=== PATIENT | male | born 1940 | race Caucasian/White ===

== ENCOUNTER 2018-05-31 12:16 | Emergency (ER) | payer MEDICARE ==
[~2018-05-31] VITALS: Ht 177.8 cm; Wt 122.5 kg
[~2018-05-31 12:16] MED LIST: ASPIRIN EC81 MG PO; ATACAND32 MG PO; CLINDAMYCIN HC300 MG PO; FUROSEMIDE40 MG PO; GLIMEPIRIDE4 MG PO; IRON325 M1 PO; LANTUS100 UNITS/ SUB-Q; LEVOTHYROXINE100 MCG PO; LIPITOR40 MG PO; LOSARTAN POTAS100 MG PO; METFORMIN HCL500 MG PO; METOPROLOL SUC200 MG PO; METOPROLOL TART50 MG PO; OXYCODONE HCL10 MG PO; PERCOCET 10-321 EACH PO; PRILOSEC OTC20 MG PO; PRILOSEC20 MG PO; PROBENECID-COL1 EACH PO; SERTRALINE HCL50 MG PO; ULORIC80 MG PO; VENLAFAXINE H37.5 M1 PO; VITAMIN D5000 UNIT PO; WARFARIN SODIUM5 MG PO
[2018-05-31] MEDS ORDERED: PEPCID40 MG PO (12:39)
[2018-05-31] MEDS ORDERED: INDOMETHACIN25 MG PO (12:43)
[2018-05-31] MEDS ORDERED: HYDROXYZINE PAM50 MG PO (12:45)
[2018-05-31] MEDS ORDERED: IRON325 M1 PO (12:46)
[2018-05-31] MEDS ORDERED: AUGMENTIN 875-1 EACH PO (14:58)
== END 2018-05-31 15:12 | disposition home or self-care (01) ==
LOC: ED 12:16
DX: K57.32 Diverticulitis of large intestine without perforation or abscess without bleeding (principal); I48.91 Unspecified atrial fibrillation; I10 Essential (primary) hypertension; E11.9 Type 2 diabetes mellitus without complications; Z88.1 Allergy status to other antibiotic agents; Z88.8 Allergy status to other drugs, medicaments and biological substances; Z79.899 Other long term (current) drug therapy; Z79.01 Long term (current) use of anticoagulants; Z79.82 Long term (current) use of aspirin; Z79.4 Long term (current) use of insulin
CPT/HCPCS: 74177; 80053; 81001; 83690; 85025; 85610; 99284-25; Q9967

== ENCOUNTER 2018-09-15 07:50 | Day surgery (SDC) | payer MEDICARE, OTHER ==
[~2018-09-15] VITALS: Ht 177.8 cm; Wt 114.3 kg
[~2018-09-15 07:50] MED LIST changes: +ALLOPURINOL300 MG PO; +AUGMENTIN 875-1 EACH PO; +HYDROXYZINE PAM50 MG PO; +INDOMETHACIN25 MG PO; +METOPROLOL SUCC50 MG PO; +PEPCID40 MG PO; +RELION NOV100 UNIT/1 SUB-Q
--- NOTE | 2018-09-15 10:42 | NUR ---
09/15/18 1042 Ynes Frost 1033-PATIENT ARRIVED TO PACU ON 10L MASK NONAROUSABLE ORAL AIRWAY IN PLACE. RR EVEN. AFIB. IVF INFUSING. PATIENT LAYING LEFT LATERAL. LEFT LEG IS VERY LARGE AND SWOLLEN SAME PREOP. AFIB. 1041-PATIENT ON 6L OM COUGHING AND GAGGING ON ORAL AIRWAY ALONG WITH PASSING GAS. PATIENT SLIGHTLY OPENS EYES ORAL AIRWAY REMOVED. PATIENT DOZES BACK TO SLEEP. RR EVEN. 6L OM 100%
--- NOTE | 2018-09-16 06:44 | OR ---
[facility] [address] [place], [place] [address] Signed DATE OF OPERATION: 09/15/2018 SURGEON: Eliazar Goncalves MD PREOPERATIVE DIAGNOSES: 1. Recent 1st episode sigmoid diverticulitis. 2. Diarrhea following cholecystectomy. 3. Anorexia. 4. Weight loss. POSTOPERATIVE DIAGNOSES: 1. Polyps at 8, 55, 60, cecum x2, distal right colon x2, 45 cm and 25 cm (snare). 2. Moderate left and sigmoid diverticulosis. 3. Moderate internal and external hemorrhoids. 4. Erythema/narrowing at 22-24 cm. PROCEDURE PERFORMED: Colonoscopy with snare polypectomy, and hot biopsy. ESTIMATED BLOOD LOSS: None. INDICATIONS: Josy is a 78-year-old significantly debilitated gentleman who recently went to our emergency room with left lower quadrant abdominal pain. He had diverticulitis on the CT scan. He took 10 days of Augmentin. He was asked to see me for a followup colonoscopy. He said he has never had a colonoscopy ever in his life. He talked about having diarrhea since his gallbladder came out in September 2016. He said he still has a little bit of pain somewhere near the bladder area. Consequently, we sent an additional week of Augmentin into the pharmacy. In the office, I gave Kranthi and his a booklet on diverticulitis as well as colonoscopy. We did review the nature of the test along with the risks including, but not limited to gas, bloating, crampy abdominal pain, bleeding, perforation, requiring surgery, and missed diagnosis. We also discussed the need for IV conscious sedation. Given Josy's size and his significant medical issues, we asked the anesthesia provider help us with increased monitoring sedation with propofol. He had expressed understanding wished to proceed. DESCRIPTION OF PROCEDURE: Josy was taken into our endoscopy suite and placed in the left lateral decubitus position. He was maintained on IV sedation with propofol per our nurse dispatch lead. A Electronically Signed By: ELIAZAR GONCALVES MD 09/16/18 0644 PATIENT NAME: JOSY GOMEZ OPERATIVE REPORT DATE OF : 40 REPORT #: [id number] PHYSICIAN: ELIAZAR GONCALVES MD PCP: JORGE KAUR MD REPORT IS CONFIDENTIAL AND NOT TO BE RELEASED WITHOUT AUTHORIZATION [facility] [address] [place], [place] [address] Signed digital rectal exam was performed. He does have moderate circumferential external hemorrhoids. His prostate gland is moderately enlarged and indurated. I did not feel a specific nodule. The adult colonoscope was introduced and advanced all around into the cecum under direct visualization of camera without difficulty. His prep was good. The scope was slowly withdrawn. The above-mentioned polyps were easily removed with the help of hot biopsy forceps. We did use our snare at 25 cm. We collected that polyp on the end of the scope and passed it off the field for pathologic review. He also has left and sigmoid colon diverticulosis. They are moderate size moderate number and scattered about. There was an area red about 20-24 cm. There was still a little bit erythema and just a little bit narrow, but the scope did get through it. I suspect this might be the area that is causing him a little bit of symptoms. The scope was then retroflexed in the rectum and he does have xlvwvtr-sn-tqnumptm internal hemorrhoid columns as well. After this, the gas was suctioned out and colonoscope removed. Josy tolerated the procedure quite well. RECOMMENDATIONS: I will see Josy in my office in 7 to 14 days to review his results. He can resume his Coumadin and his aspirin in 1 week. His other medications he can resume today. Eliazar Goncalves MD [facility] /[id number] cc: HERO Cid MD Andrew L Bower, MD Copies: SHANKAR KATE MALCOLM MD Electronically Signed By: ELIAZAR GONCALVES MD 09/16/18 0644 PATIENT NAME: JOSY GOMEZ OPERATIVE REPORT DATE OF : 40 REPORT #: [id number] PHYSICIAN: ELIAZAR GONCALVES MD PCP: JORGE KAUR MD REPORT IS CONFIDENTIAL AND NOT TO BE RELEASED WITHOUT AUTHORIZATION [address] [address] Signed ELIAZAR GONCALVES MD ~ Electronically Signed By: ELIAZAR GONCALVES MD 09/16/18 0644 PATIENT NAME: JOSY GOMEZ DAPHNEY OPERATIVE REPORT DATE OF : 40 REPORT #: [id number] PHYSICIAN: ELIAZAR GONCALVES MD PCP: JORGE KAUR MD REPORT IS CONFIDENTIAL AND NOT TO BE RELEASED WITHOUT AUTHORIZATION
== END 2018-09-15 11:35 | disposition home or self-care (01) ==
LOC: DS 07:50 → OPS 07:50
PROVIDERS: Colon & Rectal Surgery
PROC: 0DBE8ZZ Excision of Large Intestine, Via Natural or Artificial Opening Endoscopic (ICD-10-PCS; 2018-09-15)
PROC: 0DBK8ZZ Excision of Ascending Colon, Via Natural or Artificial Opening Endoscopic (ICD-10-PCS; 2018-09-15)
PROC: 0DBH8ZZ Excision of Cecum, Via Natural or Artificial Opening Endoscopic (ICD-10-PCS; principal; 2018-09-15 09:00)
DX: D12.0 Benign neoplasm of cecum (principal); D12.6 Benign neoplasm of colon, unspecified; K63.5 Polyp of colon; K57.30 Diverticulosis of large intestine without perforation or abscess without bleeding; K64.8 Other hemorrhoids; K64.4 Residual hemorrhoidal skin tags; K21.9 Gastro-esophageal reflux disease without esophagitis; I10 Essential (primary) hypertension; E78.1 Pure hyperglyceridemia; E66.9 Obesity, unspecified; E55.9 Vitamin D deficiency, unspecified; E03.9 Hypothyroidism, unspecified; I25.10 Atherosclerotic heart disease of native coronary artery without angina pectoris; I42.9 Cardiomyopathy, unspecified; G89.29 Other chronic pain; E11.9 Type 2 diabetes mellitus without complications; Z90.49 Acquired absence of other specified parts of digestive tract; Z88.0 Allergy status to penicillin; Z95.1 Presence of aortocoronary bypass graft; Z88.8 Allergy status to other drugs, medicaments and biological substances; Z88.7 Allergy status to serum and vaccine; Z79.899 Other long term (current) drug therapy; Z79.4 Long term (current) use of insulin
CPT/HCPCS: J2704; J7120

== ENCOUNTER 2018-12-19 14:09 | Emergency (ER) | payer MEDICARE, OTHER ==
[~2018-12-19] VITALS: Ht 177.8 cm; Wt 114.3 kg
--- OUTSIDE RECORDS SUMMARY | 2018-12-19 14:12 | XMS ---
PreManage Notification: MELINA GOMEZ Security Locket Maker Events No recent Security Events currently on file CRITERIA MET - PDMP CARE PROVIDERS Doroteo Felder MD Primary Care Current PHONE: Unknown orcate Case or Disc Pad Grinding Machine Feeder Current PHONE: Unknown [facility] PHONE: Unknown Susu has no Care Guidelines for this patient. E.D. VISIT COUNT (12 MO.) 2 [facility] TOTAL 2 NOTE: Visits indicate total known visits. ED/UCC VISIT TRACKING (12 MO.) 12/19/2018 14:10 [facility] [place] TYPE: Emergency COMPLAINT: - AMB L SHOULDER NECK PN 05/31/2018 12:16 [facility] [place] TYPE: Emergency COMPLAINT: - ABD PAIN/DIARRHEA DIAGNOSES: - Allergy status to other antibiotic agents status - group home (current) use of insulin - Other patch sander (current) drug therapy - Left lower quadrant pain - Allergy status to other drugs, medicaments and biological substances status - group home (current) use of aspirin - Diverticulitis of large intestine without perforation or abscess without bleeding - Unspecified atrial fibrillation - Essential (primary) hypertension - 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
[2018-12-19] MEDS ORDERED: NORCO 5-325 TA1 EACH PO (18:24)
--- NOTE | 2018-12-19 20:43 | EKG ---
[facility] [address] [facility] [place] [address] Signed Atrial fibrillation with premature ventricular or aberrantly conducted complexes Nonspecific T wave abnormality Abnormal ECG When compared with ECG of 15-JUL-2018 13:22, Atrial fibrillation has replaced Junctional rhythm Vent. rate has increased BY [address] no longer depressed in Inferior leads T wave inversion now evident in Inferior leads Confirmed by ALLISON ASTORGA MD ([id number]) on 12/19/2018 8:42:54 PM Electronically Signed By: ALLSION ASTORGA MD 12/19/18 2043 PATIENT NAME: MELINA GOMEZ Electrocardiogram DATE OF : 40 PHYSICIAN: ALLISON ASTORGA MD REPORT #: [id number] REPORT IS CONFIDENTIAL AND NOT TO BE RELEASED WITHOUT AUTHORIZATION
== END 2018-12-19 18:36 | disposition home or self-care (01) ==
LOC: ED 14:09
DX: M25.512 Pain in left shoulder (principal); I10 Essential (primary) hypertension; E11.9 Type 2 diabetes mellitus without complications; I48.91 Unspecified atrial fibrillation; Z88.1 Allergy status to other antibiotic agents; Z88.8 Allergy status to other drugs, medicaments and biological substances; Z79.01 Long term (current) use of anticoagulants; Z79.82 Long term (current) use of aspirin; Z79.4 Long term (current) use of insulin; Z79.899 Other long term (current) drug therapy
CPT/HCPCS: 36415; 71045; 73030; 80053; 84484; 85025; 93005; 93010; 99284-25

== ENCOUNTER 2019-02-14 15:21 | Emergency (ER) | payer MEDICARE, OTHER ==
[~2019-02-14] VITALS: Ht 177.8 cm; Wt 114.3 kg
--- OUTSIDE RECORDS SUMMARY | ~2019-02-14 | XMS | Encounter Summary ---
Demographics + + + | Address | [address] | | | [place] [address] | + + + | Home Phone | | + + + | Preferred Language | Unknown | + + + | Marital Status | Single | + + + | Roman Catholic Affiliation | NON | + + + | Race | White | + + + | Ethnic Group | Not or | + + + Author + + + | Author | [facility] | + + + | Organization | [facility] | + + + | Address | Unknown | + + + | Phone | Unavailable | + + + Support + + + + + | Name | Relationship | Address | Phone | + + + + + | Chiara Cid | ECON | [address] | | | | | [place], | | | | | [place] [address] | | + + + + + Care Team Providers + +------+ + | Care Wood Stainer Name | Role | Phone | + +------+ + | Doroteo Felder MD | PCP | | + +------+ + Encounter Details +--------+ + + + + | Date | Type | Department | Care Team | Description | +--------+ + + + + | 03/12/ | Abstract | Trauma Emergency | [facility] [address] | | | 2009 | | General Surgery at | [facility] | | | | | [address] | [place], [place] | | | | | [address] | [address] | | | | | Mailcode: [id number] | | | | | | [facility] | | | | | | [address], [place] | | | | | | [address] | | | | | | [phone] | | | +--------+ + + + [...] + + documented as of this encounter Plan of Treatment Not on filedocumented as of this encounter Visit Diagnoses Not on filedocumented in this encounter"
--- OUTSIDE RECORDS SUMMARY | ~2019-02-14 | XMS | Clinical Summary ---
Demographics + + + | Address | [address] | | | [place] [address] | + + + | Home Phone | | + + + | Preferred Language | Unknown | + + + | Marital Status | | + + + | Tenriism Affiliation | Unknown | + + + | Race | Unknown | + + + | Ethnic Group | Unknown | + + + Author + + + | Author | [employer] (Historical as of | | | 11-27-18) | + + + | Organization | [facility] [facility] (Historical as of | | | 11-27-18) | + + + | Address | Unknown | + + + | Phone | Unavailable | + + + Support + + + + + | Name | Relationship | Address | Phone | + + + + + | Chiara Cid | ECON | [address] | | | | | [place] | | | | | [address] | | + + + + + | Josephine Meléndez | ECON | Unknown | | + + + + + Care Team Providers + +------+ + | Care Associate Field Service Engineer Name | Role | Phone | + +------+ + | Jalen Cortes MD | PP | | + +------+ + Allergies + + + + + + | Active Allergy | Reactions | Severity | Noted | Comments | | | | | Date | | + + + + + + | Duloxetine | Other (See Comments) | Medium | 12/04/19 | Prostate occlusion | | | | | 12 | | + + + + + + | Levofloxacin | Other (See Comments) | Medium | 01/06/20 | Achilles pain | | | | | 12 | | + + + + + + | Lisinopril | Cough | Low | 12/04/19 | | | | | | 12 | | + + + + + + Current Medications + + +--------+---------+------+------+-------+ | Prescription | Sig. | Disp. | Refills | Star | End | Statu | | | | | | t | Date | s | | | | | | Date | | | + + +--------+---------+------+------+-------+ | atorvastatin | Take 40 mg by mouth | | | | | Activ | | (LIPITOR) 40 MG | daily. | | | | | e | | tablet | | | | | | | + + +--------+---------+------+------+-------+ | aspirin 81 MG | Take 81 mg by mouth | | | | | Activ | | tablet | daily. | | | | | e | + + +--------+---------+------+------+-------+ | Cholecalciferol | Take 5,000 Units by | | | | | Activ | | (D3 SUPER STRENGTH | mouth daily. | | | | | e | | PO) | | | | | | | + + +--------+---------+------+------+-------+ | warfarin | Take 5 mg by mouth | | | | | Activ | | (COUMADIN) 5 MG | daily. 5 mg every | | | | | e | | tablet | day except 2.5mg on | | | | | | | | ./thursday, | | | | | | | | regulated by | | | | | | | | [facility] | | | | | | + + +--------+---------+------+------+-------+ | furosemide (LASIX) | Take 1 tablet by | | | 03/0 | | Activ | | 40 MG tablet | mouth 2 (two) times | | | 2/20 | | e | | | daily. | | | 16 | | | + + +--------+---------+------+------+-------+ | losartan (COZAAR) | Take 1 tablet by | 30 | 0 | 03/0 | 04/1 | Activ | | 100 MG tablet | mouth daily. | tablet | | 2/20 | 1/20 | e | | | | | | 16 | 20 | | + + +--------+---------+------+------+-------+ | indomethacin | Take 25 mg by mouth | | | | | Activ | | (INDOCIN) 25 MG | as needed. | | | | | e | | capsuleIndications: | | | | | | | | Acute Gouty | | | | | | | | Arthritis | | | | | | | + + +--------+---------+------+------+-------+ | ferrous sulfate, | Take 65 mg of iron | | | | | Activ | | 65 FE, 324 (65 Fe) | by mouth 3 (three) | | | | | e | | MG EC tablet | times a week. | | | | | | + + +--------+---------+------+------+-------+ | levothyroxine | Take 100 mcg by | | | | | Activ | | (SYNTHROID) 100 MCG | mouth every morning | | | | | e | | tablet | before breakfast. | | | | | | + + +--------+---------+------+------+-------+ | metFORMIN | Take 500 mg by mouth | | | | | Activ | | (GLUCOPHAGE) 500 MG | 2 (two) times daily | | | | | e | | tablet | with meals. | | | | | | + + +--------+---------+------+------+-------+ | famotidine | Take 40 mg by mouth | | | | | Activ | | (PEPCID) 40 MG | daily. | | | | | e | | tablet | | | | | | | + + +--------+---------+------+------+-------+ | venlafaxine | Take 37.5 mg by | | | | | Activ | | (EFFEXOR-XR) 37.5 MG | mouth daily with | | | | | e | | 24 hr capsule | breakfast. | | | | | | + + +--------+---------+------+------+-------+ | metoprolol | Take 1 tablet by | 30 | 11 | 04/ | 04/ | Activ | | (TOPROL-XL) 50 MG 24 | mouth daily. | tablet | | /20 | 0/20 | e | | hr | | | | 19 | 20 | | | tabletIndications: | | | | | | | | Chronic atrial | | | | | | | | fibrillation (HCC), | | | | | | | | Ischemic | | | | | | | | cardiomyopathy | | | | | | | + + +--------+---------+------+------+-------+ | allopurinol | Take 300 mg by mouth | | | | | Activ | | (ZYLOPRIM) 300 MG | daily. | | | | | e | | tablet | | | | | | | + + +--------+---------+------+------+-------+ | insulin - MIX | Inject 30 Units into | | | | | Activ | | insulin NPH-insulin | the skin 2 (two) | | | | | e | | regular 70/30 | times daily before | | | | | | | (HUMULIN, NOVOLIN | meals. Take 30 in am | | | | | | | 70/30) (70-30) 100 | and 35 unites in pm | | | | | | | UNIT/ML | | | | | | | | injectionIndications | | | | | | | | : Type 2 Diabetes | | | | | | | | Mellitus | | | | | | | + + +--------+---------+------+------+-------+ | nitroGLYCERIN | Place 1 tablet under | 25 | 3 | 05/1 | | Activ | | (NITROSTAT) 0.4 MG | the tongue every 5 | tablet | | 6/20 | | e | | SL tablet | (five) minutes as | | | 19 | | | | | needed. | | | | | | + + +--------+---------+------+------+-------+ Active Problems + + + | Problem | Noted Date | + + + | Encounter for pre-operative cardiovascular clearance | 07/22/2018 | + + + | Hypothyroidism | 07/22/2018 | + + + | Leukocytosis | 07/22/2018 | + + + | Cardiomyopathy (HCC) | 05/14/2015 | + + + + + | Last Assessment & Plan: Non-ischemic Cardiomyopathy, LVEDd | | 65mm, LVEF 40-45%. 75yo WM, with history of | | cardiomyopathy, CHF, admits a mild degree of exertional shortness | | of breath and fatigue, but there is no orthopnea or PND, no | | chest discomfort. He is aware of the irregular pulse, but | | unaware of any palpitations, no lightheadedness. Denies any new | | visual disturbances, dysarthria, dysphasia, lateralizing signs or | | symptoms. No significant bleeding or bruising. He does have | | chronic edema, especially the left leg. His cardiac condition is | | otherwise stable, the results of his recent stress test and | | echocardiogram are reviewed with him and his . Tolerating | | medications. No changes in therapy.Hx CABG: noHx PCI/stent: noHx | | ICD/Pacemaker: noLast Cath: naLast Echo, 05/16/2015 ([facility] 4-chamber enlargement, LVEDd 64mm, biplane LVEF 40%, | | severe LAE, moderate NEERAJ, moderate RVE with systolic function low | | NML, mild MR, mild TR, trace PI, est systolic PAP 27-32.Last | | Stress Test, 05/23/2015 ([facility]): Equivocal old infarction | | in these inferior wall apex, significantly low ejection fraction, | | hypokinesis, LVEF 18%.ECG, 11/12/2014 ([facility]): A fib, | | 80bpm, LAD, diffuse non-spec ST-T changes. | + + + + + | Atrial fibrillation (HCC) | 05/14/2015 | + + + + + | Last Assessment & Plan: Chronic atrial fibrillation, CHADS2 | | Score 3 (CHF, HTN, DM), heart rate controlled, anticoagulated | | with warfarin, managed by PCP. Denies any new visual | | disturbances, dysarthria, dysphasia, lateralizing signs or | | symptoms. No significant bleeding or bruising. | + + + + + | Hypertension | 05/14/2015 | + + + + + | Last Assessment & Plan: Hypertension, controlled, continue | | current meds at current dose (furosemide, metoprolol, losartan). | | . | + + + + + | Hyperlipidemia | 05/14/2015 | + + + + + | Last Assessment & Plan: Hyperlipidemia, continue current meds | | at current doses (atorvastatin). Labs reviewed with | | patient.Lab, 07/12/2015: T Chol: 199, LDL-Chol: na, HDL-Chol: 33, | | Tri AST/ALT/GGT: 28/24/50, K: | | 4.1, BUN/Cr: 28/1.3 (GFR 56), glu: 191 | | TSH: 2.02, HgbA1c: 7.4, WBC: 5.7, H/H: 12.3/39.4 (MCV 74), plt: | | 205, ESR: 12 | + + + + + | Type 2 diabetes mellitus with diabetic chronic kidney disease | 05/14/2015 | | (HCC) | | + + + + + | Last Assessment & Plan: DM2, managed by PCP. | + + + + + | Leiomyosarcoma of left lower extremity (HCC) | 05/14/2015 | + + + + + | Last Assessment & Plan: Hx Leiomyosarcoma, left leg, with | | surgical resection with lymph node dissection (40+ years ago), | | with chemo and Rads. Chronic lymphedema with cellulitis. | + + + + + | Palpitations | 02/23/2013 | + + + | Other chest pain | 02/23/2013 | + + + | Chronic combined systolic and diastolic congestive heart failure | 02/23/2013 | | (HCC) | | + + + | Cellulitis | 01/06/2012 | + + + | Lymphedema | 01/06/2012 | + + + Family History + + +------+ + | Medical History | Relation | Name | Comments | + + +------+ + | Heart disease | Brother | | | + + +------+ + | Stroke | Brother | | | + + +------+ + | Stroke | Father | | | + + +------+ + | Coronary art dis | Mother | | | + + +------+ + | Heart disease | Mother | | | + + +------+ + | High cholesterol | Mother | | | + + +------+ + | Hypertension | Mother | | | + + +------+ + + +------+ + + | Relation | Name | Status | Comments | + +------+ + + | Brother | | | | + +------+ + + | Father | | | CVA | | | | (Age | | | | | 49) | | + +------+ + + | Mother | | | heart disease | | | | (Age | | | | | 51) | | + +------+ + + Social History + +-------+ +--------+------+ [...] + +---------+ + | Alcohol Use | Drinks/We | oz/Week | Comments | | | ek | | | + + +---------+ + | Yes | 0 | 0.0 | rarely drinks beer | | | Standard | | | | | drinks or | | | | | | | | | | equivalen | | | | | t | | | + + +---------+ + + + + | Sex Assigned at | Date Recorded | | | | + + + | Not on file | | + + + Last Filed Vital Signs + + + + | Vital Sign | Reading | Time Taken | + + + + | Blood Pressure | 128/60 | 08/26/2018 2:06 PM PDT | + + + + | Pulse | 86 | 08/26/2018 2:06 PM PDT | + + + + | Temperature | 36.9 C (98.5 F) | 01/06/2012 2:16 PM PDT | + + + + | Respiratory Rate | 18 | 08/26/2018 2:06 PM PDT | + + + + | Oxygen Saturation | 95% | 08/26/2018 2:06 PM PDT | + + + + | Inhaled Oxygen | - | - | | Concentration | | | + + + + | Weight | 115.7 kg (255 lb) | 08/26/2018 2:06 PM PDT | + + + + | Height | 177.8 cm (5' 10") | 08/26/2018 2:06 PM PDT | + + + + | Body Mass Index | 36.59 | 08/26/2018 2:06 PM PDT | + + + + Plan of Treatment + + + + + | Health Maintenance | Due Date | Last Done | Comments | + + + + + | Diabetic Eye Exam | | | | | | 1 | | | + + + + + | Diabetic Foot Exam | | | | | | 1 | | | + + + + + | Vaccine: | | | | | Dtap/Tdap/Td (1 - | 0 | | | | Tdap) | | | | + + + + + | Vaccine: Zoster (1 | | | | | of 2) | 1 | | | + + + + + | Vaccine: | | | | | Pneumococcal 65+ | 6 | | | | High/Highest Risk (1 | | | | | of 2 - PCV13) | | | | + + + + + | Hemoglobin A1c | | 07/12/2015 | | | | 6 | | | + + + + + | Vaccine: Influenza | | | | | (#1) | 9 | | | + + + + + Results Not on filefrom Last 3 Months Insurance + +--------+ +------+-------+ + | Payer | Benefi | Subscriber | Type | Phone | Address | | | t Plan | ID | | | | | | / | | | | | | | Group | | | | | + +--------+ +------+-------+ + | COMMERCIAL OTHER | TRANSA | [id number] | | | | | | [employer] | | | | | | | LIFE | | | | | + +--------+ +------+-------+ + | MEDICARE | MEDICA | [id number] | | | [address] | | | RE | | | | [place] [id number] | | | IP-OP | | | | | + +--------+ +------+-------+ + + +--------+ +--------+ + + | Guarantor Name | Accoun | Relation to | Date | Phone | Billing Address | | | t Type | Patient | of | | | | | | | | | | + +--------+ +--------+ + + | KRANTHI CID | Person | Self [birth year] Home: | [address] | | | al/Fam | | [phone] | [phone] | [place] | | | sharla | | | [phone] | [phone] | + +--------+ +--------+ + +
--- OUTSIDE RECORDS SUMMARY | ~2019-02-14 | XMS | Clinical Summary ---
Demographics + + + | Address | [address] [place] [address] | | | [place] [address] | + + + | Home Phone | | + + + | Preferred Language | Unknown | + + + | Marital Status | Single | + + + | Mandaen Affiliation | NON | + + + [...] + | Chiara Cid | ECON | [address] | | | | | [place], | | | | | [place] [address] | | + + + + + Care Team Providers + +------+ + | Care Nurse Research Name | Role | Phone | + +------+ + | Doroteo Felder MD | PCP | | + +------+ + Source Comments BETH is fully live on both [facility] Ambulatory and [facility] InPatient.[facility] Allergies No Known Allergies Medications [...] | | | | | | | [address] | | + +--------+ +--------+ + +--------+ [...] | 1941 | [phone] | [place] [address] | | | sharla | | | [...]
--- OUTSIDE RECORDS SUMMARY | ~2019-02-14 | XMS | Encounter Summary ---
Demographics + + + | Address | [address] | | | [place] [address] | + + + | Home Phone | | + + + | Preferred Language | Unknown | + + + | Marital Status | | + + + | Scientology Affiliation | Unknown | + + + | Race | Unknown | + + + | Ethnic Group | Unknown | + + + Author + + + | Author | [facility] | | | and [place] | + + + | Organization | [facility] | | | and [place] | + + + | Address | Unknown | + + + | Phone | Unavailable | + + + Support + + + + + | Name | Relationship | Address | Phone | + + + + + | Barak Cid | ECON | [address] | | | | | [place], | | | | | [place] [address] | | + + + + + | Josephine Meléndez | ECON | [address] | | | | | [place] | | | | | [address] | | + + + + + | Chiara Cid | ECON | [address] | | | | | [place], [place] | | | | | [address] | | + + + + + | Josephine Meléndez | [place] | Unknown | | + + + + + Care Team Providers + +------+ + | Care Printing Gray Cloth Tender Name | Role | Phone | + +------+ + | Doroteo Felder MD | PCP | | + +------+ + Encounter Details +--------+ + + + + | Date | Type | Department | Care Team | Description | +--------+ + + + + | 12/19/ | [facility] | [facility] | Provider, | | | 2019 | Exam | MED CTR EXTERNAL | [address] | | | | | IMAGING | [address] | | | | | [phone] | [place] [address] | | +--------+ + + + + [...] +---------+ + | Yes | | | Alcoholic Drinks/day: rarely drinks beer | + + +---------+ + + + [...] as of this encounter Plan of Treatment +--------+---------+ + + + | Date | Type | Specialty | Care Team | Description | +--------+---------+ + + + | 02/15/ | Office | Orthopedic Surgery | David Sousa | | | 2019 | Visit | | [address] | | | | | | [address] | | | | | | [place] [address] | | | | | | [phone] | | | | | | | | +--------+---------+ + + + documented as of this encounter Procedures + +--------+ + + + | Procedure Name | Priori | Date/Time | Associated Diagnosis | Comments | | | ty | | | | + +--------+ + + + | XR SHOULDER LEFT 2 + | Routin | 12/19/2018 | | Results for this | | VW | e | 0:00 PDT | | procedure are in the | | | | | | results section. | + +--------+ + + + documented in this encounter Results XR Shoulder Left 2 + Vw (12/19/2018 0:00 PDT) + + | Specimen | + + | | + + + + + | Narrative | Performed At | + + + | External films for comparison only | [facility] | | | | | No results will be in the chart. | | + + + + +---------+ + + | Performing | Address | City/State/Zipcode | Phone Number | | Organization | | | | + +---------+ + + | [facility] | | | | + +---------+ + + documented in this encounter Visit Diagnoses Not on filedocumented in this encounter"
--- OUTSIDE RECORDS SUMMARY | ~2019-02-14 | XMS | Encounter Summary ---
Demographics + + + | Address | [address] | | | [place] [address] | + + + | Home Phone | | + + + | Preferred Language | Unknown | + + + | Marital Status | | + + + | Gnosticism Affiliation | Unknown | + + + | Race | Unknown | + + + | Ethnic Group | Unknown | + + + Author + + + | Author | [facility] | | | and [place] | + + + | Organization | [facility] | | | and [...] [place], | | | | | [place] [address] | | + + + + + | Josephine Meléndez | ECON | [address] | | | | | [place] | | | | | [address] | | + + + + + | Chiara Cid | ECON | [address] | | | | | [place], [place] | | | | | [address] | | + + + + + | Josephine Meléndez | [place] | Unknown | | + + + + + Care Team Providers + +------+ + | Care Finance Executive Name | Role | Phone | + +------+ + | Doroteo Felder MD | PCP | | + +------+ + Encounter Details +--------+ + + + + | Date | Type | Department | Care Team | Description | +--------+ + + + + | 12/19/ | Imaging | [facility] | Provider, | | | 2019 | Exam | MED CTR EXTERNAL | [address] | | | | | IMAGING | [address] | | | | | [phone] | [place] [address] | | +--------+ + + + + [...] | | | | | [place] [address] | | | | | | [phone] | | | | | | | [...]
--- OUTSIDE RECORDS SUMMARY | ~2019-02-14 | XMS | Encounter Summary ---
Demographics + + + | Address | [address] | | | [place] [address] | + + + | Home Phone | | + + + | Preferred Language | Unknown | + + + | Marital Status | Single | + + + | Sabianist Affiliation | NON | + + + | Race | White | + + + | Ethnic Group | Not or | + + + Author + + + | Author | [facility] | + + + | Organization | [facility] | + + + | Address | Unknown | + + + | Phone | Unavailable | + + + Support + + + + + | Name | Relationship | Address | Phone | + + + + + | Chiara Cid | ECON | [address] | | | | | [place], | | | | | [place] [address] | | + + + + + Care Team Providers + +------+ + | Care Sampling Theory Teacher Name | Role | Phone | + [...] | Radiology | Procedures | Vantighem, | Xxrad Vasc | | | | | VASC LAB | Scott Welsh MD | [address] | | | | | VENOUS | [address] | [address] | | | | | DUPLEX LOWER | [address] | [address] | | | | | EXTREMITY | [address] | Rd Mailcode: | | | | | BILAT COMP | [place], [place] | [address] | | | | | | [address] | Physician's | | | | | | | Pavilion | | | | | | | [place], [place] | | | | | | | [address] | | | | | | | Phone: | | | | | | | [phone] | | | | | | | Fax: | | | | | | | [phone] | +--------+--------+ + + + + Diagnostic Testing (Routine) +--------+--------+ + + + + | Status | Reason | Specialty | Diagnoses / | Referred By | Referred To | | | | | Procedures | Contact | Contact | +--------+--------+ + + + + | Closed | | Radiology | Procedures | Vantighem, | Xxrad Vasc | | | | | VASC LAB | Scott Welsh MD | [address] | | | | | VENOUS | [address] | [address] | | | | | DUPLEX UPPER | [address]tan | [address] | | | | | EXTREMITY | [address] | Matthew Mailcode: | | | | | BILAT COMP | [place], [place] | [address] | | | | | | [address] | Physician's | | | | | | | Pavilion | | | | | | | [place], [place] | | | | | | | [address] | | | | | | | Phone: | | | | | | | [phone] | | | | | | | Fax: | | | | | | | [phone] | +--------+--------+ + + + + Diagnostic Testing (Routine) +--------+--------+ + + + + | Status | Reason | Specialty | Diagnoses / | Referred By | Referred To | | | | | Procedures | Contact | Contact | +--------+--------+ + + + + | Closed | | Radiology | Procedures | Vantighem, | Xxrad Vasc | | | | | VASC LAB | Scott Welsh MD | [address] | | | | | ARTER DUPLEX | [address] | [address] | | | | | LOWER | [address] | [address] | | | | | EXTREMITY | [address] | Rd Mailcode: | | | | | BILATERAL | [place], [place] | [address] | | | | | COMPLETE | [address] | Physician's | | | | | | | Pavilion | | | | | | | [place], [place] | | | | | | | [address] | | | | | | | Phone: | | | | | | | [phone] | | | | | | | Fax: | | | | | | | [phone] | +--------+--------+ + + + + Reason [...] | | | | | | [address] | | | | | | | [address] | | | | | | | [id number]/[id number] | | | | | | | [facility] | | | | | | | [place], | | | | | | | [place] [address] | +--------+--------+ + + + + Encounter Details +--------+ + + + + | Date | Type | Department | Care Team | Description | +--------+ + + + + | 02/04/ | Hospital | [facility] [address] | Conrado Mckeon, | | | 2009 - | Encounter | [address] | | | | | | [id number]/UHS8T [facility] | | | | 02/06/ | | Hospital [place], | | | | 2009 | | [place] [address] | | | +--------+ + + + [...] back shortly. I agree with the plan. [id number] urt Ibrahim MD - 02/06/2010 6:00 PM [...] was transferred to the Trauma ICU from [facility] for management of right rib fractures and hemothorax due to a fall incurred on . 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 Please refer to Your Image [employer] for this information. Physical Exam Last Vitals:BP [...] some ti me. Tuan Piña PA-C Pager/ID: [phone] Trauma ICU Team Pager (24hrs/day): [phone] Conrado Page MD - 02/05/2010 5:17 AM [...] though he reports his ribs are painful. [id number] Scott Edward MD - 02/05/2010 5:17 AM PDT INTENSIVE CARE PROGRESS NOTE - TICU ICU day: 1 Author: Scott Cat MD Attending Physician: Dr. Mike MD 69 y.o. year old male transferred to the ICU from [facility] for right rib f ractures, R [...] SAMIAAM | [address] | [place], [place] | | | FABI VILLATOR[facility] OF CARE | [address] | [address] | | | TESTS | | | [...] K[facility]X | [address] | [place], [place] | | | [facility] OF [facility] | [facility] | [address] | | | TESTS | | | [...] | + + + + + | [facility] DEPARTMENT | [address] | [place] [address] | | | PATHOLOGY | [address] [...] (H) | 60 - 99 mg/dL | [facility] - | | | GLUCOSE, | | [...] [facility]X | [address] | [place], [place] | | | [place] [facility] CARE | [address] | [address] | | | TESTS | | | [...] LUCAS | | | | | | ROSETTAReviewer: SADA Martinez | | | | | | Osmar THOPMSON STATUS | | | | | | FINAL / Dr. SADA Martinez | | | | | | DONNASTATUS PENDING | | | | | | FINAL APPROVAL / DrLeonora | | | | | | ROX MARCHSTATUS | | | | | | PRELIMINARY [...] | | + +---------+ + + | [facility] DEPARTMENT OF | | | | | [...] + + | [facility] DEPARTMENT OF | [address] | [place] [address] | | | PATHOLOGY | [address] [...] OF | [address] | [place], [place] [address] | | | PATHOLOGY | [address] [...] | | | | Signed by: Arthur Navarrete, | | THERAPY | | | | RADIOLOGICAL EQUIPMENT SPECIALIST | | | | | | | [...] RESPIRATORY | [address] | [place], [place] | | | THERAPY | [address] | [address] | | + + + + + [...] [facility]X | [address] | [place], [place] | | | [facility] OF [place] | [facility] | [address] | | | TESTS | | | [...] + | [facility] | [address] | [place], [place] | | | [facility] | [facility] | [address] | | | TESTS | | | [...] | | | | | TIMUR GRUBER (158 on | | | | | | 02/06/2010 10:23:09 AM | | | | + + + + + + + + | Specimen | + + | | + + + + + | Narrative | Performed At | + + + | Please click | [facility] DEPT OF | | on view image for the detailed interpretation from [employer] results. | CARDIOLOGY | + + + + + + + + | Performing | Address | City/State/Zipcode | Phone Number | | Organization | | | | + + + + + | [facility] DEPT OF | [address] | [place], [place] | | | CARDIOLOGY | [address] | [address] | | + + + + + [...] | | | | | VENOUS | [id number] Name: | | | | | DUPLEX [...] # | | | | | | [id number] RESULT:LOWER | | | | | | [...] | | + +---------+ + + | [facility] DEPARTMENT OF | | | | | [...] | | | | | VENOUS | [id number] Name: | | | | | DUPLEX [...] # | | | | | | [id number] RESULT:UPPER | | | | | | [...] | | | | | ARTERY | [id number] Name: | | | | | DUPLEX [...] # | | | | | | [id number] RESULT:LOWER | | | | | | [...] | | | , STATUS FINAL / DrLeonora | | | | | | BRITTANY [...] [facility]X | [address] | [place], [place] | | | [place] [facility] CARE | [address] | [address] | | | TESTS | | | [...] | + + + + + | [facility] DEPARTMENT OF | [address] | [place] [address] | | | PATHOLOGY | [address] | | | + + + [...] | + + + + + | [facility] DEPARTMENT OF | [address] | [place] [address] | | | PATHOLOGY | [address] [...] + + | [facility] | [address] | [place], [place] | | | [facility] | [facility] | [address] | | | TESTS | | | [...] | + + + + + | [facility] DEPARTMENT | [address] | [place] [address] | | | PATHOLOGY | [address] | | | + + + + + X-RAY PORTABLE ELBOW 2 VIEWS RIGHT (02/05/2010 5:13 AM PDT) + + + + + + | Component | Value | Ref Range | Performed | Pathologist | | | | | At | Signature | + + + + + + | X-RAY | STUDY: ND ELBOW 2 VIEWS | | | | [...] OF | [address] | [place] [address] | | | PATHOLOGY | [address] [...] | + + + + + | [facility] DEPARTMENT OF | [address] | [place] [address] | | | PATHOLOGY | [address] | | | + + + + + INR (02/05/2010 5:09 AM PDT) + + + + + + | Component | Value | Ref Range | Performed | Pathologist | | | | | At | Signature | + + + + + + | INR | 2.24 (H)Comment: | 0.90 - 1.20 INR | [facility] | | | | INR Therapeutic ranges [...] | + + + + + | [facility] | [address] | [place] [address] | | | PATHOLOGY | [address] [...] OF | [address] | [place] [address] | | | PATHOLOGY | [address] [...] OF | [address] | [place] [address] | | | PATHOLOGY | [address] | | | + + + + + RESP CARE THERAPY (02/05/2010 4:24 AM PDT) + + + + + + | Component | Value | Ref Range | Performed | Pathologist | | | | | At | Signature | + + + + + + | RESPIRATORY | : History and Assessment | | [facility] | | | CARE | : TRAUMA [...] Kamara, | | | | | | RADIOLOGICAL EQUIPMENT SPECIALIST | | | | + + + + + + + + | Specimen | + + | | + + + + + + + | Performing | Address | City/State/Zipcode | Phone Number | | Organization | | | | + + + + + | [facility] RESPIRATORY | [address] | [place], [place] | | | THERAPY | [address] | [address] | | + + + + + [...] | + + + + + | [facility] | [address] | [place] [address] | | | PATHOLOGY | [address] [...] | | | | FINAL / Dr. MR | | | | | | BAL | | | | + + + + + + + + | Specimen | + + | | + + + +---------+ + + | Performing | Address | City/State/Zipcode | Phone Number | | Organization | | | | + +---------+ + + | [facility] DEPARTMENT OF | | | | | [...] | | + +---------+ + + | [facility] DEPARTMENT OF | | | | | RADIOLOGY | | | | + +---------+ + + X-RAY PORTABLE HUMERUS 2 VIEWS RIGHT (02/05/2010 2:06 AM PDT) + + + + + + | Component | Value | Ref Range | Performed | Pathologist | | | | | At | Signature | + + + + + + | X-RAY | STUDY: ND HUMERUS 2 | | | | | [...] | | + +---------+ + + | [facility] DEPARTMENT OF | | | | | [...] | + + + + + | [facility] | [address] | [place] [address] | | | PATHOLOGY | [address] [...] + + + + | [facility] DEPARTMENT | [address] | [place] [address] | | | PATHOLOGY | [address] [...] | + + + + + | [facility] | [address] | [place] [address] | | | PATHOLOGY | [address] [...] | + + + + + | [facility] | [address] | [place] [address] | | | PATHOLOGY | [address] | | | + + + [...] OF | [address] | [place] [address] | | | PATHOLOGY | [address] [...] OF | [address] | [place] [address] | | | PATHOLOGY | [address] [...] | | | | | | Until [facility] 02/07/10 at 0316, mild | | | [...] | | | intravenous, ONCE, 1 dose, Thu | | AM PDT | | [...] fentaNYL citrate (PF) (aka | Given | 10/27/20 | 50 mcg | | | | [...] PDT | | | | | Until Thu02/04/10 at 2305 | | | | | [...] | | | | | | | Tu02/05/10 at 0900, Until | | | | [...] +---+---+ + +-------+ +------+---+---+ | metoprolol (aka BHAVESH) | Given | 02/07/20 | 5 mg | | | | injection 2.5-5 mg 2.5-5 mg, | | 10 4:01 | | | | | intravenous, EVERY 6 HOURS, First | | AM PDT | | | | | dose on Tu02/05/10 at 0400, | | | | | [...] | | | | | NEEDED, Starting Thu02/04/10 at | | AM PDT | | | | | 2320, Until Thu02/06/10 at | | | | | [...] | | | | | NEEDED, Starting Tu02/05/10 at | | | | | | [...] | | | oral, ONCE, 1 dose, [facility] 02/05/10 | | PM PDT | | [...] | | | HOURS, First dose on 02/05/10 | | AM PDT | | | [...] | | 24 HOURS, First dose on Tue | | 10 9:46 | | | [...] +---+---+ + +-------+ + +---+---+ | senna-docusate (sergei Cai) | Given | 02/07/20 | 1 tablet [...] | | 84 doses, First dose on Tue | | AM PDT | | | | | 02/05/10 at 0000, Last dose on | | | | | | | 03/04/10 at 1600 | | | | | | + +-------+ +--------+---+---+ +---+---+ | | | +---+---+ documented in this encounter
--- OUTSIDE RECORDS SUMMARY | ~2019-02-14 | XMS | Encounter Summary ---
Demographics + + + | Address | [address] | | | [place] [address] | + + + | Home Phone | | + + + | Preferred Language | Unknown | + + + | Marital Status | | + + + | Jehovah'S Witness Affiliation | Unknown | + + + | Race | Unknown | + + + | Ethnic Group | Unknown | + + + Author + + + | Author | [facility] | | | and [place] | + + + | Organization | [facility] | | | [...] [place], | | | | | [place] [address] | | + + + + + | Josephine Meléndez | ECON | [address] | | | | | [place] | | | | | [address] | | + + + + + | Chiara Cid | ECON | [address] | | | | | [place], [place] | | | | | [address] | | + + + + + | Josephine Meléndez | MARIEL | Unknown | | + + + + + Care Team Providers + +------+ + | Care Store Standards Associate Name | Role | Phone | + +------+ + | Jalen Cortes MD | PCP | | + +------+ + Reason for Referral Evaluate & Treat (Routine) + + + [...] | | Silverio Lozoya MD | Sergo Mello MD | | | Required | | Post-traumat | [address] | [address] | | | | | ic | [address] [place] | [place], | | | | | osteoarthrit | [place], [place] | [place] [address] | | | | | is of left | [address] | Phone: | | | | | shoulder | Phone: | [phone] | | | | | | [phone] | Fax: | | | | | | Fax: | [phone] | | | | | | [phone] | | + + + + + + + Reason for Visit + + + | Reason | Comments | + + + | Shoulder Pain | RM 8- left shoulder pain ongoing, had steriod shot X 3 days ago, | | | not working anymore, tingling radiating down arm | + + + Encounter Details +--------+---------+ + + + | Date | Type | Department | Care Team | Description | +--------+---------+ + + + | 01/12/ | Office | [facility] | Silverio Loya, | Post-traumatic | | 2019 | Visit | CARE [address] | MD [address] | osteoarthritis of | | | | [place] | [place] | left shoulder | | | | [address] | [address] | (Primary Dx) | | | | [phone] | | | +--------+---------+ + + + [...] + | Blood Pressure | 165/79 | 01/12/20191632 PDT | + + + + | Pulse | 81 | 01/12/20191632 PDT | + + + + | Temperature | 36.6 C (97.9 F) | 01/12/20191632 PDT | + + + + | Respiratory Rate | 16 | 01/12/20191632 PDT | + + + + | Oxygen Saturation | 96% | 01/12/20191632 PDT | + + + + | Inhaled Oxygen | - | - | | Concentration | | | + + + + | Weight | 115.7 kg (255 lb) | 01/12/20191632 PDT | + + + + | Height | 177.8 cm (5' 10") | 01/12/2019 1633 PDT | + + + + | Body Mass Index | 36.59 | 01/12/2019 1633 PDT | + + + + documented in this encounter Patient Instructions Patient Instructions Silverio Loya MD - 01/12/2019 16:30 PDT Shoulder Pain with Uncertain Cause Shoulder pain can have many causes. Pain often comes from the structures that surround the shoulder joint. These are the joint capsule, ligaments, tendons, muscles, and bursa. Pain ca n also come from cartilage in the joint. Cartilage can become worn out or injured. It s im portant to know what s causing your pain so the healthcare provider can use the correct tr eatment. But sometimes it s difficult to find the exact cause of shoulder pain. You may ne ed to see a specialist (orthopedist). You may also need special tests such as a CT scan or M RI. The provider may need to use special tools to look inside the joint (arthroscopy). Shoulder pain can be treated with a sling or a device that keeps your shoulder from moving. You can take an anti-inflammatory medicine such as ibuprofen to ease pain. You may need to do special shoulder exercises. Follow up with a specialist if the pain is severe or doesn t go away after a few weeks. Home care Follow these tips when caring for yourself at home: If a sling was given to you, leave it in place for the time advised by your healthcare dmitry mccullough. If you aren t sure how long to wear it, ask for advice. If the sling becomes loos e, adjust it so that your forearm is level with the ground. Your shoulder should feel well s upported. Put an ice pack on the injured area for 20 minutes every 1 to 2 hours the first day. You can make your own ice pack by putting ice cubes in a plastic bag. Wrap the bag in a thin to wel. Continue with ice packs 3 to 4 times a day for the next 2 days. Then use the pack as ne eded to ease pain and swelling. You may use acetaminophen or ibuprofen to control pain, unless another pain medicine was prescribed.If you have chronic liver or kidney disease, talk with your healthcare provide r before using these medicines. Also talk with your provider if you ve ever had a stomach ulcer or GI bleeding. Shoulder pain may seem worse at night, when there is less to distract you from the pain. If you sleep on your side, try to keep weight off your painful shoulder. Propping pillows b ehind you may stop you from rolling over onto that shoulder during sleep. Shoulder and elbow joints can become stiff if left in a sling for too long. You should s tart range of motion exercises about 7 to 10 days after the injury. Talk with your provider to find out what type of exercises to do and how soon to start. You can take the sling off to shower or bathe. Follow-up care Follow up with your healthcare provider if you don t start to get better in the next 5 da ys. When to seek medical advice Call your healthcare provider right awayif any of these occur: Pain or swelling gets worseor continues for more than a few days Your hand or fingers become cold, blue, numb, or tingly Large amount of bruising on your shoulder or upper arm Difficulty moving your hand or fingers Weakness in your hand or fingers Your shoulder becomes stiff It feels like your shoulder is popping out You are less able to do your daily activities Date Last Reviewed: 01/12/201619994879-3754 [employer]. [address] [place] [address], [place] [address]. All righ ts reserved. This information is not intended as a substitute for professional medical care. Always follow your healthcare professional's instructions. Tramadol tablets Brand Name: Ultram What is this medicine? TRAMADOL (TRA ma dole) is a pain reliever. It is used to treat moderate to severe pain in a dults. How should I use this medicine? Take this medicine by mouth with a full glass of water. Follow the directions on the prescr iption label. You can take it with or without food. If it upsets your stomach, take it with food. Do not take your medicine more often than directed. A special MedGuide will be given to you by the pharmacist with each prescription and refill . Be sure to read this information carefully each time. Talk to your client services vice president regarding the use of this medicine in children. Special care may be needed. What side effects may I notice from receiving this medicine? Side effects that you should report to your doctor or health senior caregiver as soon as p ossible: allergic reactions like skin rash, itching or hives, swelling of the face, lips, or tong ue breathing problems confusion seizures signs and symptoms of low blood pressure like dizziness; feeling faint or lightheaded, f alls; unusually weak or tired trouble passing urine or change in the amount of urine Side effects that usually do not require medical attention (report to your doctor or health senior caregiver if they continue or are bothersome): constipation dry mouth nausea, vomiting tiredness What may interact with this medicine? Do not take this medication with any of the following medicines: MAOIs like Carbex, Eldepryl, Marplan, Nardil, and Parnate This medicine may also interact with the following medications: alcohol antihistamines for allergy, cough and cold certain medicines for anxiety or sleep certain medicines for depression like amitriptyline, fluoxetine, sertraline certain medicines for migraine headache like almotriptan, eletriptan, frovatriptan, michelle triptan, rizatriptan, sumatriptan, zolmitriptan certain medicines for seizures like carbamazepine, oxcarbazepine, phenobarbital, primido ne certain medicines that treat or prevent blood clots like warfarin digoxin furazolidone general anesthetics like halothane, isoflurane, methoxyflurane, propofol linezolid local anesthetics like lidocaine, pramoxine, tetracaine medicines that relax muscles for surgery other narcotic medicines for pain or cough phenothiazines like chlorpromazine, mesoridazine, prochlorperazine, thioridazine procarbazine What if I miss a dose? If you miss a dose, take it as soon as you can. If it is almost time for your next dose, ta ke only that dose. Do not take double or extra doses. Where should I keep my medicine? Keep out of the reach of children. This medicine may cause accidental overdose and if it taken by other adults, children , or pets. Mix any unused medicine with a substance like cat litter or coffee grounds. Then throw the medicine away in a sealed container like a sealed bag or a coffee can with a lid. Do not use the medicine after the expiration date. Store at room temperature between 15 and 30 degrees C (59 and 86 degrees F). What should I tell my health care provider before I take this medicine? They need to know if you have any of these conditions: brain tumor depression drug abuse or addiction head injury if you frequently drink alcohol containing drinks kidney disease or trouble passing urine liver disease lung disease, asthma, or breathing problems seizures or epilepsy suicidal thoughts, plans, or attempt; a previous suicide attempt by you or a family memb er an unusual or allergic reaction to tramadol, codeine, other medicines, foods, dyes, or p reservatives or trying to get breast-feeding What should I watch for while using this medicine? Tell your doctor or health senior caregiver if your pain does not go away, if it gets wors e, or if you have new or a different type of pain. You may develop tolerance to the medicine . Tolerance means that you will need a higher dose of the medicine for pain relief. Toleranc e is normal and is expected if you take this medicine for a long time. Do not suddenly stop taking your medicine because you may develop a severe reaction. Your b pako becomes used to the medicine. This does NOT mean you are addicted. Addiction is a behavi or related to getting and using a drug for a non-medical reason. If you have pain, you have a medical reason to take pain medicine. Your doctor will tell you how much medicine to take. If your doctor wants you to stop the medicine, the dose will be slowly lowered over time to avoid any side effects. There are different types of narcotic medicines (opiates). If you take more than one type a t the same time or if you are taking another medicine that also causes drowsiness, you may h ave more side effects. Give your health care provider a list of all medicines you use. Your doctor will tell you how much medicine to take. Do not take more medicine than directed. Eliceo l emergency for help if you have problems breathing or unusual sleepiness. You may get drowsy or dizzy. Do not drive, use machinery, or do anything that needs mental alertness until you know how this medicine affects you. Do not stand or sit up quickly, kaitlin cially if you are an older patient. This reduces the risk of dizzy or fainting spells. Alcoh ol can increase or decrease the effects of this medicine. Avoid alcoholic drinks. You may have constipation. Try to have a bowel movement at least every 2 to 3 days. If you do not have a bowel movement for 3 days, call your doctor or health senior caregiver. Your mouth may get dry. Chewing sugarless gum or sucking hard candy, and drinking plenty of water may help. Contact your doctor if the problem does not go away or is severe. NOTE:This sheet is a summary. It may not cover all possible information. If you have questi ons about this medicine, talk to your doctor, pharmacist, or health care provider. Copyright 2019 [employer] documented in this encounter Progress Notes Silverio Loya MD - 01/12/2019 1630 PDTFormatting of this note might be different from t he original. Subjective: Patient ID: Kranthi Cid is a 78 y.o. male.who presents today for Shoulder Pain (RM 8- left s houlder pain ongoing, had steriod shot X 3 days ago, not working anymore, tingling radiating down arm) . HPI The patient is being seen today for left shoulder pain. He had a previous injury where he fell from a ladder onto his shoulder. The pain is been progressively worsening over the pas t year and is worse with movement. He gets shooting pains that go down his arms and tinglin g into his forearms occasionally. There is been no weakness in the hand or arm however. He has been seen by his primary care provider in [place] as well as evaluated by orthopedic PA in [place]. He had a steroid injection in the left shoulder 2 weeks ago which helped f or about 3 days. Is also been on hydrocodone for the pain at times. He is on Coumadin for chronic atrial fibrillation and therefore is unable to take nonsteroidal anti-inflammatories . He has had x-ray of the shoulder which showed arthritis. He has not had an MRI as yet. The patient does have history of peripheral neuropathy due to diabetes. Patient Active Problem List Diagnosis LYMPHEDEMA ATHEROSCLEROSIS LUMMI ART EXTREMITIES UNSPEC DDD (degenerative disc disease), lumbar Facet arthropathy, lumbar Lumbar radicular syndrome Spinal stenosis in cervical region Neuropathy, diabetic Atrial fibrillation Cardiomyopathy Cellulitis Chronic combined systolic and diastolic congestive heart failure Encounter for pre-operative cardiovascular clearance Hyperlipidemia Hypertension Hypothyroidism Leiomyosarcoma of left lower extremity Leukocytosis Other chest pain Palpitations Type 2 diabetes mellitus with chronic kidney disease Past Surgical History: Procedure Laterality Date CHOLECYSTECTOMY 09/2016 Fatty Tumor Removal 2000 From Neck LASIK 2012 LEG SURGERY cancer-malignant Leg Vein Bypass 2002, 2003 OTHER SURGICAL HISTORY OTHER SURGICAL HISTORY 2000 and 2002 OTHER SURGICAL HISTORY CATARACT EXTRACTION TUMOR REMOVAL 1972 Left Leg VASECTOMY Current Outpatient Medications Medication Sig Dispense Refill allopurinol (ZYLOPRIM) 300 mg tablet Take 300 mg by mouth daily. aspirin 81 mg EC tablet Take 81 [...] TOUCH TEST STRIPS) strip Use as directed indomethacin (INDOCIN) 25 mg capsule Take 25 [...] daily. nitroglycerin (NITROSTAT) 0.[address] 1 tablet under the tongue every 5 (fiv e) minutes as needed. nitroglycerin (NITROSTAT) 0.4 mg SL tablet Dissolve 1 tablet under tongue every 5 minut es up to 3 tablets. Call 911/ER if no relief. ONE TOUCH LANCETS [facility] Use as directed traMADol (ULTRAM) 50 mg tablet Take 1 tablet by mouth every 8 hours as needed for up to 3 days. 12 tablet 0 venlafaxine (EFFEXOR XR) 37.5 mg 24 hr capsule Take 37.5 mg by mouth daily with breakfa st. warfarin (COUMADIN) 5 mg tablet 5 mg daily No current facility-administered medications for this visit. He reports that he has never smoked. He has never used smokeless tobacco. He reports that he drinks alcohol. He reports that he does not use drugs. Allergies Allergen Reactions Duloxetine Other (See Comments) Prostate Occlusion Prostate occlusion Levofloxacin Other (See Comments) Achilles pain Flu Virus Vaccine Not Noted Septic SX Lisinopril Cough cough Intolerance No active intolerances/contraindications ROS Objective: BP 165/79 | Pulse 81 | Temp 36.6 C (97.9 F) (Temporal) | Resp 16 | Ht 1.778 m (5' 1 0") | Wt 115.7 kg (255 lb) | SpO2 96% | BMI 36.59 kg/m Physical Exam Patient is alert and appropriate. He appears to be in moderate pain from the left shoulder with movement but at rest seems to be relatively comfortable. There is no deformity of the shoulder. Range of motion is with pain beyond 50% movement and abduction and internal rota tion and external rotation. He is able to touch the top of his head but his hand behind his back and reach the other shoulder although with discomfort. There is tenderness at the ant erior acromioclavicular notch area. Clavicle is nontender. Neck is with mild tenderness in the lateral musculature and he has mild restriction and rotation and tilting of the neck in both directions. Motor strength is equal and symmetrical in the upper extremities both wit h shoulder elevation abduction adduction lection extension of the shoulder and hand grasp as well as intrinsic muscles of the hand. Sensation is intact to sharp in the fingers of both hands but dull on the dorsum of the hands and the deltoid area of both shoulders. No results found for this or any previous visit (from the past 24 hour(s)). Assessment/Plan: Kranthi was seen today for shoulder pain. Diagnoses and all orders for this visit: Post-traumatic osteoarthritis of left shoulder - Amb ref Kenroy - david Other orders - traMADol (ULTRAM) 50 mg tablet; Take 1 tablet by mouth every 8 hours as needed for up to 3 days. The patient has osteoarthritis of the left shoulder. He is not a candidate for any further injections at this time. I do not see any definite evidence for cervical radiculopathy. Arnaud mello could potentially have a chronic rotator cuff syndrome or adhesive capsulitis. He needs t o follow-up with orthopedics to have the MRI ordered. The family would like to be seen by o [place]opedics [id number] rather than [place] so referral is ordered for Dr. Hernandez as r mile. He is given a prescription for tramadol 50 mg a day 1 at bedtime if the pain is k eeping him from sleeping but if he is going to need ongoing pain medication he is going to n eed to get that through his primary care physician or the orthopedics rather than the urgent care. Return if symptoms worsen or fail to improve.Electronically signed by MD toño Reyna 01/12/2019 17:24 PDTdocumented in this encounter Plan of Treatment +--------+---------+ + + + | Date | Type | Specialty | Care Team | Description | +--------+---------+ + + + | 02/15/ | Office | Orthopedic Surgery | David Sousa | | | 2018 | Visit | | MD [address] | | | | | | [address] | | | | | | [place] [address] | | | | | | [phone] | | | | | | | | +--------+---------+ + + + + +--------+ + + | Name | Priori | Associated Diagnoses | Order Schedule | | | ty | | | + +--------+ + + | Amb ref Kenroy hernandez | Routin | Post-traumatic | Ordered: 01/12/2019 | | | e | osteoarthritis of | | | | | left shoulder | | + +--------+ + + documented as of this encounter Visit Diagnoses + + | Diagnosis | + + | Post-traumatic osteoarthritis of left shoulder - Primary Secondary localized | | osteoarthrosis, shoulder region | + + documented in this encounter
--- OUTSIDE RECORDS SUMMARY | ~2019-02-14 | XMS | Clinical Summary ---
Demographics + + + | Address | [address] | | | [place] [address] | + + + | Home Phone | | + + + | Preferred Language | Unknown | + + + | Marital Status | | + + + | Advent Affiliation | Unknown | + + + | Race | Unknown | + + + | Ethnic Group | Unknown | + + + Author + + + | Author | [email or web address] (Historical as of | | | 11-27-18) | + + + | Organization | [email or web address] (Historical as of | | | 11-27-18) [...] [place] | | | | | [address] | | + + + + + | Josephine Meléndez | ECON | Unknown | | + + + + + Care Team Providers + +------+ + | Care Aircraft Fuselage Framer Name | Role | Phone | + [...] + | COMMERCIAL OTHER | TRANSA | [id number] | | | | | | MERICA | | | | | | | LIFE | | | | | + +--------+ +------+-------+ + | MEDICARE | MEDICA | [id number] | | | [address] | | | RE | | | | [place] [address] | | | IP-OP | | | [...] | sharla | | | [phone] | [address] | + +--------+ +--------+ + +
--- OUTSIDE RECORDS SUMMARY | ~2019-02-14 | XMS | Encounter Summary ---
Demographics + + + | Address | [address] | | | [place] [address] | + + + | Home Phone | | + + + | Preferred Language | Unknown | + + + | Marital Status | | + + + | Restorationism Affiliation | Unknown | + + + | Race | Unknown | + + + | Ethnic Group | Unknown | + + + Author + + + | Author | [facility] | | | and [place] | + + + | Organization | [facility] | | | [...] [place], | | | | | [place] [address] | | + + + + + | Josephine Meléndez | ECON | [address] | | | | | [place] | | | | | [address] | | + + + + + | Chiara Cid | ECON | [address] | | | | | [place], [place] | | | | | [address] | | + + + + + | Josephine Meléndez | MARIEL | Unknown | | + + + + + Care Team Providers + +------+ + | Care Guide Setter Name | Role | Phone | + [...] | osteoarthrit | [place], [place] | [place] [address] | | | | | is of left | [address] | Phone: | | | | | shoulder | Phone: | [phone] | | | | | | [phone] | Fax: | | | | | | Fax: | [phone] | | | | | | [phone] | | + + + + + [...] | left shoulder | | | | [address] | [address] | (Primary Dx) | | | | [phone] | | | +--------+---------+ + + + [...] do your daily activities Date Last Reviewed: 01/12/201619992482-0468 [employer]. [address] [place] [address], [place] [address]. All righ ts reserved. This information is [...] information carefully each time. Talk to your piecer up regarding the use of this medicine in children. Special care may be needed. What side effects may I notice from receiving this medicine? Side effects that you should report to your doctor or health reproductive healthcare assistant as soon as p ossible: allergic reactions [...] attention (report to your doctor or health reproductive healthcare assistant if they continue or are bothersome): constipation [...] this medicine? Tell your doctor or health reproductive healthcare assistant if your pain does not go away, [...] 3 days, call your doctor or health reproductive healthcare assistant. Your mouth may get dry. Chewing sugarless gum or sucking hard candy, and drinking plenty of water may help. Contact your doctor if the problem does not go away or is severe. NOTE:This sheet is a summary. It may not cover all possible information. If you have questi ons about this medicine, talk to your doctor, pharmacist, or health care provider. Copyright 2019 [employer] documented in this encounter Progress Notes Silverio [...] seen by his primary care provider in [place] as well as evaluated by orthopedic PA in [place]. He had a steroid injection in the [...] Patient Active Problem List Diagnosis LYMPHEDEMA ATHEROSCLEROSIS [place] ART EXTREMITIES UNSPEC DDD (degenerative disc disease), [...] 911/ER if no relief. ONE TOUCH LANCETS [facility] Use as directed traMADol (ULTRAM) 50 mg [...] to be seen by o [place]opedics in [id number] rather than [place] so referral is ordered for Dr. Hernandez [...] | | | | | [place] [address] | | | | | | [phone] | | | | | | | [...]
--- OUTSIDE RECORDS SUMMARY | ~2019-02-14 | XMS | Encounter Summary ---
Demographics + + + | Address | [address] | | | [place] [address] | + + + | Home Phone | | + + + | Preferred Language | Unknown | + + + | Marital Status | | + + + | Synagogue Affiliation | Unknown | + + + [...] [place], | | | | | [place] [address] | | + + + + + | Josephine Meléndez | ECON | [address] | | | | | [place] | | | | | [address] | | + + + + + | Chiara Cid | ECON | [address] | | | | | [place], [place] | | | | | [address] | | + + + + + | Josephine Meléndez | MARIEL | Unknown | | + + + + + Care Team Providers + +------+ + | Care Legal Operations Manager Name | Role | Phone | + +------+ + | Jalen Cortes MD | PCP | | + +------+ + Reason for Visit +---------+ + | Reason | Comments | +---------+ + | Glucose And Syrup Weigher | | +---------+ + Encounter Details +--------+ + + + + | Date | Type | Department | Care Team | Description | +--------+ + + + + | 01/13/ | Telephone | [facility] | Conrado Mckeon | Glucose And Syrup Weigher | | 2018 | | ORTHOPEDIC SURGERY | MD Maldonado [address] | | | | | [address] [facility] | [place] | | | | | [place] | [address] | | | | | [address] | | | | | | [phone] | | | +--------+ + + + [...] | | | | | | [address] | | | | | | [place] [address] | | | | | | [phone] | | | | | | | | +--------+---------+ + + + documented as of this encounter Visit Diagnoses Not on filedocumented in this encounter"
--- OUTSIDE RECORDS SUMMARY | ~2019-02-14 | XMS | Encounter Summary ---
Demographics + + + | Address | [address] | | | [place] [address] | + + + | Home Phone | | + + + | Preferred Language | Unknown | + + + | Marital Status | Single | + + + | Sikhism Affiliation | NON | + + + | Race | White | + + + | Ethnic Group | Not or | + + + Author + + + | Author | [facility] | + + + | Organization | [facility] | + + + | Address | Unknown | + + + | Phone | Unavailable | + + + Support + + + + + | Name | Relationship | Address | Phone | + + + + + | Chiara Cid | ECON | [address] | | | | | [place], | | | | | [place] [address] | | + + + + + Care Team Providers + +------+ + | Care Desktop Support Manager Name | Role | Phone | [...] | | | | BILAT COMP | [place], [place] | [address] | | | | | | [address] | Physician's | | | | | | | Pavilion | | | | | | | [place], [place] | | | | | | | [address] | | | | | | | Phone: | | | | | | | [phone] | | | | | | | Fax: | | | | | | | [phone] | +--------+--------+ + + + + Diagnostic [...] | | | | BILAT COMP | [place], [place] | [address] | | | | | | [address] | Physician's | | | | | | | Pavilion | | | | | | | [place], [place] | | | | | | | [address] | | | | | | | Phone: | | | | | | | [phone] | | | | | | | Fax: | | | | | | | [phone] | +--------+--------+ + + + + Diagnostic [...] | | | | | BILATERAL | [place], [place] | [address] | | | | | COMPLETE | [address] | Physician's | | | | | | | Pavilion | | | | | | | [place], [place] | | | | | | | [address] | | | | | | | Phone: | | | | | | | [phone] | | | | | | | Fax: | | | | | | | [phone] | +--------+--------+ + + + + Reason [...] | | | | | | | [facility] | | | | | | | [place], | | | | | | | [place] [address] | +--------+--------+ + + + + Encounter Details +--------+ + + + + | Date | Type | Department | Care Team | Description | +--------+ + + + + | 02/04/ | Hospital | [facility] [address] | Conrado Mckeon, | | | 2009 - | Encounter | [address] | | | | | | [id number] [facility] | | | | 02/06/ | | Hospital [place], | | | | 2009 | | [place] [address] | | | +--------+ + + + [...] back shortly. I agree with the plan. [id number] urt Ibrahim MD - 02/06/2010 6:00 PM [...] was transferred to the Trauma ICU from [facility] for management of right rib fractures and hemothorax due to a fall incurred on . 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 Please refer to [employer] for this information. Physical Exam Last Vitals:BP [...] some ti me. Tuan Piña PA-C Pager/ID: [phone] Trauma ICU Team Pager (24hrs/day): [phone] Conrado Page MD - 02/05/2010 5:17 AM [...] though he reports his ribs are painful. [id number] Scott Edward MD - 02/05/2010 5:17 AM PDT INTENSIVE CARE PROGRESS NOTE - TICU ICU day: 1 Author: Scott Cat MD Attending Physician: Dr. Mike MD 69 y.o. year old male transferred to the ICU from [facility] for right rib f ractures, R hemothorax, [...] SAMIAAM | [address] | [place], [place] | | | FABI VILLATORO OF CARE | [address] | [address] | | | TESTS | | | [...] KNOX | [address] | [place], [place] | | | FABI VILLATORO OF [facility] | [facility] | [address] | | | TESTS | | | [...] + + + + + | [facility] DEPARTMENT | [address] | [place] [address] | | | PATHOLOGY | [address] [...] | 60 - 99 mg/dL | [facility] - | | | GLUCOSE, | | [...] KNOX | [address] | [place], [place] | | | [place] POINT OF CARE | [address] | [address] | | | TESTS | | | [...] | + +---------+ + + | [facility] DEPARTMENT OF | | | | | [...] + + | [facility] DEPARTMENT OF | [address] | [place] [address] | | | PATHOLOGY | [address] [...] OF | [address] | [place], [place] [address] | | | PATHOLOGY | [address] [...] | | THERAPY | | | | FRETTED INSTRUMENTS INSPECTOR | | | | | | | [...] RESPIRATORY | [address] | [place], [place] | | | THERAPY | [address] | [address] | | + + + + + [...] KNOX | [address] | [place], [place] | | | FABI VILLATORO OF [place] | [facility] | [address] | | | TESTS | | | [...] ABILIO | [address] | [place], [place] | | | FABI VILLATORO OF [facility] | [facility] | [address] | | | TESTS | | | [...] + + | Please click | [facility] DEPT OF | | on view image for the detailed interpretation from [employer] results. | CARDIOLOGY | + + + + + + + + | Performing | Address | City/State/Zipcode | Phone Number | | Organization | | | | + + + + + | [facility] DEPT OF | [address] | [place], [place] | | | CARDIOLOGY | [address] | [address] | | + + + + + [...] | | | | | VENOUS | [id number] Name: | | | | | DUPLEX [...] # | | | | | | [id number] RESULT:LOWER | | | | | | [...] | + +---------+ + + | [facility] DEPARTMENT OF | | | | | [...] | | | | | VENOUS | [id number] Name: | | | | | DUPLEX [...] # | | | | | | [id number] RESULT:UPPER | | | | | | [...] | | | | | ARTERY | [id number] Name: | | | | | DUPLEX [...] # | | | | | | [id number] RESULT:LOWER | | | | | | [...] KNOX | [address] | [place], [place] | | | [place] POINT OF CARE | [address] | [address] | | | TESTS | | | [...] + + + + + | [facility] DEPARTMENT OF | [address] | [place] [address] | | | PATHOLOGY | [address] [...] + + + + + | [facility] DEPARTMENT OF | [address] | [place] [address] | | | PATHOLOGY | [address] [...] BETH [place]X | [address] | [place], [place] | | | FABI VILLATORO OF [facility] | [facility] | [address] | | | TESTS | | | [...] + + + + + | [facility] DEPARTMENT | [address] | [place] [address] | | | PATHOLOGY | [address] | | | + + + + + X-RAY PORTABLE ELBOW 2 VIEWS RIGHT (02/05/2010 5:13 AM PDT) + + + + + + | Component | Value | Ref Range | Performed | Pathologist | | | | | At | Signature | + + + + + + | X-RAY | STUDY: SC ELBOW 2 VIEWS | | | | [...] OF | [address] | [place] [address] | | | PATHOLOGY | [address] [...] + + + + + | [facility] DEPARTMENT OF | [address] | [place] [address] | | | PATHOLOGY | [address] [...] | 0.90 - 1.20 INR | [facility] | | | | INR Therapeutic ranges [...] | + + + + + | [facility] | [address] | [place] [address] | | | PATHOLOGY | [address] [...] OF | [address] | [place] [address] | | | PATHOLOGY | [address] [...] OF | [address] | [place] [address] | | | PATHOLOGY | [address] [...] Kamara, | | | | | | FRETTED INSTRUMENTS INSPECTOR | | | | + + + + + + + + | Specimen | + + | | + + + + + + + | Performing | Address | City/State/Zipcode | Phone Number | | Organization | | | | + + + + + | [facility] RESPIRATORY | [address] | [place], [place] | | | THERAPY | [address] | [address] | | + + + + + [...] | + + + + + | [facility] | [address] | [place] [address] | | | PATHOLOGY | [address] [...] | + +---------+ + + | [facility] DEPARTMENT OF | | | | | [...] | + +---------+ + + | [facility] DEPARTMENT OF | | | | | RADIOLOGY | | | | + +---------+ + + X-RAY PORTABLE HUMERUS 2 VIEWS RIGHT (02/05/2010 2:06 AM PDT) + + + + + + | Component | Value | Ref Range | Performed | Pathologist | | | | | At | Signature | + + + + + + | X-RAY | STUDY: SC HUMERUS 2 | | | | | [...] | + +---------+ + + | [facility] DEPARTMENT OF | | | | | [...] | + + + + + | [facility] | [address] | [place] [address] | | | PATHOLOGY | [address] [...] DEPARTMENT | [address] | [place] [address] | | | PATHOLOGY | [address] [...] | + + + + + | [facility] | [address] | [place] [address] | | | PATHOLOGY | [address] [...] | + + + + + | [facility] | [address] | [place] [address] | | | PATHOLOGY | [address] [...] OF | [address] | [place] [address] | | | PATHOLOGY | [address] [...] OF | [address] | [place] [address] | | | PATHOLOGY | [address] [...] | | | | | | Until [facility] 02/07/10 at 0316, mild | | [...] | | oral, ONCE, 1 dose, [facility] 02/05/10 | | PM PDT | | [...]
--- OUTSIDE RECORDS SUMMARY | ~2019-02-14 | XMS | Clinical Summary ---
Demographics + + + | Address | [address] [place] [address] | | | [place] [address] | + + + | Home Phone | | + + + | Preferred Language | Unknown | + + + | Marital Status | Single | + + + | Hinduism Affiliation | NON | + + + [...] + | Chiara Cid | ECON | [address] | | | | | [place], | | | | | [place] [address] | | + + + + + Care Team Providers + +------+ + | Care School Manager Name | Role | Phone | + +------+ + | Doroteo Felder MD | PCP | | + +------+ + Source Comments BETH is fully live on both [facility] and [facility] InPatient.[facility] Allergies No Known Allergies [...] | | | | | | | [address] | | + +--------+ +--------+ + +--------+ [...] | 1941 | [phone] | [place] [address] | | | [place] | | | [...]
--- OUTSIDE RECORDS SUMMARY | ~2019-02-14 | XMS | Clinical Summary ---
Demographics + + + | Address | [address] | | | [place] [address] | + + + | Home Phone | | + + + | Preferred Language | Unknown | + + + | Marital Status | | + + + | Gnosticism Affiliation | Unknown | + + + | Race | Unknown | + + + | Ethnic Group | Unknown | + + + Author + + + | Author | [facility] | | | and [place] | + + + | Organization | [facility] | | | [...] [place], | | | | | [place] [address] | | + + + + + | Josephine Meléndez | ECON | [address] | | | | | [place] | | | | | [address] | | + + + + + | Chiara Cid | ECON | [address] | | | | | [place], [place] | | | | | [address] | | + + + + + | Josephine Meléndez | MARIEL | Unknown | | + + + + + Care Team Providers + +------+ + | Care Salt Machine Operator Name | Role | Phone [...] | 12/12 | | Activ | | (LIPITOR) 40 [...] | | + + + +---------+------+------+-------+ | allopurinol | Take 300 mg by mouth | | 0 | | | Activ | | (ZYLOPRIM) 300 mg | daily. | | | | | [...] | | + + + +---------+------+------+-------+ | losartan (COZAAR) | Take 1 tablet by | | 0 | 03/0 | 04/1 | Activ | | 100 MG tablet | mouth daily. | | | 06/02 | 05/02 | e | | | | | | 16 | 20 | | + + + +---------+------+------+-------+ | [...] | | + + + +---------+------+------+-------+ | metoprolol | Take 1 tablet by | | 0 | 04/1 | 04/1 | Activ | | succinate | mouth daily. | | | 20 | 0/20 | e | | (TOPROL-XL) 50 mg 24 | | | | 19 | 20 | | | hr tablet | | | | | | | + + + +---------+------+------+-------+ | nitroglycerin | Place 1 tablet under | | 0 | 05/1 | | Activ | | (NITROSTAT) 0.4 mg | the tongue every 5 | | | 6/20 | | e [...] | | + + + +---------+------+------+-------+ | traMADol (ULTRAM) | Take 1 tablet by | 12 | 0 | 10/0 | 10/0 | Expir | | 50 mg tablet | mouth every 8 hours | tablet | | 2/20 | 5/20 | ed | | | as needed for up to | | | 19 | 19 | | | | 3 days. 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, | | significantly low ejection fraction, hypokinesis, LVEF 18%.ECG, | | 11/12/2014 ([facility]): A fib, 80bpm, LAD, diffuse non-spec ST-T [...] 09/17/2011 | + + + | ATHEROSCLEROSIS QAGAN TAYAGUNGIN ART EXTREMITIES UNSPEC | 09/17/2011 | + + + + + | Overview: ICD-10 Record update | + + Encounters +--------+ + + + + | Date | Type | Specialty | Care Team | Description | +--------+ + + + + | 01/13/ | Telephone | Orthopedic Surgery | Conrado Mckeon | Major Gifts Officer | | 2018 | | | MD Maldonado | | +--------+ + + + + | 01/12/ | Office | Immediate Care | Silverio Loya, | Post-traumatic | | 2019 | Visit | | | osteoarthritis of | | | | | | left shoulder | | | | | | (Primary Dx) | +--------+ + + + + | 12/19/ | Imaging | Radiology | Provider, | | | 2019 | Exam | | MD Carlos | | +--------+ + + + + from Last 3 Months Family History + + +------+ + | Medical History | Relation | Name | Comments | + + +------+ + | Heart defect | Brother | | | + + +------+ + | High blood pressure | Brother | | | + + +------+ + | Other (see comment) | Brother | | Back problems | + + +------+ + | Heart [...] + + | Father | | | | + +------+ + + | Mother | | | heart disease | | | | (Age | | | | | 51) | | + +------+ + + | Mother | | | | + +------+ + [...] Height | 177.8 cm (5' 10") | 01/12/20191632 PDT | + + + + | Body Mass Index | 36.59 | 01/12/20191632 PDT | + + + + Plan of Treatment +--------+---------+ + + + | Date | Type | Specialty | Care Team | Description | +--------+---------+ + + + | 02/15/ | Office | Orthopedic Surgery | David Sousa | | | 2019 | Visit | | MD [address] | | | | | | [address] | | | | | | [place] [address] | | | | | | [phone] | | | | | | | | +--------+---------+ + + + + + + + + | Health [...] + | Vaccine: Zoster (2 | | 10/19/2006 | | | of 3) | 7 | | | + + + + + | Hemoglobin A1c | | 07/12/2015 | | | Screening | 6 | | | + + + + + | Vaccine: | | 05/06/2016 | | | Pneumococcal 65+ | 8 | | | | High/Highest Risk (2 | | | | | of 2 - PCV13) | | | | + + + + + | Adult Annual | | | | | Wellness Visit | 9 | | | + + + + + Procedures + +--------+ + + + | [...] section. | + +--------+ + + + from Last 3 Months Results XR Shoulder Left 2 + Vw [...] | | | + +---------+ + + from Last 3 Months Insurance + +--------+ +--------+ +---------+--------+ | Payer | Benefi | Subscriber | Effect | Phone | Address | Type | | | t Plan | ID | clarence | | | | | | / | | Dates | | | | | | Group | | | | | | + +--------+ +--------+ +---------+--------+ | MEDICARE | MEDICA | [id number] | | [phone] | | Medica | | | RE | | 013-Pr | 5 | | re | | | PART A | | esent | | | | | | AND B | | | | | | + +--------+ +--------+ +---------+--------+ | [employer] | TRANSA | [id number] | | | | Indemn | | INSURANCE | MERICA | | 019-Pr | | | ity | | | LIFE | | esent | | | | | | [place] [...] | Self | [birth year] | [address] | | | geovani/Connor | | 1941 | [phone] | [place] | | | sharla | | | 5 (Home) | [address] | + +--------+ +--------+ + + Advance Directives Patient has advance care planning documents on file. For more information, please contact:[facility] [place] [address]
--- OUTSIDE RECORDS SUMMARY | ~2019-02-14 | XMS | Encounter Summary ---
Demographics + + + | Address | [address] | | | [place] [address] | + + + | Home Phone | | + + + | Preferred Language | Unknown | + + + | Marital Status | | + + + | Moravian Affiliation | Unknown | + + + | Race | Unknown | + + + | Ethnic Group | Unknown | + + + Author + + + | Author | [facility] | | | and [place] | + + + | Organization | [facility] | | | and [...] [place], | | | | | [place] [address] | | + + + + + | Josephine Meléndez | ECON | [address] | | | | | [place] | | | | | [address] | | + + + + + | Chiara Cid | ECON | [address] | | | | | [place], [place] | | | | | [address] | | + + + + + | Josephine Meléndez | [place] | Unknown | | + + + + + Care Team Providers + +------+ + | Care Crocodile Farmer Name | Role | Phone | + +------+ + | Jalen Cortes MD | PCP | | + +------+ + Reason for Visit +---------+ + | Reason | Comments | +---------+ + | Field Artillery Basic | | +---------+ + Encounter Details +--------+ + + + + | Date | Type | Department | Care Team | Description | +--------+ + + + + | 01/13/ | Telephone | [facility] | Conrado Mckeon | Field Artillery Basic | | 2018 | | ORTHOPEDIC SURGERY | MD Maldonado [address] | | | | | [address] [facility] | [place] | | | | | [place] | [address] | | | | | [address] | | | | | | [phone] | | | +--------+ + + + [...] | | | | | [place] [address] | | | | | | [phone] | | | | | | | | +--------+---------+ + + + documented as of this encounter Visit Diagnoses Not on filedocumented in this encounter"
--- OUTSIDE RECORDS SUMMARY | ~2019-02-14 | XMS | Clinical Summary ---
Demographics + + + | Address | [address] | | | [place] [address] | + + + | Home Phone | | + + + | Preferred Language | Unknown | + + + | Marital Status | | + + + | Episcopalian Affiliation | Unknown | + + + | Race | Unknown | + + + | Ethnic Group | Unknown | + + + Author + + + | Author | [facility] | | | and [place] | + + + | Organization | [facility] | | | [...] [place], | | | | | [place] [address] | | + + + + + | Josephine Meléndez | ECON | [address] | | | | | [place] | | | | | [address] | | + + + + + | Chiara Cid | ECON | [address] | | | | | [place], [place] | | | | | [address] | | + + + + + | Josephine Meléndez | [place]EL | Unknown | | + + + + + Care Team Providers + +------+ + | Care Central Office Frame Wirer Name | Role | Phone | + [...] 09/17/2011 | + + + | ATHEROSCLEROSIS ZUNI ART EXTREMITIES UNSPEC | 09/17/2011 | + + + + + | Overview: ICD-10 Record update | + + Encounters +--------+ + + + + | Date | Type | Specialty | Care Team | Description | +--------+ + + + + | 01/13/ | Telephone | Orthopedic Surgery | Conrado Mckeon | Tobacco Primer Machine Operator | | 2018 | | | MD [...] | | | | | | [place] [address] | | | | | | [phone] | | | | | | | [...] +--------+ +---------+--------+ | MEDICARE | MEDICA | [id number] | | [phone] | | Medica | | | RE | | 013-Pr | 5 | | re | | | PART A | | esent | | | | | | AND B | | | | | | + +--------+ +--------+ +---------+--------+ | [employer] | TRANSA | [id number] | | | | Indemn | | [...] | | geovani/Connor | | 1941 | [phone] | [place] | | | sharla | | | 5 (Home) | [address] | + +--------+ +--------+ + + Advance Directives Patient has advance care planning documents on file. For more information, please contact:[facility] [place] [address]
--- OUTSIDE RECORDS SUMMARY | ~2019-02-14 | XMS | Encounter Summary ---
Demographics + + + | Address | [address] | | | [place] [address] | + + + | Home Phone | | + + + | Preferred Language | Unknown | + + + | Marital Status | Single | + + + | Cheondoism Affiliation | NON | + + + | Race | White | + + + | Ethnic Group | Not or | + + + Author + + + | Author | [facility] | + + + | Organization | [facility] | + + + | Address | Unknown | + + + | Phone | Unavailable | + + + Support + + + + + | Name | Relationship | Address | Phone | + + + + + | Chiara Cid | ECON | [address] | | | | | [place], | | | | | [place] [address] | | + + + + + Care Team Providers + +------+ + | Care Chain Hooker Name | Role | Phone | + [...] 2009 | | General Surgery at | [facility] | | | | | [address]PV [address] | [place], [place] | | | | | [address] | [address] | | | | | Mailcode: L223A | | | | | | [facility] | | | | | | [address], [place] | | | | | | [address] | | | | | | [phone] | | | +--------+ + + + [...]
[~2019-02-14 15:21] MED LIST changes: +NORCO 5-325 TA1 EACH PO
--- OUTSIDE RECORDS SUMMARY | 2019-02-14 15:24 | XMS ---
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 Care History Medical/Surgical 12/20/2018 [facility] [place] - Patient is currently established with [facility]. If patient is seen in the ED during business hours. Please contact CHWs at [facility]. Care Recommendation: This patient has had 5 or more Emergency Department visits in the last 12 months.\T\nbsp; Patient requires education on the scope and purpose of the ED as an acute care provider not a Primary Care Provider and should not be utilized for chronic conditions.\T\nbsp; These are guidelines and the provider should exercise clinical judgment when providing care. E.D. VISIT COUNT (12 MO.) 3 [facility]. TOTAL 3 NOTE: Visits indicate total known visits. 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 [place] TYPE: Emergency COMPLAINT: - ABD PAIN/DIARRHEA DIAGNOSES: - Allergy status to other antibiotic agents status - prison (current) use of insulin - Other long term acute care registered nurse (current) drug therapy - Left lower quadrant pain - Allergy status to oth drug/meds/biol subst status - prison (current) use of aspirin - Dvtrcli of lg int w/o perforation or abscess w/o bleeding - Unspecified atrial fibrillation - Essential (primary) hypertension - termite treater (current) use of anticoagulants - 1 Type 2 diabetes mellitus without complications INPATIENT VISIT TRACKING (12 MO.) No inpatient visits to display in this time frame [id number]
--- NOTE | 2019-02-14 17:42 | EKG ---
[facility] [address] [facility] [place], [place] [address] Signed Atrial fibrillation with premature ventricular or aberrantly conducted complexes Anteroseptal infarct , age undetermined Abnormal ECG When compared with ECG of 19-DEC-2018 16:46, ST now depressed in Inferior leads Nonspecific T wave abnormality, improved in Lateral leads Confirmed by BRITTON LEMOS DO ([id number]) on 02/14/2019 5:42:37 PM Electronically Signed By: BRITTON LEMOS DO 02/14/19 1742 PATIENT NAME: MELINA GOMEZ DAPHNEY Electrocardiogram DATE OF : 40 PHYSICIAN: BRITTON LEMOS DO REPORT #: [id number] REPORT IS CONFIDENTIAL AND NOT TO BE RELEASED WITHOUT AUTHORIZATION
== END 2019-02-14 19:30 | disposition home or self-care (01) ==
LOC: ED 15:21
DX: I48.91 Unspecified atrial fibrillation (principal); I10 Essential (primary) hypertension; E11.9 Type 2 diabetes mellitus without complications; Z88.1 Allergy status to other antibiotic agents; Z88.8 Allergy status to other drugs, medicaments and biological substances; Z79.899 Other long term (current) drug therapy; Z79.01 Long term (current) use of anticoagulants; Z79.82 Long term (current) use of aspirin
CPT/HCPCS: 71045; 80053; 83735; 84484; 85025; 85379; 85610; 93005; 93010; 99285-25

== ENCOUNTER 2019-06-15 03:27 | Inpatient (IN) | payer MEDICARE, OTHER ==
[~2019-06-15] VITALS: Ht 177.8 cm; Wt 114.8 kg
[~2019-06-15 03:27] MED LIST changes: +CEFAZOLIN2 GM/100 M IV; +VITAMIN D35000 UNI2 PO; -VITAMIN D5000 UNIT PO
[2019-06-15] MEDS ORDERED: COUMADIN5 MG PO (04:09)
[2019-06-15] MEDS ORDERED: ATORVASTATIN CA40 MG PO (04:11)
[2019-06-15] MEDS ORDERED: NOVOLIN 70100 UNIT/1 SUB-Q (04:12)
[2019-06-15] MEDS ORDERED: LEVOTHYROXINE112 MCG PO (04:13)
[2019-06-15] MEDS ORDERED: VENLAFAXINE HCL75 M1 PO (07:46)
--- NOTE | 2019-06-15 13:54 | EKG ---
[facility] [address] [facility] [place] [address] Signed Undetermined rhythm Atrial fibrillation ST \T\ T wave abnormality, consider lateral ischemia Abnormal ECG When compared with ECG of 14-FEB-2019 15:26, Criteria for Anteroseptal infarct are no longer present ST now depressed in Anterior leads T wave inversion now evident in Lateral leads Confirmed by BRITTON LEMOS DO ([id number]) on 06/15/2019 1:54:37 PM Electronically Signed By: BRITTON LEMOS DO 06/15/19 1354 PATIENT NAME: MELINA GOMEZ DAPHNEY Electrocardiogram DATE OF : 40 PHYSICIAN: BRITTON LEMOS DO REPORT #: [id number] REPORT IS CONFIDENTIAL AND NOT TO BE RELEASED WITHOUT AUTHORIZATION
[2019-06-17] MEDS ORDERED: DOXYCYCLINE HY100 MG PO (09:36)
[2019-06-17] MEDS ORDERED: PREDNISONE20 MG PO (09:43)
== END 2019-06-17 11:15 | disposition home or self-care (01) | DRG 872 ==
LOC: ED 03:27 → CCU 05:14 → MS 16:05
PROVIDERS: ADMIT Student in an Organized Health Care Education/Training Program
DX: A41.9 Sepsis, unspecified organism (principal); L03.116 Cellulitis of left lower limb; N17.9 Acute kidney failure, unspecified; R65.20 Severe sepsis without septic shock; K21.9 Gastro-esophageal reflux disease without esophagitis; M10.9 Gout, unspecified; I10 Essential (primary) hypertension; E78.5 Hyperlipidemia, unspecified; I48.91 Unspecified atrial fibrillation; E66.01 Morbid (severe) obesity due to excess calories; F32.9 Major depressive disorder, single episode, unspecified; I89.0 Lymphedema, not elsewhere classified; E11.51 Type 2 diabetes mellitus with diabetic peripheral angiopathy without gangrene; Z88.8 Allergy status to other drugs, medicaments and biological substances; Z88.1 Allergy status to other antibiotic agents; Z79.01 Long term (current) use of anticoagulants; Z79.82 Long term (current) use of aspirin; Z79.4 Long term (current) use of insulin; Z79.899 Other long term (current) drug therapy; Z68.36 Body mass index [BMI] 36.0-36.9, adult; Z85.831 Personal history of malignant neoplasm of soft tissue
CPT/HCPCS: 36415; 71045; 80048; 80053; 80202; 81001; 83605; 83735; 83880; 85025; 85610; 85730; 87040; 87502; 93005; 93010; 93971; 96361; 97116; 97162; 99285-25; J0690; J0696; J1815; J3370; J3475; J7060; J7121; J7512

== ENCOUNTER 2019-07-29 14:21 | Emergency (ER) | payer MEDICARE, OTHER ==
[~2019-07-29] VITALS: Ht 177.8 cm; Wt 114.8 kg
[~2019-07-29 14:21] MED LIST changes: +ATORVASTATIN CA40 MG PO; +COUMADIN5 MG PO; +DOXYCYCLINE HY100 MG PO; +LEVOTHYROXINE112 MCG PO; +NOVOLIN 70100 UNIT/1 SUB-Q; +PREDNISONE20 MG PO; +VENLAFAXINE HCL75 M1 PO
--- OUTSIDE RECORDS SUMMARY | 2019-07-29 14:24 | XMS ---
PreManage Notification: MELINA GOMEZ Security Home Energy Auditor Events No recent Security Events currently on file CRITERIA MET - [facility] - Has Care Guidelines - History of Sepsis Dx - PDMP CARE PROVIDERS JORGE KAUR Internal Medicine 12/20/2018-Current PHONE: Unknown Susu has no Care Guidelines for this patient. Care History Medical/Surgical 12/20/2018 [facility] [place] - Patient is currently established with [facility]. If patient is seen in the ED during business hours. Please contact CHWs at [facility]. Care Recommendation: This patient has had 5 [...] providing care. E.D. VISIT COUNT (12 MO.) 4 [facility] TOTAL 4 NOTE: Visits indicate total known visits. ED/UCC VISIT TRACKING (12 MO.) 07/29/2019 14:22 [facility] [place] TYPE: Emergency COMPLAINT: - LEG PAIN/ SWELLING 06/15/2019 03:27 [facility] [place] TYPE: Emergency COMPLAINT: - FEVER AND WEAKNESS 02/14/2019 15:22 [facility] [place] TYPE: Emergency COMPLAINT: - CHEST PAIN DIAGNOSES: - Unspecified atrial fibrillation - Chest pain, unspecified - flavor extractor (current) use of anticoagulants - Other fci (current) drug therapy - Type 2 diabetes mellitus without complications - [facility] (current) use of aspirin - Essential (primary) hypertension - Allergy status to other drugs, medicaments and biological sub - Allergy status to other antibiotic agents status 01/12/2019 16:22 [facility] TYPE: Urgent Care DIAGNOSES: - Post-traumatic osteoarthritis, left shoulder - Shoulder Pain 12/19/2018 14:10 [facility] COMPLAINT: - AMB L SHOULDER NECK PN DIAGNOSES: - Pain in left shoulder - Allergy status to other antibiotic agents status - Other fci (current) drug therapy - Allergy status to other drugs, medicaments and biological sub - flavor extractor (current) use of aspirin - flavor extractor (current) use of insulin - Type 2 diabetes mellitus without complications - flavor extractor (current) use of anticoagulants - Essential (primary) hypertension - Unspecified atrial fibrillation INPATIENT VISIT TRACKING (12 MO.) 06/15/2019 05:[address] [facility] [place] TYPE: Medical Surgical COMPLAINT: - LEFT LEG CELLULITIS, SEPSIS DIAGNOSES: - Personal history of malignant neoplasm of soft tissue - Gastro-esophageal reflux disease without esophagitis - Morbid (severe) obesity due to excess calories - Type 2 diabetes mellitus with diabetic peripheral angiopathy - Hyperlipidemia, unspecified - [facility] (current) use of insulin - Allergy status to other drugs, medicaments and biological sub - Other longwall headgate operator (current) drug therapy - Essential (primary) hypertension - Cellulitis of left lower limb - Other fci (current) drug therapy - Body mass index (BMI) 36.0-36.9, adult - flavor extractor (current) use of insulin - Allergy status to other antibiotic agents status - Hyperlipidemia, unspecified - Lymphedema, not elsewhere classified - Morbid (severe) obesity due to excess calories - Unspecified atrial fibrillation - Body mass index (BMI) 36.0-36.9, adult - Gastro-esophageal reflux disease without esophagitis - Acute kidney failure, unspecified - Sepsis, unspecified organism - Allergy status to other antibiotic agents status - [facility] (current) use of aspirin - Severe sepsis without septic shock - Severe sepsis without septic shock - Personal history of malignant neoplasm of soft tissue - Major depressive disorder, single episode, unspecified - Essential (primary) hypertension - [facility] (current) use of aspirin - Gout, unspecified - Allergy status to other drugs, medicaments and biological sub - Type 2 diabetes mellitus with diabetic peripheral angiopathy - Lymphedema, not elsewhere classified - Cellulitis of left lower limb - Acute kidney failure, unspecified - Major depressive disorder, single episode, unspecified - flavor extractor (current) use of anticoagulants - Gout, unspecified - flavor extractor (current) use of anticoagulants - Unspecified atrial fibrillation [email or web address]
[2019-07-29] MEDS ORDERED: SULFAMETHOXAZO1 EAC1 (15:02)
== END 2019-07-29 16:25 | disposition home or self-care (01) ==
LOC: ED 14:21
DX: L03.116 Cellulitis of left lower limb (principal); I89.0 Lymphedema, not elsewhere classified; I10 Essential (primary) hypertension; E11.9 Type 2 diabetes mellitus without complications; I48.91 Unspecified atrial fibrillation; Z88.1 Allergy status to other antibiotic agents; Z79.899 Other long term (current) drug therapy; Z79.4 Long term (current) use of insulin
CPT/HCPCS: 80053; 83605; 85025; 85610; 96374; 99283-25; J0878

== ENCOUNTER 2019-11-10 12:31 | Inpatient (IN) | payer MEDICARE, OTHER ==
[~2019-11-10] VITALS: Ht 177.8 cm; Wt 108.0 kg
--- OUTSIDE RECORDS SUMMARY | ~2019-11-10 | XMS | Encounter Summary ---
Demographics + + + | Address | [address] | | | [place] [address] | + + + | Home Phone | | + + + | Preferred Language | Unknown | + + + | Marital Status | Single | + + + | Baptism Affiliation | NON | + + + | Race | White | + + + | Ethnic Group | Not or | + + + Author + + + | Author | [facility] | + + + | Organization | [facility] | + + + | Address | Unknown | + + + | Phone | Unavailable | + + + Support + + + + + | Name | Relationship | Address | Phone | + + + + + | Chiara Cid | ECON | [address] | | | | | [place], | | | | | [place] [address] | | + + + + + Care Team Providers + +------+ + | Care Chemical Milling Processor Name | Role | Phone | + +------+ + | Doroteo Felder MD | PCP | | + +------+ + Reason for Referral Diagnostic Testing (Routine) +--------+--------+ + + + + | Status | Reason | Specialty | Diagnoses / | Referred By | Referred To | | | | | Procedures | Contact | Contact | +--------+--------+ + + + + | Closed | | Radiology | Procedures | [facility], | [facility] | | | | | VASC LAB | Scott Welsh MD | [address] | | | | | VENOUS | [address] | [address] | | | | | DUPLEX LOWER | [address] | [address] | | | | | EXTREMITY | [address] | Mailcode: | | | | | BIL[address] | [place], [place] | [address] | | | | | | [address] | Physician's | | | | | | | Pavilion | | | | | | | [place], [place] | | | | | | | [address] | | | | | | | Phone: | | | | | | | [phone] | | | | | | | Fax: | | | | | | | [phone] | +--------+--------+ + + + + Diagnostic Testing (Routine) +--------+--------+ + + + + | Status | Reason | Specialty | Diagnoses / | Referred By | Referred To | | | | | Procedures | Contact | Contact | +--------+--------+ + + + + | Closed | | Radiology | Procedures | [facility] | [facility] | | | | | VASC LAB | Scott Welsh MD | [address] [address] | | | | | VENOUS | [address] | [address] | | | | | DUPLEX UPPER | [address] | [address] | | | | | EXTREMITY | [address] | Mailcode: | | | | | BILAT [address] | [place], [place] | [address] | | | | | | [address] | Physician[facility] | | | | | | | Pavilion | | | | | | | [place], [place] | | | | | | | [address] | | | | | | | Phone: | | | | | | | [phone] | | | | | | | Fax: | | | | | | | [phone] | +--------+--------+ + + + + Diagnostic Testing (Routine) +--------+--------+ + + + + | Status | Reason | Specialty | Diagnoses / | Referred By | Referred To | | | | | Procedures | Contact | Contact | +--------+--------+ + + + + | Closed | | Radiology | Procedures | [facility], | [facility] | | | | | VASC LAB | Scott Welsh MD | [address] | | | | | ARTER DUPLEX | [address] | [address] | | | | | LOWER | [address] | [address] | | | | | EXTREMITY | [address] | Mailcode: | | | | | BILATERAL | [place], [place] | [address] | | | | | COMPLETE | [address] | Physician[facility] | | | | | | | Pavilion | | | | | | | [place], [place] | | | | | | | [address] | | | | | | | Phone: | | | | | | | [phone] | | | | | | | Fax: | | | | | | | [phone] | +--------+--------+ + + + + Reason for Visit +--------+ + | Reason | Comments | +--------+ + | Fall | | +--------+ + AUTH/CERT +--------+--------+ + + + + | Status | Reason | Specialty | Diagnoses / | Referred By | Referred To | | | | | Procedures | Contact | Contact | +--------+--------+ + + + + | Closed | | Adult | | | [facility] | | | | Critical Care | | | 7ctrauma/Surg | | | | | | | icu [address] | | | | | | | [address] | | | | | | | [address] | | | | | | | [id number] | | | | | | | [facility] | | | | | | | [place], | | | | | | | [place] [address] | +--------+--------+ + + + + Encounter Details +--------+ + + + + | Date | Type | Department | Care Team | Description | +--------+ + + + + | 02/04/ | Hospital | [facility] [address] | Conrado Mckeon, | | | 2009 - | Encounter | [address] | | | | | | [address]C04/UHS8T [facility] | | | | 02/06/ | | Hospital [place], | | | | 2009 | | [place] [address] | | | +--------+ + + + + Social History + +-------+ +--------+------+ | Tobacco Use | Types | Packs/Day | Years | Date | | | | | Used | | + +-------+ +--------+------+ | Never Smoker | | | | | + +-------+ +--------+------+ + + +---------+ + | Alcohol Use | Drinks/Week | oz/Week | Comments | + + +---------+ + | No | | | | + + +---------+ + + + + | Sex Assigned at | Date Recorded | | | | + + + | Not on file | | + + + + + + + | Job Start Date | Occupation | Industry | + + + + | Not on file | Not on file | Not on file | + + + + + + + + | Travel History | Travel Start | Travel End | + + + + + + | No recent travel history available. | + + documented as of this encounter Last Filed Vital Signs + + + + + | Vital Sign | Reading | Time Taken | Comments | + + + + + | Blood Pressure | 141/81 | 02/06/2010 7:00 PM | | | | | PDT | | + + + + + | Pulse | 108 | 02/06/2010 7:00 PM | | | | | PDT | | + + + + + | Temperature | 37 C (98.6 F) | 02/06/2010 8:00 AM | | | | | PDT | | + + + + + | Respiratory Rate | 12 | 02/06/2010 7:00 PM | | | | | PDT | | + + + + + | Oxygen Saturation | 94% | 02/06/2010 7:00 PM | | | | | PDT | | + + + + + | Inhaled Oxygen | - | - | | | Concentration | | | | + + + + + | Weight | 140.7 kg (310 lb 3 | 02/04/2010 10:30 PM | | | | oz) | PDT | | + + + + + | Height | 182.9 cm (6') | 02/04/2010 10:30 PM | | | | | PDT | | + + + + + | Body Mass Index | 42.07 | 02/04/2010 10:30 PM | | | | | PDT | | + + + + + documented in this encounter Discharge Summaries Conrado Mckeon MD - 02/06/2010 6:00 PM PDTI saw and examined Mr Cid with Dr Gaby bello the trauma chief resident on Feb 06. I agree with the assesment and plan as outlined in th is note and participated in the planning of his care. He is anxious to return home. His hemo thorax has not changed. He has excellent physician care at home. He will be discharged on lo venox, and then start his coumadin back shortly. I agree with the plan. 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 Imaging performed at [facility] revealed right sided rib fractures #3-8 a nd gross hematuria. Subsequent imaging performed later on demonstrated a right sided hemoth orax. Of note, he was still being anticoagulated for his atrial fibrillation & lower left e xtremity bypass. A chest tube was not placed upon admission due to the supratherapeutic INR and the risks of the procedure versus the perceived benefits. Arterial duplex was performed on the LLE maryam t which was found to be patent. Orthopedics was consulted regarding his LLE edema and some other bony injuries, none of which required intervention or follow up. Recommendations were to follow up with his original surgeon for his LLE sarcoma or to follow up with the [facility] rcoma program as he still had persistent edema. Vascular surgery was consulted regarding hi s anticoagulation and his graft, with final recommendations to continue his anticoagulation as long as it was deemed safe from his pulmonary standpoint. On 02/06/10, the patient expressed a strong desire to leave AMA, mainly due to agitation wh ile hospitalized. He was encouraged to remain an inpatient for observation as the plan was to hold coumadin for several days while taking prophylactic lovenox and then to transition b ack to oral coumadin. The risks of sustaining a significant hemothorax were explained. Mr. Cid elected to leave AMA. Therefore, he was discharged with pain medications (oral and lidocaine patches), 3 days of prophylactic lovenox, a wheel chair for mobility, and instructions to follow up with his ant icoagulation clinic & PCP the following morning for INR checks and instructions regarding lo venox administration. The plan was to restart coumadin in 3 days. At discharge he was main taining oxygen saturation >92% while on room air and had non-labored respirations. Discharge issues and plan: 1. Right-sided rib fractures and hemothorax. No intervention at this time, will continue o bservation for worsening hemothorax or respiratory effort. 2. Chronic right lateral epicondyle ossification. Consulted orthopedic surgery, recommenda tions were no intervention required. 3. Left thigh mass & resultant edema. Noted to have severe lower extremity edema in his lo wer extremity, and has a history of a left thigh mass treated with surgery and radiation. R ecommendations are to follow up with his original surgeon or with the [facility] sarcoma program f or follow up of his leg edema. 4. 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 Evaluated by ar terial duplex, with demonstrated patency. He takes coumadin for this graft. Due to his need for anticoagulation for his atrial fibrillation & bypass graft, but the victorino silvana of therapeutic anticoagulation in the presence of multiple rib fractures and established hemothorax, the plan was to hold his coumadin, continue prophylactic lovenox (30mg bid) for 3 days, and then resume his coumadin on that third day as usual. Medications: Current Discharge Medication List START taking these medications enoxaparin 30 mg/0.3 mL Subcutaneous Syringe Inject 0.3 mL under the skin (SUBC) every twelve hours. Qty: 6 Syringe Refills: 0 lidocaine 5 %(700 mg/patch) Topical Adhesive Patch, Medicated Apply 1 Patch to skin every twenty-four hours. Apply patch to most painful area; Patch may remain in place for up to 12 hours in any 24-hour period. Qty: 30 Patch Refills: 2 !! oxyCODONE, immediate release, 5 mg Oral Tablet Take 1-2 Tabs by mouth every four hours as needed for moderate pain and severe pain. Qty: 40 Tab Refills: 0 !! oxyCODONE, immediate release, 5 mg Oral Tablet Take 1-2 Tabs by mouth every four hours as needed. Qty: 10 Tab Refills: 0 Wheel Chair Device Qty: 1 Each Refills: 0 !! - Potential duplicate medications found. Please discuss with provider. CONTINUE these medications which have NOT CHANGED atenolol 100 mg Oral Tablet Take 100 mg by mouth once daily. candesartan (ATACAND) 32 mg Oral Tablet Take 32 mg by mouth once daily. fluoxetine 40 mg Oral Capsule Take 40 mg by mouth once daily. gemfibrozil 600 mg Oral Tablet Take 600 mg by mouth once daily. hydrochlorothiazide 25 mg Oral Tablet Take 25 mg by mouth once daily. insulin glargine (LANTUS) 100 unit/mL Subcutaneous Solution Inject under the skin (SUBC) once daily at bedtime. omeprazole 20 mg Oral Capsule, Delayed Release(E.C.) Take 20 mg by mouth once daily. PROBENECID ORAL Take by mouth. warfarin 2.5 mg Oral Tablet Take 2.5 mg by mouth once daily. 2.5 mg M-F, 5 mg Sat-Sun Diet Regular Activity Advance activity as tolerated. Activity level at discharge Ambulate in [place] Destination: Destination: Home Condition on Discharge Fair Discharge Follow Up Provider and Clinic: Anticoagulation clinic. Appointment: Please call clinic to make appointment for 02/07/10. Discharge Follow Up with PCP With: Primary Care Provider: Ralph Felder MD Appointment: Please call clinic to make appointment for 02/07/10. Vitals on discharge: Ht 182.9 cm (6')( < 3 %ile), Wt 140.7 kg (310 lbs 3.0 oz)( < 3 %ile), BP 141/89, Pulse 109, Temperature 37 C (98.6 F), RR 15, SpO2 93%, BMI 42.07 kg/(m^2). Outstanding labs/studies: None Discharging Physician: CURT IBRAHIM MD Attending Physician: Conrado Mckeon MDElectronically signed by Conrado Mckeon MD at 6:58 PM PDTdocumented in this encounter Discharge Instructions Instructions Nancy Jaquez - 02/06/2010INPATIENT NURSE ORDER FOR DISCHARGE AND INTERDISCIPLINARY INSTRUCTIONS DISCHARGE DATE: 02/06/2010 PATIENT EDUCATION: Pt given scripts by and asked to follow up with coag clinic on 02/07 in AM at 0800 Review with patient/family: Understanding of disease/injury/surgical repair Yes Signs/symptoms that they should report Yes Understanding of medications and side effects Yes Activity and diet instructions Yes Follow-up appointments Yes Any concerns/fears N/A Smoking Cessation Counseling/Information was given on admission. Additional Instructions: Continue to check blood sugars at meal timesa and at bedtime. If I ncreaesed difficulty beathing or pain occurs alert , call local fire dept or ems Personal Effects/Medications: Admit belongings list verified Discharged Via: Wheelchair Mode of Transportation: Car Accompanied by: Family/Responsible [employer] Name: (when applicable) Phone #: Discharge Nurse: Nancy Jaquez Date: 02/06/2010 Discharge Time: 6:46 PM documented in this encounter Medications at Time of Discharge + + + +---------+ + + | Medication | Sig | Dispensed | Refills | Start | End Date | | | | | | Date | | + + + +---------+ + + | atenolol 100 mg | Take 100 mg by mouth | | 0 | | | | Oral Tablet | once daily. | | | | | + + + +---------+ + + | candesartan | Take 32 mg by mouth | | 0 | | | | (ATACAND) 32 mg Oral | once daily. | | | | | | Tablet | | | | | | + + + +---------+ + + | enoxaparin 30 | Inject 0.3 mL under | 6 | 0 | 02/07/20 | | | mg/0.3 mL | the skin (SUBC) | Syringe | | 10 | | | Subcutaneous Syringe | every twelve hours. | | | | | + + + +---------+ + + | fluoxetine 40 mg | Take 40 mg by mouth | | 0 | | | | Oral Capsule | once daily. | | | | | + + + +---------+ + + | gemfibrozil 600 mg | Take 600 mg by mouth | | 0 | 02/06/20 | | | Oral Tablet | once daily. | | | 10 | | + + + +---------+ + + | | Take 25 mg by mouth | | 0 | | | | hydrochlorothiazide | once daily. | | | | | | 25 mg Oral Tablet | | | | | | + + + +---------+ + + | insulin glargine | Inject under the | | 0 | | | | (LANTUS) 100 unit/mL | skin (SUBC) once | | | | | | Subcutaneous | daily at bedtime. | | | | | | Solution | | | | | | + + + +---------+ + + | lidocaine 5 %(700 | Apply 1 Patch to | 30 | 2 | 10/27/20 | | | mg/patch) Topical | skin every | Patch | | 10 | | | Adhesive Patch, | twenty-four hours. | | | | | | Medicated | Apply patch to most | | | | | | | painful area; Patch | | | | | | | may remain in place | | | | | | | for up to 12 hours | | | | | | | in any 24-hour | | | | | | | period. | | | | | + + + +---------+ + + | omeprazole 20 mg | Take 20 mg by mouth | | 0 | | | | Oral Capsule, | once daily. | | | | | | Delayed | | | | | | | Release(E.C.) | | | | | | + + + +---------+ + + | oxyCODONE, | Take 1-2 Tabs by | 40 Tab | 0 | 02/07/20 | | | immediate release, 5 | mouth every four | | | 10 | | | mg Oral Tablet | hours as needed for | | | | | | | moderate pain and | | | | | | | severe pain. | | | | | + + + +---------+ + + | oxyCODONE, | Take 1-2 Tabs by | 10 Tab | 0 | 02/07/20 | | | immediate release, 5 | mouth every four | | | 10 | | | mg Oral Tablet | hours as needed. | | | | | + + + +---------+ + + | PROBENECID ORAL | Take by mouth. | | 0 | | | + + + +---------+ + + | warfarin 2.5 mg | Take 2.5 mg by mouth | | 0 | | | | Oral Tablet | once daily. 2.5 mg | | | | | | | M-F, 5 mg Sat-Sun | | | | | + + + +---------+ + + | Wheel Chair Device | | 1 Each | 0 | 02/07/20 | | | | | | | 10 | | + + + +---------+ + + documented as of this encounter Progress Notes Conrado Mckeon MD - 02/06/2010 4:33 PM PDTDx. Rib fractures Mr Cid has remained stable in terms of his rib fractures. His hemothorax has not increase d. I have decided to avoid a chest tube because the volume of blood in his chest is not larg e enough to cause significant pulmonary compression. He has adequate pain control with po meds Vascular duplex confirm that he has patent vessels in his swollen left leg. Mr Cid has patent blood vessels in his swollen left leg. I agree with at least three days of lovenox (low dose to reduce risk of bleeding in his chest) and then restart his coumadin , and when his INR is back to therapeutic level Mr Cid tells the trauma team this afternoon he want to leave. I think that would increase his risk of bleeding in his chest. If he insists upon leaving I will not prevent him. I chapa ve discussed this with Dr Nancy Griffin, and she has reviewed in detail the options with the family and the patient. CONRADO MCKEON MD Tuan Chin PA - 02/06/2010 11:36 AM PDT Trauma / Surgical Critical Care Service - Progress Note Name: RICH CID Date: 02/06/2010 Time: 11:36 AM Author: OLEG BAIRES Admitted: 02/04/2010 10:33 PM Hospital Day: 2 HPI: 69 y.o. y/o male with below current issues. Patient Active Problem List Diagnoses Code Ribs, multiple fractures 807.09F Hemothorax on right 511.89BG Laceration of right hand 882.0AC Lower extremity venous stasis 459.81S Sarcoma LLE 171.9BJ 24 hr Events: No significant overnight events. Patient had afib yesterday. C/C: Pain on R side. Some shortness of breath. No CP. No abdominal pain. I have reviewed the interval history and events. I have reviewed the patients medications, labs, vitals, and other applicable data points. Please refer to ustyme for this information. Physical Exam Last Vitals:BP 111/69 | Pulse 102 | Temp 37 C (98.6 F) | RR 11 | Ht 1.829 m (6') | Wt 1 40.7 kg (310 lb 3 oz) | SpO2 98% | BMI 42.07 kg/(m^2) Temp Av.9 C (98.4 F) Min: 36.5 C (97.7 F) Max: 37.2 C (99 F) Pulse Avg : 100.4 Min: 84 Max: 118 Systolic (24hrs), Min:96 mmHg, Max:164 mmHg Diastolic (24hrs), Min:49 mmHg, Max:97 mmHg Resp Av.2 Min: 9 Max: 29 SpO2 Av % Min: 95 % Max : 99 % General: Patient appears calm, comfortable and in no apparent distress. Neuro: Alert and oriented x 3. Appropriate, following commands and interactive. HEENT: Atraumatic, normocephalic, PERRLA 3mm, EOMI, CN 2-12 grossly intact, OP moist, neck supple CV: Irregularly irregular, +2 pulses in all extremities. EKG: AGIB Pulm: Generally diminished. L > R. Abd / GI: Obese. Round. Soft. Non-tender. Non-distended. / Renal: No su in place. M/S Moves all extremities x 4. Circulatory, motor and sensory are grossly intact. Skin: Dry, warm, well perfused. Edema, + 4 LLE. Imaging CXR: Effusion, on LEFT side. Assessment, Medical Decision Making and Plan 1. Acute blood loss anemia - follow. No indications for transfusion. 2. Acute traumatic pain - po and IV pain meds as needed. Added lido patch to R chest. Tylen ol. 3. Hyperglycemia - on lantus at home 80 at night. Will start NPH and increase to get contro l. Is on SSI. 4. Hypertension - changes form atenolol to metop. Will increase to keep HR low and BP < 160 . 5. Atrial fibrilation - will keep K > 4. Mg > 2. Follow. Metop IV and PO for HR > 100. Requires continued ICU care / support. Will start some proph lovenox at this time and follow. Transition to therapeutic at some ti me. Tuan Piña PA-C Pager/ID: [phone] Trauma ICU Team Pager (24hrs/day): [phone] Conrado Page MD - 02/05/2010 5:17 AM PDTI saw and examined Mr Cid with Dr Cat on Feb 05, and I agr ee with the assesment and plan as outlined in this note. I participated in the planning of h is care. He has patent vessels in his swollen left leg, and I think we need to maintain his anticoagulation status. I do not see evidence his hemothorax is increasing, and I have concl uded the risks of inserting a chest tube in this anticoagulated man outweight the benefits o f draining a small volume of bloody fluid in right chest. He has no respiratory distress, al though he reports his ribs are painful. [id number] Scott Edward MD - 02/05/2010 5:17 AM PDT INTENSIVE CARE PROGRESS NOTE - TICU ICU day: 1 Author: Scott Cat MD Attending Physician: Dr. Mike MD 69 y.o. year old male transferred to the ICU from [facility] for right rib f ractures, R hemothorax, hematuria and anemia while on coumadin following a fall incurred on 02/02. His OSH course complicated by DEANA/Contrast nephropathy, HCT drop 39-30, and contin ued anticoagulation. Pt is poor/variable historian. Past Medical History Diagnosis Date Obesity HTN DM (diabetes mellitus) HLD (hyperlipidemia) Atrial fibrillation Sarcoma Lower extremity venous stasis 24 hr Update: 1. On arrival repeat labs and Cxr along with plain films RUE done as pt was tender to R elb ow. Note stable Hct, Cxr w mult r rib fx's, R effusion and ? pulm edema, and a likely fract ured lateral humeral epicondyle. Given analgesia, bumex, and discussed fx's w orthopedics w ho will eval today. Awaiting fax from OSH regarding pt's prior LLE vascular surgeries. Vitals: Last Vitals: BP 142/67 | Pulse 120 | Temp 37.7 C (99.9 F) | RR 14 | Ht 1.829 m (6') | W t 140.7 kg (310 lb 3 oz) | SpO2 95% | BMI 42.07 kg/(m^2) 24 Hour Vital Min/Max: Systolic (24hrs), Min:126 mmHg, Max:161 mmHg Diastolic (24hrs), Min:57 mmHg, Max:85 mmHg Pulse Min: 110 Max: 120 Temp Min: 36.7 C (98.1 F) Max: 38 C (100.4 F) Resp Min: 9 Max: 19 SpO2 Min: 94 % Max: 98 % Intake/Output Summary (Last 24 hours) at 02/05/10 0517 Last data filed at 02/05/10 0500 Gross per 24 hour Intake 695 ml Output 1335 ml Net -640 ml CBGs: ~190 Lines: PIV's x2 Physical Exam: Gen: Awake, alert Non-toxic Skin: Intact, dry, pink, warm w/o rash HEENT: Normocephalic/atraumatic, Conj clear/pink PERRLA EOMI Sclera non-icteric, Nares patent mucosa pink, PO cavity moist, pink Neck: No addenopathy Chest: Symmetric with good rise/fall, tender to r chest wall, CTA anterior and diminished p osterior bilat ? More RLL, mild expiratory wheeze Cardiac: S1S2 IRIRR No MMRG. No JVD/Hepatojugular reflex appreciated. Central pulses 2+ Abd: Round, sl distended but normoactive, soft. NT No massess/organomegaly. No hernias. -RR G Rectal: External w/o lesion/mass. Vault free of stool, no mass, prostate central non-tender , symmetric, not enlarged. Guiac - : circ male glans/meatus w/o abnormality folwey in place secure, shaft intact, grossly edematous scrotum x2 testicles MSK: Asymetric, LLE grossly edematous 3-4+ non-pitting weeping proximal leg. +doppler pulse s weak. RLE palp pedals, CMS intact. RUE edematous and tender no cord or evidence of tra devyn Neuro: Oriented x2-3 Speech is fluent/intelligible. No focal deficits Pt endorses mild "m juan carlos" difficulties Labs: Recent Labs Basename 02/05/10 1012 02/05/10 0508 02/04/10 2326 NA -- 133* 130* K -- 4.0 4.5 CL -- 97 96* BICARB -- 30 29 BUN -- 23* 25* CR -- 1.25 1.42* GLU 228* 176* 190* CA -- 8.3* 8.3* AST -- -- -- ALT -- -- -- AP -- -- -- TBILI -- -- -- TP -- -- -- ALB -- 2.6* 2.6* CBC with diff last 72 hours (or 3 results) Recent Labs Basename 02/04/10 2326 WBC 7.2 HB 9.7* HCT 29.6* PLT 185 NEUTROPERC -- BANDPCT -- LYMPHPERC -- MONOPERC -- BASOPERC -- EOSPERC -- Lab Results Component Value Date ALB 2.6* 02/04/2010 Imaging: Cxr 02/05 pending ASSESSMENT and PLAN: 69 y.o. man with the following active problems: Patient Active Problem List Diagnoses Code Ribs, multiple fractures 807.09F Hemothorax on right 511.89BG Laceration of right hand 882.0AC Lower extremity venous stasis 459.81S *R humerus fx Neuro: Acute traumatic pain: for pain control; Morphine/Oxycodone Resp: Multiple rib fractures: tender to R chest wall, eupneic respiration pain w deep inspi ration,maintaining good sats on 3lpm >95% -Analgesia -Consider operative fixation consult -wean o2 sats >92% Hemothorax: stable VS, stable exam, awaiting pt medical records to better define vascular s urgical needs for coumadin, hold on reversal at this time, hold on chest tube at this time Wheeze/crackles: Improved, CXR cw hypervolemia, cont albuterol, consider additional diures is CV: Tachycardia: BP stable no evidence acute hemmorhage, hct stable, ecg from OSH demonstr ates afib but clearly in record has had sinus as well likely paroxysmal. Continue atenolol, HCTZ and prn metoprolol. Nothing to suggest acs/pe. Hold ARB for now. Will contact pt's PCP to better define his medical problems. Follow. GI: NPO save medications pending ortho eval and or procedures today : Likely acute on chronic renal failure exacerbated by recent IV contrast exposure: adeq uate UOP, stable Cr trending down from 2.1 at OSH to 1.42 here, hematuria resolved here foll ow renal functions and UO. FEN: replace lytes PRN; mIVF; NPO save medications for now Endo: ISS, no issues MSK: RUE edema/warmth no errythema, tender likely 2/2 fracture/trauma however will duplex ?DVT. LLE edema chronic venous stasis cont compressive stocking and will try to obtain merari rds regarding pt vascular/surgical history. Pt remains variable historian. Also, will consu lt orthopedics for management. ID: no indication for Abx, no e/o infx. Heme: Hct stable without s/sx bleeding, Pt has been maintained on his coumadin for his L si ded venous stasis/vein graft and ? Paroxysmal Atrial fibrilation. Hold coumadin at this ti me will not reverse as is currently stable but would consider vit K /FFP if necessary. Prophylaxis: SCDs, ranitidine Pt therapeutic on coumadin Dispo: continues to require ICU care though subject to change if pt remains stable. F: Clear/meds A: Oxycodone/Morphine S: None T: SCD's H: >30 U: Ranitidine G: ISS/CBG's MD Scott Aguilar MD Emergency Medicine, PGY-2 documented in this e ncounter Plan of Treatment Not on filedocumented as of this encounter Procedures + +--------+ + + + | Procedure Name | Priori | Date/Time | Associated Diagnosis | Comments | | | ty | | | | + +--------+ + + + | CAPILLARY BLOOD | Routin | 02/06/2010 | | Results for this | | GLUCOSE (NO CHG), | e | 2:14 PM | | procedure are in the | | POC | | PDT | | results section. | + +--------+ + + + | CAPILLARY BLOOD | Routin | 02/06/2010 | | Results for this | | GLUCOSE (NO CHG), | e | 11:16 AM | | procedure are in the | | POC | | PDT | | results section. | + +--------+ + + + | INR | Urgent | 02/06/2010 | | Results for this | | | | 6:53 AM | | procedure are in the | | | | PDT | | results section. | + +--------+ + + + | CAPILLARY BLOOD | Routin | 02/06/2010 | | Results for this | | GLUCOSE (NO CHG), | e | 6:32 AM | | procedure are in the | | POC | | PDT | | results section. | + +--------+ + + + | X-RAY PORTABLE CHEST | Routin | 02/06/2010 | | Results for this | | 1 VIEW | e | 5:05 AM | | procedure are in the | | | | PDT | | results section. | + +--------+ + + + | RENAL FUNCTION SET | Urgent | 02/06/2010 | | Results for this | | (NA,K,CL,CO2,BUN,CRE | | 1:07 AM | | procedure are in the | | AT,GLUC,CA,PHOS,ALB | | PDT | | results section. | | ) | | | | | + +--------+ + + + | MAGNESIUM, PLASMA | Urgent | 02/06/2010 | | Results for this | | | | 1:07 AM | | procedure are in the | | | | PDT | | results section. | + +--------+ + + + | RESP CARE THERAPY | Routin | 02/06/2010 | | Results for this | | | e | 12:08 AM | | procedure are in the | | | | PDT | | results section. | + +--------+ + + + | CAPILLARY BLOOD | Routin | 02/05/2010 | | Results for this | | GLUCOSE (NO CHG), | e | 9:16 PM | | procedure are in the | | POC | | PDT | | results section. | + +--------+ + + + | CAPILLARY BLOOD | Routin | 02/05/2010 | | Results for this | | GLUCOSE (NO CHG), | e | 6:26 PM | | procedure are in the | | POC | | PDT | | results section. | + +--------+ + + + | 12 LEAD ECG | Routin | 02/05/2010 | | Results for this | | | e | 1:32 PM | | procedure are in the | | | | PDT | | results section. | + +--------+ + + + | VASC LAB VENOUS | Routin | 02/05/2010 | | Results for this | | DUPLEX LOWER | e | 1:24 PM | | procedure are in the | | EXTREMITY BILAT COMP | | PDT | | results section. | + +--------+ + + + | VASC LAB ARTER | Routin | 02/05/2010 | | Results for this | | DUPLEX LOWER | e | 1:24 PM | | procedure are in the | | EXTREMITY BILATERAL | | PDT | | results section. | | COMPLETE | | | | | + +--------+ + + + | VASC LAB VENOUS | Routin | 02/05/2010 | | Results for this | | DUPLEX UPPER | e | 1:24 PM | | procedure are in the | | EXTREMITY BILAT COMP | | PDT | | results section. | + +--------+ + + + | CAPILLARY BLOOD | Routin | 02/05/2010 | | Results for this | | GLUCOSE (NO CHG), | e | 1:23 PM | | procedure are in the | | POC | | PDT | | results section. | + +--------+ + + + | RENAL FUNCTION SET | Urgent | 02/05/2010 | | Results for this | | (NA,K,CL,CO2,BUN,CRE | | 1:10 PM | | procedure are in the | | AT,GLUC,CA,PHOS,ALB | | PDT | | results section. | | ) | | | | | + +--------+ + + + | MAGNESIUM, PLASMA | Urgent | 02/05/2010 | | Results for this | | | | 1:10 PM | | procedure are in the | | | | PDT | | results section. | + +--------+ + + + | CAPILLARY BLOOD | Routin | 02/05/2010 | | Results for this | | GLUCOSE (NO CHG), | e | 10:12 AM | | procedure are in the | | POC | | PDT | | results section. | + +--------+ + + + | HEMATOCRIT | Urgent | 02/05/2010 | | Results for this | | | | 9:10 AM | | procedure are in the | | | | PDT | | results section. | + +--------+ + + + | X-RAY PORTABLE ELBOW | Routin | 02/05/2010 | | Results for this | | 2 VIEWS RIGHT | e | 5:13 AM | | procedure are in the | | | | PDT | | results section. | + +--------+ + + + | INR | Urgent | 02/05/2010 | | Results for this | | | | 5:09 AM | | procedure are in the | | | | PDT | | results section. | + +--------+ + + + | CBC ONLY | Urgent | 02/05/2010 | | Results for this | | | | 5:09 AM | | procedure are in the | | | | PDT | | results section. | + +--------+ + + + | MAGNESIUM, PLASMA | Urgent | 02/05/2010 | | Results for this | | | | 5:09 AM | | procedure are in the | | | | PDT | | results section. | + +--------+ + + + | RENAL FUNCTION SET | Urgent | 02/05/2010 | | Results for this | | (NA,K,CL,CO2,BUN,CRE | | 5:08 AM | | procedure are in the | | AT,GLUC,CA,PHOS,ALB | | PDT | | results section. | | ) | | | | | + +--------+ + + + | MAGNESIUM, PLASMA | Urgent | 02/05/2010 | | Results for this | | | | 5:08 AM | | procedure are in the | | | | PDT | | results section. | + +--------+ + + + | RESP CARE THERAPY | Routin | 02/05/2010 | | Results for this | | | e | 4:24 AM | | procedure are in the | | | | PDT | | results section. | + +--------+ + + + | CONFIRMATORY ABO/RH | Routin | 02/05/2010 | | Results for this | | | e | 4:08 AM | | procedure are in the | | | | PDT | | results section. | + +--------+ + + + | X-RAY PORTABLE | Routin | 02/05/2010 | | Results for this | | HUMERUS 2 VIEWS | e | 2:06 AM | | procedure are in the | | RIGHT | | PDT | | results section. | + +--------+ + + + | X-RAY PORTABLE CHEST | Urgent | 02/05/2010 | | Results for this | | 1 VIEW | | 2:06 AM | | procedure are in the | | | | PDT | | results section. | + +--------+ + + + | X-RAY HAND 3 VIEWS | Routin | 02/05/2010 | | Results for this | | RIGHT | e | 2:06 AM | | procedure are in the | | | | PDT | | results section. | + +--------+ + + + | X-RAY FOREARM 2 | Routin | 02/05/2010 | | Results for this | | VIEWS RIGHT | e | 2:06 AM | | procedure are in the | | | | PDT | | results section. | + +--------+ + + + | INR | Urgent | 02/04/2010 | | Results for this | | | | 11:26 PM | | procedure are in the | | | | PDT | | results section. | + +--------+ + + + | RENAL FUNCTION SET | Urgent | 02/04/2010 | | Results for this | | (NA,K,CL,CO2,BUN,CRE | | 11:26 PM | | procedure are in the | | AT,GLUC,CA,PHOS,ALB | | PDT | | results section. | | ) | | | | | + +--------+ + + + | CBC ONLY | Urgent | 02/04/2010 | | Results for this | | | | 11:26 PM | | procedure are in the | | | | PDT | | results section. | + +--------+ + + + | COAGULOPATHY PANEL | Urgent | 02/04/2010 | | Results for this | | (INR,APTT,FIBRINOGEN | | 11:26 PM | | procedure are in the | | ) | | PDT | | results section. | + +--------+ + + + | TYPE AND SCREEN | Urgent | 02/04/2010 | | Results for this | | | | 11:26 PM | | procedure are in the | | | | PDT | | results section. | + +--------+ + + + | MAGNESIUM, PLASMA | Urgent | 02/04/2010 | | Results for this | | | | 11:26 PM | | procedure are in the | | | | PDT | | results section. | + +--------+ + + + documented in this encounter Results CAPILLARY BLOOD GLUCOSE, POC (02/06/2010 2:14 PM PDT) + +---------+ + + + | Component | Value | Ref Range | Performed | Pathologist | | | | | At | Signature | + +---------+ + + + | BLOOD | 257 (H) | 60 - 99 mg/dL | [facility] | | | GLUCOSE, | | | [facility] | | | POC | | | [facility] | | | | | | OF CARE | | | | | | TESTS | | + +---------+ + + + + + | Specimen | + + | | + + + + + + + | Performing | Address | City/State/Zipcode | Phone Number | | Organization | | | | + + + + + | [facility] | [address] | [place], [place] | | | [facility] | [address] | [address] | | | TESTS | | | | + + + + + CAPILLARY BLOOD GLUCOSE, POC (02/06/2010 11:16 AM PDT) + +---------+ + + + | Component | Value | Ref Range | Performed | Pathologist | | | | | At | Signature | + +---------+ + + + | BLOOD | 256 (H) | 60 - 99 mg/dL | [facility] | | | GLUCOSE, | | | [facility] | | | POC | | | [facility] | | | | | | OF CARE | | | | | | TESTS | | + +---------+ + + + + + | Specimen | + + | | + + + + + + + | Performing | Address | City/State/Zipcode | Phone Number | | Organization | | | | + + + + + | [facility] | [address] | [place], [place] | | | [facility] [place] | [facility] | [address] | | | TESTS | | | | + + + + + INR (02/06/2010 6:53 AM PDT) + + + + + + | Component | Value | Ref Range | Performed | Pathologist | | | | | At | Signature | + + + + + + | INR | 1.55 (H)Comment: | 0.90 - 1.20 INR | [facility] | | | | INR Therapeutic ranges | | DEPARTMENT | | | | for full | | OF | | | | anticoagulation: | | PATHOLOGY | | | | INR for Venous | | | | | | Thromboembolism | | | | | | (2.0-3.0) | | | | | | INR INR for most | | | | | | patients with mech. | | | | | | valves (2.5-3.5) | | | | | | INR | | | | + + + + + + + + | Specimen | + + | Blood - Blood | + + + + + + + | Performing | Address | City/State/Zipcode | Phone Number | | Organization | | | | + + + + + | [facility] | [address] | [place] [address] | | | PATHOLOGY | [address] | | | + + + + + CAPILLARY BLOOD GLUCOSE, POC (02/06/2010 6:32 AM PDT) + +---------+ + + + | Component | Value | Ref Range | Performed | Pathologist | | | | | At | Signature | + +---------+ + + + | BLOOD | 212 (H) | 60 - 99 mg/dL | [facility] - | | | GLUCOSE, | | | [facility] | | | POC | | | [facility] | | | | | | OF CARE | | | | | | TESTS | | + +---------+ + + + + + | Specimen | + + | | + + + + + + + | Performing | Address | City/State/Zipcode | Phone Number | | Organization | | | | + + + + + | [facility] | [address] | [place], [place] | | | [facility] | [address] | [address] | | | TESTS | | | | + + + + + X-RAY PORTABLE CHEST 1 VIEW (02/06/2010 5:05 AM PDT) + + + + + + | Component | Value | Ref Range | Performed | Pathologist | | | | | At | Signature | + + + + + + | X-RAY | EXAM: AP chest, | | | | | PORTABLE | 02/06/2010. HISTORY: | | | | | CHEST 1 | 69-year-old male status | | | | | VIEW | post fall with | | | | | | subsequent fracturesand | | | | | | small right pleural | | | | | | hematoma. COMPARISON: | | | | | | Yesterday. FINDINGS: The | | | | | | cardiac and mediastinal | | | | | | contours are stable. | | | | | | Slightly decreasedleft | | | | | | greater than right | | | | | | bibasilar atelectasis, | | | | | | with minimallyincreased | | | | | | atelectasis in the right | | | | | | superior hemithorax. | | | | | | The rightextrapleural | | | | | | hematoma and probable | | | | | | bilateral small pleural | | | | | | effusionsare unchanged. | | | | | | No new focal | | | | | | consolidation, edema, or | | | | | | pneumothoraxseen. | | | | | | Multiple right-sided | | | | | | rib fractures involving | | | | | | the lateralaspect of | | | | | | ribs 4 through 7, as | | | | | | well as the posterior | | | | | | aspect of rib 6,are | | | | | | again noted. IMPRESSION: | | | | | | Stable right | | | | | | extrapleural hematoma | | | | | | and probable bilateral | | | | | | smallpleural effusions. | | | | | | Decreased left greater | | | | | | than right | | | | | | bibasilaratelectasis. I | | | | | | have personally viewed | | | | | | this procedure/exam and | | | | | | reviewed this report. | | | | | | Author: ROX LUCAS | | | | | | ROSETTA,Reviewer: SADA Martinez | | | | | | Osamr THOMPSON STATUS | | | | | | FINAL / Dr. SADA Martinez | | | | | | DONNASTATUS PENDING | | | | | | FINAL APPROVAL / DrLeonora | | | | | | ROX WERNERUS | | | | | | PRELIMINARY - UNSIGNED / | | | | | | Dr. ROX MARCH | | | | + + + + + + + + | Specimen | + + | | + + + +---------+ + + | Performing | Address | City/State/Zipcode | Phone Number | | Organization | | | | + +---------+ + + | [facility] | | | | | RADIOLOGY | | | | + +---------+ + + MAGNESIUM, PLASMA (02/06/2010 1:07 AM PDT) + +-------+ + + + | Component | Value | Ref Range | Performed | Pathologist | | | | | At | Signature | + +-------+ + + + | MAGNESIUM,P | 2.0 | 1.8 - 2.5 mg/dL | [facility] | | | LASMA | | | DEPARTMENT | | | | | | OF | | | | | | PATHOLOGY | | + +-------+ + + + + + | Specimen | + + | | + + + + + + + | Performing | Address | City/State/Zipcode | Phone Number | | Organization | | | | + + + + + | [facility] | [address] | [place] [address] | | | PATHOLOGY | [address] | | | + + + + + RENAL FUNCTION SET (NA,K,CL,CO2,BUN,CREAT,GLUC,CA,PHOS,ALB ) (02/06/2010 1:07 AM PDT) + +---------+ + + + | Component | Value | Ref Range | Performed | Pathologist | | | | | At | Signature | + +---------+ + + + | GLUCOSE, | 187 (H) | 60 - 99 mg/dL | [facility] | | | PLASMA | | | DEPARTMENT | | | (LAB) | | | OF | | | | | | PATHOLOGY | | + +---------+ + + + | BUN, PLASMA | 19 | 6 - 20 mg/dL | [facility] | | | (LAB) | | | DEPARTMENT | | | | | | OF | | | | | | PATHOLOGY | | + +---------+ + + + | CREATININE | 1.16 | 0.70 - 1.30 | [facility] | | | PLASMA | | mg/dL | DEPARTMENT | | | (LAB) | | | OF | | | | | | PATHOLOGY | | + +---------+ + + + | ALBUMIN, | 2.7 (L) | 3.5 - 4.7 g/dL | [facility] | | | PLASMA | | | DEPARTMENT | | | (LAB) | | | OF | | | | | | PATHOLOGY | | + +---------+ + + + | CALCIUM, | 8.9 | 8.6 - 10.2 | [facility] | | | PLASMA | | mg/dL | DEPARTMENT | | | (LAB) | | | OF | | | | | | PATHOLOGY | | + +---------+ + + + | PHOSPHORUS, | 2.0 (L) | 2.4 - 4.7 mg/dL | [facility] | | | PLASMA | | | DEPARTMENT | | | (LAB) | | | OF | | | | | | PATHOLOGY | | + +---------+ + + + | SODIUM, | 135 | 134 - 143 | [facility] | | | PLASMA | | mmol/L | DEPARTMENT | | | (LAB) | | | OF | | | | | | PATHOLOGY | | + +---------+ + + + | POTASSIUM, | 4.1 | 3.4 - 5.0 | [facility] | | | PLASMA | | mmol/L | DEPARTMENT | | | (LAB) | | | OF | | | | | | PATHOLOGY | | + +---------+ + + + | CHLORIDE, | 95 (L) | 97 - 108 mmol/L | [facility] | | | PLASMA | | | DEPARTMENT | | | (LAB) | | | OF | | | | | | PATHOLOGY | | + +---------+ + + + | TOTAL CO2, | 32 (H) | 23 - 31 mmol/L | [facility] | | | PLASMA | | | DEPARTMENT | | | (LAB) | | | OF | | | | | | PATHOLOGY | | + +---------+ + + + | ANION GAP | 8 | 4 - 11 mmol/L | [facility] | | | | | | DEPARTMENT | | | | | | OF | | | | | | PATHOLOGY | | + +---------+ + + + | ANION | 11 | 4 - 11 mmol/L | [facility] | | | GAP(ALB | | | DEPARTMENT | | | CORRECTED) | | | OF | | | | | | PATHOLOGY | | + +---------+ + + + + + | Specimen | + + | Blood - Blood | + + + + + + + | Performing | Address | City/State/Zipcode | Phone Number | | Organization | | | | + + + + + | [facility] | [address] | [place] [address] | | | PATHOLOGY | [address] | | | + + + + + RESP CARE THERAPY (02/06/2010 12:08 AM PDT) + + + + +------- -------+ | Component | Value | Ref Range | Performed | Pathol ogist | | | | | At | Signat ure | + + + + +------- -------+ | RESPIRATORY | Nasal cannula at 2 LPM. | | [facility] | | | CARE | Electronically | | RESPIRATORY | | | | Signed by: Arthur Nvaarrete, | | THERAPY | | | | HEEL BLACKER | | | | | | | | | | | | | | | | | | | | | | | | | | | | | | | | | | | |Electronically Signed by: Arthur Navarrete RCP | | | | + + + + +------- -------+ + + | Specimen | + + | | + + + + + + + | Performing | Address | City/State/Zipcode | Phone Number | | Organization | | | | + + + + + | [facility] | [address] | [place], [place] | | | THERAPY | [address] | [address] | | + + + + + CAPILLARY BLOOD GLUCOSE, POC (02/05/2010 9:16 PM PDT) + +---------+ + + + | Component | Value | Ref Range | Performed | Pathologist | | | | | At | Signature | + +---------+ + + + | BLOOD | 228 (H) | 60 - 99 mg/dL | [facility] - | | | GLUCOSE, | | | [facility] | | | POC | | | [facility] | | | | | | OF CARE | | | | | | TESTS | | + +---------+ + + + + + | Specimen | + + | | + + + + + + + | Performing | Address | City/State/[facility] | Phone Number | | Organization | | | | + + + + + | [facility] | [address] | [place], [place] | | | [facility] | [facility] | [address] | | | TESTS | | | | + + + + + CAPILLARY BLOOD GLUCOSE, POC (02/05/2010 6:26 PM PDT) + +---------+ + + + | Component | Value | Ref Range | Performed | Pathologist | | | | | At | Signature | + +---------+ + + + | BLOOD | 206 (H) | 60 - 99 mg/dL | [facility] - | | | GLUCOSE, | | | [facility] | | | POC | | | [place] | | | | | | OF CARE | | | | | | TESTS | | + +---------+ + + + + + | Specimen | + + | | + + + + + + + | Performing | Address | City/State/Zipcode | Phone Number | | Organization | | | | + + + + + | [facility] | [address] | [place], [place] | | | [facility] | [address] | [address] | | | TESTS | | | | + + + + + 12 LEAD ECG (02/05/2010 1:32 PM PDT) + + + + + + | Component | Value | Ref Range | Performed | Pathologist | | | | | At | Signature | + + + + + + | VENTRICULAR | 96 | BPM | [facility] | | | RATE | | | OF | | | | | | CARDIOLOGY | | + + + + + + | ATRIAL RATE | 119 | BPM | [facility] | | | | | | OF | | | | | | CARDIOLOGY | | + + + + + + | QRS | 90 | ms | [facility] | | | DURATION | | | OF | | | | | | CARDIOLOGY | | + + + + + + | QT | 326 | ms | [facility] | | | | | | OF | | | | | | CARDIOLOGY | | + + + + + + | QTC | 411 | ms | [facility] | | | | | | OF | | | | | | CARDIOLOGY | | + + + + + + | R AXIS | 14 | degrees | [facility] | | | | | | OF | | | | | | CARDIOLOGY | | + + + + + + | T AXIS | 183 | degrees | [facility] | | | | | | OF | | | | | | CARDIOLOGY | | + + + + + + | EKG | Atrial fibrillation with | | [facility] | | | DIAGNOSIS | premature ventricular | | OF | | | | or aberrantly conducted | | CARDIOLOGY | | | | complexesNonspecific ST | | | | | | and T wave abnormality , | | | | | | probably digitalis | | | | | | effectAbnormal | | | | | | ECGConfirmed by | | | | | | TIMUR GRUBER ([id number]) on | | | | | | 02/06/2010 10:23:09 AM | | | | + + + + + + + + | Specimen | + + | | + + + + + | Narrative | Performed At | + + + | Please click | [facility] | | on view image for the detailed interpretation from [employer] results. | CARDIOLOGY | + + + + + + + + | Performing | Address | City/State/Zipcode | Phone Number | | Organization | | | | + + + + + | [facility] | [address] | [place], [place] | | | CARDIOLOGY | [address] | [address] | | + + + + + VASC LAB VENOUS DUPLEX LOWER EXTREMITY BILAT COMP (02/05/2010 1:24 PM PDT) + + + + + + | Component | Value | Ref Range | Performed | Pathologist | | | | | At | Signature | + + + + + + | VASC LAB | Med Rec No: | | | | | VENOUS | [id number] Name: | | | | | DUPLEX | RICH CID | | | | | LOWER | Birthday: 1940 | | | | | EXTREMITY | Sex: M Alias: | | | | | BILATERAL | Patient Location: | | | | | COMPLETE | 7AStatus: Inpatient | | | | | | Active Ordering | | | | | | Physician: MIKE, | | | | | | MD ASHA CASTILLOB VL | | | | | | VENOUS DUP BILAT CMP LE | | | | | | completed on 02/05/2010 | | | | | | 1:24 PMAccession # | | | | | | [id number] RESULT:LOWER | | | | | | EXTREMITY VENOUS DUPLEX | | | | | | STUDY: 02/05/2010 | | | | | | Dictated 02/05/2010 | | | | | | FINDINGS: Duplex | | | | | | evaluation of the deep | | | | | | and superficial veins of | | | | | | thelower extremities | | | | | | reveals no evidence of | | | | | | thrombus in the right | | | | | | legwith normal | | | | | | phasicity, augmentation, | | | | | | and compressibility in | | | | | | all veinstested. In | | | | | | the left leg, there is | | | | | | decreased | | | | | | compressibility withwall | | | | | | thickening in the | | | | | | common femoral vein. | | | | | | The left calf | | | | | | wasdifficult to | | | | | | visualize due to the | | | | | | presence of leg edema. | | | | | | There wereotherwise no | | | | | | abnormalities noted in | | | | | | the left leg. | | | | | | IMPRESSION: The right | | | | | | leg examination is | | | | | | normal with no evidence | | | | | | of deep orsuperficial | | | | | | venous thrombosis. In | | | | | | the left leg, there was | | | | | | also noevidence of deep | | | | | | or superficial venous | | | | | | thrombosis. 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 END | | | | | | IMPRESSION: I have | | | | | | personally viewed this | | | | | | procedure/exam and | | | | | | reviewed this report. | | | | | | Author: BRITTANY NORIEGA | | | | | | Osmar MULLERReviewer: | | | | | | , STATUS FINAL / Dr. | | | | | | BRITTANY MULLER | | | | + + + + + + + + | Specimen | + + | | + + + +---------+ + + | Performing | Address | City/State/Zipcode | Phone Number | | Organization | | | | + +---------+ + + | [facility] | | | | | RADIOLOGY | | | | + +---------+ + + VASC LAB VENOUS DUPLEX UPPER EXTREMITY BILAT COMP (02/05/2010 1:24 PM PDT) + + + + + --+ | Component | Value | Ref Range | Performed | Pathologist | | | | | At | Signature | + + + + + --+ | VASC LAB | Med Rec No: | | | | | VENOUS | [id number] Name: | | | | | DUPLEX | RICH CID | | | | | UPPER | Birthday: 1940 | | | | | EXTREMITY | Sex: M Alias: | | | | | BILATERAL | Patient Location: | | | | | COMPLETE | 7AStatus: Inpatient | | | | | | Active Ordering | | | | | | Physician: MIKE, | | | | | | CONRADO Lozoya MD VDUEB VL | | | | | | VENOUS DUP BILAT CMP UE | | | | | | completed on 02/05/2010 | | | | | | 1:24 PMAccession # | | | | | | [id number] RESULT:UPPER | | | | | | EXTREMITY VENOUS DUPLEX | | | | | | STUDY: 02/05/2010 | | | | | | Dictated 02/05/2010 | | | | | | FINDINGS: Duplex | | | | | | evaluation of the deep | | | | | | and superficial veins of | | | | | | theupper extremities | | | | | | reveals no evidence of | | | | | | thrombus. IMPRESSION: | | | | | | Normal upper extremity | | | | | | venous duplex exam. | | | | | | END IMPRESSION: I have | | | | | | personally viewed this | | | | | | procedure/exam and | | | | | | reviewed this report. | | | | | | Author: BRITTANY NORIEGA | | | | | | Osmar MULLERReviewer: | | | | | | , STATUS FINAL / | | | | | | BRITTANY MULLER | | | | | |Author: BRITTANY MULLER M.D. | | | | | |Reviewer: , | | | | | | | | | | | |STATUS FINAL / Dr. BRITTANY MULLER | | | | | | | | | | | | | | | | | | | | | | | | | | | | + + + + + --+ + + | Specimen | + + | | + + + +---------+ + + | Performing | Address | City/State/Zipcode | Phone Number | | Organization | | | | + +---------+ + + | [place] [facility] | | | | + +---------+ + + [facility] DUPLEX LOWER EXTREMITY BILATERAL COMPLETE (02/05/2010 1:24 PM PDT) + + + + + + | Component | Value | Ref Range | Performed | Pathologist | | | | | At | Signature | + + + + + + | [facility] | Med Rec No: | | | | | ARTERY | [id number] Name: | | | | | DUPLEX | RICH CID | | | | | LOWER | Birthday: 1940 | | | | | EXTREMITY | Sex: M Alias: | | | | | BILATERAL | Patient Location: | | | | | COMPLETE | 7AStatus: Inpatient | | | | | | Active Ordering | | | | | | Physician: MIKE, | | | | | | CONRADO Lozoya MD VDLEAB VL | | | | | | ARTER DUPLEX ESTELA LE CMP | | | | | | completed on 02/05/2010 | | | | | | 1:24 PMAccession # | | | | | | [id number] RESULT:LOWER | | | | | | EXTREMITY ARTERIAL | | | | | | DUPLEX STUDY: | | | | | | 02/05/2010 Dictated | | | | | | 02/05/2010 FINDINGS: | | | | | | The ankle/brachial | | | | | | indices are 1.41 on the | | | | | | right and 1.14on the | | | | | | left. In the right | | | | | | leg, the patient is | | | | | | noted to have | | | | | | patentcommon, | | | | | | superficial, and | | | | | | profunda femoral, | | | | | | popliteal, | | | | | | posteriortibial, | | | | | | anterior tibial, and | | | | | | peroneal arteries with | | | | | | normal peaksystolic | | | | | | velocities noted in all | | | | | | of these vessels. In | | | | | | the left leg,the common | | | | | | and profunda femoral | | | | | | arteries are patent. | | | | | | There is apatent left | | | | | | common femoral to | | | | | | popliteal artery bypass | | | | | | graft withnormal peak | | | | | | systolic velocities. | | | | | | The popliteal artery | | | | | | distal to thegraft as | | | | | | well as the posterior | | | | | | tibial and anterior | | | | | | tibial arteriesappear | | | | | | patent. The peroneal | | | | | | artery in the left leg | | | | | | was difficult | | | | | | tovisualize due to leg | | | | | | edema. IMPRESSION: The | | | | | | right leg arterial | | | | | | duplex study is normal | | | | | | with no evidence | | | | | | ofarterial occlusive | | | | | | disease. In the left | | | | | | leg, there is a | | | | | | patentcommon femoral to | | | | | | popliteal artery bypass | | | | | | graft with normal | | | | | | arterialflow noted in | | | | | | the graft as well as | | | | | | proximal and distal to | | | | | | the graft.In summary, | | | | | | there was no significant | | | | | | arterial occlusive | | | | | | disease notedin either | | | | | | extremity. END | | | | | | IMPRESSION: I have | | | | | | personally viewed this | | | | | | procedure/exam and | | | | | | reviewed this report. | | | | | | Author: BRITTANY NORIEGA | | | | | | Osmar MULLERReviewer: | | | | | | , STATUS FINAL / | | | | | | BRITTANY MULLER | | | | + + + + + + + + | Specimen | + + | | + + + +---------+ + + | Performing | Address | City/State/Zipcode | Phone Number | | Organization | | | | + +---------+ + + | [facility] DE[facility]MENT [facility] | | | | | RADIOLOGY | | | | + +---------+ + + CAPILLARY BLOOD GLUCOSE, POC (02/05/2010 1:23 PM PDT) + +---------+ + + + | Component | Value | Ref Range | Performed | Pathologist | | | | | At | Signature | + +---------+ + + + | BLOOD | 220 (H) | 60 - 99 mg/dL | [facility] - | | | GLUCOSE, | | | [facility] | | | POC | | | [facility] | | | | | | OF CARE | | | | | | TESTS | | + +---------+ + + + + + | Specimen | + + | | + + + + + + + | Performing | Address | City/State/Zipcode | Phone Number | | Organization | | | | + + + + + | [facility] | [address] | [place], [place] | | | [facility] | [address] | [address] | | | TESTS | | | | + + + + + MAGNESIUM, PLASMA (02/05/2010 1:10 PM PDT) + +-------+ + + + | Component | Value | Ref Range | Performed | Pathologist | | | | | At | Signature | + +-------+ + + + | MAGNESIUM,P | 1.8 | 1.8 - 2.5 mg/dL | [facility] | | | LASMA | | | DEPARTMENT | | | | | | OF | | | | | | PATHOLOGY | | + +-------+ + + + + + | Specimen | + + | Blood - Blood | + + + + + + + | Performing | Address | City/State/Zipcode | Phone Number | | Organization | | | | + + + + + | [facility] DEPARTMENT OF | [address] | [place] [address] | | | PATHOLOGY | [address] | | | + + + + + RENAL FUNCTION SET (NA,K,CL,CO2,BUN,CREAT,GLUC,CA,PHOS,ALB ) (02/05/2010 1:10 PM PDT) + +---------+ + + + | Component | Value | Ref Range | Performed | Pathologist | | | | | At | Signature | + +---------+ + + + | GLUCOSE, | 194 (H) | 60 - 99 mg/dL | [facility] | | | PLASMA | | | DEPARTMENT | | | (LAB) | | | OF | | | | | | PATHOLOGY | | + +---------+ + + + | BUN, PLASMA | 22 (H) | 6 - 20 mg/dL | [facility] | | | (LAB) | | | DEPARTMENT | | | | | | OF | | | | | | PATHOLOGY | | + +---------+ + + + | CREATININE | 1.27 | 0.70 - 1.30 | [facility] | | | PLASMA | | mg/dL | DEPARTMENT | | | (LAB) | | | OF | | | | | | PATHOLOGY | | + +---------+ + + + | ALBUMIN, | 2.6 (L) | 3.5 - 4.7 g/dL | [facility] | | | PLASMA | | | DEPARTMENT | | | (LAB) | | | OF | | | | | | PATHOLOGY | | + +---------+ + + + | CALCIUM, | 8.4 (L) | 8.6 - 10.2 | [facility] | | | PLASMA | | mg/dL | DEPARTMENT | | | (LAB) | | | OF | | | | | | PATHOLOGY | | + +---------+ + + + | PHOSPHORUS, | 2.5 | 2.4 - 4.7 mg/dL | [facility] | | | PLASMA | | | DEPARTMENT | | | (LAB) | | | OF | | | | | | PATHOLOGY | | + +---------+ + + + | SODIUM, | 134 | 134 - 143 | [facility] | | | PLASMA | | mmol/L | DEPARTMENT | | | (LAB) | | | OF | | | | | | PATHOLOGY | | + +---------+ + + + | POTASSIUM, | 4.2 | 3.4 - 5.0 | [facility] | | | PLASMA | | mmol/L | DEPARTMENT | | | (LAB) | | | OF | | | | | | PATHOLOGY | | + +---------+ + + + | CHLORIDE, | 98 | 97 - 108 mmol/L | [facility] | | | PLASMA | | | DEPARTMENT | | | (LAB) | | | OF | | | | | | PATHOLOGY | | + +---------+ + + + | TOTAL CO2, | 31 | 23 - 31 mmol/L | [facility] | | | PLASMA | | | DEPARTMENT | | | (LAB) | | | OF | | | | | | PATHOLOGY | | + +---------+ + + + | ANION GAP | 5 | 4 - 11 mmol/L | [facility] | | | | | | DEPARTMENT | | | | | | OF | | | | | | PATHOLOGY | | + +---------+ + + + | ANION | 8 | 4 - 11 mmol/L | [facility] | | | GAP(ALB | | | DEPARTMENT | | | CORRECTED) | | | OF | | | | | | PATHOLOGY | | + +---------+ + + + + + | Specimen | + + | Blood - Blood | + + + + + + + | Performing | Address | City/State/Zipcode | Phone Number | | Organization | | | | + + + + + | [facility] DEPARTMENT OF | [address] | [place] [address] | | | PATHOLOGY | [address] | | | + + + + + CAPILLARY BLOOD GLUCOSE, POC (02/05/2010 10:12 AM PDT) + +---------+ + + + | Component | Value | Ref Range | Performed | Pathologist | | | | | At | Signature | + +---------+ + + + | BLOOD | 228 (H) | 60 - 99 mg/dL | [facility] - | | | GLUCOSE, | | | [facility] | | | POC | | | [facility] | | | | | | OF CARE | | | | | | TESTS | | + +---------+ + + + + + | Specimen | + + | | + + + + + + + | Performing | Address | City/State/Zipcode | Phone Number | | Organization | | | | + + + + + | [facility] | [address] | [place], [place] | | | [facility] | [address] | [address] | | | TESTS | | | | + + + + + HEMATOCRIT (02/05/2010 9:10 AM PDT) + + + + + + | Component | Value | Ref Range | Performed | Pathologist | | | | | At | Signature | + + + + + + | HEMATOCRIT | 29.5 (L) | 41.0 - 53.0 % | [facility] | | | | | | DEPARTMENT | | | | | | OF | | | | | | PATHOLOGY | | + + + + + + + + | Specimen | + + | Blood - Blood | + + + + + + + | Performing | Address | City/State/Zipcode | Phone Number | | Organization | | | | + + + + + | [facility] | [address] | [place] [address] | | | PATHOLOGY | [address] | | | + + + + + X-RAY PORTABLE ELBOW 2 VIEWS RIGHT (02/05/2010 5:13 AM PDT) + + + + + + | Component | Value | Ref Range | Performed | Pathologist | | | | | At | Signature | + + + + + + | X-RAY | STUDY: NC ELBOW 2 VIEWS | | | | | PORTABLE | RIGHT 02/05/10 05:13:00 | | | | | ELBOW 2 | COMPARISON: None. | | | | | VIEWS RIGHT | FINDINGS: The bones of | | | | | | the elbow are intact | | | | | | without acute fracture | | | | | | or focaldestructive | | | | | | process. There is | | | | | | slight loss of the | | | | | | articular surfaceof the | | | | | | capitellum along its | | | | | | radial margin which | | | | | | appears chronic. | | | | | | Thejoint spaces of the | | | | | | elbow are preserved. | | | | | | Mild heterotopic bone | | | | | | isfused to the lateral | | | | | | epicondyle which also | | | | | | appears chronic. There | | | | | | isslight spurring at | | | | | | the tip of the olecranon | | | | | | process at the | | | | | | insertionof the triceps | | | | | | tendon. No fat-pad | | | | | | displacement is | | | | | | outlined. Softtissue | | | | | | swelling is present | | | | | | along the dorsal elbow, | | | | | | the distal arm | | | | | | andproximal forearm. | | | | | | IMPRESSION: No acute | | | | | | fracture or dislocation | | | | | | is seen in the right | | | | | | elbow. Slight apparent | | | | | | irregularity and loss of | | | | | | bone along the | | | | | | lateralmargin of the | | | | | | capitellum which appears | | | | | | chronic. Irregularity | | | | | | and heterotopic bone | | | | | | adjacent to the lateral | | | | | | epicondyleprobably | | | | | | related to old trauma. | | | | | | Soft tissue swelling on | | | | | | the dorsal aspect of the | | | | | | elbow and | | | | | | proximalforearm. I have | | | | | | personally viewed this | | | | | | procedure/exam and | | | | | | reviewed this report. | | | | | | Author: SUJEY SELBY, | | | | | | OsmarReviewer: SUJEY | | | | | | Osmar SELBY STATUS | | | | | | FINAL / Dr. RM | | | | | | BAL | | | | + + + + + + + + | Specimen | + + | | + + + +---------+ + + | Performing | Address | City/State/Zipcode | Phone Number | | Organization | | | | + +---------+ + + | [facility] DEPARTMENT OF | | | | | RADIOLOGY | | | | + +---------+ + + MAGNESIUM, PLASMA (02/05/2010 5:09 AM PDT) + + + + + + | Component | Value | Ref Range | Performed | Pathologist | | | | | At | Signature | + + + + + + | MAGNESIUM,P | Combined. | 1.8 - 2.5 mg/dL | [facility] | | | LASMA | | | DEPARTMENT | | | | | | OF | | | | | | PATHOLOGY | | + + + + + + + + | Specimen | + + | Blood - Blood | + + + + + + + | Performing | Address | City/State/Zipcode | Phone Number | | Organization | | | | + + + + + | [facility] DE[facility]MENT [facility] | [address] | [place] [address] | | | PATHOLOGY | [address] | | | + + + + + CBC ONLY (02/05/2010 5:09 AM PDT) + + + + + + | Component | Value | Ref Range | Performed | Pathologist | | | | | At | Signature | + + + + + + | WHITE CELL | 6.1 | 4.4 - 11.0 K/cu | [facility] | | | COUNT | | mm | DEPARTMENT | | | | | | OF | | | | | | PATHOLOGY | | + + + + + + | RED CELL | 3.60 (L) | 4.50 - 5.90 | [facility] | | | COUNT | | M/cu mm | DEPARTMENT | | | | | | OF | | | | | | PATHOLOGY | | + + + + + + | HEMOGLOBIN | 9.7 (L) | 13.5 - 17.5 | [facility] | | | | | g/dL | DEPARTMENT | | | | | | OF | | | | | | PATHOLOGY | | + + + + + + | HEMATOCRIT | 29.1 (L) | 41.0 - 53.0 % | [facility] | | | | | | DEPARTMENT | | | | | | OF | | | | | | PATHOLOGY | | + + + + + + | MCV | 80.7 | 80.0 - 96.0 fL | [facility] | | | | | | DEPARTMENT | | | | | | OF | | | | | | PATHOLOGY | | + + + + + + | MCHC | 33.2 (L) | 33.4 - 35.5 | [facility] | | | | | g/dL | DEPARTMENT | | | | | | OF | | | | | | PATHOLOGY | | + + + + + + | RDW | 16.6 (H) | 11.5 - 15.0 % | [facility] | | | | | | DEPARTMENT | | | | | | OF | | | | | | PATHOLOGY | | + + + + + + | PLATELET | 166 | 150 - 400 K/cu | [facility] | | | COUNT | | mm | DEPARTMENT | | | | | | OF | | | | | | PATHOLOGY | | + + + + + + + + | Specimen | + + | Blood - Blood | + + + + + + + | Performing | Address | City/State/Zipcode | Phone Number | | Organization | | | | + + + + + | [facility] DEPARTMENT | [address] | [place] [address] | | | PATHOLOGY | [address] | | | + + + + + INR (02/05/2010 5:09 AM PDT) + + + + + + | Component | Value | Ref Range | Performed | Pathologist | | | | | At | Signature | + + + + + + | INR | 2.24 (H)Comment: | 0.90 - 1.20 INR | [facility] | | | | INR Therapeutic ranges | | DEPARTMENT | | | | for full | | OF | | | | anticoagulation: | | PATHOLOGY | | | | INR for Venous | | | | | | Thromboembolism | | | | | | (2.0-3.0) | | | | | | INR INR for most | | | | | | patients with mech. | | | | | | valves (2.5-3.5) | | | | | | INR | | | | + + + + + + + + | Specimen | + + | Blood - Blood | + + + + + + + | Performing | Address | City/State/Zipcode | Phone Number | | Organization | | | | + + + + + | [facility] | [address] | [place] [address] | | | PATHOLOGY | [address] | | | + + + + + MAGNESIUM, PLASMA (02/05/2010 5:08 AM PDT) + +---------+ + + + | Component | Value | Ref Range | Performed | Pathologist | | | | | At | Signature | + +---------+ + + + | MAGNESIUM,P | 1.4 (L) | 1.8 - 2.5 mg/dL | [facility] | | | LASMA | | | DEPARTMENT | | | | | | OF | | | | | | PATHOLOGY | | + +---------+ + + + + + | Specimen | + + | | + + + + + + + | Performing | Address | City/State/Zipcode | Phone Number | | Organization | | | | + + + + + | [facility] | [address] | [place] [address] | | | PATHOLOGY | [address] | | | + + + + + RENAL FUNCTION SET (NA,K,CL,CO2,BUN,CREAT,GLUC,CA,PHOS,ALB ) (02/05/2010 5:08 AM PDT) + +---------+ + + + | Component | Value | Ref Range | Performed | Pathologist | | | | | At | Signature | + +---------+ + + + | GLUCOSE, | 176 (H) | 60 - 99 mg/dL | [facility] | | | PLASMA | | | DEPARTMENT | | | (LAB) | | | OF | | | | | | PATHOLOGY | | + +---------+ + + + | BUN, PLASMA | 23 (H) | 6 - 20 mg/dL | [facility] | | | (LAB) | | | DEPARTMENT | | | | | | OF | | | | | | PATHOLOGY | | + +---------+ + + + | CREATININE | 1.25 | 0.70 - 1.30 | [facility] | | | PLASMA | | mg/dL | DEPARTMENT | | | (LAB) | | | OF | | | | | | PATHOLOGY | | + +---------+ + + + | ALBUMIN, | 2.6 (L) | 3.5 - 4.7 g/dL | [facility] | | | PLASMA | | | DEPARTMENT | | | (LAB) | | | OF | | | | | | PATHOLOGY | | + +---------+ + + + | CALCIUM, | 8.3 (L) | 8.6 - 10.2 | [facility] | | | PLASMA | | mg/dL | DEPARTMENT | | | (LAB) | | | OF | | | | | | PATHOLOGY | | + +---------+ + + + | PHOSPHORUS, | 2.5 | 2.4 - 4.7 mg/dL | [facility] | | | PLASMA | | | DEPARTMENT | | | (LAB) | | | OF | | | | | | PATHOLOGY | | + +---------+ + + + | SODIUM, | 133 (L) | 134 - 143 | [facility] | | | PLASMA | | mmol/L | DEPARTMENT | | | (LAB) | | | OF | | | | | | PATHOLOGY | | + +---------+ + + + | POTASSIUM, | 4.0 | 3.4 - 5.0 | [facility] | | | PLASMA | | mmol/L | DEPARTMENT | | | (LAB) | | | OF | | | | | | PATHOLOGY | | + +---------+ + + + | CHLORIDE, | 97 | 97 - 108 mmol/L | [facility] | | | PLASMA | | | DEPARTMENT | | | (LAB) | | | OF | | | | | | PATHOLOGY | | + +---------+ + + + | TOTAL CO2, | 30 | 23 - 31 mmol/L | [facility] | | | PLASMA | | | DEPARTMENT | | | (LAB) | | | OF | | | | | | PATHOLOGY | | + +---------+ + + + | ANION GAP | 6 | 4 - 11 mmol/L | [facility] | | | | | | DEPARTMENT | | | | | | OF | | | | | | PATHOLOGY | | + +---------+ + + + | ANION | 9 | 4 - 11 mmol/L | [facility] | | | GAP(ALB | | | DEPARTMENT | | | CORRECTED) | | | OF | | | | | | PATHOLOGY | | + +---------+ + + + + + | Specimen | + + | Blood - Blood | + + + + + + + | Performing | Address | City/State/Zipcode | Phone Number | | Organization | | | | + + + + + | [facility] DEPARTMENT | [address] | [place] [address] | | | PATHOLOGY | [address] | | | + + + + + RESP CARE THERAPY (02/05/2010 4:24 AM PDT) + + + + + + | Component | Value | Ref Range | Performed | Pathologist | | | | | At | Signature | + + + + + + | RESPIRATORY | : History and Assessment | | [facility] | | | CARE | : TRAUMA Pulmonary | | RESPIRATORY | | | | problems: Current | | THERAPY | | | | problems include, | | | | | | pneumothorax .Smoking | | | | | | history: The patient is | | | | | | a non-smoker.Results of | | | | | | recent Chest X-ray: was | | | | | | not available at the | | | | | | time of evaluation. | | | | | | Pain: Patients pain | | | | | | assessed and was a 0 on | | | | | | a scale of 0-10.Oxygen | | | | | | requirement: 4 LPM with | | | | | | an oxygen saturation of | | | | | | 97 %.Heart rate: 120 | | | | | | beats per | | | | | | minuteRespiratory rate: | | | | | | 12 breaths per | | | | | | minuteTemperature: 37.6 | | | | | | ? C.Breathsounds:right | | | | | | upper airway scattered | | | | | | rhonchi stridor .Cough | | | | | | and sputum | | | | | | production:Patient had a | | | | | | non-productive cough. | | | | | | Treatments GivenNo | | | | | | therapy indicated at | | | | | | this time. Respiratory | | | | | | Acuity and Protocol | | | | | | PlanA respiratory | | | | | | evaluation has been | | | | | | completed. Based on this | | | | | | assesment Notherapy is | | | | | | indicated the protocol | | | | | | is discontinued. | | | | | | Electronically Signed | | | | | | by: George Kamara, | | | | | | HEEL BLACKER | | | | + + + + + + + + | Specimen | + + | | + + + + + + + | Performing | Address | City/State/Zipcode | Phone Number | | Organization | | | | + + + + + | [facility] | [address] | [place], [place] | | | THERAPY | [address] | [address] | | + + + + + CONFIRMATORY ABO/RH (02/05/2010 4:08 AM PDT) + + + + + + | Component | Value | Ref Range | Performed | Pathologist | | | | | At | Signature | + + + + + + | ABO GROUP | A | | [facility] | | | | | | DEPARTMENT | | | | | | OF | | | | | | PATHOLOGY | | + + + + + + | RH TYPE | Positive | | [facility] | | | | | | DEPARTMENT | | | | | | OF | | | | | | PATHOLOGY | | + + + + + + + + | Specimen | + + | | + + + + + + + | Performing | Address | City/State/Zipcode | Phone Number | | Organization | | | | + + + + + | [facility] | [address] | [place] [address] | | | PATHOLOGY | [address] | | | + + + + + X-RAY HAND 3 VIEWS RIGHT (02/05/2010 2:06 AM PDT) + + + + + + | Component | Value | Ref Range | Performed | Pathologist | | | | | At | Signature | + + + + + + | HAND 3 | STUDY: HAND 3 VIEWS | | | | | VIEWS RIGHT | RIGHT 02/05/10 02:06:00 | | | | | | COMPARISON: None. | | | | | | FINDINGS: The bones | | | | | | along the right wrist | | | | | | and hand are intact | | | | | | without fractureor | | | | | | dislocation. Mild | | | | | | narrowing and spurring | | | | | | are present at the | | | | | | firstcarpometacarpal | | | | | | joint. Prominent | | | | | | narrowing and spurring | | | | | | are presentat the | | | | | | metacarpophalangeal | | | | | | joint of the middle | | | | | | finger. Mildnarrowing | | | | | | and spurring are present | | | | | | at the | | | | | | metacarpophalangeal | | | | | | jointof the index | | | | | | finger. Narrowing and | | | | | | spurring are present at | | | | | | all theinterphalangeal | | | | | | joints of the fingers. | | | | | | Soft tissue swelling | | | | | | ispresent in the distal | | | | | | forearm, about the wrist | | | | | | and continuing overthe | | | | | | dorsal hand. No | | | | | | foreign body is seen | | | | | | within the soft tissues | | | | | | ofthe wrist or hand. | | | | | | IMPRESSION: Soft tissue | | | | | | swelling in the distal | | | | | | forearm, about the wrist | | | | | | andcontinuing over the | | | | | | dorsal hand. No acute | | | | | | fracture or dislocation | | | | | | is seen in the rest of | | | | | | the hand. Mild | | | | | | degenerative change in | | | | | | the wrist. More | | | | | | prominent | | | | | | degenerativechanges are | | | | | | present at the index and | | | | | | little | | | | | | fingermetacarpophalangea | | | | | | l joints and at all of | | | | | | the interphalangeal | | | | | | joints. I have | | | | | | personally viewed this | | | | | | procedure/exam and | | | | | | reviewed this report. | | | | | | Author: SUJEY SELBY | | | | | | OsmarReviewer: SUJEY | | | | | | Osmar SELBY STATUS | | | | | | FINAL / Dr. RM | | | | | | BAL | | | | + + + + + + + + | Specimen | + + | | + + + +---------+ + + | Performing | Address | City/State/Zipcode | Phone Number | | Organization | | | | + +---------+ + + | [facility] DEPARTMENT OF | | | | | RADIOLOGY | | | | + +---------+ + + X-RAY FOREARM 2 VIEWS RIGHT (02/05/2010 2:06 AM PDT) + + + + + + | Component | Value | Ref Range | Performed | Pathologist | | | | | At | Signature | + + + + + + | FOREARM 2 | STUDY: FOREARM 2 VIEWS | | | | | VIEWS RIGHT | RIGHT 02/05/10 02:06:00 | | | | | | COMPARISON: None. | | | | | | FINDINGS: The radius and | | | | | | ulna are intact without | | | | | | fracture or focal | | | | | | destructiveprocess. | | | | | | The joint spaces of | | | | | | the wrist and the elbow | | | | | | are preserved.Two | | | | | | angular radiopaque | | | | | | foreign bodies are | | | | | | present in the soft | | | | | | tissuesalong the palmar | | | | | | aspect of the distal | | | | | | forearm. The more | | | | | | distalforeign body | | | | | | measures 4 x 5 mm in | | | | | | diameter. The more | | | | | | proximalforeign body | | | | | | measures 5 x 8 mm. | | | | | | Swelling is present in | | | | | | thesubcutaneous tissues | | | | | | throughout the forearm | | | | | | and continuing | | | | | | proximallyinto the | | | | | | distal arm. IMPRESSION: | | | | | | No fracture or | | | | | | dislocation is seen in | | | | | | the right forearm. Soft | | | | | | tissue swelling | | | | | | throughout the forearm. | | | | | | Radiopaque foreign | | | | | | bodies in the soft | | | | | | tissues along the palmar | | | | | | aspectof the distal | | | | | | forearm. I have | | | | | | personally viewed this | | | | | | procedure/exam and | | | | | | reviewed this report. | | | | | | Author: SUJEY SELBY | | | | | | OsmarReviewer: SUJEY | | | | | | Osmar SELBY STATUS | | | | | | FINAL / Dr. RM | | | | | | BAL | | | | + + + + + + + + | Specimen | + + | | + + + +---------+ + + | Performing | Address | City/State/Zipcode | Phone Number | | Organization | | | | + +---------+ + + | [facility] DEPARTMENT OF | | | | | RADIOLOGY | | | | + +---------+ + + X-RAY PORTABLE HUMERUS 2 VIEWS RIGHT (02/05/2010 2:06 AM PDT) + + + + + + | Component | Value | Ref Range | Performed | Pathologist | | | | | At | Signature | + + + + + + | X-RAY | STUDY: NC HUMERUS 2 | | | | | PORTABLE | VIEWS RIGHT 02/05/10 | | | | | HUMERUS 2 | 02:06:00 COMPARISON: | | | | | VIEWS RIGHT | None. FINDINGS: No | | | | | | fracture or focal | | | | | | destructive process is | | | | | | seen in the | | | | | | humerus.Moderate | | | | | | narrowing and spurring | | | | | | are present at the | | | | | | clavicular joint.The | | | | | | glenohumeral joint space | | | | | | is preserved. The | | | | | | joint spaces of theelbow | | | | | | are maintained. | | | | | | Heterotopic bone is | | | | | | present adjacent to | | | | | | thelateral epicondyle | | | | | | probably related to old | | | | | | trauma. Swelling | | | | | | ispresent in the | | | | | | subcutaneous tissues of | | | | | | the distal arm and about | | | | | | theelbow. IMPRESSION: | | | | | | No fracture or | | | | | | dislocation is seen in | | | | | | the right humerus. | | | | | | Degenerative change at | | | | | | the common clavicular | | | | | | joint. Heterotopic bone | | | | | | adjacent to the lateral | | | | | | epicondyle compatible | | | | | | withold trauma. Swelling | | | | | | in the subcutaneous | | | | | | tissues of the distal | | | | | | arm and about theelbow. | | | | | | I have personally viewed | | | | | | this procedure/exam and | | | | | | reviewed this report. | | | | | | Author: SUJEY SELBY | | | | | | OsmarReviewer: SUJEY | | | | | | Osmar SELBY STATUS | | | | | | FINAL / Dr. RM | | | | | | BAL | | | | + + + + + + + + | Specimen | + + | | + + + +---------+ + + | Performing | Address | City/State/Zipcode | Phone Number | | Organization | | | | + +---------+ + + | [facility] DEPARTMENT OF | | | | | RADIOLOGY | | | | + +---------+ + + X-RAY PORTABLE CHEST 1 VIEW (02/05/2010 2:06 AM PDT) + + + + + + | Component | Value | Ref Range | Performed | Pathologist | | | | | At | Signature | + + + + + + | X-RAY | EXAM: AP chest, | | | | | PORTABLE | semi-upright, | | | | | CHEST 1 | 02/05/2010. HISTORY: | | | | | VIEW | 69-year-old male status | | | | | | post fall with | | | | | | subsequent ribfractures | | | | | | and small hemothorax. | | | | | | COMPARISON: None. | | | | | | FINDINGS: The cardiac | | | | | | and mediastinal contours | | | | | | are normal for the | | | | | | patient'eliana. | | | | | | Perihilar nodular | | | | | | opacification is seen | | | | | | bilaterally along | | | | | | withlinear areas of | | | | | | atelectasis. Concurrent | | | | | | right extrapleural | | | | | | hematomaalong the rib | | | | | | fractures is noted. | | | | | | Trace left effusion | | | | | | may bepresent. | | | | | | Multiple right-sided | | | | | | rib fractures are noted | | | | | | involving thelateral | | | | | | aspect of ribs 4 to 6 | | | | | | and possibly a posterior | | | | | | fracture ofrib 5. No | | | | | | pneumothorax is seen. | | | | | | IMPRESSION: Multiple | | | | | | right sided rib | | | | | | fractures, Bilateral | | | | | | linear areas of | | | | | | atelectasis and | | | | | | potentially, | | | | | | mildconcurrent | | | | | | aspiration I have | | | | | | personally viewed this | | | | | | procedure/exam and | | | | | | reviewed this report. | | | | | | Author: ROX LUCAS | | | | | | ROSETTA,Reviewer: SADA Martinez | | | | | | Osmar THOMPSON STATUS | | | | | | FINAL / Dr. SADA Martinez | | | | | | DONNA | | | | + + + + + + + + | Specimen | + + | | + + + +---------+ + + | Performing | Address | City/State/Zipcode | Phone Number | | Organization | | | | + +---------+ + + | [facility] | | | | | RADIOLOGY | | | | + +---------+ + + MAGNESIUM, PLASMA (02/04/2010 11:26 PM PDT) + +---------+ + + + | Component | Value | Ref Range | Performed | Pathologist | | | | | At | Signature | + +---------+ + + + | MAGNESIUM,P | 1.7 (L) | 1.8 - 2.5 mg/dL | [facility] | | | LASMA | | | DEPARTMENT | | | | | | OF | | | | | | PATHOLOGY | | + +---------+ + + + + + | Specimen | + + | Blood - Blood | + + + + + + + | Performing | Address | City/State/Zipcode | Phone Number | | Organization | | | | + + + + + | [facility] | [address] | [place] [address] | | | PATHOLOGY | [address] | | | + + + + + INR (02/04/2010 11:26 PM PDT) + + + + + + | Component | Value | Ref Range | Performed | Pathologist | | | | | At | Signature | + + + + + + | INR | 2.26 (H)Comment: | 0.90 - 1.20 INR | [facility] | | | | INR Therapeutic ranges | | DEPARTMENT | | | | for full | | OF | | | | anticoagulation: | | PATHOLOGY | | | | INR for Venous | | | | | | Thromboembolism | | | | | | (2.0-3.0) | | | | | | INR INR for most | | | | | | patients with mech. | | | | | | valves (2.5-3.5) | | | | | | INR | | | | + + + + + + + + | Specimen | + + | Blood - Blood | + + + + + + + | Performing | Address | City/State/Zipcode | Phone Number | | Organization | | | | + + + + + | [facility] | [address] | [place] [address] | | | PATHOLOGY | [address] | | | + + + + + TYPE AND SCREEN (02/04/2010 11:26 PM PDT) + + + + + + | Component | Value | Ref Range | Performed | Pathologist | | | | | At | Signature | + + + + + + | ABO GROUP | A | | [facility] | | | | | | DEPARTMENT | | | | | | OF | | | | | | PATHOLOGY | | + + + + + + | RH TYPE | Positive | | [facility] | | | | | | DEPARTMENT | | | | | | OF | | | | | | PATHOLOGY | | + + + + + + | Antibody | Negative | | [facility] | | | Screen | | | DEPARTMENT | | | | | | OF | | | | | | PATHOLOGY | | + + + + + + + + | Specimen | + + | Blood - Blood | + + + + + + + | Performing | Address | City/State/Zipcode | Phone Number | | Organization | | | | + + + + + | [facility] | [address] | [place] [address] | | | PATHOLOGY | [address] | | | + + + + + CBC ONLY (02/04/2010 11:26 PM PDT) + + + + + + | Component | Value | Ref Range | Performed | Pathologist | | | | | At | Signature | + + + + + + | WHITE CELL | 7.2 | 4.4 - 11.0 K/cu | [facility] | | | COUNT | | mm | DEPARTMENT | | | | | | OF | | | | | | PATHOLOGY | | + + + + + + | RED CELL | 3.67 (L) | 4.50 - 5.90 | [facility] | | | COUNT | | M/cu mm | DEPARTMENT | | | | | | OF | | | | | | PATHOLOGY | | + + + + + + | HEMOGLOBIN | 9.7 (L) | 13.5 - 17.5 | [facility] | | | | | g/dL | DEPARTMENT | | | | | | OF | | | | | | PATHOLOGY | | + + + + + + | HEMATOCRIT | 29.6 (L) | 41.0 - 53.0 % | [facility] | | | | | | DEPARTMENT | | | | | | OF | | | | | | PATHOLOGY | | + + + + + + | MCV | 80.7 | 80.0 - 96.0 fL | [facility] | | | | | | DEPARTMENT | | | | | | OF | | | | | | PATHOLOGY | | + + + + + + | MCHC | 32.7 (L) | 33.4 - 35.5 | [facility] | | | | | g/dL | DEPARTMENT | | | | | | OF | | | | | | PATHOLOGY | | + + + + + + | RDW | 16.4 (H) | 11.5 - 15.0 % | [facility] | | | | | | DEPARTMENT | | | | | | OF | | | | | | PATHOLOGY | | + + + + + + | PLATELET | 185 | 150 - 400 K/cu | [facility] | | | COUNT | | mm | DEPARTMENT | | | | | | OF | | | | | | PATHOLOGY | | + + + + + + + + | Specimen | + + | Blood - Blood | + + + + + + + | Performing | Address | City/State/Zipcode | Phone Number | | Organization | | | | + + + + + | [facility] | [address] | [place] [address] | | | PATHOLOGY | [address] | | | + + + + + COAGULOPATHY PANEL (INR,APTT,FIBRINOGEN) (02/04/2010 11:26 PM PDT) + + + + + + | Component | Value | Ref Range | Performed | Pathologist | | | | | At | Signature | + + + + + + | INR | 2.26 (H)Comment: | 0.90 - 1.20 INR | [facility] | | | | INR Therapeutic ranges | | DEPARTMENT | | | | for full | | OF | | | | anticoagulation: | | PATHOLOGY | | | | INR for Venous | | | | | | Thromboembolism | | | | | | (2.0-3.0) | | | | | | INR INR for most | | | | | | patients with mech. | | | | | | valves (2.5-3.5) | | | | | | INR | | | | + + + + + + | APTT | 62.6 (H)Comment: | 26.0 - 36.0 | [facility] | | | | APTT Therapeutic | seconds | DEPARTMENT | | | | Range | | OF | | | | | | PATHOLOGY | | | | (75-120) sec | | | | | | Heparin | | | | | | levels of 0.35-0.7 U/mL | | | | + + + + + + | FIBRINOGEN | 619 (H) | 200 - 450 mg/dL | [facility] | | | LEVEL | | | DEPARTMENT | | | | | | OF | | | | | | PATHOLOGY | | + + + + + + + + | Specimen | + + | Blood - Blood | + + + + + + + | Performing | Address | City/State/Zipcode | Phone Number | | Organization | | | | + + + + + | [facility] DEPARTMENT OF | [address] | [place] [address] | | | PATHOLOGY | [address] | | | + + + + + RENAL FUNCTION SET (NA,K,CL,CO2,BUN,CREAT,GLUC,CA,PHOS,ALB ) (02/04/2010 11:26 PM PDT) + + + + + + | Component | Value | Ref Range | Performed | Pathologist | | | | | At | Signature | + + + + + + | GLUCOSE, | 190 (H) | 60 - 99 mg/dL | [facility] | | | PLASMA | | | DEPARTMENT | | | (LAB) | | | OF | | | | | | PATHOLOGY | | + + + + + + | BUN, PLASMA | 25 (H) | 6 - 20 mg/dL | [facility] | | | (LAB) | | | DEPARTMENT | | | | | | OF | | | | | | PATHOLOGY | | + + + + + + | CREATININE | 1.42 (H) | 0.70 - 1.30 | [facility] | | | PLASMA | | mg/dL | DEPARTMENT | | | (LAB) | | | OF | | | | | | PATHOLOGY | | + + + + + + | ALBUMIN, | 2.6 (L) | 3.5 - 4.7 g/dL | [facility] | | | PLASMA | | | DEPARTMENT | | | (LAB) | | | OF | | | | | | PATHOLOGY | | + + + + + + | CALCIUM, | 8.3 (L) | 8.6 - 10.2 | [facility] | | | PLASMA | | mg/dL | DEPARTMENT | | | (LAB) | | | OF | | | | | | PATHOLOGY | | + + + + + + | PHOSPHORUS, | 2.9 | 2.4 - 4.7 mg/dL | [facility] | | | PLASMA | | | DEPARTMENT | | | (LAB) | | | OF | | | | | | PATHOLOGY | | + + + + + + | SODIUM, | 130 (L) | 134 - 143 | [facility] | | | PLASMA | | mmol/L | DEPARTMENT | | | (LAB) | | | OF | | | | | | PATHOLOGY | | + + + + + + | POTASSIUM, | 4.5 | 3.4 - 5.0 | [facility] | | | PLASMA | | mmol/L | DEPARTMENT | | | (LAB) | | | OF | | | | | | PATHOLOGY | | + + + + + + | CHLORIDE, | 96 (L) | 97 - 108 mmol/L | [facility] | | | PLASMA | | | DEPARTMENT | | | (LAB) | | | OF | | | | | | PATHOLOGY | | + + + + + + | TOTAL CO2, | 29 | 23 - 31 mmol/L | [facility] | | | PLASMA | | | DEPARTMENT | | | (LAB) | | | OF | | | | | | PATHOLOGY | | + + + + + + | ANION GAP | 5 | 4 - 11 mmol/L | [facility] | | | | | | DEPARTMENT | | | | | | OF | | | | | | PATHOLOGY | | + + + + + + | ANION | 8 | 4 - 11 mmol/L | [facility] | | | GAP(ALB | | | DEPARTMENT | | | CORRECTED) | | | OF | | | | | | PATHOLOGY | | + + + + + + + + | Specimen | + + | Blood - Blood | + + + + + + + | Performing | Address | City/State/Zipcode | Phone Number | | Organization | | | | + + + + + | 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, site unspecified | + + | Ribs, multiple fractures Closed fracture of multiple ribs, unspecified | + + | Hemothorax on right Other specified forms of effusion, except tuberculous | + + | Lower extremity venous stasis Unspecified venous (peripheral) insufficiency | + + | Injury, other and unspecified, unspecified site | + + documented in this encounter Administered Medications + +--------+ +--------+------+------+ | Medication Order | MAR | Action | Dose | Rate | Site | | | Action | Date | | | | + +--------+ +--------+------+------+ | acetaminophen (aka TYLENOL) | Given | 02/07/20 | 650 mg | | | | tablet 325-650 mg 325-650 mg, | | 10 9:45 | | | | | oral, EVERY 4 HOURS NEEDED, | | AM PDT | | | | | Starting 02/06/10 at 0554, | | | | | | | Until [facility] 02/07/10 at 0316, mild | | | | | | | pain, headache, fever | | | | | | + +--------+ +--------+------+------+ +---+---+ | | | +---+---+ + +-------+ + +---+---+ | ascorbic acid (vit C) 1,000 mg | Given | 02/07/20 | 1,000 mg | | | | in NaCl 0.9 % IV 1,000 mg, | | 10 12:20 | | | | | intravenous, EVERY 8 HOURS, 84 | | AM PDT | | | | | doses, First dose on Thu02/05/10 | | | | | | | at 0000, Last dose on Thu | | | | | | | 03/04/10 at 1600 | | | | | | + +-------+ + +---+---+ +-------+ + +---+---+ | Given | 02/06/20 | 1,000 mg | | | | | 10 3:38 | | | | | | PM PDT | | | | +-------+ + +---+---+ | Given | 02/06/20 | 1,000 mg | | | | | 10 8:00 | | | | | | AM PDT | | | | +-------+ + +---+---+ +---+---+ | | | +---+---+ + +-------+ +--------+---+---+ | atenolol (aka TENORMIN) tablet | Given | 02/06/20 | 100 mg | | | | 100 mg 100 mg, oral, DAILY, | | 10 9:00 | | | | | First dose on Thu02/05/10 at | | AM PDT | | | | | 0900, Until Discontinued | | | | | | + +-------+ +--------+---+---+ +---+---+ | | | +---+---+ + +-------+ +--------+---+---+ | bumetanide (aka BUMEX) | Given | 02/06/20 | 0.5 mg | | | | injection 0.5 mg 0.5 mg, | | 10 2:59 | | | | | intravenous, ONCE, 1 dose, Tue | | AM PDT | | | | | 02/05/10 at 0245 | | | | | | + +-------+ +--------+---+---+ +---+---+ | | | +---+---+ + +-------+ +-------+---+---+ | enoxaparin (aka LOVENOX) | Given | 02/07/20 | 30 mg | | | | injection 30 mg 30 mg, | | 10 7:59 | | | | | subcutaneous, EVERY 12 HOURS, | | PM PDT | | | | | First dose on Thu02/06/10 at | | | | | | | 0900, Until Discontinued | | | | | | + +-------+ +-------+---+---+ +-------+ +-------+---+---+ | Given | 02/07/20 | 30 mg | | | | | 10 9:46 | | | | | | AM PDT | | | | +-------+ +-------+---+---+ +---+---+ | | | +---+---+ + +-------+ +--------+---+---+ | fentaNYL citrate (PF) (aka | Given | 02/07/20 | 50 mcg | | | | SUBLIMAZE) injection 25-100 mcg | | 10 5:36 | | | | | 25-100 mcg, intravenous, EVERY 1 | | PM PDT | | | | | HOUR NEEDED, Starting Wed | | | | | | | 02/06/10 at 0554, Until Tea | | | | | | | 02/07/10 at 0316, moderate pain | | | | | | + +-------+ +--------+---+---+ +-------+ +--------+---+---+ | Given | 02/07/20 | 50 mcg | | | | | 10 9:45 | | | | | | AM PDT | | | | +-------+ +--------+---+---+ +---+---+ | | | +---+---+ + +-------+ +---------+---+---+ | fentaNYL citrate (PF) (aka | Given | 02/05/20 | 100 mcg | | | | SUBLIMAZE) injection 1 dose, | | 10 11:05 | | | | | Starting 02/04/10 at 2311, | | PM PDT | | | | | Until 02/04/10 at 2305 | | | | | | + +-------+ +---------+---+---+ +---+---+ | | | +---+---+ + +-------+ +-------+---+---+ | hydrochlorothiazide (aka | Given | 02/07/20 | 25 mg | | | | HYDRODIURIL) capsule 25 mg 25 | | 10 9:46 | | | | | mg, oral, DAILY, First dose on | | AM PDT | | | | | 02/05/10 at 0900, Until | | | | | | | Discontinued | | | | | | + +-------+ +-------+---+---+ +-------+ +-------+---+---+ | Given | 02/06/20 | 25 mg | | | | | 10 9:00 | | | | | | AM PDT | | | | +-------+ +-------+---+---+ +---+---+ | | | +---+---+ + +-------+ + +---+---+ | insulin NPH (aka HUMULIN | Given | 02/07/20 | 10 Units | | | | N,NOVOLIN N) injection 10 Units | | 10 2:19 | | | | | 10 Units, subcutaneous, EVERY 8 | | PM PDT | | | | | HOURS, First dose on Thu02/06/10 | | | | | | | at 0600, Until Discontinued | | | | | | + +-------+ + +---+---+ +-------+ + +---+---+ | Given | 02/07/20 | 10 Units | | | | | 10 6:54 | | | | | | AM PDT | | | | +-------+ + +---+---+ +---+---+ | | | +---+---+ + +-------+ +---------+---+---+ | insulin regular (aka HUMULIN | Given | 02/07/20 | 6 Units | | | | R,NOVOLIN R) injection 1-16 Units | | 10 2:15 | | | | | 1-16 Units, subcutaneous, AFTER | | PM PDT | | | | | MEALS AND BEDTIME, First dose on | | | | | | | 02/05/10 at 0900, Until | | | | | | | Discontinued | | | | | | + +-------+ +---------+---+---+ +-------+ +---------+---+---+ | Given | 02/07/20 | 6 Units | | | | | 10 11:17 | | | | | | AM PDT | | | | +-------+ +---------+---+---+ | Given | 02/06/20 | 4 Units | | | | | 10 6:34 | | | | | | PM PDT | | | | +-------+ +---------+---+---+ +---+---+ | | | +---+---+ + +---------+ + + +---+ | lactated ringers IV 75 mL/hr, | New Bag | 02/06/20 | 75 mL/hr | 75 mL/hr | | | intravenous, CONTINUOUS, Starting | | 10 12:06 | | | | | 02/04/10 at 2330, Until Tue | | AM PDT | | | | | 02/05/10 at 1044 | | | | | | + +---------+ + + +---+ +---+---+ | | | +---+---+ + +-------+ +---------+---+---+ | lidocaine (aka LIDODERM) 5 | Given | 02/07/20 | 1 patch | | | | %(700 mg/patch) 1 Patch 1 patch, | | 10 9:46 | | | | | transdermal, EVERY 24 HOURS, | | AM PDT | | | | | First dose on Thu02/05/10 at | | | | | | | 1000, Until Discontinued | | | | | | + +-------+ +---------+---+---+ +-------+ +---------+---+---+ | Given | 02/06/20 | 1 patch | | | | | 10 12:00 | | | | | | PM PDT | | | | +-------+ +---------+---+---+ +---+---+ | | | +---+---+ + +-------+ +-----+---+---+ | magnesium sulfate IV (premade) | Given | 02/06/20 | 2 g | | | | 2 g 2 g, intravenous, ONCE, 1 | | 10 1:00 | | | | | dose, Thu02/05/10 at 1315 | | PM PDT | | | | + +-------+ +-----+---+---+ +---+---+ | | | +---+---+ + +-------+ +------+---+---+ | metoprolol (aka LOPRESSOR) | Given | 02/07/20 | 5 mg | | | | injection 2.5-5 mg 2.5-5 mg, | | 10 4:01 | | | | | intravenous, EVERY 6 HOURS, First | | AM PDT | | | | | dose on Thu02/05/10 at 0400, | | | | | | | Until Discontinued | | | | | | + +-------+ +------+---+---+ +-------+ +--------+---+---+ | Given | 02/06/20 | 2.5 mg | | | | | 10 9:52 | | | | | | PM PDT | | | | +-------+ +--------+---+---+ | Given | 02/06/20 | 2.5 mg | | | | | 10 11:00 | | | | | | AM PDT | | | | +-------+ +--------+---+---+ +---+---+ | | | +---+---+ + +-------+ +-------+---+---+ | metoprolol tartrate (aka | Given | 02/07/20 | 50 mg | | | | LOPRESSOR) tablet 50 mg 50 mg, | | 10 5:36 | | | | | oral, EVERY 6 HOURS, First dose | | PM PDT | | | | | on Thu02/06/10 at 0600, Until | | | | | | | Discontinued | | | | | | + +-------+ +-------+---+---+ +-------+ +-------+---+---+ | Given | 02/07/20 | 50 mg | | | | | 10 9:46 | | | | | | AM PDT | | | | +-------+ +-------+---+---+ | Given | 02/07/20 | 50 mg | | | | | 10 6:00 | | | | | | AM PDT | | | | +-------+ +-------+---+---+ +---+---+ | | | +---+---+ + +-------+ +------+---+---+ | morphine injection 2-4 mg 2-4 | Given | 02/06/20 | 2 mg | | | | mg, intravenous, EVERY 2 HOURS | | 10 3:13 | | | | | NEEDED, Starting 02/04/10 at | | AM PDT | | | | | 2320, Until 02/06/10 at | | | | | | | 0554, moderate pain, severe pain | | | | | | + +-------+ +------+---+---+ +-------+ +------+---+---+ | Given | 02/06/20 | 2 mg | | | | | 10 2:07 | | | | | | AM PDT | | | | +-------+ +------+---+---+ +---+---+ | | | +---+---+ + +-------+ +-------+---+---+ | omeprazole (aka PRILOSEC) | Given | 02/07/20 | 20 mg | | | | capsule 20 mg 20 mg, oral, | | 10 9:46 | | | | | DAILY, First dose on Thu02/06/10 | | AM PDT | | | | | at 0900, Until Discontinued | | | | | | + +-------+ +-------+---+---+ +---+---+ | | | +---+---+ + +-------+ +-------+---+---+ | oxyCODONE immediate release | Given | 02/07/20 | 10 mg | | | | (aka ROXICODONE) tablet 10 mg 10 | | 10 1:00 | | | | | mg, oral, EVERY 4 HOURS | | AM PDT | | | | | NEEDED, Starting Thu02/05/10 at | | | | | | | 0106, Until Thu02/06/10 at 0554, | | | | | | | moderate pain, severe pain | | | | | | + +-------+ +-------+---+---+ +-------+ +------+---+---+ | Given | 02/06/20 | 5 mg | | | | | 10 6:00 | | | | | | PM PDT | | | | +-------+ +------+---+---+ +---+---+ | | | +---+---+ + +-------+ +-------+---+---+ | oxyCODONE immediate release | Given | 02/07/20 | 15 mg | | | | (aka ROXICODONE) tablet 5-15 mg | | 10 5:36 | | | | | 5-15 mg, oral, EVERY 4 HOURS | | PM PDT | | | | | NEEDED, Starting 02/06/10 at | | | | | | | 0550, Until Tea 02/07/10 at 0316, | | | | | | | moderate pain, severe pain | | | | | | + +-------+ +-------+---+---+ +-------+ +-------+---+---+ | Given | 02/07/20 | 15 mg | | | | | 10 9:45 | | | | | | AM PDT | | | | +-------+ +-------+---+---+ | Given | 02/07/20 | 15 mg | | | | | 10 6:00 | | | | | | AM PDT | | | | +-------+ +-------+---+---+ +---+---+ | | | +---+---+ + +-------+ +--------+---+---+ | potassium chloride SR (aka | Given | 02/06/20 | 20 mEq | | | | K-DUR) tablet 20 mEq 20 mEq, | | 10 2:13 | | | | | oral, ONCE, 1 dose, 02/05/10 | | PM PDT | | | | | at 1315 | | | | | | + +-------+ +--------+---+---+ +---+---+ | | | +---+---+ + +-------+ +--------+---+---+ | potassium chloride SR (aka | Given | 02/07/20 | 40 mEq | | | | K-DUR) tablet 40 mEq 40 mEq, | | 10 6:22 | | | | | oral, ONCE, 1 dose, 02/06/10 | | AM PDT | | | | | at 0600 | | | | | | + +-------+ +--------+---+---+ +---+---+ | | | +---+---+ + +-------+ +-------+---+---+ | ranitidine (aka ZANTAC) IV 50 | Given | 02/07/20 | 50 mg | | | | mg 50 mg, intravenous, EVERY 8 | | 10 12:20 | | | | | HOURS, First dose on Thu02/05/10 | | AM PDT | | | | | at 0000, Until Discontinued | | | | | | + +-------+ +-------+---+---+ +-------+ +-------+---+---+ | Given | 02/06/20 | 50 mg | | | | | 10 4:07 | | | | | | PM PDT | | | | +-------+ +-------+---+---+ | Given | 02/06/20 | 50 mg | | | | | 10 9:00 | | | | | | AM PDT | | | | +-------+ +-------+---+---+ +---+---+ | | | +---+---+ + +-------+ +------+---+---+ | REMOVE lidocaine patch EVERY | Given | 02/07/20 | each | | | | 24 HOURS, First dose on Thu | | 10 9:46 | | | | | 02/05/10 at 1000, Until | | AM PDT | | | | | Discontinued | | | | | | + +-------+ +------+---+---+ +---+---+ | | | +---+---+ + +-------+ +---------+---+---+ | selenium 300 mcg in NaCl 0.9 % | Given | 02/06/20 | 300 mcg | | | | IV 300 mcg, intravenous, DAILY, | | 10 9:00 | | | | | 28 doses, First dose on Thu | | AM PDT | | | | | 02/05/10 at 0900, Last dose on | | | | | | | 03/04/10 at 0900 | | | | | | + +-------+ +---------+---+---+ +---+---+ | | | +---+---+ + +-------+ + +---+---+ | senna-docusate (aka SENOKOT S) | Given | 02/07/20 | 1 tablet | | | | 8.6-50 mg 1 Tab 1 tablet, oral, | | 10 9:46 | | | | | TWICE DAILY, First dose on Thu | | AM PDT | | | | | 02/06/10 at 0900, Until | | | | | | | Discontinued | | | | | | + +-------+ + +---+---+ +---+---+ | | | +---+---+ + +-------+ +--------+---+---+ | vitamin E capsule 1,000 Units | Given | 02/07/20 | 1,000 | | | | 1,000 Units, oral, EVERY 8 HOURS, | | 10 9:46 | Units | | | | 84 doses, First dose on Thu | | AM PDT | | | | | 02/05/10 at 0000, Last dose on | | | | | | | 03/04/10 at 1600 | | | | | | + +-------+ +--------+---+---+ +---+---+ | | | +---+---+ documented in this encounter
--- OUTSIDE RECORDS SUMMARY | ~2019-11-10 | XMS | Clinical Summary ---
Demographics + + + | Address | [address] | | | [place] [address] | + + + | Home Phone | | + + + | Preferred Language | Unknown | + + + | Marital Status | Single | + + + | Christian Affiliation | NON | + + + | Race | White | + + + | Ethnic Group | Not or | + + + Author + + + | Author | [facility] | + + + | Organization | [facility] | + + + | Address | Unknown | + + + | Phone | Unavailable | + + + Support + + + + + | Name | Relationship | Address | Phone | + + + + + | Chiara Cid | ECON | [address] | | | | | [place], | | | | | [place] [address] | | + + + + + Care Team Providers + +------+ + | Care Data Center Architect Name | Role | Phone | + +------+ + | Doroteo Felder MD | PCP | | + +------+ + Source Comments B[facility] is fully live on both [facility] and [facility] Allergies No Known Allergies Medications + + + +---------+------+------+-------+ | Medication | Sig | Dispensed | Refills | Star | End | Statu | | | | | | t | Date | s | | | | | | Date | | | + + + +---------+------+------+-------+ | | Take 25 mg by mouth | | 0 | | | Activ | | hydrochlorothiazide | once daily. | | | | | e | | 25 mg Oral Tablet | | | | | | | + + + +---------+------+------+-------+ | atenolol 100 mg | Take 100 mg by mouth | | 0 | | | Activ | | Oral Tablet | once daily. | | | | | e | + + + +---------+------+------+-------+ | omeprazole 20 mg | Take 20 mg by mouth | | 0 | | | Activ | | Oral Capsule, | once daily. | | | | | e | | Delayed | | | | | | | | Release(E.C.) | | | | | | | + + + +---------+------+------+-------+ | insulin glargine | Inject under the | | 0 | | | Activ | | (LANTUS) 100 unit/mL | skin (SUBC) once | | | | | e | | Subcutaneous | daily at bedtime. | | | | | | | Solution | | | | | | | + + + +---------+------+------+-------+ | candesartan | Take 32 mg by mouth | | 0 | | | Activ | | (ATACAND) 32 mg Oral | once daily. | | | | | e | | Tablet | | | | | | | + + + +---------+------+------+-------+ | PROBENECID ORAL | Take by mouth. | | 0 | | | Activ | | | | | | | | e | + + + +---------+------+------+-------+ | gemfibrozil 600 mg | Take 600 mg by mouth | | 0 | 10/2 | | Activ | | Oral Tablet | once daily. | | | 6/20 | | e | | | | | | 10 | | | + + + +---------+------+------+-------+ | fluoxetine 40 mg | Take 40 mg by mouth | | 0 | | | Activ | | Oral Capsule | once daily. | | | | | e | + + + +---------+------+------+-------+ | warfarin 2.5 mg | Take 2.5 mg by mouth | | 0 | | | Activ | | Oral Tablet | once daily. 2.5 mg | | | | | e | | | M-F, 5 mg Sat-Sun | | | | | | + + + +---------+------+------+-------+ | lidocaine 5 %(700 | Apply 1 Patch to | 30 | 2 | 10/2 | | Activ | | mg/patch) Topical | skin every | Patch | | 7/20 | | e | | Adhesive Patch, | twenty-four hours. | | | 10 | | | | Medicated | Apply [...] | period. | | | | | | + + + +---------+------+------+-------+ | enoxaparin 30 | Inject 0.3 mL under | 6 | 0 | 10/2 | | Activ | | mg/0.3 mL | the skin (SUBC) | Syringe | | 7/20 | | e | | Subcutaneous Syringe | every twelve hours. | | | 10 | | | + + + +---------+------+------+-------+ | oxyCODONE, | Take 1-2 Tabs by | 40 Tab | 0 | 10/2 | | Activ | | immediate release, 5 | mouth every four | | | 7/20 | | e | | mg Oral Tablet | hours as needed for | | | 10 | | | | | moderate pain and | | | | | | | | severe pain. | | | | | | + + + +---------+------+------+-------+ | oxyCODONE, | Take 1-2 Tabs by | 10 Tab | 0 | 10/2 | | Activ | | immediate release, 5 | mouth every four | | | 7/20 | | e | | mg Oral Tablet | hours as needed. 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 Needs follow up with prev surgeon or with | | [facility] sarcoma program. | + + + + + | Ribs, multiple fractures | 02/05/2010 | + + + | Hemothorax on right | 02/05/2010 | + + + | Laceration of right hand | 02/05/2010 | + + + | Lower extremity venous stasis | 02/05/2010 | + + + Social History + +-------+ [...] recent travel history available. | + + Last Filed Vital Signs + + + [...] | | + + + + + Plan of Treatment + + + + + | Health Maintenance | Due Date | Last Done | Comments | + + + + + | Pneumococcal | | | | | vaccination (1 of 2 | 6 | | | | - PCV13) | | | | + + + + + | Influenza (Flu) | | | | | vaccination (#1) | 9 | | | + + + + + Results Not on filefrom Last 3 Months Insurance + +--------+ +--------+ + +--------+ | Payer | Benefi | Subscriber | Effect | Phone | Address | Type | | | t Plan | ID | clarence | | | | | | / | | Dates | | | | | | Group | | | | | | + +--------+ +--------+ + +--------+ | [facility] PREF | PROVID | xxxxxxxxx | 08/12/19 | | | PPO | | | ENCE | | 07-Pre | | | | | | PREF | | sent | | | | + +--------+ +--------+ + +--------+ | MEDICARE | MEDICA | xxxxxxxxxx | 02/04/ | [phone] | [address] | Medica | | | RE A & | | 2009-P | [address] | | | [address] | | resent | | [place] | | | | | | | | [address] | | + +--------+ +--------+ + +--------+ + +--------+ +--------+ + + | Guarantor Name | Accoun | Relation to | Date | Phone | Billing Address | | | t Type | Patient | of | | | | | | | | | | + +--------+ +--------+ + + | CidKranthi | Person | Self | [birth year] | [address] | | | al/Fam | | 1941 | [phone] | [place] [address] | | | sharla | | | 5 (Home) | | + +--------+ +--------+ + + Advance Directives + + + + + | Code Status | Date | Date | Comments | | | Activated | Inactivated | | + + + + + | Full Code | 02/04/2010 | 02/07/2010 | | | | 11:20 PM | 3:46 AM | | + + + + +"
--- OUTSIDE RECORDS SUMMARY | ~2019-11-10 | XMS | Encounter Summary ---
Demographics + + + | Address | [address] | | | [place] [address] | + + + | Home Phone | | + + + | Preferred Language | Unknown | + + + | Marital Status | | + + + | Restorationism Affiliation | Unknown | + + + | Race | Unknown | + + + | Ethnic Group | Unknown | + + + Author + + + | Author | [facility] | | | and [place] | + + + | Organization | [facility] | | | and [place] | + + + | Address | Unknown | + + + | Phone | Unavailable | + + + Support + + + + + | Name | Relationship | Address | Phone | + + + + + | Barak Cdi | ECON | [address] | | | | | [place], | | | | | [place] [address] | | + + + + + | Josephine Meléndez | ECON | [address] | | | | | [place] | | | | | [address] | | + + + + + | Chiara Cid | ECON | [address] | | | | | [place], [place] | | | | | [address] | | + + + + + | Josephine Meléndez | ECON | Unknown | | + + + + + Care Team Providers + +------+ + | Care Peanut Cleaner Name | Role | Phone | + +------+ + | Doroteo Felder MD | PCP | | + +------+ + Reason for Visit Service/Procedure (Routine) +--------+--------+ + + + + | Status | Reason | Specialty | Diagnoses / | Referred By | Referred To | | | | | Procedures | Contact | Contact | +--------+--------+ + + + + | Closed | | Radiology | Diagnoses | | [facility] | | | | | Thoracic or | [place], | [address] | | | | | lumbosacral | Mahesh Henderson MD | [place], | | | | | neuritis or | [address] | [place] | | | | | | [place] | [address] | | | | | radiculitis, | [place] | Phone: | | | | | unspecified | [address] | [phone] | | | | | Procedures | Phone: | Fax: | | | | | [place] INJECT | [phone] | [phone] | | | | | ANES/STEROID | Fax: | | | | | | FORAMEN | [phone] | | | | | | LUMBAR/SACRA | | | | | | | L W IMG | | | | | | | GUIDE ,1 | | | | | | | LEVEL [place] | | | | | | | TRIAMCINOLON | | | | | | | E ACET INJ | | | | | | | NOS, 10 MG | | | | | | | [place] INJECT | | | | | | | ANES/STEROID | | | | | | | FORAMEN | | | | | | | LUMBAR/SACRA | | | | | | | L W IMG | | | | | | | GUIDE ,EA | | | | | | | ADD LEVEL | | | | | | | Right | | | | | | | L4-L5,L5-S1 | | | | | | | TFESI | | | | | | | Referral | | | | | | | from Dr Gomez | | | +--------+--------+ + + + + Encounter Details +--------+ + + + + | Date | Type | Department | Care Team | Description | +--------+ + + + + | 10/06/ | Hospital | [facility] | Mahesh Oscar | Thoracic or | | 2014 | Encounter | MED CTR XRAY [address] | [address] | lumbosacral neuritis | | | | [address] [place] | [address] [place], [place] | or radiculitis, | | | | [place] [address] | [address] | unspecified | | | | [phone] | | | | | | | Computer Hardware Engineer, [place] | | | | | | [place] | | +--------+ + + + + Social History + +-------+ +--------+------+ | Tobacco Use | Types | Packs/Day | Years | Date | | | | | Used | | + +-------+ +--------+------+ | Never Smoker | | | | | + +-------+ +--------+------+ + +---+---+---+ | Smokeless Tobacco: | | | | | Never Used | | | | + +---+---+---+ + + +---------+ + | Alcohol Use | Drinks/Week | oz/Week | Comments | + + +---------+ + | Yes | | | Rarely | + + +---------+ + + + + | Sex Assigned at | Date Recorded | | | | + + + | Not on file | | + + + documented as of this encounter Last Filed Vital Signs + +---------+ + + | Vital Sign | Reading | Time Taken | Comments | + +---------+ + + | Blood Pressure | 150/86 | 10/06/2013 3:45 PM | | | | | PDT | | + +---------+ + + | Pulse | 72 | 10/06/2013 3:45 PM | | | | | PDT | | + +---------+ + + | Temperature | - | - | | + +---------+ + + | Respiratory Rate | - | - | | + +---------+ + + | Oxygen Saturation | - | - | | + +---------+ + + | Inhaled Oxygen | - | - | | | Concentration | | | | + +---------+ + + | Weight | - | - | | + +---------+ + + | Height | - | - | | + +---------+ + + | Body Mass Index | - | - | | + +---------+ + + documented in this encounter Medications at Time of Discharge + + + +---------+ + + | Medication | Sig | Dispensed | Refills | Start | End Date | | | | | | Date | | + + + +---------+ + + | aspirin 81 mg EC | Take 81 mg by mouth | | 0 | 12/25/19 | | | tablet | Daily. | | | 12 | | + + + +---------+ + + | atorvaSTATin | Take 40 mg by mouth | | 0 | 12/25/19 | | | (LIPITOR) 40 mg | Daily. | | | 12 | | | tablet | | | | | | + + + +---------+ + + | furosemide (LASIX) | Take 40 mg by mouth | | 0 | 12/25/19 | | | 40 mg tablet | Daily. | | | 12 | | + + + +---------+ + + | glucose blood | Use as directed | | 0 | 12/25/19 | | | test strips (ONE | | | | 12 | | | TOUCH TEST STRIPS) | | | | | | | strip | | | | | | + + + +---------+ + + | nitroglycerin | Dissolve 1 tablet | | 0 | 12/25/19 | | | (NITROSTAT) 0.4 mg | under tongue every 5 | | | 12 | | | SL tablet | minutes up to 3 | | | | | | | tablets. Call 911/ER | | | | | | | if no relief. | | | | | + + + +---------+ + + | ONE TOUCH LANCETS | Use as directed | | 0 | 12/25/19 | | | MISC | | | | 12 | | + + + +---------+ + + | candesartan | Take 32 mg by mouth | | 0 | 12/25/19 | | | (ATACAND) 32 MG | Daily. | | | 12 | 9 | | tablet | | | | | | + + + +---------+ + + | Cholecalciferol | Take 2,000 Units by | | 0 | 12/25/19 | | | (VITAMIN D3) 2000 | mouth Daily. | | | 12 | 9 | | UNITS CAPS | | | | | | + + + +---------+ + + | | Take 0.5-500 mg by | | 0 | 12/25/19 | | | colchicine-probeneci | mouth Daily. | | | 12 | 9 | | d 0.5-500 MG per | | | | | | | tablet | | | | | | + + + +---------+ + + | erythromycin | Take 333 mg by mouth | | 0 | 12/25/19 | | | (LOU-TAB) 333 MG EC | Daily. | | | 12 | 9 | | tablet | | | | | | + + + +---------+ + + | glimepiride | Take 4 mg by mouth | | 0 | 12/25/19 | | | (AMARYL) 4 mg tablet | Daily. | | | 12 | 9 | + + + +---------+ + + | | Take 5-500 mg by | | 0 | 12/25/19 | | | HYDROcodone-acetamin | mouth 4 times daily | | | 12 | 9 | | ophen (VICODIN) | as needed. | | | | | | 5-500 mg per tablet | | | | | | + + + +---------+ + + | indomethacin | Take 50 mg by mouth | | 0 | | | | (INDOCIN) 50 MG | as needed. | | | | 9 | | capsule | | | | | | + + + +---------+ + + | insulin glargine | Inject 50 units | | 0 | 12/25/19 | | | (LANTUS) 100 | subcutaneoulsy two | | | 12 | 9 | | units/mL injection | times daily | | | | | + + + +---------+ + + | Insulin Pen Needle | Use as directed | | 0 | 12/25/19 | | | (B-D ULTRAFINE III | | | | 12 | 9 | | SHORT PEN) 31G X 8 | | | | | | | MM MISC | | | | | | + + + +---------+ + + | metoprolol | Take 200 mg by mouth | | 0 | 09/17/19 | | | (TOPROL-XL) 200 MG | every morning. | | | 12 | 9 | | 24 hr tablet | | | | | | + + + +---------+ + + | omeprazole | Take 20 mg by mouth | | 0 | 12/25/19 | | | (PRILOSEC) 20 mg | Daily. | | | 12 | 9 | | capsule | | | | | | + + + +---------+ + + | probenecid 500 mg | Take 500 mg by mouth | | 0 | 12/25/19 | | | tablet | Daily. | | | 12 | 9 | + + + +---------+ + + | sertraline | Take 50 mg by mouth | | 0 | | | | (ZOLOFT) 50 mg | Daily. | | | | 9 | | tablet | | | | | | + + + +---------+ + + | Warfarin Sodium | TABS, 2.5 mg Mon and | | 0 | 09/17/19 | | | (COUMADIN PO) | Tues 5 mg all other | | | 12 | 9 | | | days | | | | | + + + +---------+ + + documented as of this encounter Miscellaneous Notes Miscellaneous - ONH[facility]meister Leuch[facility] ALLI FERMIN - 10/19/2013 12:00 AM PDT documented in this encounter Plan of Treatment +--------+---------+ + + + | Date | Type | Specialty | Care Team | Description | +--------+---------+ + + + | 11/09/ | Office | Wound Care | Armando Lopez V, | | | 2019 | Visit | | [address] | | | | | | [place] | | | | | | [address] | | | | | | | | | | | | Isabella Tang MD | | | | | | [address] | | | | | | [address] | | | | | | [place] [address] | | | | | | [phone] | | | | | | | | +--------+---------+ + + + documented as of this encounter Procedures + +--------+ + + + | Procedure Name | Priori | Date/Time | Associated Diagnosis | Comments | | | ty | | | | + +--------+ + + + | FL EPIDURAL STEROID | Routin | 10/06/2013 | Thoracic or | Results for this | | INJECTION LUMBAR | e | 3:36 PM | lumbosacral neuritis | procedure are in the | | TRANSFORAMINAL | | PDT | or radiculitis, | results section. | | | | | unspecified | | + +--------+ + + + documented in this encounter Results FL MANOJ Lumbar Transforaminal (10/06/2013 3:36 PM PDT) + + | Specimen | + + | | + + + + + | Narrative | Performed At | + + + | 10/06/2013 Transforaminal Epidural Steroid Injections Diagnosis: | [facility] | | Lumbar radiculopathy ICD-9 Code 724.4 Josy Cid presents | [facility] | | to the fluoroscopy suite for fluoroscopically-guided right L4-L5 [facility] | | and L5-S1 transforaminal epidural steroid injections as part of | - IMAGING | | conservative management for chronic pain with lumbar radiculopathy | | | and degenerative disk disease. After informed consent was obtained, | | | the patient lay in the prone position on the fluoroscopy table. The | | | areas were identified under fluoroscopic guidance. The areas were | | | prepped and draped in sterile fashion. A 25-gauge, 1.5-inch needle | | | was inserted into each region and approximately 3 mL of buffered 1% | | | lidocaine was infused. Then, a 22-gauge spinal needle was inserted | | | into the posterior superior transforaminal space at each level and | | | advanced into the epidural space under fluoroscopic guidance. | | | Confirmation into the epidural space was obtained with infusion of | | | approximately 1 mL of Omnipaque contrast which showed epidural flow | | | as well as nerve sheath flow. Then, a combination of 2 mL of 1% | | | lidocaine and 2 mL of 6 mg/mL Celestone was infused, divided between | | | the two sites. The patient tolerated the procedure well without | | | complications. Pre- and post-procedure blood pressures were stable. | | | The patient was given verbal as well as written follow-up | | | instructions. Prior to the start of the procedure, the following | | | were performed and/or verified, including correct patient identity, | | | correct site/side marked and visible, agreement on the procedure to | | | be done, correct patient positioning and an accurate procedure | | | consent form. Any safety precautions based on clinical history | | | and/or medication use have been addressed. I personally performed | | | the procedure above. Estimated blood loss: Minimal Complications: | | | None Findings: As expected Anesthesia: Local 1% Lidocaine | | + + + + + | Procedure Note | + + | Mahesh Oscar MD - 10/21/2013 4:40 PM PDT 10/06/2013Transforaminal Epidural | | Steroid InjectionsDiagnosis: Lumbar radiculopathyICD-9 Code 724.4Josy Cid presents | | to the fluoroscopy suite for fluoroscopically-guided right L4-L5 and L5-S1 | | transforaminal epidural steroid injections as part of conservative management for | | chronic pain with lumbar radiculopathy and degenerative disk disease. After informed | | consent was obtained, the patient lay in the prone position on the fluoroscopy table. | | The areas were identified under fluoroscopic guidance. The areas were prepped and draped | | in sterile fashion. A 25-gauge, 1.5-inch needle was inserted into each region and | | approximately 3 mL of buffered 1% lidocaine was infused. Then, a 22-gauge spinal needle | | was inserted into the posterior superior transforaminal space at each level and advanced | | into the epidural space under fluoroscopic guidance. Confirmation into the epidural | | space was obtained with infusion of approximately 1 mL of Omnipaque contrast which | | showed epidural flow as well as nerve sheath flow. Then, a combination of 2 mL of 1% | | lidocaine and 2 mL of 6 mg/mL Celestone was infused, divided between the two sites. The | | patient tolerated the procedure well without complications. Pre- and post-procedure | | blood pressures were stable. The patient was given verbal as well as written follow-up | | instructions. Prior to the start of the procedure, the following were performed and/or | | verified, including correct patient identity, correct site/side marked and visible, | | agreement on the procedure to be done, correct patient positioning and an accurate | | procedure consent form. Any safety precautions based on clinical history and/or | | medication use have been addressed. I personally performed the procedure above.Estimated | | blood loss: MinimalComplications: NoneFindings: As expectedAnesthesia: Local 1% | | Lidocaine | + + + + + + + | Performing | Address | City/State/Zipcode | Phone Number | | Organization | | | | + + + + + | [facility] | [address] | [place] | [phone] | | [facility] | | [address] | | | - IMAGING | | | | + + + + + documented in this encounter Visit Diagnoses + + | Diagnosis | + + | Thoracic or lumbosacral neuritis or radiculitis, unspecified | + + documented in this encounter Administered Medications + +--------+ +-------+------+ + | Medication Order | MAR | Action | Dose | Rate | Site | | | Action | Date | | | | + +--------+ +-------+------+ + | betamethasone (CELESTONE | Given | 10/07/19 | 12 mg | | Other | | SOLUSPAN) injection 12 mg 12 mg, | | 14 4:00 | | | (Comment | | Intramuscular, EVERY 24 HOURS | | PM PDT | | | ) | | INTERVAL, First dose on Tea | | | | | | | 10/06/13 at 1600, For 2 doses, | | | | | | | Shake well. Not for IV use., | | | | | | + +--------+ +-------+------+ + +---+---+ | | | +---+---+ + +-------+ +-------+---+---+ | iohexol (OMNIPAQUE 300) 300 | Given | 10/07/19 | 4 mLs | | | | mg/mL injection 4 mL 4 mL, | | 14 4:00 | | | | | INTRATHECAL, ONCE, Tea 10/06/13 at | | PM PDT | | | | | 1600, For 1 dose | | | | | | + +-------+ +-------+---+---+ +---+---+ | | | +---+---+ + +-------+ +-------+---+ + | lidocaine 1% injection 5 mL 5 | Given | 10/07/19 | 5 mLs | | Other | | mL, Intradermal, ONCE, Tea | | 14 4:00 | | | (Comment | | 10/06/13 at 1600, For 1 dose | | PM PDT | | | ) | + +-------+ +-------+---+ + +---+---+ | | | +---+---+ + +-------+ +-------+---+---+ | sodium bicarbonate (NEUT) 4% | Given | 10/07/19 | 2 mLs | | | | injection 2 mL 2 mL, Topical, | | 14 4:00 | | | | | ONCE, Tea 10/06/13 at 1600, For 1 | | PM PDT | | | | | dose | | | | | | + +-------+ +-------+---+---+ +---+---+ | | | +---+---+ documented in this encounter"
--- OUTSIDE RECORDS SUMMARY | ~2019-11-10 | XMS | Encounter Summary ---
Demographics + + + | Address | [address] | | | [place] [address] | + + + | Home Phone | | + + + | Preferred Language | Unknown | + + + | Marital Status | Single | + + + | Tenriism Affiliation | NON | + + + | Race | White | + + + | Ethnic Group | Not or | + + + Author + + + | Author | [facility] | + + + | Organization | [facility] | + + + | Address | Unknown | + + + | Phone | Unavailable | + + + Support + + + + + | Name | Relationship | Address | Phone | + + + + + | Chiara Cid | ECON | [address] | | | | | [place], | | | | | [place] [address] | | + + + + + Care Team Providers + +------+ + | Care Senior Java Programmer Analyst Name | Role | Phone | + [...] 2009 | | General Surgery at | [facility] | | | | | [facility] [address] [place], [place] | | | | | [address] | [address] | | | | | Physicians [place], | | | | | | [address] Floor | | | | | | [place], [place] | | | | | | [address] | | | | | | [phone] | | | +--------+ + + + [...]
--- OUTSIDE RECORDS SUMMARY | ~2019-11-10 | XMS | Encounter Summary ---
Demographics + + + | Address | [address] | | | [place] [address] | + + + | Home Phone | | + + + | Preferred Language | Unknown | + + + | Marital Status | | + + + | Samaritan Affiliation | Unknown | + + + | Race | Unknown | + + + | Ethnic Group | Unknown | + + + Author + + + | Author | [facility] | | | and [place] | + + + | Organization | [facility] | | [...] [place], | | | | | [place] [address] | | + + + + + | Josephine Meléndez | ECON | [address] | | | | | [place] | | | | | [address] | | + + + + + | Chiara Cid | ECON | [address] | | | | | [place], [place] | | | | | [address] | | + + + + + | Josephine Meléndez | ECON | Unknown | | + + + + + Care Team Providers + +------+ + | Care Elevator Installer Apprentice Name | Role | Phone | + +------+ + | Doroteo Felder MD | PCP | | + +------+ + Encounter Details +--------+ + + + + | Date | Type | Department | Care Team | Description | +--------+ + + + + | 04/14/ | Hospital | [facility] | Mahesh Oscar | | | 2013 | Encounter | MED CTR XRAY [address] | [address] | | | | | [place] | [facility] [place] | | | | | [place] [address] | [address] | | | | | [phone] | | | +--------+ + + + [...] + + documented as of this encounter Medications at Time of Discharge [...] +--------+ + + + | FL EPIDURAL OR | Routin | 04/19/2013 | | Results for this | | SUBARACHNOID | e | 7:30 AM | | procedure are in the | | INJECTION CERVICAL | | PST | | results section. | | OR THORACIC | | | | | + +--------+ + + + documented in this encounter Results FL Injection Epidural Cervical Thoracic (04/19/2013 7:30 AM PST) + + | Specimen | + + | | + + + + + | Narrative | Performed At | + + + | [facility] | [place] | | Department [address] [place] [address] | [facility] | | [ rep ct [address]] [ rep ct [facility] | | [facility]] Signed | - IMAGING | | | | | Patient Name: JOSY CID Physician: | | | HUBERT : 1940 Age: 73 Sex: M Unit #: [id number] | | | Exam Date: 04/14/13 Location: [facility] | | | Report #: [id number] Page: | | | %(RAD)RES..mtdd.print.filter("pg") of %(RAD) | | | RES..mtdd.print.filter("tpg") | | | | | | Accession Number: [id number] | | | CERVICAL INTERLAMINAR EPIDURAL STEROID INJECTION CLINICAL | | | HISTORY: ICD-9 CODE IS 723.4 CERVICAL RADICULOPATHY. MrLeonora | | | Josy Cid presents to the fluoroscopy suite for a fluoroscopically | | | guided C7-T1 interlaminar epidural steroid injection as part of | | | conservative management for chronic pain with cervical radiculopathy | | | and degenerative disc disease. After informed consent was obtained, | | | the patient laid in the prone position on the fluoroscopy table. | | | The area was identified under fluoroscopic guidance. The area was | | | prepped and draped in the usual sterile fashion. A 25-gauge 1.5-inch | | | needle was inserted into this region and approximately 3 mL of | | | buffered 1% lidocaine was infused and a 22-gauge epidural needle was | | | inserted down to the lamina of T1. The needle was then slightly | | | retracted, then re- advanced superiorly until it was overlying the | | | C7-T1 interspace. The fluoroscope was then switched to a | | | contralateral oblique view. A loss of resistance syringe was | | | attached and the needle was slowly advanced into the epidural space | | | of the C7-T1 level. Confirmation into the epidural space was | | | obtained with loss of resistance as well as infusion of approximately | | | 1 mL of Isovue contrast which showed epidural flow. Then, a | | | combination of 2.5 mL of normal saline and 1.5 mL of 6 mg/mL of | | | Celestone was infused. The patient tolerated the procedure well | | | without complications. Pre- and post- procedure blood pressure was | | | stable. The patient was given verbal as well as written followup | | | instructions. Prior to the start of the procedure, the | | | following were performed and were verified including correct patient | | | identity, correct site/side marked and visible, agreement of | | | procedure to be done, correct patient positioning, and an accurate | | | procedure consent form. Any safety precautions based on clinical | | | history and/or medications have been addressed. I | | | personally performed the procedure. Dictated Date/Time: | | | 04/19/2013 07:30 Transcribed Date/Time: 04/19/2013 08:06 | | | Neuro Ophthalmologist: <<Signature on File>> | | | Mahesh | | | Santiago Oscar MD04/28/13 1804 <Electronically signed by Mahesh Henderson | Amberly Oscar MD> Mahesh Oscar MD 04/19/13 0730 | | | Neuro Ophthalmologist: iTwixie Pyeesjxbvvpxs26/07/14 0806 | | | | | + + + + + + + + | Performing | Address | City/State/Zipcode | Phone Number | | Organization | | | | + + + + + | [facility] | [address] | [place] | [phone] | | [facility] | | [address] | | | - IMAGING | | | | + + + + + documented in this encounter Visit Diagnoses Not on filedocumented in this encounter
--- OUTSIDE RECORDS SUMMARY | ~2019-11-10 | XMS | Encounter Summary ---
Demographics + + + | Address | [address] | | | [place] [address] | + + + | Home Phone | | + + + | Preferred Language | Unknown | + + + | Marital Status | | + + + | Taoist Affiliation | Unknown | + + + [...] [place], | | | | | [place] [address] | | + + + + + | Josephine Meléndez | ECON | [address] | | | | | [place] | | | | | [address] | | + + + + + | Chiara Cid | ECON | [address] | | | | | [place], [place] | | | | | [address] | | + + + + + | Josephine Meléndez | ECON | Unknown | | + + + + + Care Team Providers + +------+ + | Care Ceramic Tile Installation Helper Name | Role | Phone | + +------+ + | Doroteo Felder MD | PCP | | + +------+ + Reason for Referral Evaluate & Treat (Routine) +--------+ + + + + + | Status | Reason | Specialty | Diagnoses / | Referred By | Referred To | | | | | Procedures | Contact | Contact | +--------+ + + + + + | Closed | Specialty | Physical | Diagnoses | Quentin Gomez | [address] | | | Services | Therapy | DDD | MD [address] | [facility] | | | Required | | (degenerativ | [address] | HOSPITAL | | | | | e disc | [place], | [address] | | | | | disease), | [place] [address] | AVE | | | | | lumbar | Phone: | [place] | | | | | Facet | [phone] | [address] | | | | | arthropathy, | Fax: | Phone: | | | | | lumbar | [phone] | [phone] | | | | | Lumbar | | Fax: | | | | | radicular | | [phone] | | | | | syndrome | | | | | | | Spinal | | | | | | | stenosis in | | | | | | | cervical | | | | | | | region | | | | | | | Neuropathy, | | | | | | | diabetic | | | | | | | (HCC) | | | +--------+ + + + + + + + | Scheduling Instructions | + + | [facility] | + + Diagnostic/Screening (Routine) +--------+--------+ + + + + | Status | Reason | Specialty | Diagnoses / | Referred By | Referred To | | | | | Procedures | Contact | Contact | +--------+--------+ + + + + | Closed | | | Diagnoses | Quentin Gomez | [address] | | | | | DDD | MD [address] | [facility] | | | | | (degenerativ | [address] | HOSPITAL | | | | | e disc | [place], | [address] | | | | | disease), | [place] [address] | AVE | | | | | lumbar | Phone: | [place], [place] | | | | | Facet | [phone] | [address] | | | | | arthropathy, | Fax: | Phone: | | | | | lumbar | [phone] | [phone] | | | | | Lumbar | | Fax: | | | | | radicular | | [phone] | | | | | syndrome | | | | | | | Spinal | | | | | | | stenosis in | | | | | | | cervical | | | | | | | region | | | | | | | Neuropathy, | | | | | | | diabetic | | | | | | | (HCC) | | | | | | | Procedures | | | | | | | MRI Cervical | | | | | | | Spine wo | | | | | | | Contrast | | | +--------+--------+ + + + + Reason for Visit + + + | Reason | Comments | + + + | New Patient | Back Pain | + + + Evaluate & Treat (Routine) +--------+--------+ + + + + | Status | Reason | Specialty | Diagnoses / | Referred By | Referred To | | | | | Procedures | Contact | Contact | +--------+--------+ + + + + | Closed | | Neurosurgery | Diagnoses | [place], | Quentin Gomez | | | | | Back pain | Doroteo Quijano MD [address] | | | | | Procedures | MD Kendall [address] | | | | | [place] OFFICE | [address] | [place] | | | | | CONSULTATION | Billy | [address] | | | | | NEW/ESTAB | [address] | Phone: | | | | | PATIENT [address] | [place], | [phone] | | | | | MIN | [place] | Fax: | | | | | | [address] | [phone] | | | | | | Phone: | | | | | | | [phone] | | | | | | | Fax: | | | | | | | [phone] | | +--------+--------+ + + + + Encounter Details +--------+---------+ + + + | Date | Type | Department | Care Team | Description | +--------+---------+ + + + | 02/15/ | Office | [facility] | Quentin Gomez MD | DDD (degenerative | | 2012 | Visit | NEUROSURGERY [address] | [address] | disc disease), | | | | [address] | [place] [address] | lumbar (Primary Dx); | | | | [place], [place] | [phone] | Facet arthropathy, | | | | [address] | | lumbar; Lumbar | | | | [phone] | | radicular syndrome; | | | | | | Spinal stenosis in | | | | | | cervical region; | | | | | | Neuropathy, diabetic | | | | | | ([facility]) | +--------+---------+ + + + Social History + +-------+ [...] + + + | Blood Pressure | 124/78 | 02/15/2013 10:44 AM | | | | | PST | | + + + + + | Pulse | 110 | 02/15/2013 10:44 AM | | | | | PST | | + + + + + | Temperature | - | - | | + + + + + | Respiratory Rate | 18 | 02/15/2013 10:44 AM | | | | | PST | | + + + + + | Oxygen Saturation | - | - | | + + + + + | Inhaled Oxygen | - | - | | | Concentration | | | | + + + + + | Weight | 135.6 kg (299 lb) | 02/15/2013 10:44 AM | | | | | PST | | + + + + + | Height | 182.9 cm (6') | 02/15/2013 10:44 AM | | | | | PST | | + + + + + | Body Mass Index | 40.55 | 02/15/2013 10:44 AM | | | | | PST | | + + + + + documented in this encounter Progress Notes Quentin Gomez MD - 02/15/2013 10:47 AM PSTFormatting of this note might be different from t bryant guzman. Quentin Gomez M.D., Berny Mohamud, [place] [address] [facility], [address] [place] [address] FAX: NEUROSURGERY HISTORY AND PHYSICAL EXAMINATION CHIEF COMPLAINT: Chief Complaint Patient presents with New Patient Back Pain HISTORY OF PRESENT ILLNESS: The patient is a 72 y.o. male with the complaint of low back p ain. Patient does have problems with his low back for 10-15 years. Unfortunately over the last 2 years he has had increasing problems with low back pain. The patient states his back pain is worsened with standing for greater than 5 minutes it is across his low back and adela l radiate into his right leg. It extends from his low back into his hip and lateral portion of the right leg. The patient has tingling and paresthesias in bilateral feet which she at [facility] as being secondary to his diabetic neuropathy. This is been long-standing. He mendoza s note that he has a hard time walking. Walking will make his back pain worse but unfortuna tely he is left leg is just is limiting to him at this time. 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 The patient wa s recently in the hospital with cellulitis of his leg. The patient has not participated recently and conservative therapy of his lower back. The patient does have some balance issues which have been long-standing. He does notice some ti ngling in his hands bilaterally but no radicular pain in his upper extremities. He has not noted any weakness of his upper extremities PAST MEDICAL HISTORY: Past Medical History Diagnosis Date High blood pressure High cholesterol Arrhythmia Diabetes mellitus Diverticulosis Arthritis Cancer Liposarcoma Left Thigh Injury 2010 Fell off roof, broke 5 ribs and hurt left shoulder PAST SURGICAL HISTORY: Past Surgical History Procedure Date Tumor removal 1973 Left Leg Fatty tumor removal 2001 From Neck Leg vein bypass 2002, 2003 Lasik 2013 CURRENT MEDICATIONS: Current Outpatient Prescriptions Medication Status Sig Dispense Refill aspirin 81 mg EC tablet Active Take 81 mg by mouth Daily. atorvaSTATin (LIPITOR) 40 mg tablet Active Take 40 mg by mouth Daily. candesartan (ATACAND) 32 MG tablet Active Take 32 mg by mouth Daily. Cholecalciferol (VITAMIN D3) 2000 UNITS CAPS Active Take 2,000 Units by mouth Daily. colchicine-probenecid 0.5-500 MG per tablet Active Take 0.5-500 mg by mouth Daily. erythromycin (LOU-TAB) 333 MG EC tablet Active Take 333 mg by mouth Daily. furosemide (LASIX) 40 mg tablet Active Take 40 mg by mouth Daily. glimepiride (AMARYL) 4 mg tablet Active Take 4 mg by mouth Daily. glucose blood test strips (ONE TOUCH TEST STRIPS) strip Active Use as directed HYDROcodone-acetaminophen (VICODIN) 5-500 mg per tablet Active Take 5-500 mg by mouth 4 times daily as needed. indomethacin (INDOCIN) 50 MG capsule Active Take 50 mg by mouth as needed. insulin glargine (LANTUS) 100 units/mL injection Active Inject 50 units subcutaneoulsy two times daily Insulin Pen Needle (B-D ULTRAFINE III SHORT PEN) 31G X 8 MM MISC Active Use as directed metoprolol (TOPROL-XL) 200 MG 24 hr tablet Active Take 200 mg by mouth every morning. nitroglycerin (NITROSTAT) 0.4 mg SL tablet Active Dissolve 1 tablet under tongue every 5 minutes up to 3 tablets. Call 911/ER if no relief. omeprazole (PRILOSEC) 20 mg capsule Active Take 20 mg by mouth Daily. ONE TOUCH LANCETS MISC Active Use as directed probenecid 500 mg tablet Active Take 500 mg by mouth Daily. sertraline (ZOLOFT) 50 mg tablet Active Take 50 mg by mouth Daily. Warfarin Sodium (COUMADIN PO) Active TABS, 2.5 mg Mon and Tues 5 mg all other days ALLERGIES: Allergies Allergen Reactions Duloxetine Prostate Occlusion Flu Virus Vaccine Septic SX Lisinopril cough SOCIAL HISTORY: The patient reports that he has never smoked. He has never used smokeless tobacco. He repo rts that he drinks alcohol. He reports that he does not use illicit drugs. FAMILY HISTORY: Family History Problem Relation Age of Onset Stroke Father Heart defect Brother Heart defect Mother Diabetes Son High blood pressure Son High blood pressure Brother High blood pressure Sister Other (See Comment) Brother Back problems REVIEW OF SYSTEMS GENERALLY: No fever, positive for night sweats, no anemia, positive for fatigue, no recen t profound weight changes. EYES: No eye problems, no use of corrective lenses, no eye injury, no double vision, no bl indness. EARS, NOSE, AND THROAT: No changes in taste or smell, positive for hearing difficulty, pos itive for ringing in the ears, no ear drainage, positive for dizziness, no voice changes, no difficulty swallowing, positive for significant snoring, no sleep apnea, no sinus problems, no major dental work. NEUROLOGICALLY: Please see the review of systems discussed above in the history of present illness. In addition, the patient has numbness/pain of legs, awake with numbness/pain, wea kness, coordination difficulty, change in walk, pain in neck and back, headaches. PSYCHIATRIC: No depression, no sleep disorders, no anxiety, no bipolar disorder, no psycho tic episodes. CARDIOVASCULAR: No heart attacks, no heart murmur, positive for heart fluttering, no chest pain, positive for ankle swelling. History of atrial fibrillation, positive for history of peripheral artery disease LUNG DISEASE: No shortness of breath, positive for cough, no tuberculosis, no bloody cough , no asthma, no emphysema/COPD. GASTROINTESTINAL: No bowel disease, no nausea or vomiting, positive for rectal bleeding/he morrhoids, no constipation, no stool incontinence, no liver disease, no gallbladder disease, no abdominal pain, no ulcers. KIDNEY DISEASE: No urinary frequency, no painful or difficult urination, no incontinence. ENDOCRINE: Positive for diabetes, no thyroid disease, no osteopenia or osteoporosis, no br east drainage. SKIN: No breast lumps, no skin changes, no rashes, no itches. HEMATOLOGIC/LYMPHATIC: No enlarged lymph nodes, no easy or unusual bleeding, positive for personal history of cancer. RHEUMATOLOGIC: Positive for joint pain/arthritis, no rheumatoid arthritis. PHYSICAL EXAMINATION: Blood pressure 124/78, pulse 110, resp. rate 18, height 1.829 m (6'), weight 135.626 kg (29 9 lb). Body mass index is 40.55 kg/(m^2). GENERAL: JOSY CID is in no acute distress with unlabored respirations. The patient d oes appear uncomfortable throughout the exam today. HEENT: HEAD/FACE: EYES: EARS: NASOPHARNYX: OROPHARNYX: Normocephalic and atraumatic. There are no areas of recent trauma. Normal sclerae without icterus. No drainage or tenderness. Clear without drainage. Clear without erythema. NECK (ANTERIOR): Supple and without palpable masses. CHEST: Clear to ausculation without crackles or wheeze. HEART: Regular rate and rhythm without murmurs. ABDOMEN: Soft, non-tender, non-distended, and without palpable masses. The patient is obe se. SPINE: There is no tenderness in the midline of the cervical or thoracic spine. There is n o major palpable deformity of the spine. The lumbar spine shows there is no tenderness in the midline of the lumbar levels. To pal pation, there is no signficant bilaterally myofascial tenderness. EXTREMITIES: No cyanosis, clubbing, or edema. Distal pulses are palpable. NEUROLOGICAL EXAM: MENTAL STATUS: The patient is awake, alert, and oriented. He follows simple and complex commands. He speech is fluent, his comprehends speech well, and his repeats well. He has no apparent deficits with short or fpc memory. CRANIAL NERVES: Fundoscopic Exam: The optic disc is sharp. Normal vascular pattern is visualized II: Acuity is intact. [place] are full to confrontation. III, IV, : The pupils are reactive. Extraocular movements are intact. No ptosis is note d. V: Facial sensation is intact and symmetric. VII: Facial movements are symmetric. VIII: Hearing is intact bilaterally. IX, X: The uvula and palate move appropriately. XI: Shrug is equal bilaterally. XII: Tongue protrusion is midline. MOTOR EXAM: (5 IS NORMAL) * Indicates pain limited MUSCLE/ MOVEMENT: RIGHT LEFT Deltoids 5 5 Biceps 5 5 Triceps 5 5 Wrist Flexion 5 5 Wrist Extension 5 5 Median Intrinsics 5 5 Ulnar Intrinsics 5 5 Mcat Instructor Strength 5 5 Hip Flexion 5 5 Hip Extension 5 5 Knee Flexion 5 5 Knee Extension 5 5 Dorsiflexion 5 5 Extensor Hallicus Longus 5 5 Plantarflexion 5 5 SENSORY EXAM: Sensory exam shows no diminished sensation to light touch or pain throughout the upper and lower extremities. REFLEXES: (2 OR 2+ IS NORMAL) REFLEX: RIGHT LEFT BICEPS ABSENT ABSENT BRACHIORADIALIS 1 1 TRICEPS ABSENT ABSENT PATELLAR ABSENT ABSENT Achilles 1 ABSENT CLEVELAND'S ABSENT ABSENT PLANTAR ABSENT ABSENT GAIT: Gait is steady. RADIOGRAPHIC REVIEW: The patient's imaging was reviewed in detail with the patient today during the visit. The images show multiple levels of spondylosis and degenerative disc changes in the lumbar regio n. His worst findings are at L3-4 and L4-5 where the foramina and subarticular regions are stenotic. ASSESSMENT: NEUROSURGICAL DIAGNOSES: Encounter Diagnoses Name Primary? DDD (degenerative disc disease), lumbar Yes Facet arthropathy, lumbar Lumbar radicular syndrome Spinal stenosis in cervical region Neuropathy, diabetic GENERAL DIAGNOSES: Past Medical History Diagnosis Date High blood pressure High cholesterol Arrhythmia Diabetes mellitus Diverticulosis Arthritis Cancer Liposarcoma Left Thigh Injury 2010 Fell off roof, broke 5 ribs and hurt left shoulder PLAN: It was a pleasure meeting and evaluating this patient today, and I greatly appreciate the jaison lee. The patient has lumbar and cervical spondylosis. He is not a great surgical sergei date and not highly interested in surgery. I recommended before considering surgery that he exhaust his conservative options. He favored this plan as well. We will start with physic al therapy. I recommended a follow-up cervical MRI for his cervical disease and I would contact him abo ut that. He may also benefit from an evaluation for injections. I will defer this decision until af ter his cervical MRI is complete. Berny Mohamud and I spent 1 hour in visit with JOSYSYLVESTER CID today with the majority of time s pent counselling the patient on his diagnosis, options for his care, and coordinating his ca re. ELECTRONICALLY SIGNED BY: Berny Mohamud PA-C, and Quentin Gomez M.D. 02/15/2013 11:42 documented in this encou nter Miscellaneous Notes Miscellaneous - ONBASE SCAN [facility] - 02/15/2013 12:00 AM PST iscellaneous - ONBASE SCAN [facility] - 02/15/2013 12:00 AM PSTEle ctronically signed by P[place]o Villa at 02/18/2013 9:11 AM PSTdocumented in this encounter Plan of Treatment +--------+---------+ + + + | Date | Type | Specialty | Care Team | Description | +--------+---------+ + + + | 11/09/ | Office | Wound Care | Armando Lopez V, | | | 2019 | Visit | | [address] | | | | | | [place], [place] | | | | | | [address] | | | | | | | | | | | | Isabella Tang MD | | | | | | [address] | | | | | | [address] | | | | | | [place] [address] | | | | | | [phone] | | | | | | | | +--------+---------+ + + + + +---------+--------+ + + | Name | Type | Priori | Associated Diagnoses | Order Schedule | | | | ty | | | + +---------+--------+ + + | MRI Cervical Spine | Imaging | Routin | DDD (degenerative | Expected: | | wo Contrast | | e | disc disease), | 02/15/2013, Expires: | | | | | lumbar Facet | 02/15/2014 | | | | | arthropathy, lumbar | | | | | | Lumbar radicular | | | | | | syndrome Spinal | | | | | | stenosis in cervical | | | | | | region Neuropathy, | | | | | | diabetic ([facility]) | | + +---------+--------+ + + + + +--------+ + + | Name | Type | Priori | Associated Diagnoses | Order Schedule | | | | ty | | | + + +--------+ + + | Ambulatory referral | Outpatient | Routin | DDD (degenerative | 1 Occurrences | | to Physical Therapy | Referral | e | disc disease), | starting 02/15/2013 | | | | | lumbar Facet | until 02/15/2014 | | | | | arthropathy, lumbar | | | | | | Lumbar radicular | | | | | | syndrome Spinal | | | | | | stenosis in cervical | | | | | | region Neuropathy, | | | | | | diabetic ([facility]) | | + + +--------+ + + documented as of this encounter Visit Diagnoses + + | Diagnosis | + + | DDD (degenerative disc disease), lumbar - Primary Degeneration of lumbar or | | lumbosacral intervertebral disc | + + | Facet arthropathy, lumbar Lumbosacral spondylosis without myelopathy | + + | Lumbar radicular syndrome Thoracic or lumbosacral neuritis or radiculitis, | | unspecified | + + | Spinal stenosis in cervical region | + + | Neuropathy, diabetic (HCC) Type II or unspecified type diabetes mellitus with | | neurological manifestations, not stated as uncontrolled | + + documented in this encounter"
--- OUTSIDE RECORDS SUMMARY | ~2019-11-10 | XMS | Encounter Summary ---
Demographics + + + | Address | [address] | | | [place] [address] | + + + | Home Phone | | + + + | Preferred Language | Unknown | + + + | Marital Status | | + + + | Roman Catholic Affiliation | Unknown | + + + | Race | Unknown | + + + | Ethnic Group | Unknown | + + + Author + + + | Author | [facility] | | | and [place] | + + + | Organization | [facility] | | [...] [place], | | | | | [place] [address] | | + + + + + | Josephine Meléndez | ECON | [address] | | | | | [place] | | | | | [address] | | + + + + + | Chiara Cid | ECON | [address] | | | | | [place], [place] | | | | | [address] | | + + + + + | Josephine Meléndez | ECON | Unknown | | + + + + + Care Team Providers + +------+ + | Care Underwater Hunter Trapper Name | Role | Phone | + +------+ + | Jalen Cortes MD | PCP | | + +------+ + Reason for Visit + + + | Reason | Comments | + + + | New Patient | | + + + | Shoulder Pain | Left | + + + Evaluate & Treat (Routine) + + + + + + + | Status | Reason | Specialty | Diagnoses / | Referred By | Referred To | | | | | Procedures | Contact | Contact | + + + + + + + | Authorized | Specialty | Orthopedic | Diagnoses | Vincenzo, | David, | | | Services | Surgery | | Silverio Lozoya MD | Sergo Hollis MD | | | Required | | Post-traumat | [address] | [address] | | | | | ic | [address] [place] | [place], | | | | | osteoarthrit | [place], [place] | [place] [address] | | | | | is of left | [id number] | Phone: | | | | | shoulder | Phone: | [phone] | | | | | | [phone] | Fax: | | | | | | Fax: | [phone] | | | | | | [phone] | | + + + + + + + Encounter Details +--------+---------+ + + + | Date | Type | Department | Care Team | Description | +--------+---------+ + + + | 02/15/ | Office | [facility] [place] | David Sousa | Left arm weakness | | 2019 | Visit | ORTHOPEDIC SURGERY | [address] | (Primary Dx); | | | | [address] [place] | [address] [place] | Nontraumatic pain of | | | | [place], [place] | [place] [address] | left shoulder | | | | [address] | [phone] | | | | | [phone] | | | +--------+---------+ + + + Social History [...] Comments | + + +---------+ + | Not Currently | | | Alcoholic | | | | | Drinks/day: rarely | | | | | drinks beer | + + +---------+ + [...] + + + | Blood Pressure | - | - | | + + + + + | Pulse | - | - | | + + + + + | Temperature | - | - | | + + + + + | Respiratory Rate | - | - | | + + + + + | Oxygen Saturation | - | - | | + + + + + | Inhaled Oxygen | - | - | | | Concentration | | | | + + + + + | Weight | 115.7 kg (255 lb 1.2 | 02/15/2019 9:56 AM | | | | oz) | PST | | + + + + + | Height | 177.8 cm (5' 10") | 02/15/2019 9:56 AM | | | | | PST | | + + + + + | Body Mass Index | 36.6 | 02/15/2019 9:56 AM | | | | | PST | | + + + + + documented in this encounter Patient Instructions Patient Instructions David Sousa MD - 02/15/2019 10:00 AM PSTFormatting of t his note might be different from the original. Understanding the Pain Response Your pain is important. It can slow healing and keep you from being active. You may have ac [place] or chronic pain. Both types of pain respond to treatment. Work with your healthcare prof [facility]. Together you can find relief. Types of pain Acute pain is caused by a health problem or injury. The pain usually goes away when its cau se is treated. You may have pain: From an illness or injury that needs emergency care After an operation, such as heart surgery During and after the of your baby Chronic pain lasts 3 to 6months or more. It can be caused by a health problem or injury, like arthritis or a shoulder strain. Chronic pain can also exist without a clear cause. Your perception of pain Pain is a complex phenomenon that involves many of the chemicals found naturally in the spi nal cord and brain. All pain signals travel to the brain. The brain sends back signals to pr otect the body. The brain also makesits own painkillers (endorphins). These can help reduc e the pain. 1. Pain starts in 1 or more parts of the body. In some cases, the site of the pain is far f rom its source. 2. Pain signals move through nerves and up the spinal cord. 3. The brain reads the signals as pain. Natural painkillers are released. 4. The feeling of pain can bereduced in this way. Date Last Reviewed: 08/11/201619992836-4977 [employer]. [address] [place] [address], [place] [address]. All righ ts reserved. This information is not intended as a substitute for professional medical care. Always follow your healthcare professional's instructions. documented in this encounter Progress Notes David Sousa MD - 02/15/2019 10:00 AM PSTFormatting of this note might be dif ferent from the original. [facility] HISTORY AND PHYSICAL EXAMINATION Pt. Name/Age/: Josy Cid 78 y.o. 1940 Primary Care Physician: Jalen Cortes Chief Complaint/Reason for Visit: New Patient and Shoulder Pain (Left) History of Present Illness: The patient is a pleasant 78 y.o. male who presents with left shoulder weakness and pain. This is been bothering him for the past few months. He thinks it started about 2 months ago . He does relate that he injured his shoulder 8 years ago when he fell off of the roof. He fell and broke 5 ribs. He had some shoulder pain at the time but that largely resolved. F or the past few months, his pain is been made worse by any kind of motion. CBD Gummies and THC creams have been helping with his pain. He did try to do some physical therapy but it d id not help. He felt like it made it worse. He had a steroid injection which did not help initially but thinks is probably helping now. He is also tried anti-inflammatories and heat . His pain is a 0 out of 10 at baseline and a 10 out of 10 at its worst but he does feel li ke his pain is getting better. He is able to do his normal daily activities.. Past Medical History: Past Medical History: Diagnosis Date Arrhythmia Arthritis Arthritis Atrial fibrillation (HCC) Cancer (HCC) Liposarcoma Left Thigh Cardiomyopathy (HCC) Diabetes mellitus (HCC) Diabetes mellitus type II Diverticulosis High blood pressure High cholesterol History of cancer Hyperlipidemia Hypertension Injury 2010 Fell off roof, broke 5 ribs and hurt left shoulder Lymphedema Obesity Osteoarthritis Peripheral angiopathy (HCC) Renal insufficiency Renal stone Sludge in gallbladder Vitamin D deficiency Past Surgical History: Procedure Laterality Date CHOLECYSTECTOMY 09/2016 Fatty Tumor Removal 2000 From Neck LASIK 2012 LEG SURGERY cancer-malignant Leg Vein Bypass 2002, 2003 OTHER SURGICAL HISTORY OTHER SURGICAL HISTORY 2000 and 2002 OTHER SURGICAL HISTORY CATARACT EXTRACTION TUMOR REMOVAL 1973 Left Leg VASECTOMY Allergies: Allergies Allergen Reactions Duloxetine Other (See Comments) Prostate Occlusion Prostate occlusion Levofloxacin Other (See Comments) Achilles pain Flu Virus Vaccine Septic SX Lisinopril Cough cough Current Medications: Current Outpatient Medications Medication Sig Dispense Refill aspirin 81 mg EC tablet Take 81 mg by mouth Daily. atorvaSTATin (LIPITOR) 40 mg tablet Take 40 mg by mouth Daily. Cholecalciferol (D3 SUPER STRENGTH PO) Take 5,000 Units by mouth daily. famotidine (PEPCID) 40 MG tablet Take 40 mg by mouth daily. ferrous sulfate 324 (65 Fe) MG EC tablet Take 65 mg of iron by mouth 3 (three) times a week. furosemide (LASIX) 40 mg tablet Take 40 mg by mouth Daily. glucose blood test strips (ONE TOUCH TEST STRIPS) strip Use as directed hydrOXYzine (VISTARIL) 50 MG capsule Take 50 mg by mouth as needed for Itching (PRN for Insomnia). indomethacin (INDOCIN) 25 mg capsule Take 25 mg by mouth as needed. insulin - MIX insulin NPH-insulin regular 70/30 (HUMULIN, NOVOLIN 70/30) 100 units/mL P EN Inject 30 Units into the skin 2 (two) times daily before meals. Take 30 in am and 35 unit es in pm levothyroxine (SYNTHROID) 100 mcg tablet 112 mcg losartan (COZAAR) 100 MG tablet Take 1 tablet by mouth daily. metFORMIN (GLUCOPHAGE) 500 mg tablet Take 500 mg by mouth 2 (two) times daily with meal s. metoprolol succinate (TOPROL-XL) 50 mg 24 hr tablet Take 1 tablet by mouth daily. nitroglycerin (NITROSTAT) 0.4 mg SL tablet Dissolve 1 tablet under tongue every 5 minut es up to 3 tablets. Call 911/ER if no relief. ONE TOUCH LANCETS MISC Use as directed venlafaxine (EFFEXOR XR) 37.5 mg 24 hr capsule Take 37.5 mg by mouth daily with breakfa st. warfarin (COUMADIN) 5 mg tablet 5 mg daily No current facility-administered medications for this visit. Family History: Family History Problem Relation Age of Onset Stroke Father Heart defect Brother Heart defect Mother Coronary artery disease Mother Heart disease Mother High cholesterol Mother Hypertension Mother Diabetes Son High blood pressure Son High blood pressure Brother High blood pressure Sister Other (see comment) Brother Back problems Stroke Brother Heart disease Brother Social History: Social History Socioeconomic History Marital status: Spouse name: Not on file Number of children: Not on file Years of education: Not on file Highest education level: Not on file Social Needs Financial resource strain: Not on file Food insecurity - worry: Not on file Food insecurity - inability: Not on file Transportation needs - medical: Not on file Transportation needs - non-medical: Not on file Occupational History Not on file Tobacco Use Smoking status: Never Smoker Smokeless tobacco: Never Used Substance and Sexual Activity Alcohol use: Not Currently Comment: Alcoholic Drinks/day: rarely drinks beer Drug use: No Comment: CBC Sexual activity: Not on file Other Topics Concern Not on file Social History Narrative Not on file Review of Systems All of these are negative unless otherwise marked Eyes: [] Double vision [x] Glasses/contacts [] Failing vision Respiratory: [] Asthma/Wheezing [] Pneumonia [x] Night sweats [] Shortness of breath [] Chronic cough [] Coughing up blood [] Exposure to tuberculosis Cardiovascular: [] Heart Problems [x] Hypertension [] Heart murmur [x] Palpitations [] Rheumatic fever [] Phlebitis [] Chest pain [] Ankle swelling [] Leg cramps [] Racin g heart [] Skipping beats [] Blood clots Urinary Tract: [] Painful urination [x] Kidney Stones [] Any urine leakage [] Weak urine stream [] Night urination [] Urine infections [] Bedwetting [] Blood in urine Ear/Nose/Throat: [] Frequent Colds [] Sinus Disease [] Nose obstruction [] Sneezing Spells [] Change in taste [] Artificial teeth [] Ears ringing [] Ear pain [] Hearing loss [x] Teeth problems [] Hoarseness [] Neck swelling [] Sore throat [] Congestion [] Nosebleeds [] Nasal allergies Gastrointestinal: [] Abdominal pain [] Heartburn [] Blood from rectum [] Colitis [] Gallbladder problems [] Troubl e swallowing [] Bloated stomach [] Change in stools [] Vomiting blood [] Nausea [] Hemorrhoids [] Jaundice [ ] Hepatitis [x] Diarrhea [] Constipation [] Diverticulitis Musculoskeletal: [] Physical handicaps [x] Back or shoulder pain []Rheumatoid disease [] Osteoarthritis [] Joint pain [] Joint swelling [x]Gout [] Leg cramps at night Skin: [] Skin rashes [] Itching/Burning [x] Skin bruises easi ly [] Artificial tanning [] Skin cancer [] Hair loss [] Changes in moles Psychiatric: [] Depression [] Suicidal thoughts [] Sleep pattern changes [] Appetite changes [] Recent counseling [] Nervousness/anxiety [] Physical violence [] Marital problems Neurological: [x] Headaches [] Seizures [] Stroke/TIA [] Faintness [] Tremors [] Numbness [] Dizziness [] Changes in handwriting [] Memory loss [] Shooting pains Endocrine: [] Thyroid [] Diabetes Systemic: [x]Weight loss/gain (over 10 lbs) []Fever/chills []Fatigue [] Sleeping Difficulties [] Speech change [] Voice change Admission Weight: Weight: 115.7 kg (255 lb 1.2 oz) BMI: Body mass index is 36.6 kg/m . Physical Examination: Ht 1.778 m (5' 10") | Wt 115.7 kg (255 lb 1.2 oz) | BMI 36.60 kg/m General: Alert, oriented, no acute distress HEENT: Normocephalic, atraumatic Cardiovascular: Regular rate and rhythm Respiratory: Breathing normally at a regular rate Ortho Exam Left upper extremity: Radial pulse 2+. Sensation intact to light touch in the first dorsal webspace, and the pads of the small and index fingers. Able to flex and extend the thumb at the interphalangeal elenita int, make an "ok" sign, adduct and abduct the fingers, and oppose the thumb to the small fin silvana. Right Left Forward Flexion 160 110 Abduction 160 90 External Rotation 30 30 Internal rotation T8 L1 Tender to Palpation: absent External Rotation Strength 3/5 Internal Rotation Strength 5/5 Hawkin's Positive Neer's Positive Adan's Positive Diagnostic Studies: Imaging Previous left shoulder films demonstrate some AC joint arthrosis. The humeral head is redu reese on the glenoid. There is no significant glenohumeral osteoarthrosis. There are no sign s of prior fractures or dislocations. Labs- Lab Results Component Value Date NA 138 07/12/2015 K 4.1 07/12/2015 CL 101 07/12/2015 CO2 29 07/12/2015 ANIONGAP 12.1 07/12/2015 GLU 101 11/10/2011 BUN 28 (A) 07/12/2015 CREA 1.22 11/10/2011 CALCIUM 9.0 07/12/2015 ALBUMIN 3.6 07/12/2015 BILITOT 0.4 07/12/2015 TOTALPROTEIN 7.0 11/05/2011 AST 28 07/12/2015 ALT 24 07/12/2015 ALKPHOS 75 11/05/2011 WBC 5.7 07/12/2015 HGB 12.3 (A) 07/12/2015 HCT 28.9 (L) 11/10/2011 MCV 73.9 (A) 07/12/2015 LABPLAT 205 07/12/2015 PLT 202 11/10/2011 ESR 34 (H) 11/06/2011 CRP 4.8 07/12/2015 INR 3.0 07/12/2015 Assessment and Plan: 1. Left arm weakness 2. Nontraumatic pain of left shoulder The patient is a pleasant 78 y.o. male who presents with likely chronic left rotator cuff t ear with pain. Treatment options were discussed with the patient including non-operative sujatha atment modalities. Considering the nature of the patient's condition, decision was made to p maeve with having the patient work with therapy. We did send a fax to the [facility] in [place] . I think it is very reasonable to try therapy. We will plan on seeing him back in 2 month s. If his injection wears off, I agree with him getting another injection and pills in 3 mo nths after the first 1 or I am happy to do it here if preferred. He is not very interested in surgery. For this reason, I did not pursue an MRI. I suspect that it would show a large rotator cuff tear that may or may not be reparable. Follow-up: Return in about 2 months (around 04/17/2019). with no x-ray Portions of this report were transcribed using voice recognition software. Every effort wa s made to ensure accuracy; however, inadvertent computerized social work nurse errors may be pre sent. I appreciate the opportunity to help with the management of this patient. David Sousa MD documented in this encounter Plan of Treatment +--------+---------+ + + + | Date | Type | Specialty | Care Team | Description | +--------+---------+ + + + | 11/09/ | Office | Wound Care | Armando Lopez V, | | 2019 | Visit | | [address] | | | | | | [place] | | | | | | [id number] | | | | | | | | | | | | Isabella Tang MD | | | | | | [address] | | | | | | [facility] [address] | | | | | | [place] [address] | | | | | | [phone] | | | | | | | | +--------+---------+ + + + documented as of this encounter Visit Diagnoses + + | Diagnosis | + + | Left arm weakness - Primary Other musculoskeletal symptoms referable to limbs | + + | Nontraumatic pain of left shoulder | + + documented in this encounter
--- OUTSIDE RECORDS SUMMARY | ~2019-11-10 | XMS | Encounter Summary ---
Demographics + + + | Address | [address] | | | [place] [address] | + + + | Home Phone | | + + + | Preferred Language | Unknown | + + + | Marital Status | | + + + | Jainism Affiliation | Unknown | + + + | Race | Unknown | + + + | Ethnic Group | Unknown | + + + Author + + + | Author | [facility] | | | and [place] | + + + | Organization | [facility] | | | [...] [place], | | | | | [place] [address] | | + + + + + | Josephine Meléndez | ECON | [address] | | | | | [place] | | | | | [address] | | + + + + + | Chiara Cid | ECON | [address] | | | | | [place], [place] | | | | | [address] | | + + + + + | Josephine Meléndez | ECON | Unknown | | + + + + + Care Team Providers + +------+ + | Care Bung Remover Name | Role | Phone | + +------+ + | Doroteo Felder MD | PCP | | + +------+ + Reason for Visit + + + | Reason | Comments | + + + | Follow-up | Inj F/U | + + + Encounter Details +--------+---------+ + + + | Date | Type | Department | Care Team | Description | +--------+---------+ + + + | 09/14/ | Office | [facility] [place] | Quentin Gomez MD | Lumbar radicular | | 2013 | Visit | NEUROSURGERY [address] | syndrome (Primary | | | | [address] | [place] [address] | Dx); DDD | | | | [place], [place] | [phone] | (degenerative disc | | | | [address] | | disease), lumbar; | | | | [phone] | | Spinal stenosis in | | | | | | cervical region | +--------+---------+ + + + Social History [...] + + + | Blood Pressure | 140/69 | 09/14/2013 12:59 PM | | | | | PDT | | + + + + + | Pulse | 63 | 09/14/2013 12:59 PM | | | | | PDT | | + + + + + | Temperature | - | - | | + + + + + | Respiratory Rate | 18 | 09/14/2013 12:59 PM | | | | | PDT | | + + + + + | Oxygen Saturation | - | - | | + + + + + | Inhaled Oxygen | - | - | | | Concentration | | | | + + + + + | Weight | 136.1 kg (300 lb) | 09/14/2013 12:59 PM | | | | | PDT | | + + + + + | Height | 182.9 cm (6') | 09/14/2013 12:59 PM | | | | | PDT | | + + + + + | Body Mass Index | 40.69 | 09/14/2013 12:59 PM | | | | | PDT | | + + + + + documented in this encounter Progress Notes Quentin Gomez MD - 09/14/2013 1:49 PM PDTFormatting of this note might be different from t he original. Quentin Gomez M.D. [address] [place] [address], [address] [place], [place] [address] FAX: NEUROSURGERY FOLLOW-UP CHIEF COMPLAINT: Chief Complaint Patient presents with Follow-up Inj F/U HISTORY OF PRESENT ILLNESS: The patient is a 73 y.o. male with the complaint of low back p ain and neck pain. I saw him and arranged a neck injection. This has helped his neck. He continues to have low back pain and also right buttock, hip and lateral leg pain. He has chapa d no changes in his strength. He does not report any other neurologic changes. He is inter ested in try to manage his leg pain. PAST MEDICAL HISTORY: Past Medical History Diagnosis Date High blood pressure High cholesterol Arrhythmia Diabetes mellitus (HCC) Diverticulosis Arthritis Cancer (HCC) Liposarcoma Left Thigh Injury 2010 Fell off roof, broke 5 ribs and hurt left shoulder PAST SURGICAL HISTORY: Past Surgical History Procedure Date Tumor removal 1973 Left Leg Fatty tumor removal 2000 From Neck Leg vein bypass 2002, 2003 Lasik 2012 CURRENT MEDICATIONS: Current Outpatient Prescriptions Medication Sig Dispense Refill aspirin 81 mg EC tablet Take 81 mg by mouth Daily. atorvaSTATin (LIPITOR) 40 mg tablet Take 40 mg by mouth Daily. candesartan (ATACAND) 32 MG tablet Take 32 mg by mouth Daily. Cholecalciferol (VITAMIN D3) 2000 UNITS CAPS Take 2,000 Units by mouth Daily. colchicine-probenecid 0.5-500 MG per tablet Take 0.5-500 mg by mouth Daily. erythromycin (LOU-TAB) 333 MG EC tablet Take 333 mg by mouth Daily. furosemide (LASIX) 40 mg tablet Take 40 mg by mouth Daily. glimepiride (AMARYL) 4 mg tablet Take 4 mg by mouth Daily. glucose blood test strips (ONE TOUCH TEST STRIPS) strip Use as directed HYDROcodone-acetaminophen (VICODIN) 5-500 mg per tablet Take 5-500 mg by mouth 4 times daily as needed. indomethacin (INDOCIN) 50 MG capsule Take 50 mg by mouth as needed. insulin glargine (LANTUS) 100 units/mL injection Inject 50 units subcutaneoulsy two niesha es daily Insulin Pen Needle (B-D ULTRAFINE III SHORT PEN) 31G X 8 MM MISC Use as directed metoprolol (TOPROL-XL) 200 MG 24 hr tablet Take 200 mg by mouth every morning. nitroglycerin (NITROSTAT) 0.4 mg SL tablet Dissolve 1 tablet under tongue every 5 minut es up to 3 tablets. Call 911/ER if no relief. omeprazole (PRILOSEC) 20 mg capsule Take 20 mg by mouth Daily. ONE TOUCH LANCETS MISC Use as directed probenecid 500 mg tablet Take 500 mg by mouth Daily. sertraline (ZOLOFT) 50 mg tablet Take 50 mg by mouth Daily. Warfarin Sodium (COUMADIN PO) TABS, 2.5 mg Mon and Tues 5 [...] no rheumatoid arthritis. PHYSICAL EXAMINATION: Blood pressure 140/69, pulse 63, resp. rate 18, height 1.829 m (6'), weight 136.079 kg (300 lb). Body mass index is 40.68 kg/(m^2). GENERAL: JOSY CID is in no acute distress with unlabored respirations. The patient d oes appear uncomfortable throughout the exam today. HEENT: HEAD/FACE: EYES: EARS: NASOPHARNYX: OROPHARNYX: Normocephalic and atraumatic. There are no areas of recent trauma. Normal sclerae without icterus. CHEST: Clear to ausculation without crackles or wheeze. HEART: Regular rate and rhythm without murmurs. ABDOMEN: Non-distended. The patient is obese. SPINE: There is no tenderness in the midline of the cervical or thoracic spine. There is n o major palpable deformity of the spine. The lumbar spine shows there is no tenderness in the midline of the lumbar levels. To pal pation, there is no signficant bilaterally myofascial tenderness. EXTREMITIES: Left leg edema. NEUROLOGICAL EXAM: MENTAL STATUS: The patient is awake, alert, and oriented. He follows simple and complex commands. He speech is fluent, his comprehends speech well, and his repeats well. He has no apparent deficits with short or correction memory. MOTOR EXAM: (5 IS NORMAL) * Indicates pain limited MUSCLE/ MOVEMENT: RIGHT LEFT Deltoids 5 5 Biceps 5 5 Triceps 5 5 Wrist Flexion 5 5 Wrist Extension 5 5 Median Intrinsics 5 5 Ulnar Intrinsics 5 5 Ornamenter Strength 5 5 Hip Flexion 5 5 [...] ABSENT C[place]'S ABSENT ABSENT PLANTAR ABSENT ABSENT RADIOGRAPHIC REVIEW: The patient's imaging was reviewed in detail with the patient today during the visit. The images show multiple levels of spondylosis and degenerative disc changes in the lumbar regio n. His worst findings are at L3-4 and L4-5 where the foramina and subarticular regions are stenotic. ASSESSMENT: NEUROSURGICAL DIAGNOSES: Encounter Diagnoses Name Primary? Lumbar radicular syndrome Yes DDD (degenerative disc disease), lumbar Spinal stenosis in cervical region GENERAL DIAGNOSES: Past Medical History Diagnosis Date High blood pressure High cholesterol Arrhythmia Diabetes mellitus (HCC) Diverticulosis Arthritis Cancer (HCC) Liposarcoma Left Thigh Injury 2010 Fell off roof, broke 5 ribs and hurt left shoulder PLAN: It was a pleasure seeting and evaluating this patient today. He has cervical and lumbar di sease but his neck is doing much better after the injection. I recommended we try lumbar in jections and recommended right injections at L5 and L4. He agreed with this plan. He is still very adverse to having surgery. I would not recomme nd it unless he worsened significantly. He can return on an as needed basis. ELECTRONICALLY SIGNED BY: Quentin Gomez M.D. 09/14/2013 13:54 documented in this encou nter Miscellaneous Notes Miscellaneous - [facility] - 09/14/2013 12:00 AM PDT documented in this encounter Plan of Treatment Not on filedocumented as of this encounter Visit Diagnoses + + | Diagnosis | + + | Lumbar radicular syndrome - Primary Thoracic or lumbosacral neuritis or radiculitis, | | unspecified | + + | DDD (degenerative disc disease), lumbar Degeneration of lumbar or lumbosacral | | intervertebral disc | + + | Spinal stenosis in cervical region | + + documented in this encounter"
--- OUTSIDE RECORDS SUMMARY | ~2019-11-10 | XMS | Encounter Summary ---
Demographics + + + | Address | [address] | | | [place] [address] | + + + | Home Phone | | + + + | Preferred Language | Unknown | + + + | Marital Status | | + + + | Faith Affiliation | Unknown | + + + | Race | Unknown | + + + | Ethnic Group | Unknown | + + + Author + + + | Author | [facility] | | | and [place] | + + + | Organization | [facility] | | | and [...] [place], | | | | | [place] [address] | | + + + + + | Josephine Meléndez | ECON | [address] | | | | | [place] | | | | | [address] | | + + + + + | Chiara Cid | ECON | [address] | | | | | [place], [place] | | | | | [address] | | + + + + + | Josephine Meléndez | ECON | Unknown | | + + + + + Care Team Providers + +------+ + | Care Home Health Assistant Name | Role | Phone | + +------+ + | Doroteo Felder MD | PCP | | + +------+ + Encounter Details +--------+ + + + + | Date | Type | Department | Care Team | Description | +--------+ + + + + | 08/11/ | Orders Only | [facility] | Kristen Berry | | | 2019 | | [address] | | | | | [address] | [address] | | | | | [place], [place] | [place] [address] | | | | | [address] | [phone] | | | | | [phone] | | | +--------+ + + + [...] | + +--------+ + + + | ECHO INTERPRETATION | Routin | 08/11/2018 | | Results for this | | OF OUTSIDE FILMS | e | 10:48 AM | | procedure are in the | | | | PDT | | results section. | + +--------+ + + + documented in this encounter Results ECHO Interpretation of Outside Films (08/11/2018 10:48 AM PDT) + + | Specimen | + + | | + + + + + | Impressions | Performed At | + + + | 1. This was a technically difficult study with suboptimal views. 2. | | | Overall left ventricular systolic function is mild-moderately | | | impaired with, an EF between 40 - 45 %. 3. There is mild concentric | | | left ventricular hypertrophy. 4. There is moderate global hypokinesis | | | of LV contractility. 5. The right ventricle is normal in size and | | | function. 6. The right ventricular systolic pressure (pulmonary | | | artery systolic pressure), as measured by Doppler, is 33.14mmHg. | | + + + + + + | Narrative | Performed At | + + + | Patient Name: Kranthi Cid Date of : 1940 | | | Performing Physician: Dary Go MD | | | | | | INDICATIONS A-fib, pre-op colonostomy, Hx of | | | cardiomyopathy CONCLUSIONS 1. This was a technically | | | difficult study with suboptimal views. 2. Overall left ventricular | | | systolic function is mild-moderately impaired with, an EF between 40 - | | | 45 %. 3. There is mild concentric left ventricular hypertrophy. 4. | | | There is moderate global hypokinesis of LV contractility. 5. The | | | right ventricle is normal in size and function. 6. The right | | | ventricular systolic pressure (pulmonary artery systolic pressure), as | | | measured by Doppler, is 33.14mmHg. FINDINGS -------- ECG | | | rhythm: Atrial fibrillation. Study: A 2-dimensional transthoracic | | | echocardiogram with m-mode, spectral and color flow Doppler was | | | perfomed. Study: This was a technically difficult study with | | | suboptimal views. Left Ventricle: Overall left ventricular systolic | | | function is mild-moderately impaired with, an EF between 40 - 45 %. | | | Left Ventricle: The left ventricle cavity size is normal. Left | | | Ventricle: There is mild concentric left ventricular hypertrophy. | | | Left Ventricle: There is moderate global hypokinesis of LV | | | contractility. Left Ventricle: . Right Ventricle: The right | | | ventricle is normal in size and function. Left Atrium: The left | | | atrium is markedly enlarged by volume. Right Atrium: The right atrium | | | is mildly enlarged. Aortic Valve: Aortic valve is mildly thickened. | | | Aortic Valve: The aortic valve appears to be trileaflet. Aortic | | | Valve: There is no evidence of aortic regurgitation. Aortic Valve: | | | There is no evidence of aortic stenosis. Mitral Valve: There is trace | | | mitral regurgitation. Mitral Valve: Mild mitral annular | | | calcification present. Tricuspid Valve: The tricuspid valve appears | | | structurally normal. Tricuspid Valve: Trace tricuspid regurgitation | | | present. Tricuspid Valve: The right ventricular systolic pressure | | | (pulmonary artery systolic pressure), as measured by Doppler, is | | | 33.14mmHg. Tricuspid Valve: There is no evidence of pulmonary | | | hypertension. Pulmonic Valve: Trace pulmonic regurgitation. | | | Pericardium: There is no pericardial effusion. IVC/Hepatic Veins: The | | | IVC is normal size (1.5-2.5cm) and collapses about 50% with sniff, | | | consistent with central venous pressures of 10mmHg. Aorta: The aortic | | | root, ascending aorta and aortic arch are normal. Mass: No mass | | | visualized Thrombus: No clot visualized Thrombus: No vegetation | | | visualized. Septum: No ASD observed. Septum: No VSD observed. | | | MEASUREMENTS Ao asc: 3.24 cm Ao Diam: 3.09 cm | | | Ao sinus: 3.[address] junct: 3.21 cm IVC: 2.01 cm | | | EDV(Teich): 98.94 ml IVSd: 1.27 cm LVIDd: 4.63 cm LVPWd: | | | 1.23 cm LVOT Diam: 2.34 cm %FS: 16.18 % EF(Teich): | | | 34.08 % ESV(Teich): 65.21 ml LVIDs: 3.88 cm SV(Teich): | | | 33.72 ml RV Major: 7.93 cm RV Minor: 3.62 cm RV Minor: | | | 3.27 cm LVEF MOD A2C: 42.77 % SV MOD A2C: 54.74 ml LVEF MOD | | | A4C: 42.81 % SV MOD A4C: 57.57 ml EF Biplane: 43.49 % | | | LVEDV MOD BP: 134.99 ml LVESV MOD BP: 76.28 ml LVEDV MOD A2C: | | | 127.96 ml LVLd A2C: 8.62 cm LVEDV MOD A4C: 134.47 ml LVLd | | | A4C: 8.50 cm LVESV MOD A2C: 73.22 ml LVLs A2C: 7.80 cm | | | LVESV MOD A4C: 76.90 ml LVLs A4C: 8.03 cm LAESV(A-L): | | | 120.12 ml LAESV Index (A-L): 51.33 ml/m2 LAAs A2C: 28.17 cm2 | | | LAESV A-L A2C: 102.90 ml LAESV MOD A2C: 98.22 ml LALs A2C: | | | 6.54 cm LAAs A4C: 32.88 cm2 LAESV A-L A4C: 132.59 ml LAESV | | | MOD A4C: 125.91 ml LALs A4C: 6.92 cm RAAs: 18.45 cm2 RAESV | | | A-L: 54.57 ml RAESV MOD: 54.13 ml RALs: 5.44 cm AV | | | Env.Ti: 251.54 ms AV maxP.60 mmHg AV meanP.01 mmHg | | | AV Vmax: 0.94 m/s AV Vmean: 0.67 m/s AV VTI: 16.92 cm DWAYNE | | | Vmax: 3.02 cm2 DWAYNE (VTI): 3.12 cm2 AVAI Vmax: 0.00 cm2/m2 | | | AVAI (VTI): 0.00 cm2/m2 LVOT Env.Ti: 260.02 ms LVOT maxPG: | | | 1.78 mmHg LVOT meanP.99 mmHg LVSI Dopp: 22.61 ml/m2 LVSV | | | Dopp: 52.92 ml LVOT Vmax: 0.66 m/s LVOT Vmean: 0.47 m/s | | | LVOT VTI: 12.30 cm MV maxP.87 mmHg MV meanP.78 mmHg | | | MV Vmax: 0.98 m/s MV Vmean: 0.37 m/s MV VTI: 15.94 cm | | | MVA (VTI): 3.31 cm2 RAP: 10 mmHg RV S': 0.10 m/s RVSP: | | | 33.13 mmHg TR maxP.13 mmHg TR Vmax: 2.40 m/s | | | Cancellation Clerk: Authenticated by: Dary Go MD Report Date/Time: | | | -- [id number] | | + + + + + | Procedure Note | + + | Kai Ordonez Conversion - 12/02/2018 1:12 PM PDT Patient Name: Terence Cid of | | : 1940 Performing Physician: Dary Go | | INDICATIONS A | | -fib, pre-op colonostomy, Hx of cardiomyopathy CONCLUSIONS 1. This was a | | technically difficult study with suboptimal views.2. Overall left ventricular systolic | | function is mild-moderately impaired with, an EF between 40 - 45 %.3. There is mild | | concentric left ventricular hypertrophy.4. There is moderate global hypokinesis of LV | | contractility.5. The right ventricle is normal in size and function.6. The right | | ventricular systolic pressure (pulmonary artery systolic pressure), as measured by | | Doppler, is 33.14mmHg. FINDINGS--------ECG rhythm: Atrial fibrillation.Study: A | | 2-dimensional transthoracic echocardiogram with m-mode, spectral and color flow Doppler | | was perfomed.Study: This was a technically difficult study with suboptimal views.Left | | Ventricle: Overall left ventricular systolic function is mild-moderately impaired with, | | an EF between 40 - 45 %.Left Ventricle: The left ventricle cavity size is normal.Left | | Ventricle: There is mild concentric left ventricular hypertrophy.Left Ventricle: There | | is moderate global hypokinesis of LV contractility.Left Ventricle: .Right Ventricle: The | | right ventricle is normal in size and function.Left Atrium: The left atrium is markedly | | enlarged by volume.Right Atrium: The right atrium is mildly enlarged.Aortic Valve: | | Aortic valve is mildly thickened.Aortic Valve: The aortic valve appears to be | | trileaflet.Aortic Valve: There is no evidence of aortic regurgitation.Aortic Valve: | | There is no evidence of aortic stenosis.Mitral Valve: There is trace mitral | | regurgitation.Mitral Valve: Mild mitral annular calcification present.Tricuspid Valve: | | The tricuspid valve appears structurally normal.Tricuspid Valve: Trace tricuspid | | regurgitation present.Tricuspid Valve: The right ventricular systolic pressure | | (pulmonary artery systolic pressure), as measured by Doppler, is 33.14mmHg.Tricuspid | | Valve: There is no evidence of pulmonary hypertension.Pulmonic Valve: Trace pulmonic | | regurgitation.Pericardium: There is no pericardial effusion.IVC/Hepatic Veins: The IVC | | is normal size (1.5-2.5cm) and collapses about 50% with sniff, consistent with central | | venous pressures of 10mmHg.Aorta: The aortic root, ascending aorta and aortic arch are | | normal.Mass: No mass visualizedThrombus: No clot visualizedThrombus: No vegetation | | visualized.Septum: No ASD observed.Septum: No VSD observed. MEASUREMENTS Ao | | asc: 3.24 cmAo Diam: 3.09 cmAo sinus: 3.[address] junct: 3.21 cmIVC: 2.01 | | cmEDV(Teich): 98.94 mlIVSd: 1.27 cmLVIDd: 4.63 cmLVPWd: 1.23 cmLVOT Diam: 2.34 | | cm%FS: 16.18 %EF(Teich): 34.08 %ESV(Teich): 65.21 mlLVIDs: 3.88 cmSV(Teich): | | 33.72 mlRV Major: 7.93 cmRV Minor: 3.62 cmRV Minor: 3.27 cmLVEF MOD A2C: 42.77 | | %SV MOD A2C: 54.74 mlLVEF MOD A4C: 42.81 %SV MOD A4C: 57.57 mlEF Biplane: 43.49 | | %LVEDV MOD BP: 134.99 mlLVESV MOD BP: 76.28 mlLVEDV MOD A2C: 127.96 mlLVLd A2C: | | 8.62 cmLVEDV MOD A4C: 134.47 mlLVLd A4C: 8.50 cmLVESV MOD A2C: 73.22 mlLVLs A2C: | | 7.80 cmLVESV MOD A4C: 76.90 mlLVLs A4C: 8.03 cmLAESV(A-L): 120.12 mlLAESV Index | | (A-L): 51.33 ml/m2LAAs A2C: 28.17 ns6DTEST A-L A2C: 102.90 mlLAESV MOD A2C: | | 98.22 mlLALs A2C: 6.54 cmLAAs A4C: 32.88 po1CYDXG A-L A4C: 132.59 mlLAESV MOD A4C: | | 125.91 mlLALs A4C: 6.92 cmRAAs: 18.45 [id number] A-L: 54.57 mlRAESV MOD: 54.13 | | mlRALs: 5.44 cmAV Env.Ti: 251.54 msAV maxP.60 mmHgAV meanP.01 mmHgAV | | Vmax: 0.94 m/Negar Vmean: 0.67 m/Negar VTI: 16.92 cmAVA Vmax: 3.02 cm2AVA (VTI): | | 3.12 [id number] Vmax: 0.00 cm2/m2AVAI (VTI): 0.00 cm2/m2LVOT Env.Ti: 260.02 msLVOT | | maxP.78 mmHgLVOT meanP.99 mmHgLVSI Dopp: 22.61 ml/m2LVSV Dopp: 52.92 | | mlLVOT Vmax: 0.66 m/sLVOT Vmean: 0.47 m/sLVOT VTI: 12.30 cmMV maxP.87 mmHgMV | | meanP.78 mmHgMV Vmax: 0.98 m/sMV Vmean: 0.37 m/sMV VTI: 15.94 cmMVA (VTI): | | 3.31 cm2RAP: 10 mmHgRV S': 0.10 m/sRVSP: 33.13 mmHgTR maxP.13 mmHgTR | | Vmax: 2.40 m/s Cancellation Clerk:Authenticated by: Dary Go [facility] Date/Time: -- | | [id number]:46 IMPRESSION: 1. This was a technically difficult study with | | suboptimal views.2. Overall left ventricular systolic function is mild-moderately | | impaired with, an EF between 40 - 45 %.3. There is mild concentric left ventricular | | hypertrophy.4. There is moderate global hypokinesis of LV contractility.5. The right | | ventricle is normal in size and function.6. The right ventricular systolic pressure | | (pulmonary artery systolic pressure), as measured by Doppler, is 33.14mmHg. | |Ao asc: 3.24 cm | |Ao Diam: 3.09 cm | |Ao sinus: 3.71 cm | |Ao st junct: 3.21 cm | |IVC: 2.01 cm | |EDV(Teich): 98.94 ml | |IVSd: 1.27 cm | |LVIDd: 4.63 cm | |LVPWd: 1.23 cm | |LVOT Diam: 2.34 cm | |%FS: 16.18 % | |EF(Teich): 34.08 % | |ESV(Teich): 65.21 ml | |LVIDs: 3.88 cm | |SV(Teich): 33.72 ml | |RV Major: 7.93 cm | |RV Minor: 3.62 cm | |RV Minor: 3.27 cm | |LVEF MOD A2C: 42.77 % | |SV MOD A2C: 54.74 ml | |LVEF MOD A4C: 42.81 % | |SV MOD A4C: 57.57 ml | |EF Biplane: 43.49 % | |LVEDV MOD BP: 134.99 ml | |LVESV MOD BP: 76.28 ml | |LVEDV MOD A2C: 127.96 ml | |LVLd A2C: 8.62 cm | |LVEDV MOD A4C: 134.47 ml | |LVLd A4C: 8.50 cm | |LVESV MOD A2C: 73.22 ml | |LVLs A2C: 7.80 cm | |LVESV MOD A4C: 76.90 ml | |LVLs A4C: 8.03 cm | |LAESV(A-L): 120.12 ml | |LAESV Index (A-L): 51.33 ml/m2 | |LAAs A2C: 28.17 cm2 | |LAESV A-L A2C: 102.90 ml | |LAESV MOD A2C: 98.22 ml | |LALs A2C: 6.54 cm | |LAAs A4C: 32.88 cm2 | |LAESV A-L A4C: 132.59 ml | |LAESV MOD A4C: 125.91 ml | |LALs A4C: 6.92 cm | |RAAs: 18.45 cm2 | |RAESV A-L: 54.57 ml | |RAESV MOD: 54.13 ml | |RALs: 5.44 cm | |AV Env.Ti: 251.54 ms | |AV maxP.60 mmHg | |AV meanP.01 mmHg | |AV Vmax: 0.94 m/s | |AV Vmean: 0.67 m/s | |AV VTI: 16.92 cm | |DWAYNE Vmax: 3.02 cm2 | |DWAYNE (VTI): 3.12 cm2 | |AVAI Vmax: 0.00 cm2/m2 | |AVAI (VTI): 0.00 cm2/m2 | |LVOT Env.Ti: 260.02 ms | |LVOT maxP.78 mmHg | |LVOT meanP.99 mmHg | |LVSI Dopp: 22.61 ml/m2 | |LVSV Dopp: 52.92 ml | |LVOT Vmax: 0.66 m/s | |LVOT Vmean: 0.47 m/s | |LVOT VTI: 12.30 cm | |MV maxP.87 mmHg | |MV meanP.78 mmHg | |MV Vmax: 0.98 m/s | |MV Vmean: 0.37 m/s | |MV VTI: 15.94 cm | |MVA (VTI): 3.31 cm2 | |RAP: 10 mmHg | |RV S': 0.10 m/s | |RVSP: 33.13 mmHg | |TR maxP.13 mmHg | |TR Vmax: 2.40 m/s | | | |Cancellation Clerk: | |Authenticated by: Dary Go MD | |Report Date/Time: [id number]:20:46 | | | |IMPRESSION: | |1. This was a technically difficult study with suboptimal views. | |2. Overall left ventricular systolic function is mild-moderately impaired with, an EF betwe en 40 - 45 %. | |3. There is mild concentric left ventricular hypertrophy. | |4. There is moderate global hypokinesis of LV contractility. | |5. The right ventricle is normal in size and function. | |6. The right ventricular systolic pressure (pulmonary artery systolic pressure), as measure d by Doppler, is 33.14mmHg. | + + documented in this encounter Visit Diagnoses Not on filedocumented in this encounter"
--- OUTSIDE RECORDS SUMMARY | ~2019-11-10 | XMS | Encounter Summary ---
Demographics + + + | Address | [address] | | | [place] [address] | + + + | Home Phone | | + + + | Preferred Language | Unknown | + + + | Marital Status | | + + + | Mormonism Affiliation | Unknown | + + + | Race | Unknown | + + + | Ethnic Group | Unknown | + + + Author + + + | Author | [facility] | | | and [place] | + + + | Organization | [facility] | | | and [...] [place], | | | | | [place] [address] | | + + + + + | Josephine Meléndez | ECON | [address] | | | | | [place] | | | | | [address] | | + + + + + | Chiara Cid | ECON | [address] | | | | | [place], [place] | | | | | [address] | | + + + + + | Josephine Meléndez | ECON | Unknown | | + + + + + Care Team Providers + +------+ + | Care Dredge Pipe Installer Name | Role | Phone | + +------+ + | Jalen Cortes MD | PCP | | + +------+ + Reason for Visit +---------+--------+ + | Reason | Onset | Comments | | | Date | | +---------+--------+ + | Facing Baster | 01/13/ | | | | 2019 | | +---------+--------+ + Encounter Details +--------+ + + + + | Date | Type | Department | Care Team | Description | +--------+ + + + + | 01/13/ | Telephone | [facility] | Conrado Mckeon | Facing Baster | | 2018 | | ORTHOPEDIC SURGERY | MD Maldonado [address] | | | | | [address] | [place] | | | | | [place] | [address] | | | | | [address] | | | | | | [phone] | | | +--------+ + + + [...] + | Yes | | | Alcoholic | | | | | Drinks/day: rarely | | | | | drinks beer | + + +---------+ + + + + | Sex Assigned at | Date Recorded | | | | + + + | Not on file | | + + + documented as of this encounter Miscellaneous Notes Telephone Encounter - Zeynep Caraballo - 01/17/2019 10:56 AM PDTPATIENT SCHEDULED 02/01/19E lectronically signed by Zeynep Caraballo at 01/17/2019 10:57 AM PDTTelephone Encounter - Eda Ward Academic Records Specialist - 01/17/2019 9:30 AM PDTSee below elephone Encounter - David Sousa MD - 01/14/2019 2:58 PM PDTI'm happy to see him. He can come in when we have ti me. elephone Encounter - Briana Quinn - 01/14/2019 10:[address] Sousa to review.Electro nically signed by Briana Quinn at 01/14/2019 10:36 AM PDTTelephone Encounter - Anthony, S matthew, Academic Records Specialist - 01/14/2019 9:[address] Mckeon says that [facility]. Electronically signed by Eda Anthony Academic Records Specialist at 2018 9:00 AM PDTTelephone Encounter - Eda Anthony Academic Records Specialist - 01/14/2019 8:20 A M PDTOK to see Dr. Sousa or would you like to see patient? 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 WOULD LIKE TO SEE DR. SOUSA FOR SHOULDER PLEASE CALL AND ADVISE [phone] CATHY CHAVARRIA documented in this encou nter Plan of Treatment +--------+---------+ + + + | Date | Type | Specialty | Care Team | Description | +--------+---------+ + + + | 11/09/ | Office | Wound Care | Armando Lopez V, | | | 2019 | Visit | | [address] | | | | | | [place] | | | | | | [address] | | | | | | | | | | | | Isabella Tang MD | | | | | | [address] | | | | | | [facility] [address] | | | | | | [place] [address] | | | | | | [phone] | | | | | | | | +--------+---------+ + + + documented as of this encounter Visit Diagnoses Not on filedocumented in this encounter"
--- OUTSIDE RECORDS SUMMARY | ~2019-11-10 | XMS | Encounter Summary ---
Demographics + + + | Address | [address] | | | [place] [address] | + + + | Home Phone | | + + + | Preferred Language | Unknown | + + + | Marital Status | Single | + + + | Religion Affiliation | NON | + + + | Race | White | + + + | Ethnic Group | Not or | + + + Author + + + | Author | [facility] | + + + | Organization | [facility] | + + + | Address | Unknown | + + + | Phone | Unavailable | + + + Support + + + + + | Name | Relationship | Address | Phone | + + + + + | Chiara Cid | ECON | [address] | | | | | [place], | | | | | [place] [address] | | + + + + + Care Team Providers + +------+ + | Care Animal Nutrition Teacher Name | Role | Phone | [...] | | General Surgery at | [facility] | | | | | [facility] [address] [place], [place] | | | | | [address] | [address] | | | | | Physicians [place], | | | | | | [address]nd Floor | | | | | | [place], [place] | | | | | | [address] | | | | | | [phone] | | | +--------+ + + + [...]
--- OUTSIDE RECORDS SUMMARY | ~2019-11-10 | XMS | Encounter Summary ---
Demographics + + + | Address | [address] | | | [place] [address] | + + + | Home Phone | | + + + | Preferred Language | Unknown | + + + | Marital Status | | + + + | Temple Affiliation | Unknown | + + + | Race | Unknown | + + + | Ethnic Group | Unknown | + + + Author + + + | Author | [facility] | | | and [place] | + + + | Organization | [facility] | | [...] [place], | | | | | [place] [address] | | + + + + + | Josephine Meléndez | ECON | [address] | | | | | [place] | | | | | [address] | | + + + + + | Chiara Cid | ECON | [address] | | | | | [place], [place] | | | | | [address] | | + + + + + | Josephine Meléndez | ECON | Unknown | | + + + + + Care Team Providers + +------+ + | Care Parent Aide Name | Role | Phone | + +------+ + | Doroteo Felder MD | PCP | | + +------+ + Reason for Visit + +--------+ + | Reason | Onset | Comments | | | Date | | + +--------+ + | MRI Recommendation | 03/08/ | Requested cervical spine MRI | | | 2012 | | + +--------+ + Encounter Details +--------+ + + + + | Date | Type | Department | Care Team | Description | +--------+ + + + + | 03/08/ | Telephone | [facility] | Quentin Gomez MD | MRI Recommendation | | 2012 | | NEUROSURGERY [address] | [address] | (Requested cervical | | | | [address] | [place] [address] | spine MRI) | | | | [place] | [phone] | | | | | [address] | | | | | | [phone] | | | +--------+ + + + [...] this encounter Miscellaneous Notes Telephone Encounter - Ana Rosa Silva - 03/08/2013 11:32 AM PSTCervical spine MRI disc r equested from [facility]. Their system is currently down and they are unable to send imaging to [facility]site at this time. They will fax a report. MRI done 02/24/13. ANA ROSA SILVA documented in this enc ounter Plan of Treatment Not on filedocumented as of this encounter Visit Diagnoses Not on filedocumented in this encounter"
--- OUTSIDE RECORDS SUMMARY | ~2019-11-10 | XMS | Encounter Summary ---
Demographics + + + | Address | [address] | | | [place] [address] | + + + | Home Phone | | + + + | Preferred Language | Unknown | + + + | Marital Status | | + + + | Jainism Affiliation | Unknown | + + + | Race | Unknown | + + + | Ethnic Group | Unknown | + + + Author + + + | Author | [facility] | | | and [place] | + + + | Organization | [facility] | | | [...] [place], | | | | | [place] [address] | | + + + + + | Josephine Meléndez | ECON | [address] | | | | | [place] | | | | | [address] | | + + + + + | Chiara Cid | ECON | [address] | | | | | [place], [place] | | | | | [address] | | + + + + + | Josephine Meléndez | ECON | Unknown | | + + + + + Care Team Providers + +------+ + | Care Coat Hanger Shaper Machine Operator Name | Role | Phone | + +------+ + | Doroteo Felder MD | PCP | | + +------+ + Encounter Details +--------+ + + + + | Date | Type | Department | Care Team | Description | +--------+ + + + + | 09/20/ | Orders Only | [facility] [place] | Mahesh Oscar | Thoracic or | | 2013 | | PHYSIATRY [address] | MD [place] [address] | lumbosacral neuritis | | | | [address] | [address] [place] | or radiculitis, | | | | [place] | [address] | unspecified (Primary | | | | [address] | | Dx) | | | | [phone] | | | +--------+ + + + [...] Not on filedocumented as of this encounter Results FL MANOJ Lumbar Transforaminal (10/06/2013 3:36 PM PDT) + + | Specimen | + + | | + + + + + | Narrative | Performed At | + + + | 10/06/2013 Transforaminal Epidural Steroid Injections Diagnosis: | [facility] | | Lumbar radiculopathy ICD-9 Code 724.4 Josy Maldonado Cid presents | [facility] | | to the fluoroscopy suite for fluoroscopically-guided right L4-L5 [facility] | | and L5-S1 transforaminal epidural [...] | + + + + + | [facility] | [address] | [place], [place] | [phone] | | [facility] | | [address] | | | - IMAGING | | | | + + + + + documented in this encounter Visit Diagnoses + + | Diagnosis | + + | Thoracic or lumbosacral neuritis or radiculitis, unspecified - Primary | + + documented in this encounter"
--- OUTSIDE RECORDS SUMMARY | ~2019-11-10 | XMS | Encounter Summary ---
Demographics + + + | Address | [address] | | | [place] [address] | + + + | Home Phone | | + + + | Preferred Language | Unknown | + + + | Marital Status | | + + + | Judaism Affiliation | Unknown | + + + | Race | Unknown | + + + | Ethnic Group | Unknown | + + + Author + + + | Author | [facility] | | | and [place] | + + + | Organization | [facility] | | | [...] [place], | | | | | [place] [address] | | + + + + + | Josephine Meléndez | ECON | [address] | | | | | [place] | | | | | [address] | | + + + + + | Chiara Cid | ECON | [address] | | | | | [place], [place] | | | | | [address] | | + + + + + | Josephine Meléndez | ECON | Unknown | | + + + + + Care Team Providers + +------+ + | Care Civil Draftsman Name | Role | Phone | + +------+ + | Doroteo Felder MD | PCP | | + +------+ + Encounter Details +--------+ + + + + | Date | Type | Department | Care Team | Description | +--------+ + + + + | 07/11/ | Orders Only | [facility] | Conversion | | | 2015 | | [facility] [place] | Transaction, | | | | | [address] | Provider Unknown | | | | | [place], [place] | [phone] | | | | | [address] | | | | | | [phone] | | | +--------+ + + + [...] | + +--------+ + + + | PROTIME INR | Routin | 07/12/2015 | | Results for this | | | e | 11:10 AM | | procedure are in the | | | | PDT | | results section. | + +--------+ + + + documented in this encounter Results Protime INR (07/12/2015 11:10 AM PDT) + +-------+ + + + | Component | Value | Ref Range | Performed | Pathologist | | | | | At | Signature | + +-------+ + + + | Prothrombin | 31.3 | seconds | EXTERNAL | | | Time | | | LAB | | + +-------+ + + + | INR | 3.0 | | EXTERNAL | | | | | | LAB | | + +-------+ + + + + + | Specimen | + + | Blood specimen | | (specimen) | + + + +---------+ + + | Performing | Address | City/State/Zipcode | Phone Number | | Organization | | | | + +---------+ + + | EXTERNAL LAB | | | | + +---------+ + + documented in this encounter Visit Diagnoses Not on filedocumented in this encounter"
--- OUTSIDE RECORDS SUMMARY | ~2019-11-10 | XMS | Encounter Summary ---
Demographics + + + | Address | [address] | | | [place] [address] | + + + | Home Phone | | + + + | Preferred Language | Unknown | + + + | Marital Status | | + + + | Jain Affiliation | Unknown | + + + | Race | Unknown | + + + | Ethnic Group | Unknown | + + + Author + + + | Author | [facility] | | | and [place] | + + + | Organization | [facility] | | | [...] [place], | | | | | [place] [address] | | + + + + + | Josephine Meléndez | ECON | [address] | | | | | [place] | | | | | [address] | | + + + + + | Chiaar Cid | ECON | [address] | | | | | [place], [place] | | | | | [address] | | + + + + + | Josephine Meléndez | ECON | Unknown | | + + + + + Care Team Providers + +------+ + | Care Derivatives Trader Name | Role | Phone | + +------+ + | Doroteo Felder MD | PCP | | + +------+ + Encounter Details +--------+ + + + + | Date | Type | Department | Care Team | Description | +--------+ + + + + | 11/02/ | Orders Only | [facility] | Provider, | | | 2018 | | [facility] GENER[facility] | [address] | | | | | [address] | [address] | | | | | [address] [place], [place] | [place] [address] | | | | | [address] | | | | | | [phone] | | | +--------+ + + + [...] [address] | | | | | | [address] [place] | | | | | | [address] | | | | | | | | | | | | Isabella Tang MD | | | | | | [address] | | | | | | [facility] | | | | | | [place] [address] | | | | | | [phone] | | | | | | | | +--------+---------+ + + + documented as of this encounter Visit Diagnoses Not on filedocumented in this encounter"
--- OUTSIDE RECORDS SUMMARY | ~2019-11-10 | XMS | Encounter Summary ---
Demographics + + + | Address | [address] | | | [place] [address] | + + + | Home Phone | | + + + | Preferred Language | Unknown | + + + | Marital Status | | + + + | Buddhist Affiliation | Unknown | + + + | Race | Unknown | + + + | Ethnic Group | Unknown | + + + Author + + + | Author | [facility] | | | and [place] | + + + | Organization | [facility] | [...] [place], | | | | | [place] [address] | | + + + + + | Josephine Meléndez | ECON | [address] | | | | | [place] | | | | | [address] | | + + + + + | Chiara Cid | ECON | [address] | | | | | [place], [place] | | | | | [address] | | + + + + + | Josephine Meléndez | ECON | Unknown | | + + + + + Care Team Providers + +------+ + | Care Bench Examiner Name | Role | Phone | + +------+ + | Doroteo Felder MD | PCP | | + +------+ + Reason for Visit + +--------+ + | Reason | Onset | Comments | | | Date | | + +--------+ + | Appointment | 06/22/ | | | | 2013 | | + +--------+ + Encounter Details +--------+ + + + + | Date | Type | Department | Care Team | Description | +--------+ + + + + | 06/22/ | Telephone | [facility] | Quentin Gomez MD | Appointment | | 2013 | | NEUROSURGERY [address] | [address] | | | | | [address] | [place] [address] | | | | | [place] | [phone] | | | | | [address] | | | | | | [phone] | | | +--------+ + + + [...] this encounter Miscellaneous Notes Telephone Encounter - Emerita Silva - 06/22/2013 4:15 PM PDT2nd message left for Kranthi ie. Request callback. elephone Encounter - Katheryn Ng - 06/22/2013 3:38 PM PDTPatients called back , please advise elephone E ncounter - Emerita Silva - 06/22/2013 1:31 PM PDTPain improvement form from Dr. Pham negron reviewed by Dr. Gomez. He is recommending a follow-up appointment to discuss surgery if Josy is agreeable. Left a message to schedule. Request callback. documented in this encounter Plan of Treatment +--------+---------+ + + + | Date | Type | Specialty | Care Team | Description | +--------+---------+ + + + | 11/09/ | Office | Wound Care | Armando Lopez V, | | | 2019 | Visit | | [address] | | | | | | [place] | | | | | | [address] | | | | | | | | | | | | Isabella Tang MD | | | | | | [address] | | | | | | [facility] [address] | | | | | | [place] [address] | | | | | | [phone] | | | | | | | | +--------+---------+ + + + documented as of this encounter Visit Diagnoses Not on filedocumented in this encounter"
--- OUTSIDE RECORDS SUMMARY | ~2019-11-10 | XMS | Encounter Summary ---
Demographics + + + | Address | [address] | | | [place] [address] | + + + | Home Phone | | + + + | Preferred Language | Unknown | + + + | Marital Status | | + + + | Hoahaoism Affiliation | Unknown | + + + | Race | Unknown | + + + | Ethnic Group | Unknown | + + + Author + + + | Author | [facility] | | | and [place] | + + + | Organization | [facility] | | | and [place] | + + + | Address | Unknown | + + + | Phone | Unavailable | + + + Support + + + + + | Name | Relationship | Address | Phone | + + + + + | Barak Cid | ECON | [address] | | | | | [place], | | | | | [place] [address] | | + + + + + | Josephine Meléndez | ECON | [address] | | | | | [place] | | | | | [address] | | + + + + + | Chiara Cid | ECON | [address] | | | | | [place], [place] | | | | | [address] | | + + + + + | Josephine Meléndez | ECON | Unknown | | + + + + + Care Team Providers + +------+ + | Care Cabinetmaker Supervisor Name | Role | Phone | + +------+ + | Doroteo Felder MD | PCP | | + +------+ + Encounter Details +--------+ + + + + | Date | Type | Department | Care Team | Description | +--------+ + + + + | 02/09/ | Abstract | [facility] | Quentin Gomez MD | | | 2012 | | NEUROSURGERY [address] | [address] | | | | | [address] | [place] [address] | | | | | [place] | [phone] | | | | | [address] | | | | | | [phone] | | | +--------+ + + + [...]
--- OUTSIDE RECORDS SUMMARY | ~2019-11-10 | XMS | Encounter Summary ---
Demographics + + + | Address | [address] | | | [place] [address] | + + + | Home Phone | | + + + | Preferred Language | Unknown | + + + | Marital Status | | + + + | Taoism Affiliation | Unknown | + + + | Race | Unknown | + + + | Ethnic Group | Unknown | + + + Author + + + | Author | [facility] | | | and [place] | + + + | Organization | [facility] | | | [...] [place], | | | | | [place] [address] | | + + + + + | Josephine Meléndez | ECON | [address] | | | | | [place] | | | | | [address] | | + + + + + | Chiara Cid | ECON | [address] | | | | | [place], [place] | | | | | [address] | | + + + + + | Josephine Meléndez | ECON | Unknown | | + + + + + Care Team Providers + +------+ + | Care Ethanol Operator Name | Role | Phone | + +------+ + PCP | Unavailable | + +------+ + Encounter Details +--------+ + + + + | Date | Type | Department | Care Team | Description | +--------+ + + + + | 09/22/ | Hospital | [facility] | Brayan Hollingsworth | | | 2011 | Encounter | MED CTR XRAY [address] | MD Kimberly, FACS [address] | | | | | Jamilah Mcphersona | [facility] | | | | | [place] [address] | [place] [address] | | | | | [phone] | [phone] | | | | | | | | +--------+ + + + + Social History + +-------+ +--------+------+ | Tobacco Use | Types | Packs/Day | Years | Date | | | | | Used | | + +-------+ +--------+------+ | Never Assessed | | | | | + +-------+ +--------+------+ + + + | Sex Assigned at [...] | Armando Lopez V, | | | 2020 | Visit | | [address] | | | | | | [place] | | | | | | [address] | | | | | | | | | | | | Isabella Tang MD | | | | | | [address] | | | | | | [facility] [address] | | | | | | [place] [address] | | | | | | [phone] | | | | | | | | +--------+---------+ + + + documented as of this encounter Procedures + +--------+ + + + | Procedure Name | Priori | Date/Time | Associated Diagnosis | Comments | | | ty | | | | + +--------+ + + + | BASIC METABOLIC | Routin | 09/23/2011 | | Results for this | | PANEL | e | 11:54 AM | | procedure are in the | | | | PDT | | results section. | + +--------+ + + + | CT ANGIOGRAM ABDOMEN | | 09/23/2011 | | Results for this | | AORTA BILAT FEMORAL | | 9:28 AM | | procedure are in the | | RUNOFF W CONTRAST | | PDT | | results section. | + +--------+ + + + documented in this encounter Results Basic Metabolic Panel (09/23/2011 11:54 AM PDT) + + + + + + | Component | Value | Ref Range | Performed | Pathologist | | | | | At | Signature | + + + + + + | Glucose | 196 (H) | 70 - 109 mg/dL | [facility] | | | | | | [facility] | | | | | | [facility] | | | | | | [facility] - | | | | | | LABORATORY | | + + + + + + | Calcium | 9.2 | 8.3 - 10.5 | [facility] | | | | | mg/dL | [facility] | | | | | | [facility] | | | | | | C[facility] - | | | | | | LABORATORY | | + + + + + + | BUN | 21 (H) | 7 - 18 mg/dL | [facility] | | | | | | [facility] | | | | | | [facility] | | | | | | [facility] - | | | | | | LABORATORY | | + + + + + + | Creatinine | 1.21 | 0.60 - 1.30 | [facility] | | | | | mg/dL | [facility] | | | | | | [facility] | | | | | | C[facility] - | | | | | | LABORATORY | | + + + + + + | Estimated | 59Comment: For | >60 mL/min/A | [facility] | | | GFR | -Americans, | | [facility] | | | | please multiply the | | MEDICAL | | | | result by 1.210 | | CENTER - | | | | This is an estimated | | LABORATORY | | | | GFR and is based on a | | | | | | standard adult | | | | | | body mass (A=1.73m2) and | | | | | | serum creatinine | | | | + + + + + + | BUN/Creatin | 17.4 | 12 - 20 | [facility] | | | ine Ratio | | | [facility] | | | | | | MEDICAL | | | | | | CENTER - | | | | | | LABORATORY | | + + + + + + | Na | 135 (L) | 136 - 149 mEq/L | [facility] | | | | | | [facility] | | | | | | [facility]ICAL | | | | | | CENTER - | | | | | | LABORATORY | | + + + + + + | K | 3.9 | 3.5 - 5.1 mEq/l | [facility] | | | | | | [facility] | | | | | | MEDICAL | | | | | | CENTER - | | | | | | LABORATORY | | + + + + + + | Cl | 98 | 98 - 109 mEq/l | [facility] | | | | | | [facility] | | | | | | [facility] | | | | | | CENTER - | | | | | | LABORATORY | | + + + + + + | CO2 | 25 | 24 - 31 mEq/L | [facility] | | | | | | [facility] | | | | | | MEDICAL | | | | | | CENTER - | | | | | | LABORATORY | | + + + + + + | Anion Gap | 15.9 | 6.0 - 17.0 | [facility] | | | | | | [facility] | | | | | | [facility] | | | | | | CENTER - | | | | | | LABORATORY | | + + + + + + + + | Specimen | + + | | + + + + + + + | Performing | Address | City/State/Zipcode | Phone Number | | Organization | | | | + + + + + | [facility] | [address] | [place], [place] | [phone] | | [facility] | | [address] | | | - LABORATORY | | | | + + + + + | [facility] | [address] | [place], [place] | | | [facility] | | [id number] [place] [address] | | | - LABORATORY | | | | + + + + + CT Angio Abd Aorta Bilat Hany Kang W Cont (09/23/2011 9:28 AM PDT) + + | Specimen | + + | | + + + + + | Narrative | Performed At | + + + | [facility] Diagnostic Imaging Department | [facility] | | [address] [facility] | [facility] | | CT AORTO/ILIOFEMORAL RUNOFF CTA, | DIAG IMG | | 09/23/2011 CLINICAL HISTORY: LEFT ILIAC FEMORAL GRAFT. LEG | | | SWELLING. COMPARISON: None. TECHNIQUE: Imaging is | | | performed through the abdomen and lower extremities following the | | | uneventful i ntravenous injection of 150 mL of Isovue-370. The | | | injection is timed for CT angiography. FINDINGS: AORTA: | | | The visible portions of the thoracic and the entire abdominal aorta | | | are well visualized and a re not aneurysmal. There is very minimal | | | atherosclerotic disease within these portions. The celiac axis, | | | superior mesenteric artery, and inferior mesenteric arteries are | | | widely patent. There are sing le bilateral renal arteries, both of | | | which are widely patent. Incidental note is made of a circumaor tic | | | left renal vein. RIGHT: The right common iliac is widely | | | patent and minimally diseased. The right internal and exter nal | | | iliacs are also widely patent and minimally diseased. The right | | | common femoral is widely patent and minimally diseased. The | | | superficial femoral and profunda are widely patent. There is minimal | | | di sease through the adductor hiatus. Very minimal disease in the | | | popliteal. There is a well demonstra michelle three-vessel runoff | | | initially with a somewhat tenuous small peroneal artery that tapers to | | | nonvis ibility in the distal leg. Dorsalis pedis is wispy but | | | present. There is plantar continuation of th e posterior tibial | | | artery. LEFT: There is a patent minimally diseased left common | | | iliac. The [place] left internal iliac is pat ent. The [place] left | | | external iliac is markedly diseased with minimal to no contrast | | | traversing it. There is a thrombosed stent, iliofemoral graft | | | thrombosed through to its distal anastomosis. There is a patent | | | iliofemoral graft with good inflow of contrast opacification and | | | widely patent through it s distal iliofemoral anastomosis providing | | | good inflow to the [place] distal superficial femoral and p opliteal | | | artery. Popliteal artery generates a generous initial two-vessel | | | runoff. A very tenuous pe roneal branches off the tibial peroneal | | | trunk. It becomes nonvisible in the distal lower extremity. Small | | | but visibly contrast-opacified anterior and posterior tibial arteries | | | are identified and can b e followed into the lower extremity. The | | | dorsalis pedis is not clearly identified confidently. The plantar | | | continuation of the posterior tibial is visibly present. Diffuse | | | subcutaneous edema and thickening throughout the left lower extremity. | | | The extremity size pr oximally is somewhat atrophic compared to | | | the right but this quickly changes and the left becomes andrea y | | | enlarged relative to the right due to the subcutaneous edema and | | | tissue expansion which continues o n, very dramatically, into the | | | left lower extremity and foot. No focal fluid collections. This | | | appe ars to spare fascial planes of the musculature. There are | | | significant areas of muscle atrophy involv ing the left lower | | | extremity, in particular, the posterior compartment musculature, | | | mostly the gastro cnemii and soleus. There is significant muscle | | | atrophy involving the plantar foot musculature on the left and | | | right, incompletely evaluated. There is also relatively significant | | | atrophy of the anterio r musculature of the thigh involving the | | | proximal portions of the quadriceps muscles. Hyperdensities are | | | seen in the soft tissues in the anterior thigh. Some of these may be | | | postsurgical. They may re present clips and/or calcifications. | | | Edema is also seen tracking over the inferior aspect of the lef t | | | gluteal in the subcutaneous tissues. Incidental note is made of | | | severe tendinopathy, chronic, involving the left Achilles tendon. No | | | knee joint effusions. ABDOMEN: Timing of the contrast | | | bolus limits parenchymal evaluation. The liver is grossly unremarka | | | ble. The kidneys bilaterally are symmetrically enhancing. There | | | is persistent lobulation. Two cyst s are seen exophytic from the | | | right kidney. Several smaller hypodensities are present in the left | | | ki dney, too small to characterize. No adrenal masses. The spleen | | | is unremarkable. The pancreas is un remarkable. Diverticular | | | disease is present without evidence of diverticulitis. The appendix | | | is nor mal. No free fluid. No free air. MUSCULOSKELETAL: | | | Significant osteoarthritic changes in both feet, incompletely | | | evaluated. Degenerat clarence changes in the spine. Incompletely | | | evaluated right-sided healed rib fractures. Visible lungs are | | | clear. IMPRESSION: 1. PATENT LEFT ILIOFEMORAL BYPASS GRAFT | | | WITH GOOD INFLOW AT ITS ORIGIN AND PROVIDING GOOD INFLOW TO THE | | | APACHE DISTAL FEMORAL AND POPLITEAL ARTERIES AND GENERATING AN INITIAL | | | THREE-VESSEL RUNOFF CONCLU DING A TWO-VESSEL RUNOFF NEAR THE | | | LEVEL OF THE ANKLE. 2. EXTENSIVE SUBCUTANEOUS EDEMA | | | THROUGHOUT THE LEFT LOWER EXTREMITY WITH ASSOCIATED SKIN THICKENING. | | | 3. AREAS OF MUSCLE ATROPHY ABOVE. 4. | | | DIVERTICULOSIS. 5. RENAL CYSTS AND OTHER SMALL | | | HYPOATTENUATING FOCI TOO SMALL TO CHARACTERIZE BUT LIKELY CYSTS. | | | Dictated Date/Time: 09/23/2011 17:14 Transcribed Date/Time: | | | 09/23/2011 17:41 Senior Gl Accountant: <Electronically Signed | | | by Jorge A Rodriguez MD> 09/23/11 2240 | | + + + + + | Procedure Note | + + | José Luis, Rad Conversion - 05/20/2013 5:31 PM [facility] | | Diagnostic Imaging Department [address] [place] [address] | | CT AORTO/ILIOFEMORAL RUNOFF CTA, 09/23/2011 CLINICAL | | HISTORY: LEFT ILIAC FEMORAL GRAFT. LEG SWELLING. COMPARISON: None. TECHNIQUE: | | Imaging is performed through the abdomen and lower extremities following the uneventful | | intravenous injection of 150 mL of Isovue-370. The injection is timed for CT | | angiography. FINDINGS: AORTA: The visible portions of the thoracic and the entire | | abdominal aorta are well visualized and are not aneurysmal. There is very minimal | | atherosclerotic disease within these portions. The celiac axis, superior mesenteric | | artery, and inferior mesenteric arteries are widely patent. There are single bilateral | | renal arteries, both of which are widely patent. Incidental note is made of a | | circumaortic left renal vein. RIGHT: The right common iliac is widely patent and | | minimally diseased. The right internal and external iliacs are also widely patent and | | minimally diseased. The right common femoral is widely patent and minimally diseased. | | The superficial femoral and profunda are widely patent. There is minimal disease | | through the adductor hiatus. Very minimal disease in the popliteal. There is a well | | demonstrated three-vessel runoff initially with a somewhat tenuous small peroneal artery | | that tapers to nonvisibility in the distal leg. Dorsalis pedis is wispy but present. | | There is plantar continuation of the posterior tibial artery. LEFT: There is a patent | | minimally diseased left common iliac. The [place] left internal iliac is patent. The | | [place] left external iliac is markedly diseased with minimal to no contrast traversing | | it. There is a thrombosed stent, iliofemoral graft thrombosed through to its distal | | anastomosis. There is a patent iliofemoral graft with good inflow of contrast | | opacification and widely patent through its distal iliofemoral anastomosis providing | | good inflow to the [place] distal superficial femoral and popliteal artery. Popliteal | | artery generates a generous initial two-vessel runoff. A very tenuous peroneal branches | | off the tibial peroneal trunk. It becomes nonvisible in the distal lower extremity. | | Small but visibly contrast-opacified anterior and posterior tibial arteries are | | identified and can be followed into the lower extremity. The dorsalis pedis is not | | clearly identified confidently. The plantar continuation of the posterior tibial is | | visibly present. Diffuse subcutaneous edema and thickening throughout the left lower | | extremity. The extremity size proximally is somewhat atrophic compared to the right but | | this quickly changes and the left becomes very enlarged relative to the right due to | | the subcutaneous edema and tissue expansion which continues on, very dramatically, into | | the left lower extremity and foot. No focal fluid collections. This appears to spare | | fascial planes of the musculature. There are significant areas of muscle atrophy | | involving the left lower extremity, in particular, the posterior compartment | | musculature, mostly the gastrocnemii and soleus. There is significant muscle atrophy | | involving the plantar foot musculature on the left and right, incompletely evaluated. | | There is also relatively significant atrophy of the anterior musculature of the thigh | | involving the proximal portions of the quadriceps muscles. Hyperdensities are seen in | | the soft tissues in the anterior thigh. Some of these may be postsurgical. They may | | represent clips and/or calcifications. Edema is also seen tracking over the inferior | | aspect of the left gluteal in the subcutaneous tissues. Incidental note is made of | | severe tendinopathy, chronic, involving the left Achilles tendon. No knee joint | | effusions. ABDOMEN: Timing of the contrast bolus limits parenchymal evaluation. The | | liver is grossly unremarkable. The kidneys bilaterally are symmetrically enhancing. | | There is persistent lobulation. Two cysts are seen exophytic from the right kidney. | | Several smaller hypodensities are present in the left kidney, too small to characterize. | | No adrenal masses. The spleen is unremarkable. The pancreas is unremarkable. | | Diverticular disease is present without evidence of diverticulitis. The appendix is | | normal. No free fluid. No free air. MUSCULOSKELETAL: Significant osteoarthritic | | changes in both feet, incompletely evaluated. Degenerative changes in the spine. | | Incompletely evaluated right-sided healed rib fractures. Visible lungs are clear. | | IMPRESSION: 1. PATENT LEFT ILIOFEMORAL BYPASS GRAFT WITH GOOD INFLOW AT ITS ORIGIN AND | | PROVIDING GOOD INFLOW TO THE APACHE DISTAL FEMORAL AND POPLITEAL ARTERIES AND GENERATING | | AN INITIAL THREE-VESSEL RUNOFF CONCLUDING A TWO-VESSEL RUNOFF NEAR THE LEVEL OF THE | | ANKLE. 2. EXTENSIVE SUBCUTANEOUS EDEMA THROUGHOUT THE LEFT LOWER EXTREMITY WITH | | ASSOCIATED SKIN THICKENING. 3. AREAS OF MUSCLE ATROPHY ABOVE. 4. | | DIVERTICULOSIS. 5. RENAL CYSTS AND OTHER SMALL HYPOATTENUATING FOCI TOO SMALL TO | | CHARACTERIZE BUT LIKELY CYSTS. Dictated Date/Time: 09/23/2011 17:14Transcribed | | Date/Time: 09/23/2011 17:41Transcriptionist: <Electronically Signed by Jorge A Henderson | | MD Michael> 09/23/112239 | | | |MUSCULOSKELETAL: Significant osteoarthritic changes in both feet, incompletely evaluated. Degenerat | |clarence changes in the spine. Incompletely evaluated right-sided healed rib fractures. | | | |Visible lungs are clear. | | | |IMPRESSION: | |1. PATENT LEFT ILIOFEMORAL BYPASS GRAFT WITH GOOD INFLOW AT ITS ORIGIN AND PROVIDING GOOD INFLOW TO | |THE APACHE DISTAL FEMORAL AND POPLITEAL ARTERIES AND GENERATING AN INITIAL THREE-VESSEL RUN OFF CONCLU | |DING A TWO-VESSEL RUNOFF NEAR THE LEVEL OF THE ANKLE. | | | |2. EXTENSIVE SUBCUTANEOUS EDEMA THROUGHOUT THE LEFT LOWER EXTREMITY WITH ASSOCIATED SKIN T HICKENING. | | | | | |3. AREAS OF MUSCLE ATROPHY ABOVE. | | | |4. DIVERTICULOSIS. | | | |5. RENAL CYSTS AND OTHER SMALL HYPOATTENUATING FOCI TOO SMALL TO CHARACTERIZE BUT LIKELY C YSTS. | | | |Dictated Date/Time: 09/23/2011 17:14 | |Transcribed Date/Time: 09/23/2011 17:41 | |Senior Gl Accountant: | |<Electronically Signed by Jorge A Rodriguez MD> 09/23/112239 | + + + +---------+ + + | Performing | Address | City/State/Zipcode | Phone Number | | Organization | | | | + +---------+ + + | [place] | | | | | [place] | | | | + +---------+ + + documented in this encounter Visit Diagnoses Not on filedocumented in this encounter"
--- OUTSIDE RECORDS SUMMARY | ~2019-11-10 | XMS | Encounter Summary ---
Demographics + + + | Address | [address] | | | [place] [address] | + + + | Home Phone | | + + + | Preferred Language | Unknown | + + + | Marital Status | | + + + | Denominational Affiliation | Unknown | + + + | Race | Unknown | + + + | Ethnic Group | Unknown | + + + Author + + + | Author | [facility] | | | and [place] | + + + | Organization | [facility] | | | and [...] [place], | | | | | [place] [address] | | + + + + + | Josephine Meléndez | ECON | [address] | | | | | [place] | | | | | [address] | | + + + + + | Chiara Cid | ECON | [address] | | | | | [place], [place] | | | | | [address] | | + + + + + | Josephine Meléndez | ECON | Unknown | | + + + + + Care Team Providers + +------+ + | Care Picker Box Operator Name | Role | Phone | + +------+ + | Doroteo Felder MD | PCP | | + +------+ + Reason for Visit + +--------+ + | Reason | Onset | Comments | | | Date | | + +--------+ + | MRI Recommendation | 03/08/ | | | | 2012 | | + [...] [address] | | | | | [address] | [place] [address] | | | | | [place] | [phone] | | | | | [address] | | | | | | [phone] | | | +--------+ + + + [...] Telephone Encounter - Ana Rosa Silva - 03/09/2013 4:31 PM PSTKranthi's is updated at this time. She would like Dr. Gomez to put in the referral to Dr. Oscar. Referral faxed. ANA ROSA SILVA elephone Encounter - Ana Rosa Silva - 03/08/2013 1:[address] Gomez: Cervical spine MRI has been review ed. Recommend cervical injections at C5-C7 with Dr. Oscar. Message left for Kranthi and callback requested. documented in this encounter Plan of Treatment +--------+---------+ + + + | Date | Type | Specialty | Care Team | Description | +--------+---------+ + + + | 11/09/ | Office | Wound Care | Armando Lopez V, | | | 2019 | Visit | | [address] | | | | | | [place] | | | | | | [id number] | | | | | | | | | | | | Isabella Tang MD | | | | | | [address] | | | | | | [facility] [address] | | | | | | [place] [address] | | | | | | [phone] | | | | | | | | +--------+---------+ + + + documented as of this encounter Visit Diagnoses Not on filedocumented in this encounter"
--- OUTSIDE RECORDS SUMMARY | ~2019-11-10 | XMS | Encounter Summary ---
Demographics + + + | Address | [address] | | | [place] [address] | + + + | Home Phone | | + + + | Preferred Language | Unknown | + + + | Marital Status | | + + + | Gnosticist Affiliation | Unknown | + + + | Race | Unknown | + + + | Ethnic Group | Unknown | + + + Author + + + | Author | [facility] | | | and [place] | + + + | Organization | [facility] | | | [...] [place], | | | | | [place] [address] | | + + + + + | Josephine Meléndez | ECON | [address] | | | | | [place] | | | | | [address] | | + + + + + | Chiara Cid | ECON | [address] | | | | | [place], [place] | | | | | [address] | | + + + + + | Josephine Meléndez | ECON | Unknown | | + + + + + Care Team Providers + +------+ + | Care Software Development Intern Name | Role | Phone | + +------+ + PCP | Unavailable | + +------+ + Encounter Details +--------+ + + + + | Date | Type | Department | Care Team | Description | +--------+ + + + + | 09/01/ | Hospital | [facility] | Carter Lugo, | | | 2011 | Encounter | [facility] EM[facility] | [address] | | | | | [place] [address] | [facility] | | | | | [place] | [place] [address] | | | | | [address] | [phone] | | | | | [phone] | | | +--------+ + + + [...] + + documented as of this encounter ED Notes Carter Lugo MD - 09/02/2011 4:14 PM PDTDATE: 09/02/2011 IDENTIFICATION: A 71-year-old male. CHIEF COMPLAINT: Left leg redness and swelling. 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 He has be en dealing with swelling of the left leg for 40 years. 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 He ended up having a vein graft in the past in sajan t left leg as well. He has continued to h ave edema problems but has gotten more swollen re cently. He developed redness and a month ago and it was felt to be infectious. He had a fev er and it is hot to the touch. He was put on a course of Levaq uin which actually did prett y well with the infection, but he started to get possibly some tendinitis from the Levaquin so it was stopped. He was put on Keflex for a week now, but the redness apparently has sta rted to come back, and the family is worried that his infection is returning, although he do e s not have any fevers at this time. He also has some oozing from the left groin that is a new problem for him, and he is concerned about that. PAST MEDICAL HISTORY: As mentioned, lymphoma in the left groin. He has a history of hyperc holesterol emia. He has had irregular heartbeat and a history of hypertension and depressio n. Diabetes. MEDICATIONS 1. Aspirin. 2. Lipitor. 3. Atacand. 4. Keflex. 5. Colchicine/probenecid. 6. Erythromycin. 7. Furosemide. 8. Glimiperide. 9. Insulin. 10. Metoprolol. 11. Zoloft. 12. Coumadin. ALLERGIES: NONE REPORTED. SOCIAL HISTORY: He is giving his own history. His primary care physician is Dr. Felder in [facility]. Arnaud mello is going to be seeing a vascular surgeon, Dr. Hollingsworth here in [place]. REVIEW OF SYSTEMS GENERAL: There are no new fevers. HEAD: No complaint. EYES: No complaint. EARS: No complaint. THROAT: No sore throat. HEART: No chest pain or palpitations. RESPIRATORY: No coughing or difficulty breathing. GASTROINTESTINAL: No abdominal pain, vomiting, or diarrhea. GENITOURINARY: No burning with urination, frequency, urgency. MUSCULOSKELETAL: Left heel pain. DERMATOLOGY: Some bruising from his left groin and left leg swelling. NEUROLOGIC: No seizure or stroke-like symptoms. PHYSICAL EXAMINATION VITAL SIGNS: Blood pressure 152/72, pulse 72, respirations 16, temperature 96.7, saturation 95%. GENERAL: This is an obese 71-year-old male. HEENT: No trauma. Pupils equal, conjunctivae pink. Mucous membranes moist. NECK: Supple. HEART: Regular. LUNGS: Clear. ABDOMEN: Soft, nontender. Obese. EXTREMITIES: Warm. He has marked 4+ edema of his left leg. He has a few petechiae noted, p articularl y over the lower leg on the medial aspect. In the left groin he has some skin t hat is denuded and oo zing. There is no induration or fluctuance. His leg between the knee and the ankle is a slight redde camille color. No obvious induration. It is not warm to the to uch. His temperature on that leg is the rashad e as the other leg. The heel has some mild ten derness, but there is no erythema or fluctuance. BACK: No acute lesions. NEUROLOGIC: He is alert, interactive. Good muscle tone and strength. EMERGENCY DEPARTMENT COURSE: The patient was seen and examined shortly after arriving in e emergenc y department. History and physical obtained. Vital signs were noted. CBC, basic metabolic profile, IN R and a CRP were obtained. His INR is therapeutic at 2.2. Basic metab olic panel: Renal function is mi ldly impaired with a GFR of 53. Electrolytes are good. His CRP is 4.6. CBC: White count 6.5, hemoglob in 11.5, hematocrit 33.9, platelets 224. A dupl ex ultrasound was obtained of left lower leg. It is chapa rd to see his veins, with most areas you can see flow. There does not appear to be any flow in the ve in graft, though, so it a ppears that his pain graft is clotted. That could be accounting for his inc reased leg swe lling. At this time I do not see any active infection, however, with this mild increas ed redness and starting Keflex it is possible that he has an infection that is resistant to Kef elaine an d it is starting to come back. With that in mind I am going to switch him to somethi ng that will like ly be more effective. I did talk to Dr. Felder, his primary care physician. We discussed the case. He wants him to get in to see Dr. Hollingsworth, and we are going to [facility] rd these records of Dr. Hollingsworth and hope that he will be able to get in to see him in a timel y fashion. The patient will be able to be discha rged home at this time. IMPRESSION 1. CELLULITIS, LEFT LOWER EXTREMITY. 2. CLOTTED VEIN GRAFT, LEFT LOWER EXTREMITY. 3. CHRONIC LYMPHEDEMA, LEFT LOWER EXTREMITY. 4. THERAPEUTIC INR. PLAN: The patient is being discharged home in unchanged condition. Stop the Keflex, start c lindamycin . Continue lymphedema care, and other medications. Follow up with Dr. Hollingsworth as s oon as possible. DICTATED BY: Carter Lugo MD Emergency Medicine JOB #: [id number] EXT JOB #:[id number] <Electronicall y Signed by Carter Lugo MD> 09/03/11 1616 documented in this encounter Plan of Treatment +--------+---------+ + + + | Date | Type | Specialty | Care Team | Description | +--------+---------+ + + + | 11/09/ | Office | Wound Care | Armando Lopez V, | | | 2019 | Visit | | [address] | | | | | | [place] | | | | | | [address] | | | | | | | | | | | | Isabella Tang MD | | | | | | [address] | | | | | | [place] [address] | | | | | | [place] [address] | | | | | | [phone] | | | | | | | | +--------+---------+ + + + documented as of this encounter Procedures + +--------+ + + + | Procedure Name | Priori | Date/Time | Associated Diagnosis | Comments | | | ty | | | | + +--------+ + + + | PROTIME INR | Routin | 09/02/2011 | | Results for this | | | e | 5:20 PM | | procedure are in the | | | | PDT | | results section. | + +--------+ + + + | CBC WITH | Routin | 09/02/2011 | | Results for this | | DIFFERENTIAL | e | 5:20 PM | | procedure are in the | | | | PDT | | results section. | + +--------+ + + + | C-REACTIVE PROTEIN | Routin | 09/02/2011 | | Results for this | | | e | 5:20 PM | | procedure are in the | | | | PDT | | results section. | + +--------+ + + + | BASIC METABOLIC | Routin | 09/02/2011 | | Results for this | | PANEL | e | 5:20 PM | | procedure are in the | | | | PDT | | results section. | + +--------+ + + + | VAS LOWER EXTREMITY | | 09/02/2011 | | Results for this | | VENOUS LEFT | | 4:14 PM | | procedure are in the | | | | PDT | | results section. | + +--------+ + + + documented in this encounter Results Protime INR (09/02/2011 5:20 PM PDT) + + + + + + | Component | Value | Ref Range | Performed | Pathologist | | | | | At | Signature | + + + + + + | Prothrombin | 23.9 (H) | 11.3 - 13.9 | [facility] | | | Time | | seconds | [facility] | | | | | | MEDICAL | | | | | | CENTER - | | | | | | LABORATORY | | + + + + + + | INR | 2.2 (H)Comment: INR: | 0.9 - 1.1 | [facility] | | | | USUAL ORAL | | [facility] | | | | ANTICOAGULATION RANGE | | MEDICAL | | | | 2.0-3.0 | | CENTER - | | | | HIGH LEVEL ORAL | | LABORATORY | | | | ANTICOAGULATION RANGE | | | | | | 2.5-3.5 | | | | + + + + + + + + | Specimen | + + | | + + + + + + + | Performing | Address | City/State/Zipcode | Phone Number | | Organization | | | | + + + + + | [facility] | [address] | [place] | [phone] | | [facility] | | [address] | | | - LABORATORY | | | | + + + + + | [facility] | [address] | [place] | | | [facility] | | [id number] | | | - LABORATORY | | | | + + + + + CBC with Differential (09/02/2011 5:20 PM PDT) + + + + + + | Component | Value | Ref Range | Performed | Pathologist | | | | | At | Signature | + + + + + + | White Blood | 6.5 | 4.0 - 11.0 K/uL | [facility] | | | Cells | | | [facility] | | | | | | MEDICAL | | | | | | CENTER - | | | | | | LABORATORY | | + + + + + + | Red Blood | 4.46 | 4.30 - 5.70 | [facility] | | | Cells | | M/uL | [facility] | | | | | | MEDICAL | | | | | | CENTER - | | | | | | LABORATORY | | + + + + + + | Hemoglobin | 11.5 (L) | 13.5 - 18.0 | [facility] | | | | | gm/dL | [facility] | | | | | | MEDICAL | | | | | | CENTER - | | | | | | LABORATORY | | + + + + + + | Hematocrit | 33.9 (L) | 40.0 - 51.0 % | [facility] | | | | | | [facility] | | | | | | MEDICAL | | | | | | CENTER - | | | | | | LABORATORY | | + + + + + + | MCV | 76.1 (L) | 83.0 - 101.0 fL | [facility] | | | | | | [facility] | | | | | | MEDICAL | | | | | | CENTER - | | | | | | LABORATORY | | + + + + + + | MCH | 25.7 (L) | 28.0 - 35.0 pg | [facility] | | | | | | [facility] | | | | | | MEDICAL | | | | | | CENTER - | | | | | | LABORATORY | | + + + + + + | MCHC | 33.8 | 32.0 - 36.0 | [facility] | | | | | g/dL | [facility] | | | | | | MEDICAL | | | | | | CENTER - | | | | | | LABORATORY | | + + + + + + | RDW-CV | 16.0 (H) | <15.0 % | [facility] | | | | | | [facility] | | | | | | MEDICAL | | | | | | CENTER - | | | | | | LABORATORY | | + + + + + + | Platelet | 224 | 140 - 440 K/uL | [facility] | | | Count | | | [facility] | | | | | | MEDICAL | | | | | | CENTER - | | | | | | LABORATORY | | + + + + + + | % | 61.2 | 45 - 82 % | [facility] | | | Neutrophils | | | [facility] | | | | | | MEDICAL | | | | | | CENTER - | | | | | | LABORATORY | | + + + + + + | % | 32.8 | 20 - 45 % | [facility] | | | Lymphocytes | | | [facility] | | | | | | MEDICAL | | | | | | CENTER - | | | | | | LABORATORY | | + + + + + + | % Monocytes | 6.0 | 4 - 12 % | [facility] | | | | | | [facility] | | | | | | MEDICAL | | | | | | CENTER - | | | | | | LABORATORY | | + + + + + + | Absolute | 4.0 | 1.8 - 8.5 K/uL | [facility] | | | Neutrophils | | | [facility] | | | | | | MEDICAL | | | | | | CENTER - | | | | | | LABORATORY | | + + + + + + | Absolute | 2.1 | 0.6 - 3.2 K/uL | [facility] | | | Lymphocytes | | | [facility] | | | | | | MEDICAL | | | | | | CENTER - | | | | | | LABORATORY | | + + + + + + | Absolute | 0.4 | 0.0 - 1.0 K/uL | [facility] | | | Monocytes | | | [facility] | | | | | | [...] + | [facility] | [address] | [place] | [phone] | | [facility] | | [address] | | | - LABORATORY | | | | + + + + + | [facility] | [address] | [place] | | | [facility] | | [address] [place] [address] | | | - LABORATORY | | | | + + + + + Basic Metabolic Panel (09/02/2011 5:20 PM PDT) + + + + + + | Component | Value | Ref Range | Performed | Pathologist | | | | | At | Signature | + + + + + + | Glucose | 186 (H) | 70 - 109 mg/dL | [facility] | | | | | | [facility] | | | | | | MEDICAL | | | | | | CENTER - | | | | | | LABORATORY | | + + + + + + | Calcium | 9.0 | 8.3 - 10.5 | [facility] | | | | | mg/dL | [facility] | | | | | | MEDICAL | | | | | | CENTER - | | | | | | LABORATORY | | + + + + + + | BUN | 23 (H) | 7 - 18 mg/dL | [facility] | | | | | | [facility] | | | | | | MEDICAL | | | | | | CENTER - | | | | | | LABORATORY | | + + + + + + | Creatinine | 1.32 (H) | 0.60 - 1.30 | [facility] | | | | | mg/dL | [facility] | | | | | | MEDICAL | | | | | | CENTER - | | | | | | LABORATORY | | + + + + + + | Estimated | 53 (L)Comment: For | >60 mL/min/A | [facility] | | | GFR | -Americans, | | [facility] | | | | please multiply the [...] + + + + | Na | 132 (L) | 136 - 149 mEq/L | [facility] | | | | | | [facility] | | | | | | MEDICAL | | | | | | CENTER - | | | | | | LABORATORY | | + + + + + + | K | 4.2 | 3.5 - 5.1 mEq/l | [facility] | | | | | | [facility] | | | | | | MEDICAL | | | | | | CENTER - | | | | | | LABORATORY | | + + + + + + | Cl | 97 (L) | 98 - 109 mEq/l | [facility] | | | | | | [facility] | | | | | | MEDICAL | | | | | | CENTER - | | | | | | LABORATORY | | + + + + + + | CO2 | 26 | 24 - 31 mEq/L | [facility] | | | | | | [facility] | | | | | | MEDICAL | | | | | | CENTER - | | | | | | LABORATORY | | + + + + + + | Anion Gap | 13.2 | 6.0 - 17.0 | [facility] | [...] + | [facility] | [address] | [place] | [phone] | | [facility] | | [address] | | | - LABORATORY | | | | + + + + + | [facility] | [address] | [place] | | | [facility] | | [address] | | | - LABORATORY | | | | + + + + + C-Reactive Protein (09/02/2011 5:20 PM PDT) + + + + + + | Component | Value | Ref Range | Performed | Pathologist | | | | | At | Signature | + + + + + + | CRP | 4.6Comment: Levels >8.0 | <8.0 mg/L | [facility] | | | | mg/L indicate possible | | [facility] | | | | infection, trauma, | | MEDICAL | | | | cardiac infarct or | | CENTER - | | | | neoplastic | | LABORATORY | | | | proliferation. | | | | + + + + + + + + | Specimen | + + | | + + + + + + + | Performing | Address | City/State/Zipcode | Phone Number | | Organization | | | | + + + + + | [facility] | [address] | [place] | [phone] | | [facility] | | [address] | | | - LABORATORY | | | | + + + + + | [facility] | [address] | [place], [place] | | | [facility] | | [id number], [facility] | | | - LABORATORY | | | | + + + + + VAS Lower Extremity Venous Left (09/02/2011 4:14 PM PDT) + + | Specimen | + + | | + + + + + | Narrative | Performed At | + + + | Diagnostic Imaging Department | [facility] | | [address] [facility] | [facility] | | LEFT LOWER EXTREMITY VENOUS | DIAG IMG | | DUPLEX ULTRASOUND EXAMINATION: 09/02/2011 CLINICAL HISTORY: | | | LEFT LOWER EXTREMITY SWELLING AND PAIN. COMPARISON: None. | | | FINDINGS: The examination was limited due to the patient's large | | | size and diffusely swollen left low er extremity. Within this | | | limitation, the left common femoral vein, proximal greater saphenous | | | vein, and proximal deep and superficial femoral veins demonstrated | | | spontaneous flow and appeared to be com pressible, without visible | | | thrombus morphology in these segments. The popliteal vein also | | | demonstrat ed detectable flow and appeared normally compressible, | | | without visible thrombus morphology. Although some spontaneous | | | flow could be detected within remaining segments of the superficial | | | femoral vein, only partial compression of this structure could be | | | achieved because of the patient's body hab itus and swelling. The | | | patient's vein graft appears to be completely occluded. | | | IMPRESSION: ALTHOUGH NO DEFINITE EVIDENCE OF DVT COULD BE IDENTIFIED | | | WITHIN THE LEFT COMMON FEMORAL A ND EXTREME PROXIMAL PORTIONS OF THE | | | DEEP AND SUPERFICIAL FEMORAL AND GREATER SAPHENOUS VEIN, AND IN T HE | | | POPLITEAL VEIN. REMAINING PORTIONS OF THE SUPERFICIAL FEMORAL VEIN | | | WERE NOT SUFFICIENTLY WELL COMP RESSED TO EXCLUDE THE POSSIBILITY OF | | | THROMBUS IN THIS SEGMENT DUE TO THE PATIENT'S BODY HABITUS AND S | | | WELLING. FINDINGS WOULD HAVE TO BE CONSIDERED INCONCLUSIVE FOR DVT | | | WITHIN THE SUPERFICIAL FEMORAL VE IN DISTAL FROM ITS ORIGIN. | | | COMMENT: FINDINGS WERE REPORTED TO DR. LUGO IN THE EMERGENCY | | | DEPARTMENT AT THE CONCLUSION OF THE EXA MINATION. Dictated | | | Date/Time: 09/03/2011 08:55 Transcribed Date/Time: 09/03/2011 | | | 09:03 Learning Developer: <Electronically Signed by Phani | | | David Zuniga MD> 09/03/11 0470 | | + + + + + | Procedure Note | + + | José Luis, Rad Conversion - 05/20/2013 5:23 PM [facility] | | Diagnostic Imaging Department [address] [place] [address] | | LEFT LOWER EXTREMITY VENOUS DUPLEX ULTRASOUND | | EXAMINATION: 09/02/2011 CLINICAL HISTORY: LEFT LOWER EXTREMITY SWELLING AND PAIN. | | COMPARISON: None. FINDINGS: The examination was limited due to the patient's large | | size and diffusely swollen left lower extremity. Within this limitation, the left | | common femoral vein, proximal greater saphenous vein, and proximal deep and superficial | | femoral veins demonstrated spontaneous flow and appeared to be compressible, without | | visible thrombus morphology in these segments. The popliteal vein also demonstrated | | detectable flow and appeared normally compressible, without visible thrombus morphology. | | Although some spontaneous flow could be detected within remaining segments of the | | superficial femoral vein, only partial compression of this structure could be achieved | | because of the patient's body habitus and swelling. The patient's vein graft appears to | | be completely occluded. IMPRESSION: ALTHOUGH NO DEFINITE EVIDENCE OF DVT COULD BE | | IDENTIFIED WITHIN THE LEFT COMMON FEMORAL AND EXTREME PROXIMAL PORTIONS OF THE DEEP AND | | SUPERFICIAL FEMORAL AND GREATER SAPHENOUS VEIN, AND IN THE POPLITEAL VEIN. REMAINING | | PORTIONS OF THE SUPERFICIAL FEMORAL VEIN WERE NOT SUFFICIENTLY WELL COMPRESSED TO | | EXCLUDE THE POSSIBILITY OF THROMBUS IN THIS SEGMENT DUE TO THE PATIENT'S BODY HABITUS | | AND SWELLING. FINDINGS WOULD HAVE TO BE CONSIDERED INCONCLUSIVE FOR DVT WITHIN THE | | SUPERFICIAL FEMORAL VEIN DISTAL FROM ITS ORIGIN. COMMENT: FINDINGS WERE REPORTED TO | | DR. LUGO IN THE EMERGENCY DEPARTMENT AT THE CONCLUSION OF THE EXAMINATION. Dictated | | Date/Time: 09/03/2011 08:55Transcribed Date/Time: 09/03/2011 09:03Transcriptionist: | | <Electronically Signed by Phani Zuniga MD> 09/03/110 | |ND EXTREME PROXIMAL PORTIONS OF THE DEEP AND SUPERFICIAL FEMORAL AND GREATER SAPHENOUS VEIN , AND IN T | |HE POPLITEAL VEIN. REMAINING PORTIONS OF THE SUPERFICIAL FEMORAL VEIN WERE NOT SUFFICIENTLY WELL COMP | |RESSED TO EXCLUDE THE POSSIBILITY OF THROMBUS IN THIS SEGMENT DUE TO THE PATIENT'S BODY HAB ITUS AND S | |WELLING. FINDINGS WOULD HAVE TO BE CONSIDERED INCONCLUSIVE FOR DVT WITHIN THE SUPERFICIAL FEMORAL VE | |IN DISTAL FROM ITS ORIGIN. | | | |COMMENT: FINDINGS WERE REPORTED TO DR. LUGO IN THE EMERGENCY DEPARTMENT AT THE CONCLUSION OF THE EXA | |MINATION. | | | |Dictated Date/Time: 09/03/2011 08:55 | |Transcribed Date/Time: 09/03/2011 09:03 | |Learning Developer: | |<Electronically Signed by Phani Zuniga MD> 09/03/111709 | + + + +---------+ + + | Performing | Address | City/State/Zipcode | Phone Number | | Organization | | | | + +---------+ + + | [place] | | | | | [place] | | | | + +---------+ + + documented in this encounter Visit Diagnoses Not on filedocumented in this encounter"
--- OUTSIDE RECORDS SUMMARY | ~2019-11-10 | XMS | Encounter Summary ---
Demographics + + + | Address | [address] | | | [place] [address] | + + + | Home Phone | | + + + | Preferred Language | Unknown | + + + | Marital Status | | + + + | Methodist Affiliation | Unknown | + + + | Race | Unknown | + + + | Ethnic Group | Unknown | + + + Author + + + | Author | [facility] | | | and [place] | + + + | Organization | [facility] | | | [...] [place], | | | | | [place] [address] | | + + + + + | Josephine Meléndez | ECON | [address] | | | | | [place] | | | | | [address] | | + + + + + | Chiara Cid | ECON | [address] | | | | | [place], [place] | | | | | [address] | | + + + + + | Josephine Meléndez | ECON | Unknown | | + + + + + Care Team Providers + +------+ + | Care Tufter Operator Name | Role | Phone | + +------+ + | Doroteo Felder MD | PCP | | + +------+ + Reason for Visit + +--------+ + | Reason | Onset | Comments | | | Date | | + +--------+ + | Referral | 09/14/ | | | | 2013 | | + +--------+ + Encounter Details +--------+ + + + + | Date | Type | Department | Care Team | Description | +--------+ + + + + | 09/14/ | Telephone | [facility] | Quentin Gomez MD | Referral | | 2013 | | NEUROSURGERY [address] | | | | | [address] | [place] [address] | | | | | [place] | [phone] | | | | | [address] | | | | | | [phone] | | | +--------+ + + + [...] Notes Telephone Encounter - Emerita Silva - 09/14/2013 1:54 PM PDTReferral for right sided MANOJ at L4-5 & right sided MANOJ at L5-S1 faxed to Dr. Oscar. documented in this encounter Plan of Treatment Not on filedocumented as of this encounter Visit Diagnoses Not on filedocumented in this encounter"
--- OUTSIDE RECORDS SUMMARY | ~2019-11-10 | XMS | Encounter Summary ---
Demographics + + + | Address | [address] | | | [place] [address] | + + + | Home Phone | | + + + | Preferred Language | Unknown | + + + | Marital Status | | + + + | Hoahaoism Affiliation | Unknown | + + + | Race | Unknown | + + + | Ethnic Group | Unknown | + + + Author + + + | Author | [facility] | | | and [place] | + + + | Organization | [facility] | | [...] [place], | | | | | [place] [address] | | + + + + + | Josephine Meléndez | ECON | [address] | | | | | [place] | | | | | [address] | | + + + + + | Chiara Cid | ECON | [address] | | | | | [place], [place] | | | | | [address] | | + + + + + | Josephine Meléndez | ECON | Unknown | | + + + + + Care Team Providers + +------+ + | Care Tooth Cutter Pinion Name | Role | Phone | + +------+ + | Doroteo Felder MD | PCP | | + +------+ + Encounter Details +--------+ + + + + | Date | Type | Department | Care Team | Description | +--------+ + + + + | 07/11/ | Orders Only | [facility] | Conversion | | | 2015 | | [facility] [place] | Transaction, | | | | | [address] | Provider Unknown | | | | | [place], [place] | [phone] | | | | | [address] | | | | | | [phone] | | | +--------+ + + + [...] [place] | | | | | | [address] | | | | | | | | | | | | Isabella Tang MD | | | | | | [address] | | | | | | [facility] [address] | | | | | | [place] [address] | | | | | | [phone] | | | | | | | | +--------+---------+ + + + documented as of this encounter Procedures + +--------+ + + + | Procedure Name | Priori | Date/Time | Associated Diagnosis | Comments | | | ty | | | | + +--------+ + + + | EXTERNAL LAB: CBC | Routin | 07/12/2015 | | Results for this | | | e | 11:10 AM | | procedure are in the | | | | PDT | | results section. | + +--------+ + + + | LIPID PANEL | Routin | 07/12/2015 | | Results for this | | | e | 11:10 AM | | procedure are in the | | | | PDT | | results section. | + +--------+ + + + | VITAMIN B-12 | Routin | 07/12/2015 | | Results for this | | | e | 11:10 AM | | procedure are in the | | | | PDT | | results section. | + +--------+ + + + | VITAMIN D, | Routin | 07/12/2015 | | Results for this | | DEFICIENCY SCREEN | e | 11:10 AM | | procedure are in the | | (25-HYDROXY) | | PDT | | results section. | + +--------+ + + + | URINALYSIS, | Routin | 07/12/2015 | | Results for this | | MICROSCOPIC ONLY | e | 11:10 AM | | procedure are in the | | | | PDT | | results section. | + +--------+ + + + | MICROALBUMIN/CREATIN | Routin | 07/12/2015 | | Results for this | | INE RATIO, URINE | e | 11:10 AM | | procedure are in the | | TEST | | PDT | | results section. | + +--------+ + + + | MICROALBUMIN, URINE, | Routin | 07/12/2015 | | Results for this | | 24HR | e | 11:10 AM | | procedure are in the | | | | PDT | | results section. | + +--------+ + + + | CREATININE, URINE, | Routin | 07/12/2015 | | Results for this | | RANDOM | e | 11:10 AM | | procedure are in the | | | | PDT | | results section. | + +--------+ + + + | SEDIMENTATION RATE, | Routin | 07/12/2015 | | Results for this | | AUTOMATED | e | 11:10 AM | | procedure are in the | | | | PDT | | results section. | + +--------+ + + + | C-REACTIVE PROTEIN | Routin | 07/12/2015 | | Results for this | | | e | 11:10 AM | | procedure are in the | | | | PDT | | results section. | + +--------+ + + + | URIC ACID | Routin | 07/12/2015 | | Results for this | | | e | 11:10 AM | | procedure are in the | | | | PDT | | results section. | + +--------+ + + + | TSH | Routin | 07/12/2015 | | Results for this | | | e | 11:10 AM | | procedure are in the | | | | PDT | | results section. | + +--------+ + + + | IRON, TOTAL | Routin | 07/12/2015 | | Results for this | | | e | 11:10 AM | | procedure are in the | | | | PDT | | results section. | + +--------+ + + + | HEMOGLOBIN A1C | Routin | 07/12/2015 | | Results for this | | | e | 11:10 AM | | procedure are in the | | | | PDT | | results section. | + +--------+ + + + | GLUCOSE, RANDOM | Routin | 07/12/2015 | | Results for this | | | e | 11:10 AM | | procedure are in the | | | | PDT | | results section. | + +--------+ + + + | COMPREHENSIVE | Routin | 07/12/2015 | | Results for this | | METABOLIC PANEL | e | 11:10 AM | | procedure are in the | | | | PDT | | results section. | + +--------+ + + + documented in this encounter Results Microalbumin, Urine, 24Hr (07/12/2015 11:10 AM PDT) + + + + + + | Component | Value | Ref Range | Performed | Pathologist | | | | | At | Signature | + + + + + + | Microalbumi | 31.7 (A) | 0.0 - 2.0 mg/24 | EXTERNAL | | | n, Urine | | hrs | LAB | | | 24hr | | | | | + + + + + + + + | Specimen | + + | Urine specimen | | (specimen) | + + + +---------+ + + | Performing | Address | City/State/Zipcode | Phone Number | | Organization | | | | + +---------+ + + | EXTERNAL LAB | | | | + +---------+ + + Microalbumin/Creatinine Ratio, Urine (07/12/2015 11:10 AM PDT) + + + + + + | Component | Value | Ref Range | Performed | Pathologist | | | | | At | Signature | + + + + + + | ALBUMIN/CRE | 234.8 (A) | 0 - 30 | EXTERNAL | | | ATININE | | | LAB | | | RATIO.URINE | | | | | | .ORD.MG/G | | | | | | (ISABELLA) | | | | | | | | | | | | | | | | | + + + + + + + + | Specimen | + + | Urine specimen | | (specimen) | + + + +---------+ + + | Performing | Address | City/State/Zipcode | Phone Number | | Organization | | | | + +---------+ + + | EXTERNAL LAB | | | | + +---------+ + + Creatinine, Urine, Random (07/12/2015 11:10 AM PDT) + +-------+ + + + | Component | Value | Ref Range | Performed | Pathologist | | | | | At | Signature | + +-------+ + + + | Creatinine, | 135 | | EXTERNAL | | | 24H Ur | | | LAB | | + +-------+ + + + + + | Specimen | + + | Urine specimen | | (specimen) | + + + +---------+ + + | Performing | Address | City/State/Zipcode | Phone Number | | Organization | | | | + +---------+ + + | EXTERNAL LAB | | | | + +---------+ + + Vitamin D, Deficiency Screen (25-Hydroxy) (07/12/2015 11:10 AM PDT) + +-------+ + + + | Component | Value | Ref Range | Performed | Pathologist | | | | | At | Signature | + +-------+ + + + | Vit D, | 33 | 30 - 100 | EXTERNAL | | | 25-Hydroxy | | | LAB | | + +-------+ + + + + + | Specimen | + + | Blood specimen | | (specimen) | + + + +---------+ + + | Performing | Address | City/State/Zipcode | Phone Number | | Organization | | | | + +---------+ + + | EXTERNAL LAB | | | | + +---------+ + + Urinalysis, Microscopic Only (07/12/2015 11:10 AM PDT) + + + + + + | Component | Value | Ref Range | Performed | Pathologist | | | | | At | Signature | + + + + + + | Color | Yellow | | EXTERNAL | | | | | | LAB | | + + + + + + | Clarity, | Clear | | EXTERNAL | | | Urine | | | LAB | | + + + + + + | Specific | 1.014 | 1.005 - 1.030 | EXTERNAL | | | [place], | | | LAB | | | Urine | | | | | + + + + + + | Leukocyte | 2+ | | EXTERNAL | | | Esterase, | | | LAB | | | Urine | | | | | + + + + + + | Nitrite, | Negative | | EXTERNAL | | | Urine | | | LAB | | + + + + + + | Urobilinoge | Normal | | EXTERNAL | | | n, Urine | | | LAB | | + + + + + + | Protein, | | | EXTERNAL | | | Urine | | | LAB | | + + + + + + | pH, Urine | 5 | 5 - 9 | EXTERNAL | | | | | | LAB | | + + + + + + | Blood, | Negative | | EXTERNAL | | | Urine | | | LAB | | + + + + + + | Ketones | neg | | EXTERNAL | | | | | | LAB | | + + + + + + | Bilirubin, | Negative | | EXTERNAL | | | Urine | | | LAB | | + + + + + + | Glucose, | Negative | | EXTERNAL | | | Urine | | | LAB | | + + + + + + + + | Specimen | + + | Urine specimen | | (specimen) | + + + +---------+ + + | Performing | Address | City/State/Zipcode | Phone Number | | Organization | | | | + +---------+ + + | EXTERNAL LAB | | | | + +---------+ + + Sedimentation rate, automated (07/12/2015 11:10 AM PDT) + +-------+ + + + | Component | Value | Ref Range | Performed | Pathologist | | | | | At | Signature | + +-------+ + + + | Sed Rate | 12 | 0 - 15 | EXTERNAL | | | | | [...] | | | + +---------+ + + External Lab: CBC (07/12/2015 11:10 AM PDT) + + + + + + | Component | Value | Ref Range | Performed | Pathologist | | | | | At | Signature | + + + + + + | WBC | 5.7 | 4.5 - 11.0 10 | EXTERNAL | | | | | | LAB | | + + + + + + | Non- | 5.33 | 4.3 - 5.7 10 | EXTERNAL | | | Red Blood | | | LAB | | | Cells | | | | | | Counted | | | | | + + + + + + | Hemoglobin | 12.3 (A) | 13.5 - 18.0 | EXTERNAL | | | | | g/dL | LAB | | + + + + + + | Hematocrit, | 39.4 (A) | 41 - 50 % | EXTERNAL | | | POC | | | LAB | | + + + + + + | MCV | 73.9 (A) | 81 - 99 fL | EXTERNAL | | | | | | LAB | | + + + + + + | MCH | 23 (A) | 27 - 33 pg | EXTERNAL | | | | | | LAB | | + + + + + + | MCHC | 31 | 30 - 36 g/dL | EXTERNAL | | | | | | LAB | | + + + + + + | Platelet | 205 | 140 - 440 K/ L | EXTERNAL | | | Count | | | LAB | | | Plasma | | | | | + + + + + + | RDW-CV | 17.6 (A) | 10.5 - 15.0 % | EXTERNAL | | | | | | LAB | | + + + + + + | MPV | | fL | EXTERNAL | | | | | | LAB | | + + + + + + | Differentia | | | EXTERNAL | | | l Type | | | LAB | | + + + + + + | % Segmented | 40.9 | 39 - 80 % | EXTERNAL | | | | | | LAB | | | Neutrophils | | | | | + + + + + + | % | 46.0 (A) | 24 - 44 % | EXTERNAL | | | Lymphocytes | | | LAB | | + + + + + + | % Monocytes | 7.1 | 0 - 12 % | EXTERNAL | | | | | | LAB | | + + + + + + | % | 5.1 | 0 - 6 % | EXTERNAL | | | Eosinophils | | | LAB | | + + + + + + | % Basophils | 0.9 | 0 - 2 % | EXTERNAL | | | | | | LAB | | + + + + + + | Absolute | | / L | EXTERNAL | | | Segmented | | | LAB | | | Neutrophils | | | | | + + + + + + | Absolute | | / L | EXTERNAL | | | Lymphocytes | | | LAB | | + + + + + + | Absolute | | / L | EXTERNAL | | | Monocytes | | | LAB | | + + + + + + | Absolute | | / L | EXTERNAL | | | Eosinophils | | | LAB | | + + + + + + | Absolute | | / L | EXTERNAL | | | Basophils | | | LAB | | + + + + + + + + | Specimen | + + | Blood specimen | | (specimen) | + + + +---------+ + + | Performing | Address | City/State/Zipcode | Phone Number | | Organization | | | | + +---------+ + + | EXTERNAL LAB | | | | + +---------+ + + C-Reactive Protein (07/12/2015 11:10 AM PDT) + +-------+ + + + | Component | Value | Ref Range | Performed | Pathologist | | | | | At | Signature | + +-------+ + + + | CRP | 4.8 | 0 - 5 mg/dL | EXTERNAL | | | | | [...] | | | + +---------+ + + Uric Acid (07/12/2015 11:10 AM PDT) + +---------+ + + + | Component | Value | Ref Range | Performed | Pathologist | | | | | At | Signature | + +---------+ + + + | Uric Acid | 9.2 (A) | 4.4 - 7.6 | EXTERNAL | | | | | | LAB | | + +---------+ + + + + + | Specimen | + + | Blood specimen | | (specimen) | + + + +---------+ + + | Performing | Address | City/State/Zipcode | Phone Number | | Organization | | | | + +---------+ + + | EXTERNAL LAB | | | | + +---------+ + + TSH (07/12/2015 11:10 AM PDT) + +-------+ + + + | Component | Value | Ref Range | Performed | Pathologist | | | | | At | Signature | + +-------+ + + + | TSH | 2.02 | 0.270 - 4.20 | EXTERNAL | | | | | uIU/mL | LAB | | + +-------+ + + + + + | Specimen | + + | Blood specimen | | (specimen) | + + + +---------+ + + | Performing | Address | City/State/Zipcode | Phone Number | | Organization | | | | + +---------+ + + | EXTERNAL LAB | | | | + +---------+ + + Iron, Total (07/12/2015 11:10 AM PDT) + +-------+ + + + | Component | Value | Ref Range | Performed | Pathologist | | | | | At | Signature | + +-------+ + + + | Iron | 40.24 | 37 - 160 | EXTERNAL | | | | | [...] | | | + +---------+ + + Hemoglobin A1C (07/12/2015 11:10 AM PDT) + + + + + + | Component | Value | Ref Range | Performed | Pathologist | | | | | At | Signature | + + + + + + | Hemoglobin | 7.4Comment: Est avg | % | EXTERNAL | | | A1c | glucose 166 | | LAB | | + + + + + + + + | Specimen | + + | Blood specimen | | (specimen) | + + + +---------+ + + | Performing | Address | City/State/Zipcode | Phone Number | | Organization | | | | + +---------+ + + | EXTERNAL LAB | | | | + +---------+ + + Glucose, Random (07/12/2015 11:10 AM PDT) + +---------+ + + + | Component | Value | Ref Range | Performed | Pathologist | | | | | At | Signature | + +---------+ + + + | Glucose, | 191 (A) | 70 - 100 mg/dL | EXTERNAL | | | Fasting | | | LAB | | + +---------+ + + + + + | Specimen | + + | Blood specimen | | (specimen) | + + + +---------+ + + | Performing | Address | City/State/Zipcode | Phone Number | | Organization | | | | + +---------+ + + | EXTERNAL LAB | | | | + +---------+ + + Vitamin B-12 (07/12/2015 11:10 AM PDT) + +-------+ + + + | Component | Value | Ref Range | Performed | Pathologist | | | | | At | Signature | + +-------+ + + + | VITAMIN | 401.8 | 211 - 946 | EXTERNAL | | | B-12 | | | LAB | | + +-------+ + + + + + | Specimen | + + | Blood specimen | | (specimen) | + + + +---------+ + + | Performing | Address | City/State/Zipcode | Phone Number | | Organization | | | | + +---------+ + + | EXTERNAL LAB | | | | + +---------+ + + Lipid Panel (07/12/2015 11:10 AM PDT) + + + + + + | Component | Value | Ref Range | Performed | Pathologist | | | | | At | Signature | + + + + + + | Cholesterol | 199 | 200 mg/dL | EXTERNAL | | | | | | LAB | | + + + + + + | Triglycerid | 885 (A) | 30 - 150 mg/dL | EXTERNAL | | | es | | | LAB | | + + + + + + | HDL | 32.6 (A) | 40 mg/dl | EXTERNAL | | | | | | LAB | | + + + + + + | LDL, | | mg/dL | EXTERNAL | | | Calculated | | | LAB | | + + + + + + | LDl/HDL | | | EXTERNAL | | | Ratio | | | LAB | | + + + + + + | Chol/HDL | 6.1 (A) | 4.97 | EXTERNAL | | | Ratio | | | LAB | | + + + + + + | VLDL | | mg/dL | EXTERNAL | | | | | | LAB | | + + + + + + | Non HDL | 166 (A) | 130 | EXTERNAL | | | Chol. | | | LAB | | | (LDL+VLDL) | | | | | + + + + + + + + | Specimen | + + | Blood specimen | | (specimen) | + + + +---------+ + + | Performing | Address | City/State/Zipcode | Phone Number | | Organization | | | | + +---------+ + + | EXTERNAL LAB | | | | + +---------+ + + Comprehensive Metabolic Panel (07/12/2015 11:10 AM PDT) + + + + + + | Component | Value | Ref Range | Performed | Pathologist | | | | | At | Signature | + + + + + + | Glucose, | 191 (A) | 70 - 100 mg/dL | EXTERNAL | | | Fasting | | | LAB | | + + + + + + | BUN | 28 (A) | 6 - 23 mg/dL | EXTERNAL | | | | | | LAB | | + + + + + + | Creatinine | 1.25 (A) | 0.70 - 1.18 | EXTERNAL | | | | | mg/dL | LAB | | + + + + + + | BUN/Creatin | 22.4 | 6.0 - 28.6 | EXTERNAL | | | ine Ratio | | | LAB | | + + + + + + | Calcium | 9.0 | 8.4 - 10.2 | EXTERNAL | | | | | mg/dL | LAB | | + + + + + + | Protein, | 6.0 | 6.0 - 8.0 g/dL | EXTERNAL | | | Total | | | LAB | | + + + + + + | Albumin | 3.6 | 3.5 - 5.0 | EXTERNAL | | | | | | LAB | | + + + + + + | Globulin | 2.4 | 1.8 - 3.5 | EXTERNAL | | | | | | LAB | | + + + + + + | A/G Ratio | 1.5 | 1.1 - 2.4 | EXTERNAL | | | | | | LAB | | + + + + + + | Bilirubin | 0.4 | 0.0 - 1.2 mg/dL | EXTERNAL | | | Total | | | LAB | | + + + + + + | ALP, | 59 | 30 - 128 | EXTERNAL | | | External | | | LAB | | + + + + + + | ALT | 24 | 7 - 52 U/L | EXTERNAL | | | | | | LAB | | + + + + + + | AST | 28 | 13 - 39 U/L | EXTERNAL | | | | | | LAB | | + + + + + + | Na | 138 | 132 - 143 | EXTERNAL | | | | | mmol/L | LAB | | + + + + + + | K | 4.1 | 3.6 - 5.1 | EXTERNAL | | | | | mmol/L | LAB | | + + + + + + | Cl | 101 | 95 - 112 mmol/L | EXTERNAL | | | | | | LAB | | + + + + + + | CO2 | 29 | 19 - 31 | EXTERNAL | | | | | | LAB | | + + + + + + | Anion Gap | 12.1 | 7 - 21 mmol/L | EXTERNAL | | | | | | LAB | | + + + + + + | Estimated | 56 (A) | 60 mg/dL | EXTERNAL | | | GFR | | | LAB | | + + + + + [...]
--- OUTSIDE RECORDS SUMMARY | ~2019-11-10 | XMS | Encounter Summary ---
Demographics + + + | Address | [address] | | | [place] [address] | + + + | Home Phone | | + + + | Preferred Language | Unknown | + + + | Marital Status | | + + + | Anabaptist Affiliation | Unknown | + + + | Race | Unknown | + + + | Ethnic Group | Unknown | + + + Author + + + | Author | [facility] | | | and [place] | + + + | Organization | [facility] | | [...] [place], | | | | | [place] [address] | | + + + + + | Josephine Meléndez | ECON | [address] | | | | | [place] | | | | | [address] | | + + + + + | Chiara Cid | ECON | [address] | | | | | [place], [place] | | | | | [address] | | + + + + + | Josephine Mleéndez | ECON | Unknown | | + + + + + Care Team Providers + +------+ + | Care Senior Infrastructure Engineer Name | Role | Phone | [...] Thoracic or | [place], | [address] | | | | | lumbosacral | Mahesh Henderson MD | [place], | | | | | neuritis or | [address] | [place] | | | | | | [place] | [address] | | | | | radiculitis, | [place] | Phone: | | | | | unspecified | [address] | [phone] | | | | | Procedures | Phone: | Fax: | | | | | [place] INJECT | [phone] | [phone] | | | | | ANES/STEROID | Fax: | | | | | | FORAMEN | [phone] | | | | | | LUMBAR/SACRA | | | | | | | L W IMG | | | | | | | GUIDE ,1 | | | | | | | LEVEL [place] | | | | | | | TRIAMCINOLON | | | | | | | E ACET INJ | | | | | | | NOS, 10 MG | | | | | | | IA INJECT | | | | | | [...] + + | 10/06/ | Hospital | [facility] | Mahesh Oscar | Thoracic or | | 2014 | Encounter | MED CTR XRAY [address] | TMD [address] | lumbosacral neuritis | | | | [place] | [place], [place] | or radiculitis, | | | | [place] [address] | [address] | unspecified | | | | [phone] | | | | | | | [employer], [place] | | | | | | [...] of this encounter Miscellaneous Notes Miscellaneous - ONevolso SCAN PANCHO - 10/19/2013 12:00 AM PDT documented in [...] 10/06/2013 Transforaminal Epidural Steroid Injections Diagnosis: | [facility] | | Lumbar radiculopathy ICD-9 Code 724.4 Josy Cid presents | [facility] | | to the fluoroscopy suite for fluoroscopically-guided right L4-L5 | [facility] | | and L5-S1 transforaminal epidural steroid [...] | + + + + + | [facility] | [address] | [place] | [phone] | | [facility] | | [address] | | | - IMAGING | | [...]
--- OUTSIDE RECORDS SUMMARY | ~2019-11-10 | XMS | Clinical Summary ---
Demographics + + + | Address | [address] | | | [place] [address] | + + + | Home Phone | | + + + | Preferred Language | Unknown | + + + | Marital Status | | + + + | Mormon Affiliation | Unknown | + + + | Race | Unknown | + + + | Ethnic Group | Unknown | + + + Author + + + | Author | [facility] | | | and [place] | + + + | Organization | [facility] | | | [...] [place], | | | | | [place] [address] | | + + + + + | Josephine Meléndez | ECON | [address] | | | | | [place] | | | | | [address] | | + + + + + | Chiara Cid | ECON | [address] | | | | | [place], [place] | | | | | [address] | | + + + + + | Josephine Meléndez | ECON | Unknown | | + + + + + Care Team Providers + +------+ + | Care Database Dba Name | Role | Phone | + +------+ + | Jalen Cortes MD | PCP | | + +------+ + Allergies + + + + + + | Active Allergy | Reactions | Severity | Noted | Comments | | | | | Date | | + + + + + + | Duloxetine | Other (See Comments) | Medium | 12/04/19 | Prostate Occlusion | | | | | 12 | Prostate occlusion | + + + + + + | Flu Virus Vaccine | | | | Septic SX | + + + + + + | Levofloxacin | Other (See Comments) | Medium | 01/06/20 | Achilles pain | | | | | 12 | | + + + + + + | Lisinopril | Cough | Low | 12/04/19 | cough | | | | | 12 | | + + + + + + Medications + + + +---------+------+------+-------+ | Medication | Sig | Dispensed | Refills | Star | End | Statu | | | | | | t | Date | s | | | | | | Date | | | + + + +---------+------+------+-------+ | furosemide (LASIX) | Take 40 mg by mouth | | 0 | 09/1 | | Activ | | 40 mg tablet | Daily. | | | 3/20 | | e | | | | | | 12 | | | + + + +---------+------+------+-------+ | nitroglycerin | Dissolve 1 tablet | | 0 | 09/1 | | Activ | | (NITROSTAT) 0.4 mg | under tongue every 5 | | | 3/20 | | e | | SL tablet | minutes up to 3 | | | 12 | | | | | tablets. Call 911/ER | | | | | | | | if no relief. | | | | | | + + + +---------+------+------+-------+ | ONE TOUCH LANCETS | Use as directed | | 0 | 09/1 | | Activ | | MISC | | | | 3/20 | | e | | | | | | 12 | | | + + + +---------+------+------+-------+ | glucose blood | Use as directed | | 0 | 09/1 | | Activ | | test strips (ONE | | | | 3/20 | | e | | TOUCH TEST STRIPS) | | | | 12 | | | | strip | | | | | | | + + + +---------+------+------+-------+ | aspirin 81 mg EC | Take 81 mg by mouth | | 0 | 12/12 | | Activ | | tablet | Daily. | | | 320 | | e | | | | | | 12 | | | + + + +---------+------+------+-------+ | atorvaSTATin | Take 40 mg by mouth | | 0 | 1 | | Activ | | (LIPITOR) 40 mg | Daily. | | | 320 | | e | | tablet | | | | 12 | | | + + + +---------+------+------+-------+ | Cholecalciferol | Take 5,000 Units by | | 0 | | | Activ | | (D3 SUPER STRENGTH | mouth daily. | | | | | e | | PO) | | | | | | | + + + +---------+------+------+-------+ | famotidine | Take 40 mg by mouth | | 0 | | | Activ | | (PEPCID) 40 MG | daily. | | | | | e | | tablet | | | | | | | + + + +---------+------+------+-------+ | ferrous sulfate | Take 65 mg of iron | | 0 | | | Activ | | 324 (65 Fe) MG EC | by mouth 3 (three) | | | | | e | | tablet | times a week. | | | | | | + + + +---------+------+------+-------+ | insulin - MIX | Inject 30 Units into | | 0 | | | Activ | | insulin NPH-insulin | the skin 2 (two) | | | | | e | | regular 70/30 | times daily before | | | | | | | (HUMULIN, NOVOLIN | meals. Take 30 in am | | | | | | | 70/30) 100 units/mL | and 35 unites in pm | | | | | | | PEN | | | | | | | + + + +---------+------+------+-------+ | levothyroxine | 112 mcg | | 0 | | | Activ | | (SYNTHROID) 100 mcg | | | | | | e | | tablet | | | | | | | + + + +---------+------+------+-------+ | metFORMIN | Take 500 mg by mouth | | 0 | | | Activ | | (GLUCOPHAGE) 500 mg | 2 (two) times daily | | | | | e | | tablet | with meals. | | | | | | + + + +---------+------+------+-------+ | venlafaxine | Take 37.5 mg by | | 0 | | | Activ | | (EFFEXOR XR) 37.5 mg | mouth daily with | | | | | e | | 24 hr capsule | breakfast. | | | | | | + + + +---------+------+------+-------+ | indomethacin | Take 25 mg by mouth | | 0 | | | Activ | | (INDOCIN) 25 mg | as needed. | | | | | e | | capsule | | | | | | | + + + +---------+------+------+-------+ | warfarin | 5 mg daily | | 0 | | | Activ | | (COUMADIN) 5 mg | | | | | | e | | tablet | | | | | | | + + + +---------+------+------+-------+ | hydrOXYzine | Take 50 mg by mouth | | 0 | | | Activ | | (VISTARIL) 50 MG | as needed for | | | | | e | | capsule | Itching (PRN for | | | | | | | | Insomnia). | | | | | | + + + +---------+------+------+-------+ Active Problems + + + | Problem | Noted Date | + + + | Encounter for pre-operative cardiovascular clearance | 07/22/2018 | + + + | Hypothyroidism | 07/22/2018 | + + + | Leukocytosis | 07/22/2018 | + + + | Atrial fibrillation | 05/14/2015 | + + + + + | Overview: Last Assessment & Plan: Chronic atrial | | fibrillation, CHADS2 Score 3 (CHF, HTN, DM), heart rate | | controlled, anticoagulated with warfarin, managed by PCP. Denies | | any new visual disturbances, dysarthria, dysphasia, lateralizing | | signs or symptoms. No significant bleeding or bruising. | + + + + + | Cardiomyopathy | 05/14/2015 | + + + + + | Overview: Last Assessment & Plan: Non-ischemic | | Cardiomyopathy, LVEDd 65mm, LVEF 40-45%. 75yo WM, with | | history of cardiomyopathy, CHF, admits a mild degree of | | exertional shortness of breath and fatigue, but there is no | | orthopnea or PND, no chest discomfort. He is aware of the | | irregular pulse, but unaware of any palpitations, no | | lightheadedness. Denies any new visual disturbances, dysarthria, | | dysphasia, lateralizing signs or symptoms. No significant | | bleeding or bruising. He does have chronic edema, especially the | | left leg. His cardiac condition is otherwise stable, the | | results of his recent stress test and echocardiogram are reviewed | | with him and his . Tolerating medications. 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 | + + + + + | Hyperlipidemia | 05/14/2015 | + + + + + | Overview: Last Assessment & Plan: Hyperlipidemia, continue | | current meds at current doses (atorvastatin). Labs reviewed with [...] + + + + + | Overview: Last Assessment & Plan: Hypertension, controlled, | | continue current meds at current dose (furosemide, metoprolol, | | losartan). . 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 Chronic lymphedema with | | cellulitis. | + + + + + | Type 2 diabetes mellitus with chronic kidney disease | 05/14/2015 | + + + + + | Overview: Last Assessment & Plan: | | DM2, managed by PCP. | + + + + + | Chronic combined systolic and diastolic congestive heart failure | 02/23/2013 | + + + | Other chest pain | 02/23/2013 | + + + | Palpitations | 02/23/2013 | + + + | DDD (degenerative disc disease), lumbar | 02/15/2013 | + + + | Facet arthropathy, lumbar | 02/15/2013 | + + + | Lumbar radicular syndrome | 02/15/2013 | + + + | Spinal stenosis in cervical region | 02/15/2013 | + + + | Neuropathy, diabetic | 02/15/2013 | + + + | Cellulitis | 01/06/2012 | + + + | LYMPHEDEMA | 09/17/2011 | + + + | ATHEROSCLEROSIS [place] ART EXTREMITIES UNSPEC | 09/17/2011 | + + + + + | Overview: ICD-10 Record update | + + Family History + + +------+ + | Medical History | Relation | Name | Comments | + + +------+ + | Heart defect | Brother | | | + + +------+ + | High blood pressure | Brother | | | + + +------+ + | Other (see comment) | Brother | | Back problems | + + +------+ + | Stroke | Brother | | | + + +------+ + | Heart disease | Brother | | | + + +------+ + | Stroke | Father | | | + + +------+ + | Coronary artery | Mother | | | | disease | | | | + + +------+ + | Heart defect | Mother | | | + + +------+ + | Heart disease | Mother | | | + + +------+ + | High cholesterol | Mother | | | + + +------+ + | Hypertension | Mother | | | + + +------+ + | High blood pressure | Sister | | | + + +------+ + | Diabetes | Son | | | + + +------+ + | High blood pressure | Son | | | + + +------+ + + +------+ + + | Relation | Name | Status | Comments | + +------+ + + | Brother | | | Heart Attack | | | | (Age | | | | | 61) | | + +------+ + + | Brother | | | | + +------+ + + | Brother | | | | + +------+ + + | Brother | | | | + +------+ + + | Brother | | | | + +------+ + + | Father | | | CVA | | | | (Age | | | | | 49) | | + +------+ + + | Mother | | | heart disease | | | | (Age | | | | | 51) | | + +------+ + + | Sister | | | | + +------+ + + | Son | | | | + +------+ + + | Son | | | | + +------+ + + Social [...] + + + | Blood Pressure | 165/79 | 01/12/2019 4:33 PM | | | | | PDT | | + + + + + | Pulse | 81 | 01/12/2019 4:33 PM | | | | | PDT | | + + + + + | Temperature | 36.6 C (97.9 F) | 01/12/2019 4:33 PM | | | | | PDT | | + + + + + | Respiratory Rate | 16 | 01/12/2019 4:33 PM | | | | | PDT | | + + + + + | Oxygen Saturation | 96% | 01/12/2019 4:33 PM | | | | | PDT [...] Health Maintenance | Due Date | Last | Comments | | | | Done | | + + + + + | Hepatitis C | | | | | Screening | 1 | | | + + + + + | Medication | | | | | Management | 1 | | | + + + + + | Diabetic Eye Exam | | | | | | 9 | | | + + + + + | Diabetic Foot Exam | | | | | | 9 | | | + + + + + | Vaccine: | | | | | Dtap/Tdap/Td (1 - | 0 | | | | Tdap) | | | | + + + + + | Vaccine: | | | | | Pneumococcal 65+ (1 | 6 | | | | of 1 - PPSV23) | | | | + + + + + | Vaccine: Zoster (2 | | 10/20/19 | | | of 3) | 7 | 07 | | + + + + + | Med Mgmt: INR | | 07/12/19 | | | | 6 | 16, | | | | | 11/10/19 | | | | | 12, | | | | | 11/09/19 | | | | | 12, | | | | | Addition | | | | | al | | | | | history | | | | | exists | | + + + + + | Hemoglobin A1c | | 07/12/19 | | | Screening | 6 | 16 | | + + + + + | Med Mgmt: HBA1C | | 07/12/19 | | | | 6 | 16 | | + + + + + | Med Mgmt: BUN | | 07/12/19 | | | | 7 | 16, | | | | | 11/10/19 | | | | | 12, | | | | | 11/09/19 | | | | | 12, | | | | | Addition | | | | | al | | | | | history | | | | | exists | | + + + + + | Med Mgmt: Cr | | 07/12/19 | | | | 7 | 16, | | | | | 11/10/19 | | | | | 12, | | | | | 11/09/19 | | | | | 12, | | | | | Addition | | | | | al | | | | | history | | | | | exists | | + + + + + | Med Mgmt: K | | 07/12/19 | | | | 7 | 16, | | | | | 11/10/19 | | | | | 12, | | | | | 11/09/19 | | | | | 12, | | | | | Addition | | | | | al | | | | | history | | | | | exists | | + + + + + | Med Mgmt: Na | | 07/12/19 | | | | 7 | 16, | | | | | 11/10/19 | | | | | 12, | | | | | 11/09/19 | | | | | 12, | | | | | Addition | | | | | al | | | | | history | | | | | exists | | + + + + + | Med Mgmt: TSH | | 07/12/19 | | | | 7 | 16 | | + + + + + | Med Mgmt: eGFR | | 07/12/19 | | | | 7 | 16, | | | | | 11/10/19 | | | | | 12, | | | | | 11/09/19 | | | | | 12, | | | | | Addition | | | | | al | | | | | history | | | | | exists | | + + + + + | Adult Annual | | | | | Wellness Visit | 9 | | | + + + + + Results Not on filefrom Last 3 Months Insurance + +--------+ +--------+ +---------+--------+ | Payer | Benefi | Subscriber | Effect | Phone | Address | Type | | | t Plan | ID | clarence | | | | | | / | | Dates | | | | | | Group | | | | | | + +--------+ +--------+ +---------+--------+ | MEDICARE | MEDICA | [id number] | | [phone] | | Medica | | | RE | | 013-Pr | 5 | | re | | | PART A | | esent | | | | | | AND B | | | | | | + +--------+ +--------+ +---------+--------+ | [employer] | TRANSA | [id number] | 10/12/19 | | | Indemn | | INSURANCE | MERICA | | 19-Pre | | | ity | | | LIFE | | sent | | | | | | MS | | | | | | + +--------+ +--------+ +---------+--------+ + +--------+ +--------+ + + | Guarantor Name | Accoun | Relation to | Date | Phone | Billing Address | | | t Type | Patient | of | | | | | | | | | | + +--------+ +--------+ + + | Josy Cid | Person | Self | [birth year] | [address] | | | al/Fam | | 1941 | [phone] | [place], [place] | | | [place] | | | 5 (Home) | [address] | + +--------+ +--------+ + + | Josy Cid | Person | Self | [birth year] | [address] | | | al/Fam | | 1941 | [phone] | [place] | | | [place]la | | | 5 (Home) | [address] | + +--------+ +--------+ + + Advance Directives + + + + + | Type | Date Recorded | Patient | Explanation | | | | 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
--- OUTSIDE RECORDS SUMMARY | ~2019-11-10 | XMS | Encounter Summary ---
Demographics + + + | Address | [address] | | | [place] [address] | + + + | Home Phone [...] [place], | | | | | [place] [address] | | + + + + + | Josephine Meléndez | ECON | [address] | | | | | [place] | | | | | [address] | | + + + + + | Chiara Cid | ECON | [address] | | | | | [place], [place] | | | | | [address] | | + + + + + | Josephine Meléndez | ECON | Unknown | | + + + + + Care Team Providers + +------+ + | Care Site Leasing Agent Name | Role | Phone | + +------+ + | Doroteo Felder MD | PCP | | + +------+ + Encounter Details +--------+ + + + + | Date | Type | Department | Care Team | Description | +--------+ + + + + | 01/14/ | Orders Only | [facility] | Quentin Gomez MD | Back pain (Primary | | 2012 | | NEUROSURGERY [address] | [address] | Dx) | | | | [address] | [place] [address] | | | | | [place] | [phone] | | | | | [address] | | | | | | [phone] | | | +--------+ + + + [...] 2019 | Visit | | [address] | | | | | | [place] | | | | | | [address] | | | | | | | | | | | | Isabella Tang MD | | | | | | [address] | | | | | | [address] [address] | | | | | | [place] [address] | | | | | | [phone] | | | | | | | | +--------+---------+ + + + documented as of this encounter Results XR Lumbar Spine 4 + Vw (02/15/2013 11:46 AM PST) + + | Specimen | + + | | + + + + + | Narrative | Performed At | + + + | [facility] | [place] | | Department [address] [place] | [facility] | | [ rep [address]] [ rep [facility] | [facility] | | st zip] Signed | - IMAGING | | | | | Patient Name: JOSY CID Physician: | | | CHUY. : 1940 Age: 72 Sex: M Unit #: [id number] | | | Exam Date: 02/15/13 Location: [facility] [place] | | | Report #: [id number] Page: | | | %(RAD)RES..mtdd.print.filter("pg") of %(RAD) | | | RES..mtdd.print.filter("tpg") | | | | | | Accession Number: [id number] | | | LUMBAR SPINE HISTORY: PAIN. COMPARISON: MRI | | | 12/22/2012. FINDINGS: Four views of the lumbar spine were | | | obtained. Vertebral body heights are preserved with no evidence | | | for compression fractures. There are small anterior osteophytes from | | | L3 through L5. No instability is observed with flexion and | | | extension. Moderate to severe disk height loss is at L4-5. The | | | facet joints are intact with no evidence for spondylolysis. Facet | | | sclerosis is at L4-5 and L5-S1. Left pelvic clips are seen. | | | IMPRESSION: 1. DEGENERATIVE CHANGES DESCRIBED ABOVE | | | WITH NO EVIDENCE FOR INSTABILITY. <<Signature | | | on File>> | | | Devendra | | | MD Wali02/15/13 [id number] <Electronically signed by Devendra Keyes MD> | | | Devendra Keyes MD 02/15/13 1146 Salt Manager: | | | Marta Ash02/15/13 1325 Quentin Gomez MD | | | | | + + + + + + + + | Performing | Address | City/State/Zipcode | Phone Number | | Organization | | | | + + + + + | [facility] | [address] | [place] | [phone] | | [facility] | | [address] | | | - IMAGING | | | | + + + + + documented in this encounter Visit Diagnoses + + | Diagnosis | + + | Back pain - Primary Backache, unspecified | + + documented in this encounter
--- OUTSIDE RECORDS SUMMARY | ~2019-11-10 | XMS | Encounter Summary ---
Demographics + + + | Address | [address] | | | [place] [address] | + + + | Home Phone | | + + + | Preferred Language | Unknown | + + + | Marital Status | | + + + | Catholic Affiliation | Unknown | + + [...] [place], | | | | | [place] [address] | | + + + + + | Josephine Meléndez | ECON | [address] | | | | | [place] | | | | | [address] | | + + + + + | Chiara Cid | ECON | [address] | | | | | [place], [place] | | | | | [address] | | + + + + + | Josephine Meléndez | ECON | Unknown | | + + + + + Care Team Providers + +------+ + | Care Paver Layer Name | Role | Phone | + [...] | | [address] | [place] [address] | spine MRI) | | | | [place] | [phone] | | | | | [address] | | | | | | [phone] | | | +--------+ + + + [...] PSTCervical spine MRI disc r [facility] from [facility]. Their system is currently down and they are unable to send imaging to i-site at this time. They will fax a report. MRI done 02/24/13. ANA ROSA SILVA documented in this enc ounter Plan of Treatment +--------+---------+ + + + | Date | Type | Specialty | Care Team | Description | +--------+---------+ + + + | 11/09/ | Office | Wound Care | Armando Lopez V, | | | 2019 | Visit | | [address] | | | | | | [place] | | | | | | [address] | | | | | | | | | | | | Isabella Tang MD | | | | | | [address] | | | | | | [place] | | | | | | [place] [address] | | | | | | [phone] | | | | | | | | +--------+---------+ + + + documented as of this encounter Visit Diagnoses Not on filedocumented in this encounter"
--- OUTSIDE RECORDS SUMMARY | ~2019-11-10 | XMS | Clinical Summary ---
Demographics + + + | Address | [address] | | | [place] [address] | + + + | Home Phone | | + + + | Preferred Language | Unknown | + + + | Marital Status | Single | + + + | Gnosticism Affiliation | NON | + + + [...] + | Chiara Cid | ECON | [address] | | | | | [place], | | | | | [place] [address] | | + + + + + Care Team Providers + +------+ + | Care Marine Habitat Resource Specialist Name | Role | Phone | + +------+ + | Doroteo Felder MD | PCP | | + +------+ + Source Comments BETH is fully live on both [facility] and [facility] In[facility] Allergies No Known Allergies Medications + + [...] | | | | | | | [address] | | + +--------+ +--------+ + +--------+ [...] | 1941 | [phone] | [place] [address] | | | [place] | | | [...]
--- OUTSIDE RECORDS SUMMARY | ~2019-11-10 | XMS | Encounter Summary ---
Demographics + + + | Address | [address] | | | [place] [address] | + + + | Home Phone | | + + + | Preferred Language | Unknown | + + + | Marital Status | | + + + | Methodist Affiliation | Unknown | + + + | Race | Unknown | + + + | Ethnic Group | Unknown | + + + Author + + + | Author | [facility] | | | and [place] | + + + | Organization | [facility] | | | [...] [place], | | | | | [place] [address] | | + + + + + | Josephine Meléndez | ECON | [address] | | | | | [place] | | | | | [address] | | + + + + + | Chiara Cid | ECON | [address] | | | | | [place], [place] | | | | | [address] | | + + + + + | Josephine Meléndez | ECON | Unknown | | + + + + + Care Team Providers + +------+ + | Care Air Director Name | Role | Phone | + +------+ + | Doroteo Felder MD | PCP | | + +------+ + Encounter Details +--------+ + + + + | Date | Type | Department | Care Team | Description | +--------+ + + + + | 02/15/ | [facility] | [facility] | Quentin Gomez MD | Back pain | | 2012 | Encounter | MED CTR XRAY [address] | [address] | | | | | [place] | [place] [address] | | | | | [place] [address] | [phone] | | | | | [phone] | | | +--------+ + + + [...] + +--------+ + + + | XR LUMBAR SPINE 4 + | Routin | 02/15/2013 | Back pain | Results for this | | VW | e | 11:46 AM | | procedure are in the | | | | PST | | results section. | + +--------+ + + + documented in this encounter Results XR Lumbar Spine 4 + Vw (02/15/2013 11:46 AM PST) + + | Specimen | + + | | + + + + + | Narrative | Performed At | + + + | [facility] | [place] | | Department [address] [place] [address] | [facility] | | [ rep [address]] [ rep [facility] | | [facility]] Signed | - IMAGING | | | | | Patient Name: JOSY CID Physician: | | | DYAN : 1940 Age: 72 Sex: M Unit #: [id number] | | | Exam Date: 02/15/13 Location: [facility] | | | Report #: [id number] Page: | | | %(RAD)RES..mtdd.print.filter("pg") of %(RAD) | | | RES..mtdd.print.filter("tpg") | | | | | | Accession Number: [id number] | | | LUMBAR SPINE HISTORY: PAIN. [...] | Devendra | | | MD Wali02/15/13 5958 <Electronically signed by Devendra Keyes MD> | | | Devendra Keyes MD 02/15/13 1211 Geographic Area Intelligence Officer: | | | Marta Ash02/15/13 1325 Quentin Gomez MD | | | | | + + + + + + + + | Performing | Address | City/State/Zipcode | Phone Number | | Organization | | | | + + + + + | [facility] | [address] | [place] | [phone] | | [facility] | | [address] | | | - IMAGING | | | | + + + + + documented in this encounter Visit Diagnoses + + | Diagnosis | + + | Back pain Backache, unspecified | + + documented in this encounter
--- OUTSIDE RECORDS SUMMARY | ~2019-11-10 | XMS | Encounter Summary ---
Demographics + + + | Address | [address] | | | [place] [address] | + + + | Home Phone | | + + + | Preferred Language | Unknown | + + + | Marital Status | | + + + | Latter Day Affiliation | Unknown | + + + | Race | Unknown | + + + | Ethnic Group | Unknown | + + + Author + + + | Author | [facility] | | | and [place] | + + + | Organization | [facility] | | | [...] [place], | | | | | [place] [address] | | + + + + + | Josephine Meléndez | ECON | [address] | | | | | [place] | | | | | [address] | | + + + + + | Chiara Cid | ECON | [address] | | | | | [place], [place] | | | | | [address] | | + + + + + | Josephine Meléndez | ECON | Unknown | | + + + + + Care Team Providers + +------+ + | Care Creative Writing Teacher Name | Role | Phone | [...] | NEUROSURGERY [address] | [address] | | | | | [address] | [place] [address] | | | | | [place] | [phone] | | | | | [address] | | | | | | [phone] | | | +--------+ + + + [...] [place] | | | | | | [address] | | | | | | | | | | | | Isabella Tang MD | | | | | | [facility] | | | | | | [facility] [address] | | | | | | [place] [address] | | | | | | [phone] | | | | | | | | +--------+---------+ + + + documented as of this encounter Visit Diagnoses Not on filedocumented in this encounter"
--- OUTSIDE RECORDS SUMMARY | ~2019-11-10 | XMS | Encounter Summary ---
Demographics + + + | Address | [address] | | | [place] [address] | + + + | Home Phone | | + + + | Preferred Language | Unknown | + + + | Marital Status | | + + + | Temple Affiliation | Unknown | + + + | Race | Unknown | + + + | Ethnic Group | Unknown | + + + Author + + + | Author | [facility] | | | and [place] | + + + | Organization | [facility] | | | and [...] [place], | | | | | [place] [address] | | + + + + + | Josephine Meléndez | ECON | [address] | | | | | [place] | | | | | [address] | | + + + + + | Deon Cid | ECON | [address] | | | | | [place], [place] | | | | | [address] | | + + + + + | Josephine Meléndez | ECON | Unknown | | + + + + + Care Team Providers + +------+ + | Care Archeologist Classical Name | Role | Phone | + +------+ + | Jalen Cortes MD | PCP | | + +------+ + Reason for Visit +---------+--------+ + | Reason | Onset | Comments | | | Date | | +---------+--------+ + | Sales Performance Analyst | 01/13/ | | | | 2019 | | +---------+--------+ + Encounter Details +--------+ + + + + | Date | Type | Department | Care Team | Description | +--------+ + + + + | 01/13/ | Telephone | [facility] | Conrado Mckeon | Sales Performance Analyst | | 2018 | | ORTHOPEDIC SURGERY | MD Maldonado [address] | | | | | [address] | [place] | | | | | [place] | [address] | | | | | [address] | | | | | | [phone] | | | +--------+ + + + [...] 10:57 AM PDTTelephone Encounter - Eda Ward Maintenance Scheduler - 01/17/2019 9:30 AM PDTSee below elephone Encounter - David Sousa MD - 01/14/2019 2:58 PM PDTI'm happy to see him. He can come in when we have ti me. elephone Encounter - Briana Quinn - 01/14/2019 10:[address] Sousa to review.Electro nically signed by Briana Quinn at 01/14/2019 10:36 AM PDTTelephone Encounter - Anthony, S matthew, Maintenance Scheduler - 01/14/2019 9:[address] Mckeon says that [facility] Electronically signed by Eda Anthony Maintenance Scheduler at 2018 9:00 AM PDTTelephone Encounter - Eda Anthony Maintenance Scheduler - 01/14/2019 8:20 A M PDTOK to see Dr. Sousa or would you like to see patient? elephone Encounter - Zeynep Caraballo - 01/13/2019 3:56 PM PDTPatient was seen at: [facility] Body Part Injured: Post-traumatic osteoarthritis of left shoulder Injury occurred on:ON GOING ISSUE How did injury occur: YRS AGO FELL OFF ROOF Is this a work Injury: NO Imaging: YES MARIA DTON XRAY WAS NOT DONE IN OUR Splint/Sling/boot: NO Have you even been seen by our providers: NO Caller name and phone number: DR. MCKEON WAS VICE PRESIDENT OF NURSING. WOULD LIKE TO SEE DR. SOUSA FOR SHOULDER PLEASE CALL AND ADVISE [phone] DEON documented in this encou nter Plan of Treatment Not on filedocumented as of this encounter Visit Diagnoses Not on filedocumented in this encounter"
--- OUTSIDE RECORDS SUMMARY | ~2019-11-10 | XMS | Encounter Summary ---
Demographics + + + | Address | [address] | | | [place] [address] | + + + | Home Phone | | + + + | Preferred Language | Unknown | + + + | Marital Status | | + + + | Protestant Affiliation | Unknown | + + + | Race | Unknown | + + + | Ethnic Group | Unknown | + + + Author + + + | Author | [facility] | | | and [place] | + + + | Organization | [facility] | | | [...] [place], | | | | | [place] [address] | | + + + + + | Josephine Meléndez | ECON | [address] | | | | | [place] | | | | | [address] | | + + + + + | Chiara Cid | ECON | [address] | | | | | [place], [place] | | | | | [address] | | + + + + + | Josephine Meléndez | ECON | Unknown | | + + + + + Care Team Providers + +------+ + | Care Lumber Kiln Operator Name | Role | Phone | + +------+ + | Doroteo Felder MD | PCP | | + +------+ + Encounter Details +--------+ + + + + | Date | Type | Department | Care Team | Description | +--------+ + + + + | 11/02/ | Orders Only | [facility] | Provider, | | | 2018 | | [facility] GENER[facility] OP | [address] | | | | | [address] | [address] | | | | | [address] [place], [place] | [place] [address] | | | | | [address] | | | | | | [phone] | | | +--------+ + + + [...]
--- OUTSIDE RECORDS SUMMARY | ~2019-11-10 | XMS | Encounter Summary ---
Demographics + + + | Address | [address] | | | [place] [address] | + + + | Home Phone | | + + + | Preferred Language | Unknown | + + + | Marital Status | | + + + | Hoahaoism Affiliation | Unknown | + + + | Race | Unknown | + + + | Ethnic Group | Unknown | + + + Author + + + | Author | [facility] | | | and [place] | + + + | Organization | [facility] | | [...] [place], | | | | | [place] [address] | | + + + + + | Josephine Meléndez | ECON | [address] | | | | | [place] | | | | | [address] | | + + + + + | Chiara Cid | ECON | [address] | | | | | [place], [place] | | | | | [address] | | + + + + + | Josephine Meléndez | ECON | Unknown | | + + + + + Care Team Providers + +------+ + | Care Industrial Maintenance Millwright Name | Role | Phone | + +------+ + | Doroteo Felder MD | PCP | | + +------+ + Encounter Details +--------+ + + + + | Date | Type | Department | Care Team | Description | +--------+ + + + + | 02/02/ | Orders Only | [facility] | Kristen Berry | | | 2017 | | [address] | | | | | [address] | [address] | | | | | [place], [place] | [place] [address] | | | | | [address] | [phone] | | | | | [phone] | | | +--------+ + + + [...] [place] | | | | | | [id number] | | | | | | | | | | | | Isabella Tang MD | | | | | | [address] | | | | | | [facility] [address] | | | | | | [place] [address] | | | | | | [phone] | | | | | | | | +--------+---------+ + + + documented as of this encounter Procedures + +--------+ + + + | Procedure Name | Priori | Date/Time | Associated Diagnosis | Comments | | | ty | | | | + +--------+ + + + | ECHO INTERPRETATION | Routin | 02/02/2017 | | Results for this | | OF OUTSIDE FILMS | e | 3:22 PM | | procedure are in the | | | | PDT | | results section. | + +--------+ + + + documented in this encounter Results ECHO Interpretation of Outside Films (02/02/2017 3:22 PM PDT) + + | Specimen | + + | | + + + + + | Impressions | Performed At | + + + | 1. The left ventricle is moderately dilated. Overall left | | | ventricular systolic function is moderately impaired with, an EF | | | between 35 - 40%. 2. Pseudonormal LV diastolic filling pattern, | | | consistent with elevated LA pressure and moderate dysfunction (Grade | | | II). 3. The right ventricle is normal in size and function. 4. The | | | left atrium is moderately enlarged. The right atrium is mildly | | | enlarged. 5. No significant valvular abnormality. 6. There are no | | | signfiicant changes noted in comparison to the previous | | | echocardiographic study, done 05/16/15. | | + + + + + + | Narrative | Performed At | + + + | Patient Name: Kranthi Cid Date of : 1940 | | | Performing Physician: RODRIGUEZ JUNG MD | | | | | | INDICATIONS A-Fib, HTN CONCLUSIONS 1. | | | The left ventricle is moderately dilated. Overall left ventricular | | | systolic function is moderately impaired with, an EF between 35 - 40%. | | | 2. Pseudonormal LV diastolic filling pattern, consistent with | | | elevated LA pressure and moderate dysfunction (Grade II). 3. The | | | right ventricle is normal in size and function. 4. The left atrium is | | | moderately enlarged. The right atrium is mildly enlarged. 5. No | | | significant valvular abnormality. 6. There are no signfiicant changes | | | noted in comparison to the previous echocardiographic study, done | | | 05/16/15. FINDINGS -------- ECG rhythm: Sinus rhythm with | | | irregular beats with periods of paroxysmal atrial fibrillation. | | | Study: A 2-dimensional transthoracic echocardiogram with m-mode, | | | spectral and color flow Doppler was perfomed. Study: This was a | | | technically adequate study. Left Ventricle: Overall left ventricular | | | systolic function is moderately impaired with, an EF between 35 - 40 | | | %. Left Ventricle: The left ventricle is moderately dilated. Left | | | Ventricle: There is mild concentric left ventricular hypertrophy. | | | Left Ventricle: There is moderate global hypokinesis of LV | | | contractility. Left Ventricle: Pseudonormal LV diastolic filling | | | pattern, consistent with elevated LA pressure and moderate dysfunction | | | (Grade II). Right Ventricle: The right ventricle is normal in size | | | and function. Left Atrium: The left atrium is moderately enlarged. | | | Right Atrium: The right atrium is mildly enlarged. Aortic Valve: The | | | aortic valve is trileaflet and appears structurally normal. Aortic | | | Valve: The aortic valve is mildly calcified. Aortic Valve: Trace | | | amount of aortic regurgitation. Aortic Valve: There is no evidence of | | | aortic stenosis. Mitral Valve: The mitral valve is normal. Mitral | | | Valve: There is trace mitral regurgitation. Mitral Valve: Mild mitral | | | annular calcification present. Tricuspid Valve: The tricuspid valve | | | appears structurally normal. Tricuspid Valve: Trace tricuspid | | | regurgitation present. Tricuspid Valve: Pulmonary artery systolic | | | pressure could not be assessed due to the absence of adequate TR jet. | | | Pulmonic Valve: The pulmonic valve was not well visualized. | | | Pericardium: There is a trivial pericardial effusion present. | | | IVC/Hepatic Veins: The IVC is normal size (1.5-2.5cm) and collapses | | | >50% with sniff, consistent with central venous pressures of 5-10mmHg. | | | Aorta: The aortic root, ascending aorta and aortic arch are normal. | | | Mass: No mass visualized Thrombus: No clot visualized Thrombus: No | | | vegetation visualized. Septum: No ASD observed. Septum: No VSD | | | observed. MEASUREMENTS Ao asc: 3.79 cm Ao | | | Diam: 3.29 cm Ao sinus: 3.[address] junct: 3.26 cm IVC: | | | 2.11 cm LA Diam: 5.60 cm LA Major: 7.09 cm EDV(Teich): | | | 188.37 ml IVSd: 1.27 cm LVIDd: 6.12 cm LVPWd: 1.26 cm | | | LVOT Area: 4.73 cm2 LVOT Diam: 2.45 cm %FS: 17.26 % | | | EF(Teich): 35.34 % ESV(Teich): 121.79 ml LVIDs: 5.06 cm | | | SV(Teich): 66.58 ml RA Major: 5.52 cm RV Major: 6.63 cm | | | RVIDd: 2.77 cm LVEF MOD A2C: 39.32 % SV MOD A2C: 35.97 ml | | | LVEF MOD A4C: 34.62 % SV MOD A4C: 43.66 ml EF Biplane: | | | 35.57 % LVEDV MOD BP: 109.20 ml LVESV MOD BP: 70.36 ml LVEDV | | | MOD A2C: 91.47 ml LVLd A2C: 7.97 cm LVEDV MOD A4C: 126.10 | | | ml LVLd A4C: 8.38 cm LVESV MOD A2C: 55.49 ml LVLs A2C: | | | 7.32 cm LVESV MOD A4C: 82.43 ml LVLs A4C: 7.96 cm LAESV(A-L): | | | 115.08 ml LAESV Index (A-L): 46.03 ml/m2 LAAs A2C: 29.18 | | | cm2 LAESV A-L A2C: 106.32 ml LALs A2C: 6.80 cm LAAs A4C: | | | 31.59 cm2 LAESV A-L A4C: 116.05 ml LALs A4C: 7.29 cm RAAs: | | | 19.20 cm2 RAESV A-L: 56.28 ml RAESV MOD: 54.94 ml RALs: | | | 5.56 cm AV maxP.72 mmHg AV meanP.54 mmHg AV Vmax: | | | 1.08 m/s AV Vmean: 0.75 m/s AV VTI: 20.86 cm DWAYNE Vmax: | | | 2.60 cm2 DWAYNE (VTI): 2.61 cm2 AVAI Vmax: 0.00 cm2/m2 AVAI | | | (VTI): 0.00 cm2/m2 LVOT maxP.42 mmHg LVOT meanP.81 | | | mmHg LVSI Dopp: 21.82 ml/m2 LVSV Dopp: 54.55 ml LVOT Vmax: | | | 0.59 m/s LVOT Vmean: 0.43 m/s LVOT VTI: 11.53 cm MV A Trevon: | | | 0.30 m/s MV DecT: 99.87 ms MV E Trevon: 0.81 m/s MV E/A | | | Ratio: 2.70 MV PHT: 28.96 ms MVA By PHT: 7.59 cm2 Septal | | | e': 0.03 m/s Septal E/e': 24.42 Lateral e': 0.05 m/s | | | Lateral E/e': 15.08 Roof Foreman: NICO Authenticated by: | | | RODRIGUEZ JUNG MD Report Date/Time: -- [id number]:03:16 | | + + + + + | Procedure Note | + + | José Luis, Rad Conversion - 12/02/2018 6:39 PM PDT Patient Name: Terence Cid of | | : 1940 Performing Physician: RODRIGUEZ JUNG, | | INDICATIONS A | | -Fib, HTN CONCLUSIONS 1. The left ventricle is moderately dilated. Overall | | left ventricular systolic function is moderately impaired with, an EF between 35 - | | 40%.2. Pseudonormal LV diastolic filling pattern, consistent with elevated LA pressure | | and moderate dysfunction (Grade II).3. The right ventricle is normal in size and | | function.4. The left atrium is moderately enlarged. The right atrium is mildly | | enlarged. 5. No significant valvular abnormality. 6. There are no signfiicant changes | | noted in comparison to the previous echocardiographic study, done 05/16/15. | | FINDINGS--------ECG rhythm: Sinus rhythm with irregular beats with periods of paroxysmal | | atrial fibrillation.Study: A 2-dimensional transthoracic echocardiogram with m-mode, | | spectral and color flow Doppler was perfomed.Study: This was a technically adequate | | study.Left Ventricle: Overall left ventricular systolic function is moderately impaired | | with, an EF between 35 - 40 %.Left Ventricle: The left ventricle is moderately | | dilated.Left Ventricle: There is mild concentric left ventricular hypertrophy.Left | | Ventricle: There is moderate global hypokinesis of LV contractility.Left Ventricle: | | Pseudonormal LV diastolic filling pattern, consistent with elevated LA pressure and | | moderate dysfunction (Grade II).Right Ventricle: The right ventricle is normal in size | | and function.Left Atrium: The left atrium is moderately enlarged.Right Atrium: The right | | atrium is mildly enlarged.Aortic Valve: The aortic valve is trileaflet and appears | | structurally normal.Aortic Valve: The aortic valve is mildly calcified.Aortic Valve: | | Trace amount of aortic regurgitation.Aortic Valve: There is no evidence of aortic | | stenosis.Mitral Valve: The mitral valve is normal.Mitral Valve: There is trace mitral | | regurgitation.Mitral Valve: Mild mitral annular calcification present.Tricuspid Valve: | | The tricuspid valve appears structurally normal.Tricuspid Valve: Trace tricuspid | | regurgitation present.Tricuspid Valve: Pulmonary artery systolic pressure could not be | | assessed due to the absence of adequate TR jet.Pulmonic Valve: The pulmonic valve was | | not well visualized.Pericardium: There is a trivial pericardial effusion | | present.IVC/Hepatic Veins: The IVC is normal size (1.5-2.5cm) and collapses >50% with | | sniff, consistent with central venous pressures of 5-10mmHg.Aorta: The aortic root, | | ascending aorta and aortic arch are normal.Mass: No mass visualizedThrombus: No clot | | visualizedThrombus: No vegetation visualized.Septum: No ASD observed.Septum: No VSD | | observed. MEASUREMENTS Ao asc: 3.79 cmAo Diam: 3.29 cmAo sinus: 3.31 | | cmAo st junct: 3.26 cmIVC: 2.11 cmLA Diam: 5.60 cmLA Major: 7.09 cmEDV(Teich): | | 188.37 mlIVSd: 1.27 cmLVIDd: 6.12 cmLVPWd: 1.26 cmLVOT Area: 4.73 [id number] Diam: | | 2.45 cm%FS: 17.26 %EF(Teich): 35.34 %ESV(Teich): 121.79 mlLVIDs: 5.06 | | cmSV(Teich): 66.58 mlRA Major: 5.52 cmRV Major: 6.63 cmRVIDd: 2.77 cmLVEF MOD | | A2C: 39.32 %SV MOD A2C: 35.97 mlLVEF MOD A4C: 34.62 %SV MOD A4C: 43.66 mlEF | | Biplane: 35.57 %LVEDV MOD BP: 109.20 mlLVESV MOD BP: 70.36 mlLVEDV MOD A2C: | | 91.47 mlLVLd A2C: 7.97 cmLVEDV MOD A4C: 126.10 mlLVLd A4C: 8.38 cmLVESV MOD A2C: | | 55.49 mlLVLs A2C: 7.32 cmLVESV MOD A4C: 82.43 mlLVLs A4C: 7.96 cmLAESV(A-L): | | 115.08 mlLAESV Index (A-L): 46.03 ml/m2LAAs A2C: 29.18 [id number] A-L A2C: 106.32 | | mlLALs A2C: 6.80 cmLAAs A4C: 31.59 [id number] A-L A4C: 116.05 mlLALs A4C: 7.29 | | cmRAAs: 19.20 [id number] A-L: 56.28 mlRAESV MOD: 54.94 mlRALs: 5.56 cmAV maxPG: | | 4.72 mmHgAV meanP.54 mmHgAV Vmax: 1.08 m/Negar Vmean: 0.75 m/Negar VTI: 20.86 | | cmAVA Vmax: 2.60 cm2AVA (VTI): 2.61 [id number] Vmax: 0.00 cm2/m2AVAI (VTI): 0.00 | | cm2/m2LVOT maxP.42 mmHgLVOT meanP.81 mmHgLVSI Dopp: 21.82 ml/m2LVSV Dopp: | | 54.55 mlLVOT Vmax: 0.59 m/sLVOT Vmean: 0.43 m/sLVOT VTI: 11.53 cmMV A Trevon: | | 0.30 m/sMV DecT: 99.87 msMV E Trevon: 0.81 m/sMV E/A Ratio: 2.70MV PHT: 28.96 msMVA | | By PHT: 7.59 [id number] e': 0.03 m/sSeptal E/e': 24.42Lateral e': 0.05 | | m/sLateral E/e': 15.08 Roof Foreman: AMPAROuthenticated by: Lady POND | | Date/Time: -- [id number]:03:16 IMPRESSION: 1. The left ventricle is moderately | | dilated. Overall left ventricular systolic function is moderately impaired with, an EF | | between 35 - 40%.2. Pseudonormal LV diastolic filling pattern, consistent with elevated | | LA pressure and moderate dysfunction (Grade II).3. The right ventricle is normal in size | | and function.4. The left atrium is moderately enlarged. The right atrium is mildly | | enlarged. 5. No significant valvular abnormality. 6. There are no signfiicant changes | | noted in comparison to the previous echocardiographic study, done 05/16/15. | |LA Diam: 5.60 cm | |LA Major: 7.09 cm | |EDV(Teich): 188.37 ml | |IVSd: 1.27 cm | |LVIDd: 6.12 cm | |LVPWd: 1.26 cm | |LVOT Area: 4.73 cm2 | |LVOT Diam: 2.45 cm | |%FS: 17.26 % | |EF(Teich): 35.34 % | |ESV(Teich): 121.79 ml | |LVIDs: 5.06 cm | |SV(Teich): 66.58 ml | |RA Major: 5.52 cm | |RV Major: 6.63 cm | |RVIDd: 2.77 cm | |LVEF MOD A2C: 39.32 % | |SV MOD A2C: 35.97 ml | |LVEF MOD A4C: 34.62 % | |SV MOD A4C: 43.66 ml | |EF Biplane: 35.57 % | |LVEDV MOD BP: 109.20 ml | |LVESV MOD BP: 70.36 ml | |LVEDV MOD A2C: 91.47 ml | |LVLd A2C: 7.97 cm | |LVEDV MOD A4C: 126.10 ml | |LVLd A4C: 8.38 cm | |LVESV MOD A2C: 55.49 ml | |LVLs A2C: 7.32 cm | |LVESV MOD A4C: 82.43 ml | |LVLs A4C: 7.96 cm | |LAESV(A-L): 115.08 ml | |LAESV Index (A-L): 46.03 ml/m2 | |LAAs A2C: 29.18 cm2 | |LAESV A-L A2C: 106.32 ml | |LALs A2C: 6.80 cm | |LAAs A4C: 31.59 cm2 | |LAESV A-L A4C: 116.05 ml | |LALs A4C: 7.29 cm | |RAAs: 19.20 cm2 | |RAESV A-L: 56.28 ml | |RAESV MOD: 54.94 ml | |RALs: 5.56 cm | |AV maxP.72 mmHg | |AV meanP.54 mmHg | |AV Vmax: 1.08 m/s | |AV Vmean: 0.75 m/s | |AV VTI: 20.86 cm | |DWAYNE Vmax: 2.60 cm2 | |DWAYNE (VTI): 2.61 cm2 | |AVAI Vmax: 0.00 cm2/m2 | |AVAI (VTI): 0.00 cm2/m2 | |LVOT maxP.42 mmHg | |LVOT meanP.81 mmHg | |LVSI Dopp: 21.82 ml/m2 | |LVSV Dopp: 54.55 ml | |LVOT Vmax: 0.59 m/s | |LVOT Vmean: 0.43 m/s | |LVOT VTI: 11.53 cm | |MV A Trevon: 0.30 m/s | |MV DecT: 99.87 ms | |MV E Trevon: 0.81 m/s | |MV E/A Ratio: 2.70 | |MV PHT: 28.96 ms | |MVA By PHT: 7.59 cm2 | |Septal e': 0.03 m/s | |Septal E/e': 24.42 | |Lateral e': 0.05 m/s | |Lateral E/e': 15.08 | | | |Roof Foreman: NICO | |Authenticated by: RODRIGUEZ JUNG MD | |Report Date/Time: -- [id number]:03:16 | | | |IMPRESSION: | |1. The left ventricle is moderately dilated. Overall left ventricular systolic function is moderately impaired with, an EF between 35 - 40%. | |2. Pseudonormal LV diastolic filling pattern, consistent with elevated LA pressure and mode rate dysfunction (Grade II). | |3. The right ventricle is normal in size and function. | |4. The left atrium is moderately enlarged. The right atrium is mildly enlarged. 5. No sign ificant valvular abnormality. 6. There are no signfiicant changes noted in comparison to the previous echocardiographic study, done 05/16/15. | + + documented in this encounter Visit Diagnoses Not on filedocumented in this encounter"
--- OUTSIDE RECORDS SUMMARY | ~2019-11-10 | XMS | Encounter Summary ---
Demographics + + + | Address | [address] | | | [place] [address] | + + + | Home Phone | | + + + | Preferred Language | Unknown | + + + | Marital Status | | + + + | Scientology Affiliation | Unknown | + + + | Race | Unknown | + + + | Ethnic Group | Unknown | + + + Author + + + | Author | [facility] | | | and [place] | + + + | Organization | [facility] | | [...] [place], | | | | | [place] [address] | | + + + + + | Josephine Meléndez | ECON | [address] | | | | | [place] | | | | | [address] | | + + + + + | Chiara Cid | ECON | [address] | | | | | [place], [place] | | | | | [address] | | + + + + + | Josephine Meléndez | ECON | Unknown | | + + + + + Care Team Providers + +------+ + | Care Roll Reclaimer Name | Role | Phone | + [...] [address] | | | | | [place], [place] | [place] [address] | | | | | [address] | [phone] | | | | | [phone] | | | +--------+ + + + [...] [place] | | | | | | [id number] | | | | | | | | | | | | Isabella Tang MD | | | | | | Reji Gill | | | | | | [facility] [address] | | | | | | [place] [address] | | | | | | [phone] | | | | | | | [...] TR Vmax: 2.40 m/s | | | Bakery Helper: Authenticated by: Dary Go MD Report Date/Time: | | | -- [id number]:20:46 | | + + + + + | Procedure Note | + + | Kai Ordonez Conversion - 12/02/2018 1:12 PM PDT Patient Name: Terence Cid of | | : 1940 Performing Physician: Dary Go | | MD INDICATIONS A | | -fib, pre-op colonostomy, [...] | | (A-L): 51.33 ml/m2LAAs A2C: 28.17 [id number] A-L A2C: 102.90 mlLAESV MOD A2C: | | 98.22 mlLALs A2C: 6.54 cmLAAs A4C: 32.88 [id number] A-L A4C: 132.59 mlLAESV MOD A4C: | | 125.91 mlLALs A4C: 6.92 cmRAAs: 18.45 [id number] A-L: 54.57 mlRAESV MOD: 54.13 | | mlRALs: 5.44 cmAV Env.Ti: 251.54 msAV maxP.60 mmHgAV meanP.01 mmHgAV | | Vmax: 0.94 m/Negar Vmean: 0.67 m/Negar VTI: 16.92 cmAVA Vmax: 3.02 cm2AVA (VTI): | | 3.12 [id number] Vmax: 0.00 cm2/m2AVAI (VTI): 0.00 cm2/m2LVOT Env.Ti: [...] maxP.13 mmHgTR | | Vmax: 2.40 m/s Bakery Helper:Authenticated by: [facility] Date/Time: -- | | [id number]:20:46 IMPRESSION: 1. This was a technically difficult [...] |TR Vmax: 2.40 m/s | | | |Bakery Helper: | |Authenticated by: Dary Go MD | |Report Date/Time: -- [id number]:20:46 | | | |IMPRESSION: | |1. This [...]
--- OUTSIDE RECORDS SUMMARY | ~2019-11-10 | XMS | Encounter Summary ---
Demographics + + + | Address | [address] | | | [place] [address] | + + + | Home Phone | | + + + | Preferred Language | Unknown | + + + | Marital Status | | + + + | Episcopalian Affiliation | Unknown | + + + | Race | Unknown | + + + | Ethnic Group | Unknown | + + + Author + + + | Author | [facility] | | | and [place] | + + + | Organization | [facility] | | | [...] [place], | | | | | [place] [address] | | + + + + + | Josephine Meléndez | ECON | [address] | | | | | [place] | | | | | [address] | | + + + + + | Chiara Cid | ECON | [address] | | | | | [place], [place] | | | | | [address] | | + + + + + | Josephine Meléndez | ECON | Unknown | | + + + + + Care Team Providers + +------+ + | Care Trolley Wire Installer Name | Role | Phone | + +------+ + | Doroteo Felder MD | PCP | | + +------+ + Encounter Details +--------+ + + + + | Date | Type | Department | Care Team | Description | +--------+ + + + + | 02/15/ | [facility] | [facility] | Quentin Gomez MD | Back pain | | 2012 | Encounter | MED CTR XRAY [address] | [address] | | | | | Jamilah Humphries | [place] [address] | | | | | [place] [address] | [phone] | | | | | [phone] | | | +--------+ + + + [...] | | 2019 | Visit | | [address] | | | | | | [place] | | | | | | [address] | | | | | | | | | | | | Isabella Tang MD | | | | | | [address] | | | | | | [facility] [address] | | | | | | [place] [address] | | | | | | [phone] | | | | | | | [...] Performed At | + + + | [facility] | [place] | | Department [address] [place] [address] | [facility] | | [ rep [address]] [ rep [facility] | | st zip] Signed | - IMAGING | | | | | Patient Name: PALAKJOSY Physician: | | | CHUY. : 1940 Age: 72 Sex: M Unit #: [id number] | | | Exam Date: 02/15/13 Location: [facility] | | | Report #: [id number] Page: | | | %(RAD)RES..mtdd.print.filter("pg") of %(RAD) | | | RES..mtdd.print.filter("tpg") | | | | | | Accession Number: [id number] | | | LUMBAR SPINE HISTORY: PAIN. [...] | Devendra | | | MD Wali02/15/13 4646 <Electronically signed by Devendra Keyes MD> | | | Devendra Keyes MD 02/15/13 0161 Fortune Teller: | | | Marta Ash02/15/13 1325 Quentin Gomez MD | | | | | + + + + + + + + | Performing | Address | City/State/Zipcode | Phone Number | | Organization | | | | + + + + + | [facility] | [address] | [place] | [phone] | | [facility] | | [address] | | | - IMAGING | | | | + + + + + documented in this encounter Visit Diagnoses + + | Diagnosis | + + | Back pain Backache, unspecified | + + documented in this encounter
--- OUTSIDE RECORDS SUMMARY | ~2019-11-10 | XMS | Encounter Summary ---
Demographics + + + | Address | [address] | | | [place] [address] | + + + | Home Phone | | + + + | Preferred Language | Unknown | + + + | Marital Status | Single | + + + | Synagogue Affiliation | NON | + + + [...] + | Chiara Cid | ECON | [address] | | | | | [place], | | | | | [place] [address] | | + + + + + Care Team Providers + +------+ + | Care Cant Gang Sawyer Name | Role | Phone | + [...] | | | | BILAT [address] | [place], [place] | [address] | | | | | | [address] | Physician's | | | | | | | Pavilion | | | | | | | [place], [place] | | | | | | | [address] | | | | | | | Phone: | | | | | | | [phone] | | | | | | | Fax: | | | | | | | [phone] | +--------+--------+ + + + + Diagnostic [...] | | | | BILAT COMP | [place], [place] | [address] | | | | | | [address] | Physician's | | | | | | | Pavilion | | | | | | | [place], [place] | | | | | | | [address] | | | | | | | Phone: | | | | | | | [phone] | | | | | | | Fax: | | | | | | | [phone] | +--------+--------+ + + + + Diagnostic [...] | | | | | BILATERAL | [place], [place] | [address] | | | | | COMPLETE | [address] | Physician's | | | | | | | Pavilion | | | | | | | [place], [place] | | | | | | | [address] | | | | | | | Phone: | | | | | | | [phone] | | | | | | | Fax: | | | | | | | [phone] | +--------+--------+ + + + + Reason [...] | | | | | | | [facility] | | | | | | | [place], | | | | | | | [place] [address] | +--------+--------+ + + + + Encounter Details +--------+ + + + + | Date | Type | Department | Care Team | Description | +--------+ + + + + | 02/04/ | Hospital | [facility] [address] | Conrado Mckeon, | | | 2009 - | Encounter | [address] | | | | | | [id number] [facility] | | | | 02/06/ | | Hospital [place], | | | | 2009 | | [place] [address] | | | +--------+ + + + [...] back shortly. I agree with the plan. [id number] urt Ibrahim MD - 02/06/2010 6:00 PM [...] was transferred to the Trauma ICU from [facility] for management of right rib fractures and hemothorax due to a fall incurred on . 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 Please refer to [employer] for this information. Physical Exam Last Vitals:BP [...] some ti me. Tuan Piña PA-C Pager/ID: [phone] Trauma ICU Team Pager (24hrs/day): [phone] Conrado Page MD - 02/05/2010 5:17 AM [...] though he reports his ribs are painful. [id number] Scott Edward MD - 02/05/2010 5:17 AM [...] [facility] | [address] | [place], [place] | | | [facility] CARE | [address] | [address] | | | TESTS | | | [...] KNOX | [address] | [place], [place] | | | [facility] OF [place]ICA | [facility] | [address] | | | TESTS | | | [...] | + + + + + | [facility] DEPARTMENT | [address] | [place] [address] | | | PATHOLOGY | [address] [...] (H) | 60 - 99 mg/dL | [facility] - | | | GLUCOSE, | [...] KNOX | [address] | [place], [place] | | | [facility] | [address] | [address] | | | TESTS | | | [...] | + + + + + | [facility] DEPARTMENT OF | [address] | [place] [address] | | | PATHOLOGY | [address] [...] [address] | [place] [address] | | | PATHOLOGY | [address] [...] | | THERAPY | | | | TOUR NARRATOR | | | | | | | [...] [facility] | [address] | [place], [place] | | | THERAPY | [address] | [address] | | + + + + + [...] + + | Performing | Address | City/State/[facility] Hospital[facility] | Phone Number | | Organization | | | | + + + + + | [facility] | [address] | [place], [place] | | | [facility] [place] | [facility] | [address] | | | TESTS | | | [...] SAMIAAM | [address] | [place], [place] | | | [facility] | [address] | [address] | | | TESTS | | | [...] + + + | Please click | [facility] | | on view image for the detailed interpretation from [employer] results. | CARDIOLOGY | + + + + + + + + | Performing | Address | City/State/Zipcode | Phone Number | | Organization | | | | + + + + + | [facility] | [address] | [place], [place] | | | CARDIOLOGY | [address] | [address] | | + + + + + [...] | | | | | VENOUS | [id number] Name: | | | | | DUPLEX [...] # | | | | | | [id number] RESULT:LOWER | | | | | | [...] | | | | | VENOUS | [id number] Name: | | | | | DUPLEX [...] # | | | | | | [id number] RESULT:UPPER | | | | | | [...] | | | | | ARTERY | [id number] Name: | | | | | DUPLEX [...] # | | | | | | [id number] RESULT:LOWER | | | | | | [...] K[place]X | [address] | [place], [place] | | | F[facility] OF CARE | [address] | [address] | | | TESTS | | | [...] | + + + + + | [facility] DEPARTMENT OF | [address] | [place] [address] | | | PATHOLOGY | [address] [...] OF | [address] | [place] [address] | | | PATHOLOGY | [address] [...] - ABILIO | [address] | [place], [place] | | | [facility] | [address] | [address] | | | TESTS | | | [...] | + + + + + | [facility] | [address] | [place] [address] | | | PATHOLOGY | [address] | | | + + + + + X-RAY PORTABLE ELBOW 2 VIEWS RIGHT (02/05/2010 5:13 AM PDT) + + + + + + | Component | Value | Ref Range | Performed | Pathologist | | | | | At | Signature | + + + + + + | X-RAY | STUDY: MI ELBOW 2 VIEWS | | | | [...] | | + +---------+ + + | [facility] DEPARTMENT OF | | | | [...] OF | [address] | [place] [address] | | | PATHOLOGY | [address] [...] | + + + + + | [facility] DEPARTMENT | [address] | [place] [address] | | | PATHOLOGY | [address] | | | + + + + + INR (02/05/2010 5:09 AM PDT) + + + + + + | Component | Value | Ref Range | Performed | Pathologist | | | | | At | Signature | + + + + + + | INR | 2.24 (H)Comment: | 0.90 - 1.20 INR | [facility] | | | | INR Therapeutic [...] | + + + + + | [facility] | [address] | [place] [address] | | | PATHOLOGY | [address] [...] OF | [address] | [place] [address] | | | PATHOLOGY | [address] [...] | + + + + + | [facility] DEPARTMENT | [address] | [place] [address] | | | PATHOLOGY | [address] | | | + + + + + RESP CARE THERAPY (02/05/2010 4:24 AM PDT) + + + + + + | Component | Value | Ref Range | Performed | Pathologist | | | | | At | Signature | + + + + + + | RESPIRATORY | : History and Assessment | | [facility] | | | CARE | : TRAUMA [...] Kamara, | | | | | | TOUR NARRATOR | | | | + + + + + + + + | Specimen | + + | | + + + + + + + | Performing | Address | City/State/Zipcode | Phone Number | | Organization | | | | + + + + + | [facility] | [address] | [place], [place] | | | THERAPY | [address] | [address] | | + + + + + [...] | + + + + + | [facility] | [address] | [place] [address] | | | PATHOLOGY | [address] [...] | | + +---------+ + + | [facility] DEPARTMENT OF | | | | [...] | | + +---------+ + + | [facility] DEPARTMENT OF | | | | | RADIOLOGY | | | | + +---------+ + + X-RAY PORTABLE HUMERUS 2 VIEWS RIGHT (02/05/2010 2:06 AM PDT) + + + + + + | Component | Value | Ref Range | Performed | Pathologist | | | | | At | Signature | + + + + + + | X-RAY | STUDY: MI HUMERUS 2 | | | | | [...] | | + +---------+ + + | [facility] DEPARTMENT OF | | | | [...] | + + + + + | [facility] | [address] | [place] [address] | | | PATHOLOGY | [address] [...] | [address] | [place] [address] | | | PATHOLOGY | [address] [...] OF | [address] | [place] [address] | | | PATHOLOGY | [address] [...] OF | [address] | [place] [address] | | | PATHOLOGY | [address] [...] | + + + + + | [facility] DEPARTMENT OF | [address] | [place] [address] | | | PATHOLOGY | [address] [...] | + + + + + | [facility] | [address] | [place] [address] | | | PATHOLOGY | [address] [...] | | | | | | Until [facility] 02/07/10 at 0316, mild | | | [...]
--- OUTSIDE RECORDS SUMMARY | ~2019-11-10 | XMS | Encounter Summary ---
Demographics + + + | Address | [address] | | | [place] [address] | + + + | Home Phone | | + + + | Preferred Language | Unknown | + + + | Marital Status | | + + + | Episcopalian Affiliation | Unknown | + + + | Race | Unknown | + + + | Ethnic Group | Unknown | + + + Author + + + | Author | [facility] | | | and [place] | + + + | Organization | [facility] | | [...] [place], | | | | | [place] [address] | | + + + + + | Josephine Meléndez | ECON | [address] | | | | | [place] | | | | | [address] | | + + + + + | Chiara Cid | ECON | [address] | | | | | [place], [place] | | | | | [address] | | + + + + + | Josephine Meléndez | ECON | Unknown | | + + + + + Care Team Providers + +------+ + | Care Call Circuit Worker Name | Role | Phone | + [...] | osteoarthrit | [place], [place] | [place] [address] | | | | | is of left | [address] | Phone: | | | | | shoulder | Phone: | [phone] | | | | | | [phone] | Fax: | | | | | | Fax: | [phone] | | | | | | [phone] | | + + + + + [...] | | [place], [place] | [place] [address] | left shoulder | | | | [address] | [phone] | | | | | [phone] | | | +--------+---------+ + + + [...] from being active. You may have ac [place] or chronic pain. Both types of pain respond to treatment. Work with your healthcare prof [facility]. Together you can find relief. Types of [...] bereduced in this way. Date Last Reviewed: 08/11/201619998298-2134 [employer]. [address] [place] [address], [place] [address]. All righ ts reserved. This information is not intended as a substitute for professional medical care. Always follow your healthcare professional's instructions. documented in this encounter Progress Notes David Sousa MD - 02/15/2019 10:00 AM PSTFormatting of this note might be dif ferent from the original. [facility] HISTORY AND PHYSICAL [...] send a fax to the [facility] in [place] . I think it is very reasonable [...] made to ensure accuracy; however, inadvertent computerized information technology officer errors may be pre sent. I appreciate [...]
--- OUTSIDE RECORDS SUMMARY | ~2019-11-10 | XMS | Clinical Summary ---
Demographics + + + | Address | [address] | | | [place] [address] | + + + | Home Phone | | + + + | Preferred Language | Unknown | + + + | Marital Status | | + + + | Islam Affiliation | Unknown | + + + | Race | Unknown | + + + | Ethnic Group | Unknown | + + + Author + + + | Author | [facility] | | | and [place] | + + + | Organization | [facility] | | | [...] [place], | | | | | [place] [address] | | + + + + + | Josephine Meléndez | ECON | [address] | | | | | [place] | | | | | [address] | | + + + + + | Chiara Cid | ECON | [address] | | | | | [place], [place] | | | | | [address] | | + + + + + | Josephine Meléndez | ECON | Unknown | | + + + + + Care Team Providers + +------+ + | Care Flute Teacher Name | Role | Phone | [...] 09/17/2011 | + + + | ATHEROSCLEROSIS SENECA ART EXTREMITIES UNSPEC | 09/17/2011 | + [...] [place] | | | | | | [address] | | | | | | | | | | | | Isabella Tang, | | | | | | [address] | | | | | | [facility] [address] | | | | | | [place] [address] | | | | | | [phone] | | | | | | | [...] +--------+ +---------+--------+ | MEDICARE | MEDICA | [id number] | | [phone] | | Medica | | | RE | | 013-Pr | 5 | | re | | | PART A | | esent | | | | | | AND B | | | | | | + +--------+ +--------+ +---------+--------+ | [employer] | TRANSA | [id number] | 10/12/19 | | | Indemn | [...] | | al/Fam | | 1941 | [phone] | [place] | | | [place] | | | 5 (Home) | [address] | + +--------+ +--------+ + + | Josy Cid | Person | Self | [birth year] | [address] | | | al/Fam | | 1941 | [phone] | [place] | | | [place] | | | 5 (Home) | [address] | + +--------+ +--------+ + + Advance Directives + + + + + | Type | Date Recorded | Patient | Explanation | | | | Automatic Buffer | | + + + + + | Power of | | | | | Hims Coder | | | | + + + + + | Advance | | | | | Directive | | | | + + + + +
--- OUTSIDE RECORDS SUMMARY | ~2019-11-10 | XMS | Encounter Summary ---
Demographics + + + | Address | [address] | | | [place] [address] | + + + | Home Phone | | + + + | Preferred Language | Unknown | + + + | Marital Status | | + + + | Mandaen Affiliation | Unknown | + + + | Race | Unknown | + + + | Ethnic Group | Unknown | + + + Author + + + | Author | [facility] | | | and [place] | + + + | Organization | [facility] | | | [...] [place], | | | | | [place] [address] | | + + + + + | Josephine Meléndez | ECON | [address] | | | | | [place] | | | | | [address] | | + + + + + | Chiara Cid | ECON | [address] | | | | | [place], [place] | | | | | [address] | | + + + + + | Josephine Meléndez | ECON | Unknown | | + + + + + Care Team Providers + +------+ + | Care Customs Broker Name | Role | Phone | + [...] | | [address] | [place], [place] [address] | | | | | [place] | [phone] | | | | | [address] | | | | | | [phone] | | | +--------+ + + + [...]
--- OUTSIDE RECORDS SUMMARY | ~2019-11-10 | XMS | Encounter Summary ---
Demographics + + + | Address | [address] | | | [place] [address] | + + + | Home Phone | | + + + | Preferred Language | Unknown | + + + | Marital Status | | + + + | Spiritism Affiliation | Unknown | + + + | Race | Unknown | + + + | Ethnic Group | Unknown | + + + Author + + + | Author | [facility] | | | and [place] | + + + | Organization | [facility] | | | [...] [place], | | | | | [place] [address] | | + + + + + | Josephine Meléndez | ECON | [address] | | | | | [place] | | | | | [address] | | + + + + + | Chiara Cid | ECON | [address] | | | | | [place], [place] | | | | | [address] | | + + + + + | Josephine Meléndez | ECON | Unknown | | + + + + + Care Team Providers + +------+ + | Care Rail Transportation Operator Name | Role | Phone | [...] | | [address] | [place] [address] | | | | | [place] | [phone] | | | | | [address] | | | | | | [phone] | | | +--------+ + + + [...] on filedocumented as of this encounter Results XR Lumbar Spine 4 + Vw (02/15/2013 11:46 AM PST) + + | Specimen | + + | | + + + + + | Narrative | Performed At | + + + | Merged With [facility] | [place] | | Department [address] [place] [address] | [facility] | | [ rep id street[address]] [ rep [facility] | | st zip] Signed | - IMAGING | | | | | Patient Name: JOSY CID Physician: | | | CHUY. : 1940 Age: 72 Sex: M Unit #: [id number] | | | Exam Date: 02/15/13 Location: [facility] | | | Report #: [id number] Page: | | | %(RAD)RES..mtdd.print.filter("pg") of %(RAD) | | | RES..mtdd.print.filter("tpg") | | | | | | Accession Number: [id number] | | | LUMBAR SPINE HISTORY: PAIN. [...] | Devendra | | | MD Wali02/15/13 8761 <Electronically signed by Devendra Keyes MD> | | | Devendra Keyes MD 02/15/13 1146 Expanded Duty Dental Assistant: | | | Marta Ash02/15/13 5935 Quentin Gomez MD | | | | | + + + + + + + + | Performing | Address | City/State/Zipcode | Phone Number | | Organization | | | | + + + + + | [facility] | [address] | [place] | [phone] | | [facility] | | [address] | | | - IMAGING | | | | + + + + + documented in this encounter Visit Diagnoses + + | Diagnosis | + + | Back pain - Primary Backache, unspecified | + + documented in this encounter
--- OUTSIDE RECORDS SUMMARY | ~2019-11-10 | XMS | Encounter Summary ---
Demographics + + + | Address | [address] | | | [place] [address] | + + + | Home Phone [...] + + | Author | [facility] | | | and [place] | + + + | Organization | [facility] | | | [...] [place], | | | | | [place] [address] | | + + + + + | Josephine Meléndez | ECON | [address] | | | | | [place] | | | | | [address] | | + + + + + | Chiara Cid | ECON | [address] | | | | | [place], [place] | | | | | [address] | | + + + + + | Josephine Meléndez | ECON | Unknown | | + + + + + Care Team Providers + +------+ + | Care Golf Coach Name | Role | Phone | + [...] | osteoarthrit | [place], [place] | [place] [address] | | | | | is of left | [address] | Phone: | | | | | shoulder | Phone: | [phone] | | | | | | [phone] | Fax: | | | | | | Fax: | [phone] | | | | | | [phone] | | + + + + + [...] | left shoulder | | | | [address] | [address] | (Primary Dx) | | | | [phone] | | | +--------+---------+ + + + [...] Weight | 115.7 kg (255 lb) | 01/12/2019 4:33 PM | | | | | PDT | | + + + + + | Height | 177.8 cm (5' 10") | 01/12/2019 4:33 PM | | | | | PDT | | + + + + + | Body Mass Index | 36.59 | 01/12/2019 4:33 PM | | | | | PDT | | + + + + + documented in this encounter Patient Instructions Patient Instructions Silverio Loya MD - 01/12/2019 4:30 PM PDT Shoulder Pain with Uncertain Cause Shoulder [...] do your daily activities Date Last Reviewed: 01/12/201619994731-7414 The [employer]. [address] [place] [address]. All righ ts reserved. This information is [...] information carefully each time. Talk to your bakery products checker regarding the use of this medicine in children. Special care may be needed. What side effects may I notice from receiving this medicine? Side effects that you should report to your doctor or health group care worker as soon as p ossible: allergic reactions [...] attention (report to your doctor or health group care worker if they continue or are bothersome): constipation [...] this medicine? Tell your doctor or health group care worker if your pain does not go away, [...] 3 days, call your doctor or health group care worker. Your mouth may get dry. Chewing sugarless gum or sucking hard candy, and drinking plenty of water may help. Contact your doctor if the problem does not go away or is severe. NOTE:This sheet is a summary. It may not cover all possible information. If you have questi ons about this medicine, talk to your doctor, pharmacist, or health care provider. Copyright 2019 [employer] documented in this encounter Progress Notes Silverio Loya MD - 01/12/2019 4:30 PM PDTFormatting of this note might be different fr om the original. Subjective: Patient ID: Kranthi Cid is [...] seen by his primary care provider in [place] as well as evaluated by orthopedic PA in [place]. He had a steroid injection in the [...] Patient Active Problem List Diagnosis LYMPHEDEMA ATHEROSCLEROSIS KOI ART EXTREMITIES UNSPEC DDD (degenerative disc disease), [...] Fatty Tumor Removal 2000 From Neck LASIK 2013 LEG SURGERY cancer-malignant Leg Vein Bypass 2002, 2003 OTHER SURGICAL HISTORY OTHER SURGICAL HISTORY 2000 and 2002 OTHER SURGICAL HISTORY CATARACT EXTRACTION TUMOR REMOVAL 1973 Left Leg VASECTOMY Current Outpatient Medications Medication [...] 911/ER if no relief. ONE TOUCH LANCETS [facility] Use as directed traMADol (ULTRAM) 50 mg [...] to be seen by o [place]opedics [place] rather than [place] so referral is ordered for Dr. Hernandez as r gabyested. 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
--- OUTSIDE RECORDS SUMMARY | ~2019-11-10 | XMS | Encounter Summary ---
Demographics + + + | Address | [address] | | | [place] [address] | + + + | Home Phone | | + + + | Preferred Language | Unknown | + + + | Marital Status | | + + + | Hindu Affiliation | Unknown | + + + | Race | Unknown | + + + | Ethnic Group | Unknown | + + + Author + + + | Author | [facility] | | | and [place] | + + + | Organization | [facility] | | | and [...] [place], | | | | | [place] [address] | | + + + + + | Josephine Meléndez | ECON | [address] | | | | | [place] | | | | | [address] | | + + + + + | Chiara Cid | ECON | [address] | | | | | [place], [place] | | | | | [address] | | + + + + + | Josephine Meléndez | ECON | Unknown | | + + + + + Care Team Providers + +------+ + | Care Author'S Agent Name | Role | Phone | + +------+ + | Doroteo Felder MD | PCP | | + +------+ + Encounter Details +--------+ + + + + | Date | Type | Department | Care Team | Description | +--------+ + + + + | 04/14/ | Hospital | [facility] | Mahesh Oscar | | | 2013 | Encounter | MED CTR XRAY [address] | [address] | | | | | [place] | [facility] [place] | | | | | [place] [address] | [address] | | | | | [phone] | | | +--------+ + + + [...] [place] | | | | | | [address] | | | | | | | | | | | | Isabella Tang MD | | | | | | [address] | | | | | | [address] | | | | | | [place] [address] | | | | | | [phone] | | | | | | | [...] Performed At | + + + | [facility] | [place] | | Department [address] | [facility] | | [ rep ct [address]] [ rep ct [facility] | | st zip] Signed | - IMAGING | | | | | Patient Name: CIDJOSY GAGE Physician: | | | SHELBIE. : 1940 Age: 73 Sex: M Unit #: [id number] | | | Exam Date: 04/14/13 Location: [facility] | | | Report #: [id number] Page: | | | %(RAD)RES..mtdd.print.filter("pg") of %(RAD) | | | RES..mtdd.print.filter("tpg") | | | | | | Accession Number: [id number] | | | CERVICAL INTERLAMINAR EPIDURAL STEROID INJECTION CLINICAL | | | HISTORY: ICD-9 CODE IS 723.4 CERVICAL RADICULOPATHY. | | | Josy Cid presents to [...] Transcribed Date/Time: 04/19/2013 08:06 | | | Spout Positioner: LeonoraTATIANA <<Signature on File>> | | | [employer] | | Santiago Oscar MD04/28/13 1804 <Electronically signed by Mahesh Henderson | Amberly Oscar MD> Mahesh Oscar MD 04/19/13 0730 | | | Spout Positioner: [employer]junaid Dymhqojcyhxej07/07/14 0806 | | | | | + + + + + + + + | Performing | Address | City/State/Zipcode | Phone Number | | Organization | | | | + + + + + | [facility] | [address] | [place] | [phone] | | [facility] | | [address] | | | - IMAGING | | | | + + + + + documented in this encounter Visit Diagnoses Not on filedocumented in this encounter
--- OUTSIDE RECORDS SUMMARY | ~2019-11-10 | XMS | Encounter Summary ---
Demographics + + + | Address | [address] | | | [place] [address] | + + + | Home Phone | | + + + | Preferred Language | Unknown | + + + | Marital Status | | + + + | Orthodox Affiliation | Unknown | + + + [...] [place], | | | | | [place] [address] | | + + + + + | Josephine Meléndez | ECON | [address] | | | | | [place] | | | | | [address] | | + + + + + | Chiara Cid | ECON | [address] | | | | | [place], [place] | | | | | [address] | | + + + + + | Josephine Meléndez | ECON | Unknown | | + + + + + Care Team Providers + +------+ + | Care Communications Manager Name | Role | Phone | + +------+ + PCP | Unavailable | + +------+ + Encounter Details +--------+ + + + + | Date | Type | Department | Care Team | Description | +--------+ + + + + | 09/01/ | Hospital | [facility] | Carter Lugo, | | | 2011 | Encounter | MED CTR EMERGENCY | [address] | | | | | [place] [address] | [facility] [place] | | | | | [place] | [place] [address] | | | | | [address] | [phone] | | | | | [phone] | | | +--------+ + + + [...] primary care physician is Dr. Felder in [facility]. Arnaud mello is going to be seeing a vascular surgeon, Dr. Hollingsworth here in [place]. REVIEW OF SYSTEMS GENERAL: There are no [...] Dr. Hollingsworth, and we are going to [facility] rd these records of Dr. Hollingsworth [...] Carter Lugo MD Emergency Medicine JOB #: [id number] EXT JOB #:[id number] <Electronicall y Signed by Carter Lugo MD> [...] | | Time | | seconds | . [facility] | | | | | | [...] + | [facility] | [address] | [place] | [phone] | | [facility] | | [address] | | | - LABORATORY | | | | + + + + + | [facility] | [address] | [place] | | | [facility] | | [address], [facility] | | | - LABORATORY | [...] | | | Cells | | | [facility] | | | | | | MEDICAL | | | | | | CENTER - | | | | | | LABORATORY | | + + + + + + | Red Blood | 4.46 | 4.30 - 5.70 | [facility] | | | Cells | | M/uL | [facility] | | | | | | MEDICAL | | | | | | CENTER - | | | | | | LABORATORY | | + + + + + + | Hemoglobin | 11.5 (L) | 13.5 - 18.0 | [facility] | | | | | gm/dL | [facility] | | | | | | MEDICAL [...] | | | Monocytes | | | [facility] | | [...] + + | [facility] | [address] | [place] | [phone] | | [facility] | | [address] | | | - LABORATORY | | | | + + + + + | [facility] | [address] | [place] | | | [facility] | | [address] | | | - LABORATORY [...] [facility] | | | | | | [facility] | | | | | | MEDICAL | | | | | | CENTER - | | | | | | LABORATORY | | + + + + + + | Calcium | 9.0 | 8.3 - 10.5 | [facility] | | | | | mg/dL | [facility] | | | | | | MEDICAL | | | | | | CENTER - | | | | | | LABORATORY | | + + + + + + | BUN | 23 (H) | 7 - 18 mg/dL | [facility] | | | | | | [facility] | | | | | | MEDICAL | | | | | | CENTER - | | | | | | LABORATORY | | + + + + + + | Creatinine | 1.32 (H) | 0.60 - 1.30 | [facility] | | | | | mg/dL | [facility] | | | | | | MEDICAL | | | | | | CENTER - | | | | | | LABORATORY | | + + + + + + | Estimated | 53 (L)Comment: For | >60 mL/min/A | [facility] | | | GFR | -Americans, | [...] | ine Ratio | | | [facility] | | [...] + | [facility] | [address] | [place] | [phone] | | [facility] | | [address] | | | - LABORATORY | | | | + + + + + | [facility] | [address] | [place], [place] | | | [facility] | | [id number] [place] [address] | | | - LABORATORY | | [...] + | [facility] | [address] | [place], [place] | [phone] | | [facility] | | [address] | | | - LABORATORY | | | | + + + + + | [facility] | [address] | [place], [place] | | | [facility] | | [address] | | | - LABORATORY | | | | + + + + + VAS Lower Extremity Venous Left (09/02/2011 4:14 PM PDT) + + | Specimen | + + | | + + + + + | Narrative | Performed At | + + + | [facility] Diagnostic [facility] Department | [facility] | | [address], [facility] | [facility] | | LEFT LOWER EXTREMITY VENOUS [...] Transcribed Date/Time: 09/03/2011 | | | 09:03 Information Systems Technician: <Electronically Signed by Phani | | | David Zuniga MD> 09/03/11 9550 | | + + + + + | Procedure Note | + + | Kai Ordonez Conversion - 05/20/2013 5:[address] [facility] | | Diagnostic Imaging Department [address] [place] [address] | | LEFT LOWER EXTREMITY VENOUS DUPLEX [...] | <Electronically Signed by Phani Zuniga MD> 09/03/111709 | |ND EXTREME PROXIMAL PORTIONS OF THE [...] 08:55 | |Transcribed Date/Time: 09/03/2011 09:03 | |Information Systems Technician: | |<Electronically Signed by Phani Zuniga MD> 09/03/11 855 | + + + +---------+ + + | Performing | Address | City/State/Zipcode | Phone Number | | Organization | | | | + +---------+ + + | [place] | | | | | [facility] | | | | + +---------+ + + documented in this encounter Visit Diagnoses Not on filedocumented in this encounter"
--- OUTSIDE RECORDS SUMMARY | ~2019-11-10 | XMS | Encounter Summary ---
Demographics + + + | Address | [address] | | | [place] [address] | + + + | Home Phone | | + + + | Preferred Language | Unknown | + + + | Marital Status | | + + + | Jainism Affiliation | Unknown | + + + | Race | Unknown | + + + | Ethnic Group | Unknown | + + + Author + + + | Author | [facility] | | | and [place] | + + + | Organization | [facility] | | | [...] [place], | | | | | [place] [address] | | + + + + + | Josephine Meléndez | ECON | [address] | | | | | [place] | | | | | [address] | | + + + + + | Chiara Cid | ECON | [address] | | | | | [place], [place] | | | | | [address] | | + + + + + | Josephine Meléndez | ECON | Unknown | | + + + + + Care Team Providers + +------+ + | Care Peoplesoft Taleo Manager Name | Role | Phone | + +------+ + | Jalen Cortes MD | PCP | | + +------+ + Encounter Details +--------+ + + + + | Date | Type | Department | Care Team | Description | +--------+ + + + + | 01/20/ | Imaging | [facility] | Provider, | | | 2019 | Exam | MED CTR EXTERNAL | MD [address] | | | | | IMAGING [address] | [address] | | | | | [address] [place] | [place] [address] | | | | | [place] [address] | | | | | | [phone] | | | +--------+ + + + [...] | | | | | | Way [place], [place] | | | | | | [address] | | | | | | | | | | | | Isabella Tang MD | | | | | | [address] | | | | | | [place] [facility] [address] | | | | | | [place] [address] | | | | | | [phone] | | | | | | | [...] this | | VW | e | 12:00 AM | | procedure are in the | | | | PDT | | results section. | + +--------+ + + + documented in this encounter Results XR Shoulder Left 2 + Vw (12/19/2018 12:00 AM PDT) + + | Specimen | [...]
--- OUTSIDE RECORDS SUMMARY | ~2019-11-10 | XMS | Encounter Summary ---
Demographics + + + | Address | [address] | | | [place] [address] | + + + | Home Phone | | + + + | Preferred Language | Unknown | + + + | Marital Status | | + + + | Samaritan Affiliation | Unknown | + + + | Race | Unknown | + + + | Ethnic Group | Unknown | + + + Author + + + | Author | [facility] | | | and [place] | + + + | Organization | [facility] | | | [...] [place], | | | | | [place] [address] | | + + + + + | Josephine Meléndez | ECON | [address] | | | | | [place] | | | | | [address] | | + + + + + | Chiara Cid | ECON | [address] | | | | | [place], [place] | | | | | [address] | | + + + + + | Josephine Meléndez | ECON | Unknown | | + + + + + Care Team Providers + +------+ + | Care Tractor Operator Name | Role | Phone | [...] | | [address] | [place] [address] | Dx); DDD | | | | [place], [place] | [phone] | (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 Quentin Gomez M.D. [address] [place] [address], [address] [place], [place] [address] FAX: NEUROSURGERY FOLLOW-UP CHIEF COMPLAINT: Chief Complaint [...] has no apparent deficits with short or senior care memory. MOTOR EXAM: (5 IS NORMAL) * Indicates pain limited MUSCLE/ MOVEMENT: RIGHT LEFT Deltoids 5 5 Biceps 5 5 Triceps 5 5 Wrist Flexion 5 5 Wrist Extension 5 5 Median Intrinsics 5 5 Ulnar Intrinsics 5 5 Chucking And Boring Machine Operator Strength 5 5 Hip Flexion 5 5 [...] this encou nter Miscellaneous Notes Miscellaneous - [facility] - 09/14/2013 12:00 AM PDT documented in [...] [place] | | | | | | [address] | | | | | | | | | | | | Isabella Tang MD | | | | | | [address] | | | | | | [place] [facility] [[email or web address] [address] | | | | | | [place] [address] | | | | | | [phone] | | | | | | | [...]
--- OUTSIDE RECORDS SUMMARY | ~2019-11-10 | XMS | Encounter Summary ---
Demographics + + + | Address | [address] | | | [place] [address] | + + + | Home Phone | | + + + | Preferred Language | Unknown | + + + | Marital Status | | + + + | Mormon Affiliation | Unknown | + + + | Race | Unknown | + + + | Ethnic Group | Unknown | + + + Author + + + | Author | [facility] | | | and [place] | + + + | Organization | [facility] | | | [...] [place], | | | | | [place] [address] | | + + + + + | Josephine Meléndez | ECON | [address] | | | | | [place] | | | | | [address] | | + + + + + | Chiara Cid | ECON | [address] | | | | | [place], [place] | | | | | [address] | | + + + + + | Josephine Meléndez | ECON | Unknown | | + + + + + Care Team Providers + +------+ + | Care Solid Waste Facility Supervisor Name | Role | Phone | [...] | | [address] | [place] [address] | | | | | [place] | [phone] | | | | | [address] | | | | | | [phone] | | | +--------+ + + + [...] [place] | | | | | | [address] | | | | | | | | | | | | Isabella Tang MD | | | | | | [address] | | | | | | [place] [facility] [address] | | | | | | [place] [address] | | | | | | [phone] | | | | | | | | +--------+---------+ + + + documented as of this encounter Visit Diagnoses Not on filedocumented in this encounter"
--- OUTSIDE RECORDS SUMMARY | ~2019-11-10 | XMS | Encounter Summary ---
Demographics + + + | Address | [address] | | | [place] [address] | + + + | Home Phone | | + + + | Preferred Language | Unknown | + + + | Marital Status | | + + + | Protestant Affiliation | Unknown | + + + | Race | Unknown | + + + | Ethnic Group | Unknown | + + + Author + + + | Author | [facility] | | | and [place] | + + + | Organization | [facility] | | [...] [place], | | | | | [place] [address] | | + + + + + | Josephine Meléndez | ECON | [address] | | | | | [place] | | | | | [address] | | + + + + + | Chiara Cid | ECON | [address] | | | | | [place], [place] | | | | | [address] | | + + + + + | Josephine Meléndez | ECON | Unknown | | + + + + + Care Team Providers + +------+ + | Care Inter Fold Roll Cutter Name | Role | Phone | + +------+ + PCP | Unavailable | + +------+ + Encounter Details +--------+ + + + + | Date | Type | Department | Care Team | Description | +--------+ + + + + | 11/05/ | Hospital | [facility] | Surjit Hamilton, | | | 2011 - | Encounter | MED CTR SUR[facility] | [address] | | | | | [address] | [place] | | | 11/09/ | | [place] [id number] | [id number] | | | 2011 | | [phone] | | | +--------+ + + + [...] + + documented as of this encounter Discharge Summaries Puneet Gates MD - 02/28/2012 8:10 [place] [address] Patient Name: JOSY CID Provider: Surjit Hamilton MD Unit #: [id number] Location: [address] [place] [address] #: [id number] : 1940 ADMISSION DATE: 11/06/2011 DISCHARGE DATE: 11/10/2011 The patient is a 71-year-old gentleman who was admitted to the hospital with concerns of ce llulitis with systemic inflammatory response syndrome on the left lower extremity. Kindly r efer to Dr. Hamilton' s H and P for further details. HOSPITAL COURSE: The patient was started on IV antibiotics, also blood cultures were ordere d. The patient had had left leg lymphedema with cellulitis. The patient's blood cultures re vealed E coli. The patient's leukocytosis trended down showing signs of clinical response a nd improvement. The patient also appeared more "perked up," and his left leg felt less thro bbing. The patient's antibiotic was eventually switched to p.o. antibiotic for a 14-day cou rse, and the patient was advised reevaluation by his PCP, and also outpatient lymphedema tr eatments were ordered. The patient's acute kidney injury also appeared to have resolved. DISCHARGE MEDICATIONS: 1. aspirin 81 mg 1 p.o. daily. 2. Amaryl 4 mg 1 p.o. daily. 3. Atacand 32 mg orally at bedtime. 4. ColBenemid, that is a combination of colchicine and probenecid, 1 tablet orally at bedti me 0.5/500. 5. Coumadin 5 mg orally as directed. 6. Coumadin 2.5 mg orally as directed. 7. Lantus 50 units subcutaneously twice daily. 8. Lasix 40 mg orally daily was held. The patient is advised to follow with primary MD for recommendations regarding that. 9. Lipitor 40 mg orally at bedtime. 10. Metoprolol succinate 200 mg oral daily. 11. Prilosec 20 mg 1 p.o. daily. 12. Zoloft 50 mg orally at bedtime. 13. Colace 100 mg orally daily p.r.n. constipation. 14. The patient was prescribed a course of cefprozil 500 mg 1 p.o. b.i.d. for 14 days. DISCHARGE DIAGNOSES: 1. LEFT LEG LYMPHEDEMA WITH CELLULITIS AND BACTEREMIA WITH ESCHERICHIA COLI. 2. TYPE 2 DIABETES MELLITUS. 3. PERIPHERAL NEUROPATHY. 4. HYPERLIPIDEMIA. 5. CARDIOMYOPATHY. 6. PAROXYSMAL ATRIAL FLUTTER. 7. HISTORY OF DEEP VEIN THROMBOSIS. 8. HYPERTENSION. 9. OBESITY. DISCHARGE CONDITION: Stable. DISCHARGE DISPOSITION: Home with followup. The patient was advised followup at work as saul cated in discharge paper per PCP. DICTATED BY: Puneet Gates MD Internal Medicine/Hospitalist JOB #: [id number] EXT JOB #:[id number] cc: Surjit Hamilton MD <<Signature on File>> Puneet Gates MD 2256 < Puneet Bates MD - 11/06/2011 1:06 AM PDTADMISSION DATE: 11/06/2011 DISCHARGE DATE: 11/10/2011 The patient is a 71-year-old gentleman who was admitted to the hospital with concerns of c ellulitis with systemic inflammatory response syndrome on the left lower extremity. Kindly refer to Dr. Hamilton's H and P for further details. HOSPITAL COURSE: The patient was started on IV antibiotics, also blood cultures were order ed. The patient had had left leg lymphedema with cellulitis. The patient's blood cultures r evealed E coli. The patient's leukocytosis trended down showing signs of clinical response and improvement. The patient also appeared more "perked up," and his left leg felt less thr obbing. The patient's antibiotic was eventually switched to p.o. antibiotic for a 14-day co urse, and the patient was advised reevaluation by his PCP, and also outpatient lymphedema treatments were ordered. The patient's acute kidney injury also appeared to have resolved. DISCHARGE MEDICATIONS: 1. aspirin 81 mg 1 p.o. daily. 2. Amaryl 4 mg 1 p.o. daily. 3. Atacand 32 mg orally at bedtime. 4. ColBenemid, that is a combination of colchicine and probenecid, 1 tablet orally at bedt dimas 0.5/500. 5. Coumadin 5 mg orally as directed. 6. Coumadin 2.5 mg orally as directed. 7. Lantus 50 units subcutaneously twice daily. 8. Lasix 40 mg orally daily was held. The patient is advised to follow with primary MD for recommendations regarding that. 9. Lipitor 40 mg orally at bedtime. 10. Metoprolol succinate 200 mg oral daily. 11. Prilosec 20 mg 1 p.o. daily. 12. Zoloft 50 mg orally at bedtime. 13. Colace 100 mg orally daily p.r.n. constipation. 14. The patient was prescribed a course of cefprozil 500 mg 1 p.o. b.i.d. for 14 days. DISCHARGE DIAGNOSES: 1. LEFT LEG LYMPHEDEMA WITH CELLULITIS AND BACTEREMIA WITH ESCHERICHIA COLI. 2. TYPE 2 DIABETES MELLITUS. 3. PERIPHERAL NEUROPATHY. 4. HYPERLIPIDEMIA. 5. CARDIOMYOPATHY. 6. PAROXYSMAL ATRIAL FLUTTER. 7. HISTORY OF DEEP VEIN THROMBOSIS. 8. HYPERTENSION. 9. OBESITY. DISCHARGE CONDITION: Stable. DISCHARGE DISPOSITION: Home with followup. The patient was advised followup at work as ind icated in discharge paper per PCP. DICTATED BY: Puneet Gates MD Internal Medicine/Hospitalist JOB #: [id number] EXT JOB #:[id number] cc: Surjit Hamilton MD <Electronically Signed by Puneet Gates MD> 02/28/12 2256 documented in this encounter Medications at Time [...] + + documented as of this encounter H&P Notes Surjit Hamilton MD - 11/06/2011 1:06 AM PDTDATE: 11/06/2011 CHIEF COMPLAINT: "I have cellulitis." HISTORY OF PRESENT ILLNESS: Mr. 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 He wound up having surgery for resection of the lymphosarcoma, b ut the left femoral artery becam e occluded, prompting an iliofemoral bypass on that side. Only 6 months or so later, it occluded, req uiring a second procedure. The patient also had postoperative chemoradiation on the sarcoma. He devel oped really massive lymphedema in hi s left lower extremity, which has put him at risk of recurrent ce llulitis. He says that he has had cellulitis perhaps 10 times over the past 40 years. He says that it seems likely i t is happening a little more frequently now. Roughly 6 weeks or so ago, he feels that he chapa d a tear in the skin and wound up getting a cellulitis. He went on 3 rounds of clindamycin, and in between clindamycin, he says, he always takes erythromycin. The only time he ever st ops the erythr omycin is when he is placed on another antibiotic temporally. He says that saran mello thought it was behind h im, but today when he went out to some sort of a gathering, he chapa d sudden onset of chills and fever a nd was noted to have a temperature of 103. He presente d then to the emergency department, where he wa s seen, and I was asked to admit the patien t. PAST MEDICAL HISTORY: HE DEVELOPED A COUGH WITH ZESTRIL. ALLERGIES: 1. CYMBALTA. 2. FLU VACCINE. MEDICATIONS 1. Aspirin 81 mg p.o. daily. 2. Lipitor 40 mg p.o. at bedtime. 3. Atacand 32 mg p.o. daily. 4. ColBenemid 0.5/500 p.o. daily. 5. Lasix 40 mg p.o. daily. 6. Amaryl 4 mg p.o. daily. 7. Lantus 50 units subcu b.i.d. 8. Metoprolol 200 mg p.o. daily. 9. Zoloft 50 mg p.o. at bedtime. 10. Coumadin 2.5 mg on Thursday and , and he takes 5 mg other days of the week. OPERATIONS: Include left iliofemoral bypass x2, and then the left lymphosarcoma excision. MAJOR ILLNESSES: Lymphosarcoma, peripheral neuropathy, cardiomyopathy with LVEF of 40% to 4 5%, and di astolic grade 2 dysfunction, hyperlipidemia, peripheral vascular disease, DVT, a trial flutter, and di abetes. FAMILY HISTORY: His mother of coronary artery disease at 51; father of a brain he morrhage a t 49. SOCIAL HISTORY: He is a nonsmoker, nondrinker. 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 He is marri , has 1 son and 1 daughter. REVIEW OF SYSTEMS The patient denies any problems through a 13-point review of systems. PHYSICAL EXAMINATION VITAL SIGNS: His blood pressure is 133/45, pulse 81, respiratory rate 16, temperature is 10 2, and he is 98% O2 saturated. He is 6 feet tall, 132.5 kg. GENERAL: He is a very pleasant, obese, white male who seems to be in no significant distres s. HEENT: Normocephalic. The pupils are equal, round, react to light. Ears, nose and throat ar e normal. NECK: Supple. No lymphadenopathy, JVD, thyroid enlargement, or bruits. LUNGS: Clear to auscultation and percussion. HEART: Regular rhythm, no murmurs, gallops, or rubs. ABDOMEN: Soft. It is obese. Bowel sounds are normoactive. No organomegaly. He has some mild tendernes s just above the umbilicus. He says he has been coughing a lot, and his chicho nks the cough is seco ndary to allergies. EXTREMITIES: Right is unremarkable outside of onychomycosis and very dry skin over the dist al leg and particularly the heel on the right. On the left side, he has massive lymphedema. His skin is extreme ly warm and quite red. He has patchy areas of dry skin. He has quite a lot of dry skin on the heels a nd on the ball of his first metatarsal. He also has onychom ycosis on the left. There is a little low wound on his second total medially. It appears wh ere the nail on the great toe has been digging into it. He does not see a military analyst. NEUROLOGIC: The patient is awake, alert, oriented x3. Cranial nerves, strength, sensation a re all fun ctionally intact. LABORATORY STUDIES: Show a white count 12,100, hemoglobin 12.6, hematocrit 38.3, platelets 238,000. B lood sugar is 154, BUN 24, creatinine 1.51, sodium 133, potassium 4.2, chloride 94, bicarbonate 27. IMPRESSION: 1. CELLULITIS with SYSTEMIC INFLAMMATORY RESPONSE SYNDROME ON THE LEFT LOWER EXTREMITY. 2. LYMPHEDEMA, post lymphosarcoma treatment including surgery and chemoradiation. 3. DIABETES MELLITUS, TYPE 2. 4. PERIPHERAL NEUROPATHY. 5. HYPERLIPIDEMIA. 6. CARDIOMYOPATHY. 7. PAROXYSMAL ATRIAL FLUTTER. 8. HISTORY OF DEEP VEIN THROMBOSIS. 9. HYPERTENSION. 10. OBESITY. 11. DRY SKIN. PLAN: Will leg start with vancomycin, and hopefully will get something on cultures, but it is unlikel y we will. We may ask Infectious Disease for their opinion regarding length of t reatment, and then de cide whether we may need a PICC line or not for long-term antibiotics . DICTATED BY: Surjit Hamilton MD JOB #: [id number] EXT JOB #:[id number] cc: Chika Felder MD <Electronically Signed by Surjit Hamilton MD> 11/06/11 0156 documented in this encounter ED Notes Anmol Deal MD - 11/06/2011 1:06 AM PDTDATE: 11/05/2011 TIME OF EXAM: 2210. REASON FOR PRESENTATION: Fever, cellulitis. HISTORY OF PRESENT ILLNESS: The patient is a 71-year-old male with a diagnosis of celluliti s about a week ago, and has been treated with antibiotics, but continues to have a red, swo llen leg, and then t onight has developed a fever. He is not lightheaded or dizzy. Has no other infectious type symptoms, including no headach e, neck st iffness, sinus pain, congestion, runny nose, sore throat, cough, difficulty meliton thing, chest or abdom en pain, vomiting, diarrhea, dysuria, hematuria, flank pain, skin jann hes or lesions, other than the l eft lower extremity. He has no focal weakness, numbness, o r other symptoms or complaints. PAST MEDICAL HISTORY: Significant for prior cellulitis requiring IV antibiotics, hypertensi on, gastro esophageal reflux disease, mild renal insufficiency, and diabetes. FAMILY HISTORY: Noncontributory. SOCIAL HISTORY: Denies alcohol, drug, or tobacco use. MEDICATIONS 1. Aspirin. 2. Lipitor. 3. Candesartan. 4. Clindamycin. 5. Lasix. 6. Amaryl. 7. Lantus. 8. Zoloft. 9. Coumadin. ALLERGIES: NO KNOWN DRUG ALLERGIES. REVIEW OF SYSTEMS: As noted in HPI, otherwise complete review negative. PHYSICAL EXAMINATION VITAL SIGNS: Blood pressure 133/45, heart rate 81, respiratory rate 16, temperature 102, ox ygen satur ation 98%. GENERAL: The patient is nontoxic appearing, in no acute distress. HEENT: Normocephalic. Oropharynx moist and patent. The patient is in no respiratory distres s. HEART: Regular, no murmurs. LUNGS: Clear, symmetric, good air movement. ABDOMEN: Nontender. No rebound, guarding, or palpable mass. No CVA tenderness. SKIN: Intact without rashes or lesions other than the left lower extremity, which is marked ly swollen , erythematous, and diffusely tender. No fluctuant area or central area of indur ation to suggest absc ess. NEUROLOGIC: Distal neurovascular intact. The patient is alert, oriented, and appropriate. TEST REVIEW: Work-up included chemistry panel with a glucose of 154, AST 51, BUN 24, creati nine 1.51, sodium 133, chloride 94, remainder of chemistry panel normal. White count mildly elevated at 12.1, h emoglobin 12.6, platelets 238. Blood culture sent and pending. DISCUSSION: The patient here with left lower extremity cellulitis which has failed outpatie nt treatme nt. He was given a dose of IV vancomycin here in the emergency department and wi ll be admitted to the hospitalist service for further evaluation and treatment. DIAGNOSIS CELLULITIS WITH FAILURE OF OUTPATIENT THERAPY FOR OF THE LEFT LOWER EXTREMITY. PLAN: As above. DICTATED BY: Anmol Deal MD Emergency Medicine JOB #: [id number] EXT JOB #:[id number] <Electronicall y Signed by Anmol Deal MD> 11/12/11 2310 documented in this encounter Plan of Treatment +--------+---------+ + + + | Date | Type | Specialty | Care Team | Description | +--------+---------+ + + + | 11/09/ | Office | Wound Care | Armando Lopez V, | | | 2020 | Visit | | [address] | | | | | | [place] | | | | | | [address] | | | | | | | | | | | | Isabella Tang MD | | | | | | [address] | | | | | | [facility] [address] | | | | | | [place] [address] | | | | | | [phone] | | | | | | | | +--------+---------+ + + + documented as of this encounter Procedures + +--------+ + + + | Procedure Name | Priori | Date/Time | Associated Diagnosis | Comments | | | ty | | | | + +--------+ + + + | PROTIME INR | Routin | 11/10/2011 | | Results for this | | | e | 6:26 AM | | procedure are in the | | | | PDT | | results section. | + +--------+ + + + | CBC NO DIFFERENTIAL | Routin | 11/10/2011 | | Results for this | | | e | 6:26 AM | | procedure are in the | | | | PDT | | results section. | + +--------+ + + + | MAGNESIUM | Routin | 11/10/2011 | | Results for this | | | e | 6:26 AM | | procedure are in the | | | | PDT | | results section. | + +--------+ + + + | BASIC METABOLIC | Routin | 11/10/2011 | | Results for this | | PANEL | e | 6:26 AM | | procedure are in the | | | | PDT | | results section. | + +--------+ + + + | PROTIME INR | Routin | 11/09/2011 | | Results for this | | | e | 6:47 AM | | procedure are in the | | | | PDT | | results section. | + +--------+ + + + | CBC NO DIFFERENTIAL | Routin | 11/09/2011 | | Results for this | | | e | 6:39 AM | | procedure are in the | | | | PDT | | results section. | + +--------+ + + + | MAGNESIUM | Routin | 11/09/2011 | | Results for this | | | e | 6:39 AM | | procedure are in the | | | | PDT | | results section. | + +--------+ + + + | BASIC METABOLIC | Routin | 11/09/2011 | | Results for this | | PANEL | e | 6:39 AM | | procedure are in the | | | | PDT | | results section. | + +--------+ + + + | CBC NO DIFFERENTIAL | Routin | 11/08/2011 | | Results for this | | | e | 6:24 AM | | procedure are in the | | | | PDT | | results section. | + +--------+ + + + | PROTIME INR | Routin | 11/08/2011 | | Results for this | | | e | 6:21 AM | | procedure are in the | | | | PDT | | results section. | + +--------+ + + + | MAGNESIUM | Routin | 11/08/2011 | | Results for this | | | e | 6:21 AM | | procedure are in the | | | | PDT | | results section. | + +--------+ + + + | BASIC METABOLIC | Routin | 11/08/2011 | | Results for this | | PANEL | e | 6:21 AM | | procedure are in the | | | | PDT | | results section. | + +--------+ + + + | PROTIME INR | Routin | 11/07/2011 | | Results for this | | | e | 6:52 AM | | procedure are in the | | | | PDT | | results section. | + +--------+ + + + | CBC NO DIFFERENTIAL | Routin | 11/07/2011 | | Results for this | | | e | 6:52 AM | | procedure are in the | | | | PDT | | results section. | + +--------+ + + + | MAGNESIUM | Routin | 11/07/2011 | | Results for this | | | e | 6:52 AM | | procedure are in the | | | | PDT | | results section. | + +--------+ + + + | BASIC METABOLIC | Routin | 11/07/2011 | | Results for this | | PANEL | e | 6:52 AM | | procedure are in the | | | | PDT | | results section. | + +--------+ + + + | UA, MICROSCOPIC, | Routin | 11/06/2011 | | Results for this | | REFLEX | e | 2:35 PM | | procedure are in the | | | | PDT | | results section. | + +--------+ + + + | URINALYSIS, REFLEX | Routin | 11/06/2011 | | Results for this | | MICROSCOPIC AND/OR | e | 2:35 PM | | procedure are in the | | CULTURE | | PDT | | results section. | + +--------+ + + + | SEDIMENTATION RATE | Routin | 11/06/2011 | | Results for this | | | e | 7:11 AM | | procedure are in the | | | | PDT | | results section. | + +--------+ + + + | PROTIME INR | Routin | 11/06/2011 | | Results for this | | | e | 7:11 AM | | procedure are in the | | | | PDT | | results section. | + +--------+ + + + | CBC NO DIFFERENTIAL | Routin | 11/06/2011 | | Results for this | | | e | 7:11 AM | | procedure are in the | | | | PDT | | results section. | + +--------+ + + + | BASIC METABOLIC | Routin | 11/06/2011 | | Results for this | | PANEL | e | 7:11 AM | | procedure are in the | | | | PDT | | results section. | + +--------+ + + + | CBC WITH | Routin | 11/05/2011 | | Results for this | | DIFFERENTIAL | e | 10:48 PM | | procedure are in the | | | | PDT | | results section. | + +--------+ + + + | COMPREHENSIVE | Routin | 11/05/2011 | | Results for this | | METABOLIC PANEL | e | 10:48 PM | | procedure are in the | | | | PDT | | results section. | + +--------+ + + + documented in this encounter Results Luigiime INR (11/10/2011 6:26 AM PDT) + + + + + + | Component | Value | Ref Range | Performed | Pathologist | | | | | At | Signature | + + + + + + | Prothrombin | 20.6 (H) | 11.3 - 13.9 | [facility] | | | Time | | seconds | [facility] | | | | | | [facility] | | | | | | [facility] - | | | | | | LABORATORY | | + + + + + + | INR | 1.8 (H)Comment: INR: | 0.9 - 1.1 | [facility] | | | | USUAL ORAL | [...] | [facility] | [address] | [place] | [phone] | | [facility] | | [address] | | | - LABORATORY | | | | + + + + + | [facility] | [address] | [place], [place] | | | [facility] | | [id number], [facility] | | | - LABORATORY | | | | + + + + + Basic Metabolic Panel (11/10/2011 6:26 AM PDT) + + + + + + | Component | Value | Ref Range | Performed | Pathologist | | | | | At | Signature | + + + + + + | Glucose | 101 | 70 - 109 mg/dL | [facility] | | | | | | [facility] | | | | | | [facility] | | | | | | CENTER - | | | | | | LABORATORY | | + + + + + + | Calcium | 8.8 | 8.3 - 10.5 | [facility] | | | | | mg/dL | [facility] | | | | | | MEDICAL | | | | | | CENTER - | | | | | | LABORATORY | | + + + + + + | BUN | 20 (H) | 7 - 18 mg/dL | [facility] | | | | | | [facility] | | | | | | MEDICAL | | | | | | CENTER - | | | | | | LABORATORY | | + + + + + + | Creatinine | 1.22 | 0.60 - 1.30 | [facility] | | | | | mg/dL | [facility] | | | | | | MEDICAL | | | | | | CENTER - | | | | | | LABORATORY | | + + + + + + | Estimated | 59Comment: For | >60 mL/min/A | [facility] | | | GFR | -Americans, | | [facility] | | | | please multiply [...] + + + + | BUN/Creatin | 16.4 | 12 - 20 | [facility] | | | ine Ratio | | | [facility] | | | | | | [facility] | | | | | | CENTER - | | | | | | LABORATORY | | + + + + + + | Na | 140 | 136 - 149 mEq/L | [facility] | | | | | | [facility] | | | | | | [facility] | | | | | | CENTER - | | | | | | LABORATORY | | + + + + + + | K | 4.0 | 3.5 - 5.1 mEq/l | [facility] | | | | | | [facility] | | | | | | [facility] | | | | | | C[facility] - | | | | | | LABORATORY | | + + + + + + | Cl | 104 | 98 - 109 mEq/l | [facility] | | | | | | [facility] | | | | | | [facility]ICAL | | | | | | CENTER - | | | | | | LABORATORY | | + + + + + + | CO2 | 29 | 24 - 31 mEq/L | [facility] | | | | | | [facility] | | | | | | MEDICAL | | | | | | CENTER - | | | | | | LABORATORY | | + + + + + + | Anion Gap | 11.0 | 6.0 - 17.0 | [facility] | [...] + | [facility] | [address] | [place], [place] | [phone] | | [facility] | | [address] | | | - LABORATORY | | | | + + + + + | [facility] | [address] | [place], [place] | | | [facility] | | [address], [facility] | | | - LABORATORY | | | | + + + + + Magnesium (11/10/2011 6:26 AM PDT) + +-------+ + + + | Component | Value | Ref Range | Performed | Pathologist | | | | | At | Signature | + +-------+ + + + | Magnesium | 1.8 | 1.8 - 2.5 mg/dL | [facility] | | | | | | [facility] | | | | | | MED[facility] | | | | | | CENTER - | | | | | | LABORATORY | | + +-------+ + + + + + | Specimen | + + | | + + + + + + + | Performing | Address | City/State/Zipcode | Phone Number | | Organization | | | | + + + + + | [facility] | [address] | [place] | [phone] | | [facility] | | [address] | | | - LABORATORY | | | | + + + + + | [facility] | [address] | [place] | | | [facility] | | [address], [facility] | | | - LABORATORY | | | | + + + + + CBC no Differential (11/10/2011 6:26 AM PDT) + + + + + + | Component | Value | Ref Range | Performed | Pathologist | | | | | At | Signature | + + + + + + | White Blood | 6.7 | 4.0 - 11.0 K/uL | [facility] | | | Cells | | | [facility] | | | | | | MEDICAL | | | | | | CENTER - | | | | | | LABORATORY | | + + + + + + | Red Blood | 3.85 (L) | 4.30 - 5.70 | [facility] | | | Cells | | M/uL | [facility] | | | | | | MEDICAL | | | | | | CENTER - | | | | | | LABORATORY | | + + + + + + | Hemoglobin | 9.6 (L) | 13.5 - 18.0 | [facility] | | | | | gm/dL | [facility] | | | | | | MEDICAL | | | | | | CENTER - | | | | | | LABORATORY | | + + + + + + | Hematocrit | 28.9 (L) | 40.0 - 51.0 % | [facility] | | | | | | [facility] | | | | | | MEDICAL | | | | | | CENTER - | | | | | | LABORATORY | | + + + + + + | MCV | 75.1 (L) | 83.0 - 101.0 fL | [facility] | | | | | | [facility] | | | | | | MEDICAL | | | | | | CENTER - | | | | | | LABORATORY | | + + + + + + | MCH | 24.9 (L) | 28.0 - 35.0 pg | [facility] | | | | | | [facility] | | | | | | MEDICAL | | | | | | CENTER - | | | | | | LABORATORY | | + + + + + + | MCHC | 33.1 | 32.0 - 36.0 | [facility] | | | | | g/dL | [facility] | | | | | | MEDICAL | | | | | | CENTER - | | | | | | LABORATORY | | + + + + + + | RDW-CV | 17.3 (H) | <15.0 % | [facility] | | | | | | [facility] | | | | | | MEDICAL | | | | | | CENTER - | | | | | | LABORATORY | | + + + + + + | Platelet | 202 | 140 - 440 K/uL | [facility] [...] + | [facility] | [address] | [place], [place] | [phone] | | [facility] | | [address] | | | - LABORATORY | | | | + + + + + | [facility] | [address] | [place], [place] | | | [facility] | | [address] | | | - LABORATORY | | | | + + + + + Protime INR (11/09/2011 6:47 AM PDT) + + + + + + | Component | Value | Ref Range | Performed | Pathologist | | | | | At | Signature | + + + + + + | Prothrombin | 18.5 (H) | 11.3 - 13.9 | [facility] | | | Time | | seconds | [facility] | | | | | | MEDICAL | | | | | | CENTER - | | | | | | LABORATORY | | + + + + + + | INR | 1.6 (H)Comment: INR: | 0.9 - 1.1 | [...] + | [facility] | [address] | [place] | [phone] | | [facility] | | [address] | | | - LABORATORY | | | | + + + + + | [facility] | [address] | [place] | | | [facility] | | [address] | | | - LABORATORY | | | | + + + + + Basic Metabolic Panel (11/09/2011 6:39 AM PDT) + + + + + + | Component | Value | Ref Range | Performed | Pathologist | | | | | At | Signature | + + + + + + | Glucose | 136 (H) | 70 - 109 mg/dL | [facility] | | | | | | [facility] | | | | | | MEDICAL | | | | | | CENTER - | | | | | | LABORATORY | | + + + + + + | Calcium | 8.7 | 8.3 - 10.5 | [facility] | | | | | mg/dL | [facility] | | | | | | [facility] | | | | | | CENTER - | | | | | | LABORATORY | | + + + + + + | BUN | 18 | 7 - 18 mg/dL | [facility] [...] | 59Comment: For | >60 mL/min/A | [facility] | [...] + + + + | BUN/Creatin | 14.9 | 12 - 20 | [facility] | | | ine Ratio | | | [facility] | | | | | | MEDICAL | | | | | | CENTER - | | | | | | LABORATORY | | + + + + + + | Na | 139 | 136 - 149 mEq/L | [facility] | | | | | | [facility] | | | | | | MEDICAL | | | | | | CENTER - | | | | | | LABORATORY | | + + + + + + | K | 3.8 | 3.5 - 5.1 mEq/l | [facility] | | | | | | [facility] | | | | | | MEDICAL | | | | | | CENTER - | | | | | | LABORATORY | | + + + + + + | Cl | 105 | 98 - 109 mEq/l | [facility] | | | | | | [facility] | | | | | | MEDICAL | | | | | | CENTER - | | | | | | LABORATORY | | + + + + + + | CO2 | 30 | 24 - 31 mEq/L | [facility] | | | | | | [facility] | | | | | | MEDICAL | | | | | | CENTER - | | | | | | LABORATORY | | + + + + + + | Anion Gap | 7.8 | 6.0 - 17.0 | [facility] | [...] + | [facility] | [address] | [place] | [phone] | | [facility] | | [address] | | | - LABORATORY | | | | + + + + + | [facility] | [address] | [place], [place] | | | [facility] | | [address], [facility] | | | - LABORATORY | | | | + + + + + Magnesium (11/09/2011 6:39 AM PDT) + +-------+ + + + | Component | Value | Ref Range | Performed | Pathologist | | | | | At | Signature | + +-------+ + + + | Magnesium | 2.0 | 1.8 - 2.5 mg/dL | [facility] | | | | | | [facility] | | | | | | MEDICAL | | | | | | CENTER - | | | | | | LABORATORY | | + +-------+ + + + + + | Specimen | + + | | + + + + + + + | Performing | Address | City/State/Zipcode | Phone Number | | Organization | | | | + + + + + | [facility] | [address] | [place] | [phone] | | [facility] | | [address] | | | - LABORATORY | | | | + + + + + | [facility] | [address] | [place] | | | [facility] | | [address] | | | - LABORATORY | | | | + + + + + CBC no Differential (11/09/2011 6:39 AM PDT) + + + + + + | Component | Value | Ref Range | Performed | Pathologist | | | | | At | Signature | + + + + + + | White Blood | 6.5 (A) | 4.0 - 11.0 K/uL | [facility] | | | Cells | | | [facility] | | | | | [facility] | | | | | | C[facility] - | | | | | | LABORATORY | | + + + + + + | Red Blood | 3.83 (L) | 4.30 - 5.70 | [facility] | | | Cells | | M/uL | [facility] | | | | | | MEDICAL | | | | | | CENTER - | | | | | | LABORATORY | | + + + + + + | Hemoglobin | 9.5 (L) | 13.5 - 18.0 | [facility] | | | | | gm/dL | [facility] | | | | | | MEDICAL | | | | | | CENTER - | | | | | | LABORATORY | | + + + + + + | Hematocrit | 28.8 (L) | 40.0 - 51.0 % | [facility] | | | | | | [facility] | | | | | | MEDICAL | | | | | | CENTER - | | | | | | LABORATORY | | + + + + + + | MCV | 75.2 (L) | 83.0 - 101.0 fL | [facility] | | | | | | [facility] | | | | | | MEDICAL | | | | | | CENTER - | | | | | | LABORATORY | | + + + + + + | MCH | 24.8 (L) | 28.0 - 35.0 pg | [facility] | | | | | | [facility] | | | | | | MEDICAL | | | | | | CENTER - | | | | | | LABORATORY | | + + + + + + | MCHC | 33.0 | 32.0 - 36.0 | [facility] | | | | | g/dL | [facility] | | | | | | MEDICAL | | | | | | CENTER - | | | | | | LABORATORY | | + + + + + + | RDW-CV | 17.1 (H) | <15.0 % | [facility] | | | | | | [facility] | | | | | | MEDICAL | | | | | | CENTER - | | | | | | LABORATORY | | + + + + + + | Platelet | 186 | 140 - 440 K/uL | [facility] [...] + | [facility] | [address] | [place], [place] | [phone] | | [facility] | | [address] | | | - LABORATORY | | | | + + + + + | [facility] | [address] | [place], [place] | | | [facility] | | [address], [facility] | | | - LABORATORY | | | | + + + + + CBC no Differential (11/08/2011 6:24 AM PDT) + + + + + + | Component | Value | Ref Range | Performed | Pathologist | | | | | At | Signature | + + + + + + | White Blood | 8.4 (A) | 4.0 - 11.0 K/uL | [facility] | | | Cells | | | [facility] | | | | | | MEDICAL | | | | | | CENTER - | | | | | | LABORATORY | | + + + + + + | Red Blood | 3.86 (L) | 4.30 - 5.70 | [facility] | | | Cells | | M/uL | [facility] | | | | | | MEDICAL | | | | | | CENTER - | | | | | | LABORATORY | | + + + + + + | Hemoglobin | 9.8 (L) | 13.5 - 18.0 | [facility] | | | | | gm/dL | [facility] | | | | | | MEDICAL | | | | | | CENTER - | | | | | | LABORATORY | | + + + + + + | Hematocrit | 29.1 (L) | 40.0 - 51.0 % | [facility] | | | | | | [facility] | | | | | | MEDICAL | | | | | | CENTER - | | | | | | LABORATORY | | + + + + + + | MCV | 75.4 (L) | 83.0 - 101.0 fL | [facility] | | | | | | [facility] | | | | | | MEDICAL | | | | | | CENTER - | | | | | | LABORATORY | | + + + + + + | MCH | 25.4 (L) | 28.0 - 35.0 pg | [facility] | | | | | | [facility] | | | | | | MEDICAL | | | | | | CENTER - | | | | | | LABORATORY | | + + + + + + | MCHC | 33.7 | 32.0 - 36.0 | [facility] | | | | | g/dL | [facility] | | | | | | MEDICAL | | | | | | CENTER - | | | | | | LABORATORY | | + + + + + + | RDW-CV | 17.4 (H) | <15.0 % | [facility] | | | | | | [facility] | | | | | | MEDICAL | | | | | | CENTER - | | | | | | LABORATORY | | + + + + + + | Platelet | 170 | 140 - 440 K/uL | [facility] [...] + | [facility] | [address] | [place] | [phone] | | [facility] | | [address] | | | - LABORATORY | | | | + + + + + | [facility] | [address] | [place], [place] | | | [facility] | | [address] | | | - LABORATORY | | | | + + + + + Protime INR (11/08/2011 6:21 AM PDT) + + + + + + | Component | Value | Ref Range | Performed | Pathologist | | | | | At | Signature | + + + + + + | Prothrombin | 19.3 (H) | 11.3 - 13.9 | [facility] | | | Time | | seconds | [facility] | | | | | | MEDICAL | | | | | | CENTER - | | | | | | LABORATORY | | + + + + + + | INR | 1.7 (H)Comment: INR: | 0.9 - 1.1 | [...] + | [facility] | [address] | [place] | [phone] | | [facility] | | [address] | | | - LABORATORY | | | | + + + + + | [facility] | [address] | [place], [place] | | | [facility] | | [address], [facility] | | | - LABORATORY | | | | + + + + + Basic Metabolic Panel (11/08/2011 6:21 AM PDT) + + + + + + | Component | Value | Ref Range | Performed | Pathologist | | | | | At | Signature | + + + + + + | Glucose | 134 (H) | 70 - 109 mg/dL | [facility] | | | | | | [facility] | | | | | | MEDICAL | | | | | | CENTER - | | | | | | LABORATORY | | + + + + + + | Calcium | 8.2 (L) | 8.3 - 10.5 | [facility] | | | | | mg/dL | [facility] | | | | | | MEDICAL | | | | | | CENTER - | | | | | | LABORATORY | | + + + + + + | BUN | 22 (H) | 7 - 18 mg/dL | [facility] | | | | | | [facility] | | | | | | MEDICAL | | | | | | CENTER - | | | | | | LABORATORY | | + + + + + + | Creatinine | 1.49 (H) | 0.60 - 1.30 | [facility] | | | | | mg/dL | [facility] | | | | | | MEDICAL | | | | | | CENTER - | | | | | | LABORATORY | | + + + + + + | Estimated | 46 (L)Comment: For | >60 mL/min/A | [facility] | [...] + + + + | BUN/Creatin | 14.8 | 12 - 20 | [facility] | | | ine Ratio | | | [facility] | | | | | | MEDICAL | | | | | | CENTER - | | | | | | LABORATORY | | + + + + + + | Na | 138 | 136 - 149 mEq/L | [facility] | | | | | | [facility] | | | | | | MEDICAL | | | | | | CENTER - | | | | | | LABORATORY | | + + + + + + | K | 3.7 | 3.5 - 5.1 mEq/l | [facility] | | | | | | [facility] | | | | | | MEDICAL | | | | | | CENTER - | | | | | | LABORATORY | | + + + + + + | Cl | 102 | 98 - 109 mEq/l | [facility] | | | | | | [facility] | | | | | | MEDICAL | | | | | | CENTER - | | | | | | LABORATORY | | + + + + + + | CO2 | 30 | 24 - 31 mEq/L | [facility] | | | | | | [facility] | | | | | | MEDICAL | | | | | | CENTER - | | | | | | LABORATORY | | + + + + + + | Anion Gap | 9.7 | 6.0 - 17.0 | [facility] | | | | | | [facility] | | | [...] + | [facility] | [address] | [place] | [phone] | | [facility] | | [address] | | | - LABORATORY | | | | + + + + + | [facility] | [address] | [place] | | | [facility] | | [address] | | | - LABORATORY | | | | + + + + + Magnesium (11/08/2011 6:21 AM PDT) + +-------+ + + + | Component | Value | Ref Range | Performed | Pathologist | | | | | At | Signature | + +-------+ + + + | Magnesium | 2.0 | 1.8 - 2.5 mg/dL | [facility] | | | | | | [facility] | | | | | | MEDICAL | | | | | | CENTER - | | | | | | LABORATORY | | + +-------+ + + + + + | Specimen | + + | | + + + + + + + | Performing | Address | City/State/Zipcode | Phone Number | | Organization | | | | + + + + + | [facility] | [address] | [place] | [phone] | | [facility] | | [address] | | | - LABORATORY | | | | + + + + + | [facility] | [address] | [place], [place] | | | [facility] | | [address] | | | - LABORATORY | | | | + + + + + Protime INR (11/07/2011 6:52 AM PDT) + + + + + + | Component | Value | Ref Range | Performed | Pathologist | | | | | At | Signature | + + + + + + | Prothrombin | 20.7 (H) | 11.3 - 13.9 | [facility] | | | Time | | seconds | [facility] | | | | | | MEDICAL | | | | | | CENTER - | | | | | | LABORATORY | | + + + + + + | INR | 1.9 (H)Comment: INR: | 0.9 - 1.1 | [...] | + + + + + | [facility] | [address] | [place], [place] | [phone] | | [facility] | | [address] | | | - LABORATORY | | | | + + + + + | [facility] | [address] | [place], [place] | | | [facility] | | [address] [place] [address] | | | - LABORATORY | | | | + + + + + Basic Metabolic Panel (11/07/2011 6:52 AM PDT) + + + + + + | Component | Value | Ref Range | Performed | Pathologist | | | | | At | Signature | + + + + + + | Glucose | 106 | 70 - 109 mg/dL | [facility] | | | | | | [facility] | | | | | | MEDICAL | | | | | | CENTER - | | | | | | LABORATORY | | + + + + + + | Calcium | 7.9 (L) | 8.3 - 10.5 | [facility] | | | | | mg/dL | [facility] | | | | | | MEDICAL | | | | | | CENTER - | | | | | | LABORATORY | | + + + + + + | BUN | 30 (H) | 7 - 18 mg/dL | [facility] | | | | | | [facility] | | | | | | MEDICAL | | | | | | CENTER - | | | | | | LABORATORY | | + + + + + + | Creatinine | 1.86 (H) | 0.60 - 1.30 | [facility] | | | | | mg/dL | [facility] | | | | | | MEDICAL | | | | | | CENTER - | | | | | | LABORATORY | | + + + + + + | Estimated | 36 (L)Comment: For | >60 mL/min/A | [facility] | | | GFR | -Americans, | | [facility] | | | | please multiply [...] + + + + | BUN/Creatin | 16.1 | 12 - 20 | [facility] | | | ine Ratio | | | [facility] | | | | | | MEDICAL | | | | | | CENTER - | | | | | | LABORATORY | | + + + + + + | Na | 136 | 136 - 149 mEq/L | [facility] | | | | | | [facility] | | | | | | MEDICAL | | | | | | CENTER - | | | | | | LABORATORY | | + + + + + + | K | 3.7 | 3.5 - 5.1 mEq/l | [facility] | | | | | | [facility] | | | | | | MEDICAL | | | | | | CENTER - | | | | | | LABORATORY | | + + + + + + | Cl | 99 | 98 - 109 mEq/l | [facility] | | | | | | [facility] | | | | | | MEDICAL | | | | | | CENTER - | | | | | | LABORATORY | | + + + + + + | CO2 | 30 | 24 - 31 mEq/L | [facility] | | | | | | [facility] | | | | | | MEDICAL | | | | | | CENTER - | | | | | | LABORATORY | | + + + + + + | Anion Gap | 10.7 | 6.0 - 17.0 | [facility] | | | | | [...] | [facility] | [address] | [place] | [phone] | | [facility] | | [address] | | | - LABORATORY | | | | + + + + + | [facility] | [address] | [place] | | | [facility] | | [address] | | | - LABORATORY | | | | + + + + + Magnesium (11/07/2011 6:52 AM PDT) + +-------+ + + + | Component | Value | Ref Range | Performed | Pathologist | | | | | At | Signature | + +-------+ + + + | Magnesium | 1.8 | 1.8 - 2.5 mg/dL | [facility] | | | | | | [facility] | | | | | | MEDICAL | | | | | | CENTER - | | | | | | LABORATORY | | + +-------+ + + + + + | Specimen | + + | | + + + + + + + | Performing | Address | City/State/Zipcode | Phone Number | | Organization | | | | + + + + + | [facility] | [address] | [place], [place] | [phone] | | [facility] | | [address] | | | - LABORATORY | | | | + + + + + | [facility] | [address] | [place], [place] | | | [facility] | | [id number] [place] [address] | | | - LABORATORY | | | | + + + + + CBC no Differential (11/07/2011 6:52 AM PDT) + + + + + + | Component | Value | Ref Range | Performed | Pathologist | | | | | At | Signature | + + + + + + | White Blood | 10.9 (A) | 4.0 - 11.0 K/uL | [facility] | | | Cells | | | [facility] | | | | | | MEDICAL | | | | | | CENTER - | | | | | | LABORATORY | | + + + + + + | Red Blood | 3.99 (L) | 4.30 - 5.70 | [facility] | | | Cells | | M/uL | [facility] | | | | | | MEDICAL | | | | | | CENTER - | | | | | | LABORATORY | | + + + + + + | Hemoglobin | 9.9 (L) | 13.5 - 18.0 | [facility] | | | | | gm/dL | [facility] | | | | | | MEDICAL | | | | | | CENTER - | | | | | | LABORATORY | | + + + + + + | Hematocrit | 29.8 (L) | 40.0 - 51.0 % | [facility] | | | | | | [facility] | | | | | | MEDICAL | | | | | | CENTER - | | | | | | LABORATORY | | + + + + + + | MCV | 74.7 (L) | 83.0 - 101.0 fL | [facility] | | | | | | [facility] | | | | | | MEDICAL | | | | | | CENTER - | | | | | | LABORATORY | | + + + + + + | MCH | 24.8 (L) | 28.0 - 35.0 pg | [facility] | | | | | | [facility] | | | | | | MEDICAL | | | | | | CENTER - | | | | | | LABORATORY | | + + + + + + | MCHC | 33.3 | 32.0 - 36.0 | [facility] | | | | | g/dL | [facility] | | | | | | MEDICAL | | | | | | CENTER - | | | | | | LABORATORY | | + + + + + + | RDW-CV | 17.2 (H) | <15.0 % | [facility] | | | | | | [facility] | | | | | | MEDICAL | | | | | | CENTER - | | | | | | LABORATORY | | + + + + + + | Platelet | 159 | 140 - 440 K/uL | [facility] [...] + | [facility] | [address] | [place] | [phone] | | [facility] | | [address] | | | - LABORATORY | | | | + + + + + | [facility] | [address] | [place], [place] | | | [facility] | | [address], [facility] | | | - LABORATORY | | | | + + + + + UA, Microscopic, Reflex (11/06/2011 2:35 PM PDT) + +-------+ + + + | Component | Value | Ref Range | Performed | Pathologist | | | | | At | Signature | + +-------+ + + + | White Blood | 10-20 | 0 - 1 /hpf | [facility] | | | Cells, | | | [facility] | | | Urine | | | MEDICAL | | | | | | CENTER - | | | | | | LABORATORY | | + +-------+ + + + | Red Blood | >30 | 0 - 4 /hpf | [facility] | | | Cells, | | | [facility] | | | Urine | | | MEDICAL | | | | | | CENTER - | | | | | | LABORATORY | | + +-------+ + + + | Squamous | RARE | FEW /hps | [facility] | | | Epithelial | | | [facility] | | | Cells, | | | MEDICAL | | | Urine | | | CENTER - | | | | | | LABORATORY | | + +-------+ + + + | Bacteria, | FEW | NONE /hpf | [facility] | | | Urine | | | [facility] | | | | | | MEDICAL | | | | | | CENTER - | | | | | | LABORATORY | | + +-------+ + + + + + | Specimen | + + | | + + + + + + + | Performing | Address | City/State/Zipcode | Phone Number | | Organization | | | | + + + + + | [facility] | [address] | [place], [place] | [phone] | | [facility] | | [address] | | | - LABORATORY | | | | + + + + + | [facility] | [address] | [place], [place] | | | [facility] | | [address] | | | - LABORATORY | | | | + + + + + Urinalysis, Reflex Microscopic and/or Culture (11/06/2011 2:35 PM PDT) + + + + + + | Component | Value | Ref Range | Performed | Pathologist | | | | | At | Signature | + + + + + + | COLLECTION | VOID | | [facility] | | | METHOD 1 | | | [facility] | | | | | | MEDICAL | | | | | | CENTER - | | | | | | LABORATORY | | + + + + + + | Color, | YELLOW | | [facility] | | | Urine | | | [facility] | | | | | | MEDICAL | | | | | | CENTER - | | | | | | LABORATORY | | + + + + + + | Clarity, | CLEAR | | [facility] | | | Urine | | | [facility] | | | | | | MEDICAL | | | | | | CENTER - | | | | | | LABORATORY | | + + + + + + | Glucose, | NEGATIVE | NEGATIVE mg/dL | [facility] | | | Urine | | | [facility] | | | | | | MEDICAL | | | | | | CENTER - | | | | | | LABORATORY | | + + + + + + | Bilirubin, | NEGATIVE | NEGATIVE | [facility] | | | Urine | | | [facility] | | | | | | MEDICAL | | | | | | CENTER - | | | | | | LABORATORY | | + + + + + + | Ketones, | NEGATIVE | NEGATIVE | [facility] | | | Urine | | | [facility] | | | | | | MEDICAL | | | | | | CENTER - | | | | | | LABORATORY | | + + + + + + | Specific | 1.020 | 1.001 - 1.030 | [facility] | | | Newborn, | | | [facility] | | | Urine | | | MEDICAL | | | | | | CENTER - | | | | | | LABORATORY | | + + + + + + | Blood, | LARGE | NEGATIVE | [facility] | | | Urine | | | [facility] | | | | | | MEDICAL | | | | | | CENTER - | | | | | | LABORATORY | | + + + + + + | pH, Urine | 5.5 | 5.0 - 8.0 | [facility] | | | | | | [facility] | | | | | | MEDICAL | | | | | | CENTER - | | | | | | LABORATORY | | + + + + + + | Protein, | NEGATIVE | NEGATIVE mg/dL | [facility] | | | Urine | | | [facility] | | | | | | MEDICAL | | | | | | CENTER - | | | | | | LABORATORY | | + + + + + + | Urobilinoge | NORMAL | NORMAL EU/dL | [facility] | | | n, Urine | | | [facility] | | | | | | MEDICAL | | | | | | CENTER - | | | | | | LABORATORY | | + + + + + + | Nitrite, | NEGATIVE | NEGATIVE | [facility] | | | Urine | | | [facility] | | | | | | MEDICAL | | | | | | CENTER - | | | | | | LABORATORY | | + + + + + + | Leukocyte | SMALL | NEGATIVE | [facility] | | | Esterase, | | | [facility] | | | Urine | | | MEDICAL | | | | | | CENTER - | | | | | | LABORATORY | | + + + + + + | MICROSCOPIC | YES | | [facility] | | | ? | | | [facility] | | [...] + | [facility] | [address] | [place] | [phone] | | [facility] | | [address] | | | - LABORATORY | | | | + + + + + | [facility] | [address] | [place] | | | [facility] | | [address] | | | - LABORATORY | | | | + + + + + Protime INR (11/06/2011 7:11 AM PDT) + + + + + + | Component | Value | Ref Range | Performed | Pathologist | | | | | At | Signature | + + + + + + | Prothrombin | 25.9 (H) | 11.3 - 13.9 | [facility] | | | Time | | seconds | [facility] | | | | | | MEDICAL | | | | | | CENTER - | | | | | | LABORATORY | | + + + + + + | INR | 2.5 (H)Comment: INR: | 0.9 - 1.1 | [facility] | | | | USUAL ORAL | | [facility] | | | | ANTICOAGULATION RANGE | [...] + | [facility] | [address] | [place] | [phone] | | [facility] | | [id number] | | | - LABORATORY | | | | + + + + + | [facility] | [address] | [place], [place] | | | [facility] | | [id number] | | | - LABORATORY | | | | + + + + + Basic Metabolic Panel (11/06/2011 7:11 AM PDT) + + + + + + | Component | Value | Ref Range | Performed | Pathologist | | | | | At | Signature | + + + + + + | Glucose | 117 (H) | 70 - 109 mg/dL | [facility] | [facility] | | [facility] | | | [facility] | | [facility]ICAL | | | | | | CENTER - | | | | | | LABORATORY | | + + + + + + | Calcium | 8.2 (L) | 8.3 - 10.5 | [facility] | | | | | mg/dL | [facility] | [facility] | | | | | | C[facility] - | | | | | | LABORATORY | | + + + + + + | BUN | 29 (H) | 7 - 18 mg/dL | [facility] | | | | | [facility] | | [facility] | [facility] | | | | | | [facility] - | | | | | | LABORATORY | | + + + + + + | Creatinine | 1.93 (H) | 0.60 - 1.30 | [facility] | | | | | mg/dL | [facility] | | | | | | [facility] | | | | | | C[facility] - | | | | | | LABORATORY | | + + + + + + | Estimated | 34 (L)Comment: For | >60 mL/min/A | [facility] | | | GFR | -Americans, | | [facility] | | | | please multiply [...] + + + + | BUN/Creatin | 15.0 | 12 - 20 | [facility] | | | ine Ratio | | | [facility] | | [facility] | [facility] | | | | | | CENTER - | | | | | | LABORATORY | | + + + + + + | Na | 137 | 136 - 149 mEq/L | [facility] | [facility] | | | | | | [facility] - | | | | | | LABORATORY | | + + + + + + | K | 4.1 | 3.5 - 5.1 mEq/l | [facility] | | | | | [facility] | | [facility] | [facility] | | | | | | CENTER - | | | | | | LABORATORY | | + + + + + + | Cl | 100 | 98 - 109 mEq/l | [facility] | | | | | [facility] | | | | | | [facility] | | | | | | CENTER - | | | | | | LABORATORY | | + + + + + + | CO2 | 29 | 24 - 31 mEq/L | [facility] | [facility] | | | [facility] | | [facility] | [facility] | | | | | | CENTER - | | | | | | LABORATORY | | + + + + + + | Anion Gap | 12.1 | 6.0 - 17.0 | [facility] | [...] + | [facility] | [address] | [place], [place] | [phone] | | [facility] | | [address] | | | - LABORATORY | | | | + + + + + | [facility] | [address] | [place], [place] | | | [facility] | | [id number] | | | - LABORATORY | | | | + + + + + CBC no Differential (11/06/2011 7:11 AM PDT) + + + + + + | Component | Value | Ref Range | Performed | Pathologist | | | | | At | Signature | + + + + + + | White Blood | 13.9 (H) | 4.0 - 11.0 K/uL | [facility] | | | Cells | | | . [facility] | | | | | | [facility]ICAL | | | | | | CENTER - | | | | | | LABORATORY | | + + + + + + | Red Blood | 4.37 | 4.30 - 5.70 | [facility] | | | Cells | | M/uL | . [facility] | | | | | | MEDICAL | | | | | | CENTER - | | | | | | LABORATORY | | + + + + + + | Hemoglobin | 10.9 (L) | 13.5 - 18.0 | [facility] | | | | | gm/dL | [facility] | | | | | | MEDICAL | | | | | | CENTER - | | | | | | LABORATORY | | + + + + + + | Hematocrit | 32.8 (L) | 40.0 - 51.0 % | [facility] | | | | | | [facility] | | | | | | [facility]ICAL | | | | | | CENTER - | | | | | | LABORATORY | | + + + + + + | MCV | 75.1 (L) | 83.0 - 101.0 fL | [facility] | | | | | [facility] | | | | | | [facility]ICAL | | | | | | CENTER - | | | | | | LABORATORY | | + + + + + + | MCH | 25.0 (L) | 28.0 - 35.0 pg | [facility] | | | | | [facility] | | | | | | MEDICAL | | | | | | CENTER - | | | | | | LABORATORY | | + + + + + + | MCHC | 33.3 | 32.0 - 36.0 | [facility] | | | | | g/dL | [facility] | | | [facility] | | MEDICAL | | | | | | CENTER - | | | | | | LABORATORY | | + + + + + + | RDW-CV | 17.6 (H) | <15.0 % | [facility] | | [facility] | [facility] | | | | | | C[facility] - | | | | | | LABORATORY | | + + + + + + | Platelet | 178 (A) | 140 - 440 K/uL | [facility] [...] + | [facility] | [address] | [place] | [phone] | | [facility] | | [address] | | | - LABORATORY | | | | + + + + + | [facility] | [address] | [place] | | | [facility] | | [address] | | | - LABORATORY | | | | + + + + + Sedimentation Rate (11/06/2011 7:11 AM PDT) + +--------+ + + + | Component | Value | Ref Range | Performed | Pathologist | | | | | At | Signature | + +--------+ + + + | Erythrocyte | 34 (H) | 0 - 20 mm/hr | [facility] | | | | | | [facility] | | | [facility] | | | MEDICAL | | | on Rate | | | CENTER - | | | | | | LABORATORY | | + +--------+ + + + + + | Specimen | + + | | + + + + + + + | Performing | Address | City/State/Zipcode | Phone Number | | Organization | | | | + + + + + | [facility] | [address] | [place] | [phone] | | [facility] | | [address] | | | - LABORATORY | | | | + + + + + | [facility] | [address] | [place], [place] | | | [facility] | | [address], [facility] | | | - LABORATORY | | | | + + + + + Comprehensive Metabolic Panel (11/05/2011 10:48 PM PDT) + + + + + + | Component | Value | Ref Range | Performed | Pathologist | | | | | At | Signature | + + + + + + | Glucose | 154 (H) | 70 - 109 mg/dL | [facility] | | | | | | [facility] | | | | | | MEDICAL | | | | | | CENTER - | | | | | | LABORATORY | | + + + + + + | Calcium | 8.9 | 8.3 - 10.5 | [facility] | | | | | mg/dL | [facility] | | | | | | MEDICAL | | | | | | CENTER - | | | | | | LABORATORY | | + + + + + + | Alkaline | 75 | 40 - 110 IU/L | [facility] | | | Phosphatase | | | [facility] | | | | | | MEDICAL | | | | | | CENTER - | | | | | | LABORATORY | | + + + + + + | AST | 51 (H) | 10 - 42 IU/L | [facility] | | | | | | [facility] | | | | | | MEDICAL | | | | | | CENTER - | | | | | | LABORATORY | | + + + + + + | ALT | 45 | 6 - 45 IU/L | [facility] | | | | | | [facility] | | | | | | MEDICAL | | | | | | CENTER - | | | | | | LABORATORY | | + + + + + + | Bilirubin | 0.8 | 0.2 - 1.0 mg/dL | [facility] | | | Total | | | [facility] | | | | | | MEDICAL | | | | | | CENTER - | | | | | | LABORATORY | | + + + + + + | Total | 7.0 | 6.0 - 7.8 gm/dL | [facility] | | | Protein | | | [facility] | | | | | | MEDICAL | | | | | | CENTER - | | | | | | LABORATORY | | + + + + + + | Albumin | 3.9 | 3.2 - 5.0 gm/dL | [facility] | | | | | | [facility] | | | | | | MEDICAL | | | | | | CENTER - | | | | | | LABORATORY | | + + + + + + | BUN | 24 (H) | 7 - 18 mg/dL | [facility] | | | | | [facility] | | | | | | MEDICAL | | | | | | CENTER - | | | | | | LABORATORY | | + + + + + + | Creatinine | 1.51 (H) | 0.60 - 1.30 | [facility] | | | | | mg/dL | [facility] | | | | | | MEDICAL | | | | | | CENTER - | | | | | | LABORATORY | | + + + + + + | Estimated | 46 (L)Comment: For | >60 mL/min/A | [facility] | | | GFR | -Americans, | [...] + + + + | BUN/Creatin | 15.9 | 12 - 20 | [facility] | | | ine Ratio | | | [facility] | | | | | | MEDICAL | | | | | | CENTER - | | | | | | LABORATORY | | + + + + + + | Na | 133 (L) | 136 - 149 mEq/L | [...] + + + + | Cl | 94 (L) | 98 - 109 mEq/l | [facility] | | | | | [facility] | | | | | | MEDICAL | | | | | | CENTER - | | | | | | LABORATORY | | + + + + + + | CO2 | 27 | 24 - 31 mEq/L | [facility] | | | | | | [facility] | | | | | | MEDICAL | | | | | | CENTER - | | | | | | LABORATORY | | + + + + + + | Anion Gap | 16.2 | 6.0 - 17.0 | [facility] | [...] + | [facility] | [address] | [place] | [phone] | | [facility] | | [address] | | | - LABORATORY | | | | + + + + + | [facility] | [address] | [place] | | | [facility] | | [address] | | | - LABORATORY | | | | + + + + + CBC with Differential (11/05/2011 10:48 PM PDT) + + + + + + | Component | Value | Ref Range | Performed | Pathologist | | | | | At | Signature | + + + + + + | White Blood | 12.1 (H) | 4.0 - 11.0 K/uL | [facility] | | | Cells | | | [facility] | | | | | | MEDICAL | | | | | | CENTER - | | | | | | LABORATORY | | + + + + + + | Red Blood | 5.13 | 4.30 - 5.70 | [facility] | | | Cells | | M/uL | [facility] | | | | | | MEDICAL | | | | | | CENTER - | | | | | | LABORATORY | | + + + + + + | Hemoglobin | 12.6 (L) | 13.5 - 18.0 | [facility] | | | | | gm/dL | [facility] | | | | | | [facility] | | | | | | CENTER - | | | | | | LABORATORY | | + + + + + + | Hematocrit | 38.3 (L) | 40.0 - 51.0 % | [facility] | | | | | | [facility] | | | | | | MEDICAL | | | | | | CENTER - | | | | | | LABORATORY | | + + + + + + | MCV | 74.7 (L) | 83.0 - 101.0 fL | [facility] | | | | | | [facility] | | [facility] | | | MEDICAL | | | | | | CENTER - | | | | | | LABORATORY | | + + + + + + | MCH | 24.5 (L) | 28.0 - 35.0 pg | [facility] | | | | | | [facility] | | | | | | MEDICAL | | | | | | CENTER - | | | | | | LABORATORY | | + + + + + + | MCHC | 32.9 | 32.0 - 36.0 | [facility] | | | | | g/dL | [facility] | | | | | | MEDICAL | | | | | | CENTER - | | | | | | LABORATORY | | + + + + + + | RDW-CV | 17.4 (H) | <15.0 % | [facility] | | | | | | [facility] | | | | | | MEDICAL | | | | | | CENTER - | | | | | | LABORATORY | | + + + + + + | Platelet | 238 | 140 - 440 K/uL | [facility] | | | Count | | | [facility] | | | | | | MEDICAL | | | | | | CENTER - | | | | | | LABORATORY | | + + + + + + | % | 85.7 (H) | 45 - 75 % | [facility] | | | Neutrophils | | | [facility] | | | | | | MEDICAL | | | | | | CENTER - | | | | | | LABORATORY | | + + + + + + | % | 9.5 (L) | 20 - 45 % | [facility] | | | Lymphocytes | | | [facility] | | | | | | MEDICAL | | | | | | CENTER - | | | | | | LABORATORY | | + + + + + + | % Monocytes | 2.5 (L) | 4 - 12 % | [facility] | | | | | | [facility] | | | | | | MEDICAL | | | | | | CENTER - | | | | | | LABORATORY | | + + + + + + | % | 1.8 | 0 - 5 % | [facility] | | | Eosinophils | | | [facility] | | | [facility] | | MEDICAL | | | | | | CENTER - | | | | | | LABORATORY | | + + + + + + | % Basophils | 0.5 | 0 - 1 % | [facility] | | | | | | [facility] | | | | | | MEDICAL | | | | | | CENTER - | | | | | | LABORATORY | | + + + + + + | Absolute | 10.4 (H) | 1.5 - 6.6 K/uL | [facility] | | | Neutrophils | | | [facility] | | | | | | MEDICAL | | | | | | CENTER - | | | | | | LABORATORY | | + + + + + + | Absolute | 1.2 | 0.6 - 3.2 K/uL | [facility] | | | Lymphocytes | | | [facility] | | | | | | MEDICAL | | | | | | CENTER - | | | | | | LABORATORY | | + + + + + + | Absolute | 0.3 | 0.0 - 1.0 K/uL | [facility] | | | Monocytes | | | [facility] | | | | | | MEDICAL | | | | | | CENTER - | | | | | | LABORATORY | | + + + + + + | Absolute | 0.2 | 0.0 - 0.4 K/uL | [facility] | | | Eosinophils | | | [facility] | | | | | | MEDICAL | | | | | | CENTER - | | | | | | LABORATORY | | + + + + + + | Absolute | 0.1 | 0.0 - 0.1 K/uL | [facility] | | | Basophils | | | [facility] | | [...] + | [facility] | [address] | [place] | [phone] | | [facility] | | [address] | | | - LABORATORY | | | | + + + + + | [facility] | [address] | [place], [place] | | | [facility] | | [address], [facility] | | | - LABORATORY | | | | + + + + + documented in this encounter Visit Diagnoses Not on filedocumented in this encounter
--- OUTSIDE RECORDS SUMMARY | ~2019-11-10 | XMS | Encounter Summary ---
Demographics + + + | Address | [address] | | | [place] [address] | + + + | Home Phone [...] + + + | Author | [facility] | | | and [place] | + + + | Organization | [facility] | | | and [...] [place], | | | | | [place] [address] | | + + + + + | Josephine Meléndez | ECON | [address] | | | | | [place] | | | | | [address] | | + + + + + | Chaira Cid | ECON | [address] | | | | | [place], [place] | | | | | [address] | | + + + + + | Josephine Meléndez | ECON | Unknown | | + + + + + Care Team Providers + +------+ + | Care Customer Experience Professional Name | Role | Phone | + +------+ + PCP | Unavailable | + +------+ + Encounter Details +--------+ + + + + | Date | Type | Department | Care Team | Description | +--------+ + + + + | 12/24/ | Abstract | [facility] | DATA MIGRATION TAVIA | | | 2011 | | Conversion Location | SR | | | | | [address] [facility] | | | | | | [place], [place] | | | | | | [address] | | | | | | [phone] | | | +--------+ + + + [...] + + + | Blood Pressure | 144/76 | 09/30/2011 12:00 AM | | | | | PDT [...] + + + + | Weight | 135.2 kg (298 lb) | 09/17/2011 12:00 AM | | | | | PDT | | + + + + + | Height | 182.9 cm (6') | 09/04/2011 12:00 AM | | | | | PDT | | + + + + + | Body Mass Index | 40.42 | 09/04/2011 12:00 AM | | | | | PDT | | + + + + + documented in this encounter Plan of Treatment +--------+---------+ + + + | Date | Type | Specialty | Care Team | Description | +--------+---------+ + + + | 11/09/ | Office | Wound Care | Armando Lopez V, | | | 2020 | Visit | | [address] | | | | | | [place] | | | | | | [address] | | | | | | | | | | | | Isabella Tang MD | | | | | | [address] | | | | | | [address] | | | | | | [place] [address] | | | | | | [phone] | | | | | | | | +--------+---------+ + + + documented as of this encounter Visit Diagnoses Not on filedocumented in this encounter"
--- OUTSIDE RECORDS SUMMARY | ~2019-11-10 | XMS | Encounter Summary ---
Demographics + + + | Address | [address] | | | [place] [address] | + + + | Home Phone | | + + + | Preferred Language | Unknown | + + + | Marital Status | | + + + | Adventism Affiliation | Unknown | + + + [...] [place], | | | | | [place] [address] | | + + + + + | Josephine Meléndez | ECON | [address] | | | | | [place] | | | | | [address] | | + + + + + | Chiara Cid | ECON | [address] | | | | | [place], [place] | | | | | [address] | | + + + + + | Josephine Meléndez | ECON | Unknown | | + + + + + Care Team Providers + +------+ + | Care Director Call Center Sales Name | Role | Phone | + +------+ + | Doroteo Felder MD | PCP | | + +------+ + Encounter Details +--------+ + + + + | Date | Type | Department | Care Team | Description | +--------+ + + + + | 07/11/ | Orders Only | [facility] | Conversion | | | 2015 | | [facility] [place] | Transaction, | | | | | [address] | Provider Unknown | | | | | [place], [place] | [phone] | | | | | [address] | | | | | | [phone] | | | +--------+ + + + [...] - 1.030 | EXTERNAL | | | [place], | | | LAB | | | [...]
--- OUTSIDE RECORDS SUMMARY | ~2019-11-10 | XMS | Encounter Summary ---
Demographics + + + | Address | [address] | | | [place] [address] | + + + | Home Phone | | + + + | Preferred Language | Unknown | + + + | Marital Status | | + + + | Nondenominational Affiliation | Unknown | + + + | Race | Unknown | + + + | Ethnic Group | Unknown | + + + Author + + + | Author | [facility] | | | and [place] | + + + | Organization | [facility] | | [...] [place], | | | | | [place] [address] | | + + + + + | Josephine Meléndez | ECON | [address] | | | | | [place] | | | | | [address] | | + + + + + | Chiara Cid | ECON | [address] | | | | | [place], [place] | | | | | [address] | | + + + + + | Josephine Meléndez | ECON | Unknown | | + + + + + Care Team Providers + +------+ + | Care Enrollment Eligibility Representative Name | Role | Phone | + [...] [address] | | | | | [place], [place] | [place] [address] | | | | | [address] | [phone] | | | | | [phone] | | | +--------+ + + + [...] m/s | | | Lateral E/e': 15.08 Culinary Arts Teacher: NICO Authenticated by: | | | RODRIGUEZ JUNG MD Report Date/Time: -- [id number]:03:16 | | + + + + + | Procedure Note | + + | José Luis, Rad Conversion - 12/02/2018 6:39 PM PDT Patient Name: Terence Cid of | | : 1940 Performing Physician: RODRIGUEZ JUNG, | | MD INDICATIONS A | | -Fib, HTN CONCLUSIONS [...] comparison to the previous echocardiographic study, done 2/3/16. | | FINDINGS--------ECG rhythm: Sinus rhythm with [...] cmLVIDd: 6.12 cmLVPWd: 1.26 cmLVOT Area: 4.73 he7MUHG Diam: | | 2.45 cm%FS: 17.26 %EF(Teich): [...] mlLAESV Index (A-L): 46.03 ml/m2LAAs A2C: 29.18 tc5TGYVD A-L A2C: 106.32 | | mlLALs A2C: 6.80 cmLAAs A4C: 31.59 dx8LABBP A-L A4C: 116.05 mlLALs A4C: 7.29 | | cmRAAs: 19.20 bs2DUEAH A-L: 56.28 mlRAESV MOD: 54.94 mlRALs: 5.56 cmAV maxPG: | | 4.72 mmHgAV meanP.54 mmHgAV Vmax: 1.08 m/Negar Vmean: 0.75 m/Negar VTI: 20.86 | | cmAVA Vmax: 2.60 cm2AVA (VTI): 2.61 st9OGZH Vmax: 0.00 cm2/m2AVAI (VTI): 0.00 | | cm2/m2LVOT maxP.42 mmHgLVOT meanP.81 mmHgLVSI Dopp: 21.82 ml/m2LVSV Dopp: | | 54.55 mlLVOT Vmax: 0.59 m/sLVOT Vmean: 0.43 m/sLVOT VTI: 11.53 cmMV A Trevon: | | 0.30 m/sMV DecT: 99.87 msMV E Trevon: 0.81 m/sMV E/A Ratio: 2.70MV PHT: 28.96 msMVA | | By PHT: 7.59 ep4Lhvwfl e': 0.03 m/sSeptal E/e': 24.42Lateral e': 0.05 | | m/sLateral E/e': 15.08 Culinary Arts Teacher: AMPAROuthenticated by: aLdy POND | | Date/Time: -- [id number]:03:16 IMPRESSION: 1. The left ventricle is moderately [...] | |Lateral E/e': 15.08 | | | |Culinary Arts Teacher: | |Authenticated by: RODRIGUEZ JUNG MD | |Report Date/Time: -- 28_[id number]:03:16 | | | |IMPRESSION: | |1. The [...]
--- OUTSIDE RECORDS SUMMARY | ~2019-11-10 | XMS | Encounter Summary ---
Demographics + + + | Address | [address] | | | [place] [address] | + + + | Home Phone | | + + + | Preferred Language | Unknown | + + + | Marital Status | | + + + | Congregation Affiliation | Unknown | + + + | Race | Unknown | + + + | Ethnic Group | Unknown | + + + Author + + + | Author | [facility] | | | and [place] | + + + | Organization | [facility] | | | [...] [place], | | | | | [place] [address] | | + + + + + | Josephine Meléndez | ECON | [address] | | | | | [place] | | | | | [address] | | + + + + + | Chiara Cid | ECON | [address] | | | | | [place], [place] | | | | | [address] | | + + + + + | Josephine Meléndez | ECON | Unknown | | + + + + + Care Team Providers + +------+ + | Care Income Tax Manager Name | Role | Phone | + +------+ + PCP | Unavailable | + +------+ + Encounter Details +--------+ + + + + | Date | Type | Department | Care Team | Description | +--------+ + + + + | 09/22/ | Hospital | [facility] | Brayan Hollingsworth | | | 2011 | Encounter | MED CTR XRAY [address] | MD Kimberly, FACS [address] | | | | | [place] | [facility] | | | | | [place] [address] | [place] [address] | | | | | [phone] | [phone] | | | | | | | [...] (L) | 136 - 149 mEq/L | [facility] | | | | | [facility] | | | | | | MEDICAL | | | | | | CENTER - | | | | | | LABORATORY | | + + + + + + | K | 3.9 | 3.5 - 5.1 mEq/l | [facility] [...] | 15.9 | 6.0 - 17.0 | [facility] | [...] | [facility] | [address] | [place] | [phone] | | [facility] | | [address] | | | - LABORATORY | | | | + + + + + | [facility] | [address] [facility] | [place], [place] | | | [facility] | | [address], [facility] | | | - LABORATORY | | | | + + + + + CT Angio Abd Aorta Bilat Fem Run W Cont (09/23/2011 9:28 AM PDT) + + | Specimen | + + | | + + + + + | Narrative | Performed At | + + + | [facility] Diagnostic Imaging Department | [facility] | | [address] [facility], [facility] | [facility] | | CT AORTO/ILIOFEMORAL RUNOFF CTA, | [facility] | | 09/23/2011 CLINICAL HISTORY: LEFT [...] left common | | | iliac. The kotlik left internal iliac is pat ent. The kotlik left | | | external iliac is [...] | | | good inflow to the kot[place] distal superficial femoral and p opliteal | [...] GOOD INFLOW TO THE | | | [place] DISTAL FEMORAL AND POPLITEAL ARTERIES AND GENERATING [...] Transcribed Date/Time: | | | 09/23/2011 17:41 Experimental Box Tester: <Electronically Signed | | | by Jorge A Rodriguez MD> 09/23/11 2240 | | + + + + + | Procedure Note | + + | José Luis, Rad Conversion - 05/20/2013 5:31 PM [facility] | | Diagnostic Imaging Department [address] [place] | | CT AORTO/ILIOFEMORAL RUNOFF CTA, 09/23/2011 [...] | minimally diseased left common iliac. The kotlik left internal iliac is patent. The | | kotlik left external iliac is markedly diseased with minimal to no contrast traversing | | it. There is a thrombosed stent, iliofemoral graft thrombosed through to its distal | | anastomosis. There is a patent iliofemoral graft with good inflow of contrast | | opacification and widely patent through its distal iliofemoral anastomosis providing | | good inflow to the kotlik distal superficial femoral and popliteal artery. Popliteal [...] | | PROVIDING GOOD INFLOW TO THE [place] DISTAL FEMORAL AND POPLITEAL ARTERIES AND GENERATING [...] AND PROVIDING GOOD INFLOW TO | |THE [place] DISTAL FEMORAL AND POPLITEAL ARTERIES AND GENERATING [...] 17:14 | |Transcribed Date/Time: 09/23/2011 17:41 | |Experimental Box Tester: | |<Electronically Signed by Jorge A Rodriguez [...]
--- OUTSIDE RECORDS SUMMARY | ~2019-11-10 | XMS | Encounter Summary ---
Demographics + + + | Address | [address] | | | [place] [address] | + + + | Home Phone | | + + + | Preferred Language | Unknown | + + + | Marital Status | | + + + | Latter-Day Affiliation | Unknown | + + + | Race | Unknown | + + + | Ethnic Group | Unknown | + + + Author + + + | Author | [facility] | | | and [place] | + + + | Organization | [facility] | | [...] [place], | | | | | [place] [address] | | + + + + + | Josephine Meléndez | ECON | [address] | | | | | [place] | | | | | [address] | | + + + + + | Chiara Cid | ECON | [address] | | | | | [place], [place] | | | | | [address] | | + + + + + | Josephine Meléndez | ECON | Unknown | | + + + + + Care Team Providers + +------+ + | Care Expressive Music Therapist Name | Role | Phone | + [...] | | [address] | [place] [address] | | | | | [place] | [phone] | | | | | [address] | | | | | | [phone] | | | +--------+ + + + [...] this encounter Miscellaneous Notes Telephone Encounter - Ricardo Ana Rosa Cai - 03/09/2013 4:31 PM PSTKranthi's is updated at this time. She would like Dr. Gomez to put in the referral to Dr. Oscar. Referral faxed. ANA ROSA SILVA elephone Encounter - Ana Rosa Silva - 03/08/2013 1:06 PM PSTJob Gomez: Cervical spine MRI has been review ed. Recommend cervical injections at C5-C7 with Dr. Oscar. Message left for Kranthi and callback requested. documented in this encounter Plan of Treatment Not on filedocumented as of this encounter Visit Diagnoses Not on filedocumented in this encounter"
--- OUTSIDE RECORDS SUMMARY | ~2019-11-10 | XMS | Encounter Summary ---
Demographics + + + | Address | [address] | | | [place] [address] | + + + | Home Phone | | + + + | Preferred Language | Unknown | + + + | Marital Status | | + + + | Church Affiliation | Unknown | + + + | Race | Unknown | + + + | Ethnic Group | Unknown | + + + Author + + + | Author | [facility] | | | and [place] | + + + | Organization | [facility] | | | [...] [place], | | | | | [place] [address] | | + + + + + | Josephine Meléndez | ECON | [address] | | | | | [place] | | | | | [address] | | + + + + + | Chiara Cid | ECON | [address] | | | | | [place], [place] | | | | | [address] | | + + + + + | Josephine Meléndez | ECON | Unknown | | + + + + + Care Team Providers + +------+ + | Care Nail Technician Name | Role | Phone | + [...] | | [facility] | [place] [address] | | | | | [place] [address] | | | | | | [phone] | | | +--------+ + + + [...]
--- OUTSIDE RECORDS SUMMARY | ~2019-11-10 | XMS | Encounter Summary ---
Demographics + + + | Address | [address] | | | [place] [address] | + + + | Home Phone | | + + + | Preferred Language | Unknown | + + + | Marital Status | | + + + | Hoahaoism Affiliation | Unknown | + + + | Race | Unknown | + + + | Ethnic Group | Unknown | + + + Author + + + | Author | [facility] | | | and [place] | + + + | Organization | [facility] | | | and [...] [place], | | | | | [place] [address] | | + + + + + | Josephine Meléndez | ECON | [address] | | | | | [place] | | | | | [address] | | + + + + + | Chiara Cid | ECON | [address] | | | | | [place], [place] | | | | | [address] | | + + + + + | Josephine Meléndez | ECON | Unknown | | + + + + + Care Team Providers + +------+ + | Care Shipyard Painter Helper Name | Role | Phone | + +------+ + PCP | Unavailable | + +------+ + Encounter Details +--------+ + + + + | Date | Type | Department | Care Team | Description | +--------+ + + + + | 11/05/ | Hospital | [facility] | Surjit Hamilton, | | | 2011 - | Encounter | MED CTR SURGICAL | [address] | | | | | [address] | [place] | | | 11/09/ | | [place] [address] | [id number] | | | 2011 | | [phone] | | | +--------+ + + + [...] Puneet Gates MD - 02/28/2012 8:10 [place] [address] Patient Name: JOSY CID Provider: Surjit Hamilton MD Unit #: [id number] Location: [address] [place] [address] #: [id number] : 1940 ADMISSION DATE: 11/06/2011 DISCHARGE DATE: [...] Puneet Gates MD Internal Medicine/Hospitalist JOB #: [id number] EXT JOB #:[id number] cc: Surjit Hamilton MD <<Signature on File>> [...] Puneet Gates MD Internal Medicine/Hospitalist JOB #: [id number] EXT JOB #:[id number] cc: Surjit Hamilton MD <Electronically Signed by [...] a nonsmoker, nondrinker. 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 He is marri , has 1 [...] into it. He does not see a sales contractor. NEUROLOGIC: The patient is awake, alert, oriented [...] DICTATED BY: Surjit Hamilton MD JOB #: [id number] EXT JOB #:[id number] cc: Chika Felder MD <Electronically Signed by [...] Anmol Deal MD Emergency Medicine JOB #: [id number] EXT JOB #:[id number] <Electronicall y Signed by Anmol Deal MD> [...] + + documented in this encounter Results Celine NAIR (11/10/2011 6:26 AM PDT) + + + [...] + | [facility] | [address] | [place] | [phone] | | [facility] | | [address] | | | - LABORATORY | | | | + + + + + | [facility] | [address] | [place], [place] | | | [facility] | | [address] | | | - [...] 101 | 70 - 109 mg/dL | [facility] [...] + | Performing | Address | City/State[facility] | Phone Number | | Organization | | | | + + + + + | [facility] | [address] | [place] | [phone] | | [facility] | | [address] | | | - LABORATORY | | | | + + + + + | [facility] | [address] | [place] | | | [facility] | | [address], [facility] | | | - LABORATORY | | | | + + + + + Magnesium (11/10/2011 6:26 AM PDT) + +-------+ + + + | Component | Value | Ref Range | Performed | Pathologist | | | | | At | Signature | + +-------+ + + + | Magnesium | 1.8 | 1.8 - 2.5 mg/dL | [facility] | | | | | | Leonora [facility] | | | [...] + | [facility] | [address] | [place], [place] | [phone] | | [facility] | | [address] | | | - LABORATORY | | | | + + + + + | [facility] | [address] | [place], [place] | | | [facility] | | [address], [facility] | | | - LABORATORY | | [...] | | | Count | | | [facility] | | [...] [address] | [place] | [phone] | | [facility] | | [address] | | | - LABORATORY | | | | + + + + + | [facility] | [address] | [place] | | | [facility] | | [address], [facility] | | | - LABORATORY | | [...] + | [facility] | [address] | [place] | [phone] | | [facility] | | [address] | | | - LABORATORY | | | | + + + + + | [facility] | [address] | [place] | | | [facility] | | [address], [facility] | | | - LABORATORY | | [...] 18 | 7 - 18 mg/dL | [facility] [...] 139 | 136 - 149 mEq/L | [facility] | | | | | | [facility] | | | | | | MEDICAL | | | | | | CENTER - | | | | | | LABORATORY | | + + + + + + | K | 3.8 | 3.5 - 5.1 mEq/l | [facility] | | | | | [...] + | [facility] | [address] | [place], [place] | [phone] | | [facility] | | [address] | | | - LABORATORY | | | | + + + + + | [facility] | [address] | [place], [place] | | | [facility] | | [address] | | | - LABORATORY | | | | + + + + + Magnesium (11/09/2011 6:39 AM PDT) + +-------+ + + + | Component | Value | Ref Range | Performed | Pathologist | | | | | At | Signature | + +-------+ + + + | Magnesium | 2.0 | 1.8 - 2.5 mg/dL | [facility] [...] + | [facility] | [address] | [place] | [phone] | | [facility] | | [address] | | | - LABORATORY | | | | + + + + + | [facility] | [address] | [place], [place] | | | [facility] | | [address] | | | - [...] | | | Cells | | | [facility] | | | | | [...] 186 | 140 - 440 K/uL | [facility] | | | Count | | | [...] + | [facility] | [address] | [place] | [phone] | | [facility] | | [address] | | | - LABORATORY | | | | + + + + + | [facility] | [address] | [place] | | | [facility] | | [address], [facility] | | | - LABORATORY | | [...] | | | Cells | | | [facility] | | | | | | MEDICAL | | | | | | CENTER - | | | | | | LABORATORY | | + + + + + + | Red Blood | 3.86 (L) | 4.30 - 5.70 | [facility] | | | Cells | | M/uL | [facility] | | | | | [...] + | [facility] | [address] | [place], [place] | [phone] | | [facility] | | [address] | | | - LABORATORY | | | | + + + + + | [facility] | [address] | [place], [place] | | | [facility] | | [address] | | | - LABORATORY | | | | + + + + + Luigiime INR (11/08/2011 6:21 AM PDT) + + [...] + | [facility] | [address] | [place], [place] | [phone] | | [facility] | | [address] | | | - LABORATORY | | | | + + + + + | [facility] | [address] | [place], [place] | | | [facility] | | [address], [facility] | | | - LABORATORY | | [...] | | | | | mg/dL | . [facility] | | | | [...] | 9.7 | 6.0 - 17.0 | [facility] | [...] + | [facility] | [address] | [place] | [phone] | | [facility] | | [address] | | | - LABORATORY | | | | + + + + + | [facility] | [address] | [place] | | | [facility] | | [address] | | | - LABORATORY | | | | + + + + + Magnesium (11/08/2011 6:21 AM PDT) + +-------+ + + + | Component | Value | Ref Range | Performed | Pathologist | | | | | At | Signature | + +-------+ + + + | Magnesium | 2.0 | 1.8 - 2.5 mg/dL | [facility] | | | | | | [facility] [...] + | [facility] | [address] | [place] | [phone] | | [facility] | | [address] | | | - LABORATORY | | | | + + + + + | [facility] | [address] | [place], [place] | | | [facility] | | [address] [place] [address] | | | - LABORATORY | | [...] + | [facility] | [address] | [place], [place] | [phone] | | [facility] | | [address] | | | - LABORATORY | | | | + + + + + | [facility] | [address] | [place], [place] | | | [facility] | | [address] [place] [address] | | | - LABORATORY | | [...] 1.86 (H) | 0.60 - 1.30 | [facility] | | | | | mg/dL | [facility] | | | | | | MEDICAL | | | | | | CENTER - | | | | | | LABORATORY | | + + + + + + | Estimated | 36 (L)Comment: For | >60 mL/min/A | [facility] | | | GFR | -Americans, | [...] | 10.7 | 6.0 - 17.0 | [facility] | [...] + | [facility] | [address] | [place], [place] | [phone] | | [facility] | | [address] | | | - LABORATORY | | | | + + + + + | [facility] | [address] | [place] | | | [facility] | | [address] | | | - LABORATORY | | | | + + + + + Magnesium (11/07/2011 6:52 AM PDT) + +-------+ + + + | Component | Value | Ref Range | Performed | Pathologist | | | | | At | Signature | + +-------+ + + + | Magnesium | 1.8 | 1.8 - 2.5 mg/dL | [facility] | | | | [...] + | [facility] | [address] | [place] | [phone] | | [facility] | | [address] | | | - LABORATORY | | | | + + + + + | [facility] | [address] | [place] | | | [facility] | | [address], [facility] | | | - LABORATORY | | [...] | | | Cells | | | [facility] | | | | | | MEDICAL | | | | | | CENTER - | | | | | | LABORATORY | | + + + + + + | Red Blood | 3.99 (L) | 4.30 - 5.70 | [facility] | | | Cells | | M/uL | [facility] | | | | | [...] + | [facility] | [address] | [place], [place] | [phone] | | [facility] | | [address] | | | - LABORATORY | | | | + + + + + | [facility] | [address] | [place], [place] | | | [facility] | | [address], [facility] | | | - LABORATORY | | | | + + + + + Chidi MARTÍNEZ Reflex (11/06/2011 2:35 PM PDT) + +-------+ [...] + | [facility] | [address] | [place], [place] | [phone] | | [facility] | | [address] | | | - LABORATORY | | | | + + + + + | [facility] | [address] | [place], [place] | | | [facility] | | [address] [place] [address] | | | - LABORATORY | | [...] - 1.030 | [facility] | | | [place], | | | [facility] | | [...] + | [facility] | [address] | [place] | [phone] | | [facility] | | [address] | | | - LABORATORY | | | | + + + + + | [facility] | [address] | [place], [place] | | | [facility] | | [address], [facility] | | | - LABORATORY | | | | + + + + + Protime INR (11/06/2011 7:11 AM PDT) + + + + + + | Component | Value | Ref Range | Performed | Pathologist | | | | | At | Signature | + + + + + + | Prothrombin | 25.9 (H) | 11.3 - 13.9 | [facility] [...] + | [facility] | [address] | [place] | [phone] | | [facility] | | [address] | | | - LABORATORY | | | | + + + + + | [facility] | [address] | [place], [place] | | | [facility] | | [address] | | | - [...] | | | | | mg/dL | [facility] | | | | | [...] | | ine Ratio | | | [facility] | | | [...] | 12.1 | 6.0 - 17.0 | [facility] | [address] | [place] | [phone] | | [facility] | | [address] | | | - LABORATORY | | | | + + + + + | [facility] | [address] | [place] | | | [facility] | | [address] | | | - [...] | | | Cells | | | [facility] | | [...] + | [facility] | [address] | [place] | [phone] | | [facility] | | [address] | | | - LABORATORY | | | | + + + + + | [facility] | [address] | [place] | | | [facility] | | [address], [facility] | | | - LABORATORY | | | | + + + + + Sedimentation Rate (11/06/2011 7:11 AM PDT) + +--------+ + + + | Component | Value | Ref Range | Performed | Pathologist | | | | | At | Signature | + +--------+ + + + | Erythrocyte | 34 (H) | 0 - 20 mm/hr | [facility] | | | | | | [facility] | | | Sedimentati | | | [...] + | [facility] | [address] | [place] | [phone] | | [facility] | | [address] | | | - LABORATORY | | | | + + + + + | [facility] | [address] | [place], [place] | | | [facility] | | [address] | | | - [...] 3.9 | 3.2 - 5.0 gm/dL | [facility] | | | | | | [facility] | | | | | | MEDICAL | | | | | | CENTER - | | | | | | LABORATORY | | + + + + + + | BUN | 24 (H) | 7 - 18 mg/dL | [facility] | | | | [...] (L) | 136 - 149 mEq/L | [facility] | | | | | [...] + | [facility] | [address] | [place], [place] | [phone] | | [facility] | | [address] | | | - LABORATORY | | | | + + + + + | [facility] | [address] | [place] | | | [facility] | | [address] [place] [address] | | | - LABORATORY | | [...] + | [facility] | [address] | [place], [place] | [phone] | | [facility] | | [address] | | | - LABORATORY | | | | + + + + + | [facility] | [address] | [place], [place] | | | [facility] | | [address] [place] [address] | | | - LABORATORY | | | | + + + + + documented in this encounter Visit Diagnoses Not on filedocumented in this encounter
--- OUTSIDE RECORDS SUMMARY | ~2019-11-10 | XMS | Encounter Summary ---
Demographics + + + | Address | [address] | | | [place] [address] | + + + | Home Phone | | + + + | Preferred Language | Unknown | + + + | Marital Status | | + + + | Mosque Affiliation | Unknown | + + + [...] [place], | | | | | [place] [address] | | + + + + + | Josephine Meléndez | ECON | [address] | | | | | [place] | | | | | [address] | | + + + + + | Chiara Cid | ECON | [address] | | | | | [place], [place] | | | | | [address] | | + + + + + | Josephine Meléndez | ECON | Unknown | | + + + + + Care Team Providers + +------+ + | Care Slide Fastener Chain Assembler Name | Role | Phone | + [...] | | | | | [address] [facility] | | | | | | [place], [place] | | | | | | [address] | | | | | | [phone] | | | +--------+ + + + [...]
--- OUTSIDE RECORDS SUMMARY | ~2019-11-10 | XMS | Encounter Summary ---
Demographics + + + | Address | [address] | | | [place] [address] | + + + | Home Phone | | + + + | Preferred Language | Unknown | + + + | Marital Status | | + + + | Zoroastrianism Affiliation | Unknown | + + + | Race | Unknown | + + + | Ethnic Group | Unknown | + + + Author + + + | Author | [facility] | | | and [place] | + + + | Organization | [facility] | | [...] [place], | | | | | [place] [address] | | + + + + + | Josephine Meléndez | ECON | [address] | | | | | [place] | | | | | [address] | | + + + + + | Chiara Cid | ECON | [address] | | | | | [place], [place] | | | | | [address] | | + + + + + | Josephine Meléndez | ECON | Unknown | | + + + + + Care Team Providers + +------+ + | Care Food General Manager Name | Role | Phone | [...] | | | | [place] | [address] | unspecified (Primary | | | | [address] | | Dx) | | | | [phone] | | | +--------+ + + + [...] | | | | | | [place] | | | | | | [address] | | | | | | | | | | | | Isabella Tang MD | | | | | | Reji Gill | | | | | | [facility] [address] | | | | | | [place] [address] | | | | | | [phone] | | | | | | | | +--------+---------+ + + + documented as of this encounter Results FL MANOJ Lumbar Transforaminal (10/06/2013 3:36 PM PDT) + + | Specimen | + + | | + + + + + | Narrative | Performed At | + + + | 10/06/2013 Transforaminal Epidural Steroid Injections Diagnosis: | [facility] | | Lumbar radiculopathy ICD-9 Code 724.4 Josy Cid presents | [facility] | | to the fluoroscopy suite for fluoroscopically-guided right L4-L5 [facility] | | and L5-S1 transforaminal epidural [...] + | [facility] | [address] | [place] | [phone] | | [facility] | | [address] | | | - IMAGING | | | | + + + + + documented in this encounter Visit Diagnoses + + | Diagnosis | + + | Thoracic or lumbosacral neuritis or radiculitis, unspecified - Primary | + + documented in this encounter"
--- OUTSIDE RECORDS SUMMARY | ~2019-11-10 | XMS | Encounter Summary ---
Demographics + + + | Address | [address] | | | [place] [address] | + + + | Home Phone | | + + + | Preferred Language | Unknown | + + + | Marital Status | | + + + | Caodaism Affiliation | Unknown | + + + | Race | Unknown | + + + | Ethnic Group | Unknown | + + + Author + + + | Author | [facility] | | | and [place] | + + + | Organization | [facility] | | | [...] [place], | | | | | [place] [address] | | + + + + + | Josephine Meléndez | ECON | [address] | | | | | [place] | | | | | [address] | | + + + + + | Chiara Cid | ECON | [address] | | | | | [place], [place] | | | | | [address] | | + + + + + | Josephine Meléndez | ECON | Unknown | | + + + + + Care Team Providers + +------+ + | Care Boat Repairer Name | Role | Phone | + [...] | | | | e disc | [place], | [address] | | | | | disease), | [place] [address] | AVE | | | | | lumbar | Phone: | [place] | | | | | Facet | [phone] | [address] | | | | | arthropathy, | Fax: | Phone: | | | | | lumbar | [phone] | [phone] | | | | | Lumbar | | Fax: | | | | | radicular | | [phone] | | | | | syndrome | [...] Closed | | | Diagnoses | Quentin Goemz | [address] | | | | | DDD | MD [address] | [facility] | | | | | (degenerativ | [address] | HOSPITAL | | | | | e disc | [place], | [address] | | | | | disease), | [place] [address] | AVE | | | | | lumbar | Phone: | [place], [place] | | | | | Facet | [phone] | [address] | | | | | arthropathy, | Fax: | Phone: | | | | | lumbar | [phone] | [phone] | | | | | Lumbar | | Fax: | | | | | radicular | | [phone] | | | | | syndrome | [...] [address] | | | | | AL OFFICE | [address] | [place] | | | | | CONSULTATION | Billy | [address] | | | | | NEW/ESTAB | Edu 2 | Phone: | | | | | PATIENT [address] | [place], | [phone] | | | | | MIN | [place] | Fax: | | | | | | [address] | [phone] | | | | | | Phone: | | | | | | | [phone] | | | | | | | Fax: | | | | | | | [phone] | | +--------+--------+ + + + + [...] | | [address] | [place] [address] | lumbar (Primary Dx); | | | | [place], [place] | [phone] | Facet arthropathy, | | | | [address]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 [...] has no apparent deficits with short or detention memory. 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 ELECTRONICALLY SIGNED BY: Berny Mohamud PA-C, and Quentin Gomez M.D. 02/15/2013 11:42 documented in this encou nter Miscellaneous Notes Miscellaneous - ONBASE SCAN [facility] - 02/15/2013 12:00 AM PST iscellaneous - ONBASE SCAN [facility] - 02/15/2013 12:00 AM PSTEle ctronically signed by Pancho Villa at 02/18/2013 9:11 AM PSTdocumented in this encounter Plan of Treatment + +---------+--------+ + + | Name | [...] | | | | | | diabetic (HCC) | | + +---------+--------+ + + + [...] | | | | | | diabetic (HCC) | | + + +--------+ + + [...]
--- OUTSIDE RECORDS SUMMARY | ~2019-11-10 | XMS | Encounter Summary ---
Demographics + + + | Address | [address] | | | [place] [address] | + + + | Home Phone | | + + + | Preferred Language | Unknown | + + + | Marital Status | | + + + | Scientologist Affiliation | Unknown | + + + [...] [place], | | | | | [place] [address] | | + + + + + | Josephine Meléndez | ECON | [address] | | | | | [place] | | | | | [address] | | + + + + + | Chiara Cid | ECON | [address] | | | | | [place], [place] | | | | | [address] | | + + + + + | Josephine Meléndez | ECON | Unknown | | + + + + + Care Team Providers + +------+ + | Care Supervisor Malted Milk Name | Role | Phone | + +------+ + | Doroteo Felder MD | PCP | | + +------+ + Encounter Details +--------+ + + + + | Date | Type | Department | Care Team | Description | +--------+ + + + + | 07/11/ | Orders Only | [facility] | Conversion | | | 2015 | | CARDIOLOGY [facility] | Transaction, | | | | | [address] | Provider Unknown | | | | | [place], [place] | [phone] | | | | | [address] | | | | | | [phone] | | | +--------+ + + + [...] [place] | | | | | | [address] | | | | | | | | | | | | Isabella Tang MD | | | | | | [address] [facility] | | | | | | [facility] [address] | | | | | | [place] [address] | | | | | | [phone] | | | | | | | [...]
--- OUTSIDE RECORDS SUMMARY | ~2019-11-10 | XMS | Encounter Summary ---
Demographics + + + | Address | [address] | | | [place] [address] | + + + | Home Phone [...] [place], | | | | | [place] [address] | | + + + + + | Josephine Meléndez | ECON | [address] | | | | | [place] | | | | | [address] | | + + + + + | Chiara Cid | ECON | [address] | | | | | [place], [place] | | | | | [address] | | + + + + + | Josephine Meléndez | ECON | Unknown | | + + + + + Care Team Providers + +------+ + | Care Directory Compiler Name | Role | Phone | + [...] | osteoarthrit | [place], [place] | [place] [address] | | | | | is of left | [address] | Phone: | | | | | shoulder | Phone: | [phone] | | | | | | [phone] | Fax: | | | | | | Fax: | [phone] | | | | | | [phone] | | + + + + + [...] | left shoulder | | | | [address] | [address] | (Primary Dx) | | | | [phone] | | | +--------+---------+ + + + [...] do your daily activities Date Last Reviewed: 01/12/201619997037-6595 The [employer]. [address] [place] [address]. All righ ts reserved. This information is [...] information carefully each time. Talk to your search engine optimization consultant regarding the use of this medicine in children. Special care may be needed. What side effects may I notice from receiving this medicine? Side effects that you should report to your doctor or health animal caretaker supervisor as soon as p ossible: allergic reactions [...] attention (report to your doctor or health animal caretaker supervisor if they continue or are bothersome): constipation [...] this medicine? Tell your doctor or health animal caretaker supervisor if your pain does not go away, [...] 3 days, call your doctor or health animal caretaker supervisor. Your mouth may get dry. Chewing sugarless gum or sucking hard candy, and drinking plenty of water may help. Contact your doctor if the problem does not go away or is severe. NOTE:This sheet is a summary. It may not cover all possible information. If you have questi ons about this medicine, talk to your doctor, pharmacist, or health care provider. Copyright 2019 [employer] documented in this encounter Progress [employer] [...] seen by his primary care provider in [place] as well as evaluated by orthopedic PA in [place]. He had a steroid injection in the [...] Patient Active Problem List Diagnosis LYMPHEDEMA ATHEROSCLEROSIS [place] [facility] UNSPEC DDD (degenerative disc disease), [...] 911/ER if no relief. ONE TOUCH LANCETS [facility] Use as directed traMADol (ULTRAM) 50 mg [...] to be seen [id number] so referral is ordered for Dr. Hernandez [...] | 2019 | Visit | | [address] [facility] | | | | | | [address] [place] | | | | | | [id number] | | | | | | | | | | | | Isabella Tang MD | | | | | | [address] | | | | | | [place] [address] | | | | | | [place] [address] | | | | | | [phone] | | | | | | | | +--------+---------+ + + + + + +--------+ + + [...]
[~2019-11-10 12:31] MED LIST changes: +OLMESARTAN MEDO40 MG PO; +SULFAMETHOXAZO1 EAC1; +VITAMIN D3125 MC1 PO; -VITAMIN D35000 UNI2 PO
--- OUTSIDE RECORDS SUMMARY | 2019-11-10 12:34 | XMS ---
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 Care History Medical/Surgical 12/20/2018 [facility] - Patient is currently established with [facility]. If patient is seen in the ED during business hours. Please contact CHWs at [facility]. Care Recommendation: This patient has [...] providing care. E.D. VISIT COUNT (12 MO.) 5 [facility] TOTAL 5 NOTE: Visits indicate total known visits. ED/UCC VISIT TRACKING (12 MO.) 11/10/2019 12:32 [facility] [place] TYPE: Emergency COMPLAINT: - L LEG PAIN 07/29/2019 14:22 [facility] [place] TYPE: Emergency COMPLAINT: - LEG PAIN/ SWELLING DIAGNOSES: - Cellulitis of left lower limb - Other specified soft tissue disorders - Allergy status to other antibiotic agents status - Essential (primary) hypertension - Unspecified atrial fibrillation - [facility] (current) use of insulin - Lymphedema, not elsewhere classified - Type 2 diabetes mellitus without complications - Other termination clerk (current) drug therapy 06/15/2019 03:27 [facility] TYPE: Emergency COMPLAINT: - FEVER AND WEAKNESS 02/14/2019 15:22 [facility] [place] TYPE: Emergency COMPLAINT: - CHEST PAIN DIAGNOSES: - Unspecified atrial fibrillation - Chest pain, unspecified - buttermaker 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 churn (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) 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 of anticoagulants - Other termination clerk (current) drug therapy - Type 2 diabetes mellitus without complications - [facility] (current) use of aspirin - Essential (primary) hypertension - Allergy status to other drugs, medicaments and biological sub - Allergy status to other antibiotic agents status 01/12/2019 16:22 [facility] TYPE: Urgent Care DIAGNOSES: - Post-traumatic osteoarthritis, left shoulder - Shoulder Pain 12/19/2018 14:10 [facility] [place] TYPE: Emergency COMPLAINT: - AMB L SHOULDER NECK PN DIAGNOSES: - Pain in left shoulder - Allergy status to other antibiotic agents status - Other termination clerk (current) drug therapy - Allergy status to other drugs, medicaments and biological sub - buttermaker continuous churn (current) use of aspirin - [facility] (current) use of insulin - Type 2 diabetes mellitus without complications - [facility] (current) use of anticoagulants - Essential (primary) [...] diabetic peripheral angiopathy - Hyperlipidemia, unspecified - [facility] (current) use of insulin - Allergy status to other drugs, medicaments and biological sub - Other [facility] (current) drug therapy - Essential (primary) hypertension - Cellulitis of left lower limb - Other termination clerk (current) drug therapy - Body mass index (BMI) 36.0-36.9, adult - buttermaker 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 churn (current) use of insulin - Allergy status to other antibiotic agents status - Hyperlipidemia, unspecified - Lymphedema, not elsewhere classified - Morbid (severe) obesity due to excess calories - Unspecified atrial fibrillation - Body mass index (BMI) 36.0-36.9, adult - Gastro-esophageal reflux disease without esophagitis - Acute kidney failure, unspecified - Sepsis, unspecified organism - Allergy status to other antibiotic agents status - [facility] (current) use of aspirin - Severe sepsis without septic shock - Severe sepsis without septic shock - Personal history of malignant neoplasm of soft tissue - Major depressive disorder, single episode, unspecified - Essential (primary) hypertension - buttermaker continuous churn (current) use of aspirin - Gout, unspecified - Allergy status to other drugs, medicaments and biological sub - Type 2 diabetes mellitus with diabetic peripheral angiopathy - Lymphedema, not elsewhere classified - Cellulitis of left lower limb - Acute kidney failure, unspecified - Major depressive disorder, single episode, unspecified - buttermaker continuous churn (current) use of anticoagulants - Gout, unspecified - buttermaker continuous churn (current) use of anticoagulants - Unspecified atrial fibrillation [email or web address]
[2019-11-10] MEDS ORDERED: NYSTATIN1 EAC2 TOP (13:07)
[2019-11-10] MEDS ORDERED: LIPITOR40 MG PO (13:08)
[2019-11-10] MEDS ORDERED: INDOMETHACIN25 MG PO (13:08)
[2019-11-10] MEDS ORDERED: HYDROXYZINE HCL50 MG PO (13:09)
[2019-11-10] MEDS ORDERED: FOLIXAPURE5000 UNIT PO (13:10)
[2019-11-10] MEDS ORDERED: FISH OIL 1,0001 EACH PO (13:11)
[2019-11-10] MEDS ORDERED: CHOLESTYRAMINE L4 GM PO (13:12)
--- NOTE | 2019-11-10 19:53 | NUR ---
PT ADMITTED AT 1918 FROM ED VIA HUBERER, COOP WITH ADMIT QUESTIONS.
--- NOTE | 2019-11-10 22:51 | NUR ---
DR OLVERA IN ROOM EARLIER, NEW ORDERS OBTAINED. PT SIGNED CONSENT FOR WOUND DEBRIDEMENT PROCEDURE IN AM.
--- NOTE | 2019-11-11 01:00 | NUR ---
PATIENT SLEEPING AFTER HIS 2 TYLENOL AND 10MG OF OXYCODONE FOR 10/10 LEFT GROIN PAIN. CALL [facility] IN REACH RESPERATIONS EVEN.
--- NOTE | 2019-11-11 03:05 | NUR ---
PATIENT HAS BEEN RESTING WELL, NOT TOLERATING SCD'S, JUST GOT BACK FROM THE BATHROOM AND TRYING TO GET SOME SLEEP, CALL L[facility] IN REACH.
--- NOTE | 2019-11-11 05:25 | NUR ---
PATIENT IS CURRENTLY RESTING QUIETLY, EYES CLOSED RESPIRATIONS REGULAR AND EVEN, GAUZE AND ABD OVER LEFT GROIN WOUND. CALL LIGHT IN REACH, BED ALARM ON, PATIENT WILL GET UP TO THE BATHROOM ON HIS OWN AND IS A LITTLE UNSTEADY.
--- NOTE | 2019-11-11 06:42 | NUR ---
PER REQUEST OF PRIMARY RN LIANNE, 0600 AND 0700 MEDS GIVEN (SEE EMAR). PT TOLERATED WELL, ORAL MED GIVEN WITH SMALL SIP OF WATER. IV SITE WNL, CALL LIGHT IN REACH. PRIMARY RN AWARE.
--- NOTE | 2019-11-11 09:12 | NUR ---
Dr. Mcguire in to see patient. Informed him of patient complaint of pain, states he will order medication.
--- NOTE | 2019-11-11 09:50 | NUR ---
Assessment completed. C/O pain "25/01" at this time. Patient informed his only medication ordered for pain is PO, will speak with this AM regarding pain control. Denies other needs at this time. Call light in reach, bed rails up X2.
[2019-11-11] MEDS ORDERED: OXYCODONE HCL5 MG PO (10:45)
[2019-11-11] MEDS ORDERED: SILVADENE20 GM TOP (10:46)
--- NOTE | 2019-11-11 10:47 | NUR ---
LYING IN BED. EYES CLOSED. RESPIRATIONS EVEN AND UNLABORED. ALLOWED TO REST AT THIS TIME.
--- NOTE | 2019-11-11 12:53 | NUR ---
PATIENT TO SURGERY AT 1255 WITH BANDAR JAUREGUI. PATIENT CALLED TO LET HER KNOW BEFORE HE WENT TO SURGERY.
--- NOTE | 2019-11-11 14:32 | NUR ---
11/11/19 1432 Anayeli Gaona 1425 PATIENT UNRESPONSIVE TO PAIN. RESP EVEN AND UNLABORED, MASK AT 6 LITERS. 1430 PATIENT OPENS EYES TO VERBAL STIMULI, FOLLOWS COMMANDS TO OPEN MOUTH, ORAL AIRWAY REMOVED. BACK TO SLEEP. RESP EVEN AND UNLABORED, MASK CONTINUED AT 6 LITERS.
--- NOTE | 2019-11-11 15:15 | NUR ---
Patient returns from OR via bed with OR staff. Assessment completed. No signs of pain noted at this time. Allowed to rest. Wound vac dressing intact, suctioning at this time. SPouse at bedside, questions answered.
--- NOTE | 2019-11-11 16:16 | NUR ---
REMAINS RESTING WITH EYES CLOSED. NO SIGNS OF PAIN OR DISCOMFORT. RESPIRATIONS EVEN AND UNLABORED. CALL LIGHT IN REC, BED RAILS UP. ALLOWED TO REST. VS WNL
--- NOTE | 2019-11-11 16:31 | NUR ---
PATIENT IS SLEEPING.
--- NOTE | 2019-11-11 17:07 | NUR ---
Denies pain at this time. Respirations remain even and unlabored. Call light in reach, bed rails up.
--- NOTE | 2019-11-11 18:56 | NUR ---
MED REC COMPLETE
--- NOTE | 2019-11-11 19:06 | NUR ---
RECEIVED REPORT FROM BANDAR ASHFORD. pt RESTING IN BED. RESPIRATIONS REGULAR AND UNLABORED. WHITEBOARD UPDATED. WOUND VAC LIGHT GREEN. WOUND VISUALIZED. DEJON WILL GIVEN PAIN MEDICATION.
--- NOTE | 2019-11-11 20:05 | NUR ---
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 PT RESTING IN BED WITH EYES CLOSED. WAKES EASILY TO VOICE. NEW IV STARTED BY THIS RN PER PRIMARY RN REQUEST. PT TOLERATED WELL. PT DENIES NEEDS AT THIS TIME. CALL LIGHT IN REACH. WHITE BOARD UPDATED.
--- NOTE | 2019-11-11 21:40 | NUR ---
IN TO DO ASSESSMENT. pt SNORING. WOKE TO VOICE. VITALS AND I&O RECORDED. pt VOIDED IN URINAL AT BEDSIDE. ASSESSMENT DONE. pt REPORTED 7/10 PAIN AT THIS TIME. WILL CALL IF IT INCREASES. DISCUSSED PAIN MANAGEMENT. WATER PROVIDED. WOUND VAC IN PLACE GREEN LIGHT. NO FURTHER REQUESTS AT THIS TIME. CALL LIGHT WITHIN REACH.
--- NOTE | 2019-11-11 22:36 | NUR ---
SPOKE WITH pt , SHE REQUESTED THAT PROTIME BE CHECKED, INFORMED HER THAT THOSE LABS ARE SCHEDULED. NO FURTHER REQUESTS AT THIS TIME.
--- NOTE | 2019-11-11 23:49 | NUR ---
PAIN MEDICATION AVAILABLE, GIVEN (SEE MAR). pt RATED 7/10 PAIN. NO FURTHER REQUESTS AT THIS TIME. CALL LIGHT WITHIN REACH.
--- NOTE | 2019-11-12 02:22 | NUR ---
VITALS AND I&O RECORDED. pt SAT AT BEDSIDE TO VOID. ASSESSMENT DONE. pt REPORTED 8/10 PAIN, PRN GIVEN (SEE MAR). WATER PROVIDED. NO FURTHER REQUESTS AT THIS TIME. CALL LIGHT WITHIN REACH.
--- NOTE | 2019-11-12 03:53 | NUR ---
ROUNDED ON pt. RESTING WITH EYES CLOSED, RESPIRATIONS REGULAR AND UNLABORED. CALL LIGHT WITHIN REACH.
--- NOTE | 2019-11-12 05:54 | NUR ---
pt WOKE FOR VITALS AND I&O. VOIDED AT THE BEDSIDE. REPORTED 6/10 PAIN. PRN MEDICATION GIVEN WITH SCHEDULED MEDICATIONS. WOUND VAC HAS GREEN LIGHT. NO CHANGE IN WOUND. FRESH WATER PROVIDED. ROOM TIDIED. NO FURTHER REQUESTS AT THIS TIME. CALL LIGHT WITHIN REACH.
--- NOTE | 2019-11-12 05:56 | NUR ---
pt RESTED MOST OF THE SHIFT. PRN PAIN MEDS X4. TOLERATING A REGULAR DIET. ACCU CHECK WITH SS INSULIN. WOUND VAC TO LEFT THIGH. pt VOIDING LOW AMOUNTS OF YELLOW URINE. IV SL, IV ABX. USES CALL LIGHT APPROPRIATELY.
--- NOTE | 2019-11-12 07:25 | NUR ---
0700: Report received from Lovely PORTILLO. Pt resting in his bed and states is pain is tolerable at this time. Wound vac on and functioning well. Call lakhani within reach.
--- NOTE | 2019-11-12 07:56 | NUR ---
DID PATIENT'S BLOOD SUGAR CHECK. PATIENT IS NOW EATING HIS BREAKFAST IN BED.
--- NOTE | 2019-11-12 09:19 | NUR ---
LEFT THIGH/GROIN DRESSING CDI AND WOUND VAC FUNCTIONING WITHOUT DIFFICULTY. THERE IS SOME REDNESS AROUND THE WOUND BED WHICH THE PRIOR SHIFT AND THE PT STATE IS DECREASING. PT STATES IS PAIN LEVEL IS A 6 WHICH HE STATES IS ACCEPTABLE TO HIM. PT HAS CHROINC LEFT LEG LYMPH EDEMA WHICH THE PT STATES IS "BETTER" THEN IT WAS BEFORE SURGERY. LEGS ELEVATED AT THIS TIME. SEE ASSESSMENT.
--- NOTE | 2019-11-12 10:33 | NUR ---
PT SLEEPING AT THIS TIME.
--- NOTE | 2019-11-12 10:39 | NUR ---
DR LEMOS CALLED AND NOTIFIED OF THE PT'S URINE OUTPUT.
--- NOTE | 2019-11-12 13:06 | NUR ---
PT DENIES ANY PAIN AT THIS TIME. DR OLVERA INCREASED TO PRESSURE OF THE WOUND VAC TO 120 MMHG. DRESSING APPEARS TO HAVE A GOOD SEAL AND THE VAC IS WORKING WELL AT THIS TIME. DR OLVERA AND THE PT BOTH STATE THE WOUND EDGE APPEARS TO BE IMPROVING. NO OTHER NEW PROBLEMS NOTED, SEE ASSESSMENT.
--- NOTE | 2019-11-12 14:01 | OR ---
[facility] [address] [place], [place] [address] Signed DATE OF OPERATION: 11/11/2019 SURGEON: Hitesh Olvera MD PREOPERATIVE DIAGNOSES: 1. 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 2. 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 3. Recent worsening of left proximal thigh wound infection. 4. Chronic extensive left lower extremity lymphedema. POSTOPERATIVE DIAGNOSES: 1. 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 2. 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 3. Recent worsening of left proximal thigh wound infection. 4. Chronic extensive left lower extremity lymphedema. 5. Gorge-ossification of wound bed. 6. Intramuscular abscesses of left proximal thigh. PROCEDURES: 1. Exam under anesthesia. 2. Excision and drainage and debridement (extensive skin fat muscle fascia and gorge-ossification bone of left proximal thigh. 3. Drainage of intramuscular abscesses of left anterior thigh. 4. Application of wound VAC device to left leg. ANESTHESIA: General LMA; Osiris Richardson CRNA. INDICATION: This 79-year-old white man presented to the emergency room and was evaluated by Dr. Doroteo Beltre, with a long-standing wound of the left proximal thigh. He was seen in the same setting a few months ago and admitted by the hospitalist service for cellulitic wound infection related to the same process. Consultation was undertaken with Dr. Donnie Sanchez, who recommended he be transferred elsewhere to a Wound Care Center. An appointment was set up as an outpatient Wound Care Center in the [facility]. Coincidentally, the day of his evaluation in the emergency room and they declined to engage in any treatment as they were a "outpatient" facility only. The patient was noted to have elevated white count, tenderness in the wound area, and findings Electronically Signed By: HITESH OLVERA MD 11/12/19 1401 PATIENT NAME: MELINA GOMEZ OPERATIVE REPORT DATE OF : 40 REPORT #: [id number] PHYSICIAN: HITESH OLVERA MD PCP: ALLISON ASTORGA MD REPORT IS CONFIDENTIAL AND NOT TO BE RELEASED WITHOUT AUTHORIZATION [facility] [address] [place], [place] [address] Signed consistent with wound infection related to the chronic wound. 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 For several years, he did not have development of lymphedema, but subsequently did develop chronic lymphedema of the lower extremity. An open nonhealing wound to the proximal thigh was noted. The patient denies any prior interventions of skin grafting flap formation or anything else, and he was managed only with application of a sanitary napkin as needed. 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 His recent presentation was that of tenderness in the thigh, elevated white count once again, the findings suggestive of wound infection. He has a dense eschar/carapace type abnormality of the left proximal thigh anteriorly with localized cellulitic changes. He is currently a patient of Dr. Astorga. He has been admitted by Dr. Lutz, after our evaluation was undertaken for which I think wound debridement and possible application of a wound VAC and ultimately skin grafting might possibly be beneficial to him. His chronic venous stasis to be sure as well as chronic dermatitis of the lower extremity. Concerns were maintained for the well-known possibilities of marginal ulceration (skin cancer development in chronic wound) in the setting of chronic lymphedema and chronic wound as well as the possibility of a recurrent sarcoma. He has been fluid resuscitated given intravenous antibiotics, and reversal of his INR to 2.0 from 3.5 with intravenous and oral vitamin K. He and his understand the risks of bleeding, infection, failure to cure this is a very chronic wound and other unforeseen complications and wished to proceed with debridement as I have recommended. FINDINGS: The dense eschar was partially gorge-ossified throughout. Excision was undertaken sharply and mucopurulent undersurface was noted. The base of the wound had gorge-ossification as well for which a rongeur excision was undertaken. Ultimately, intermuscular septa were demonstrating abscess fluid between muscles themselves. Complete debridement of the wound was undertaken, it measured over 11 cm in length and 6 cm in width. The gorge-ossification was debrided from the exposed wound surface as much as possible, hoping to allow that granulation could developed ultimately allowing for grafting or some other approach to wound management. BLOOD LOSS: Less than 50 mL. Electronically Signed By: HITESH OLVERA MD 11/12/19 1407 PATIENT NAME: MELINA GOMEZ OPERATIVE REPORT DATE OF : 40 REPORT #: [id number] PHYSICIAN: HITESH OLVERA MD PCP: ALLISON ASTORGA MD REPORT IS CONFIDENTIAL AND NOT TO BE RELEASED WITHOUT AUTHORIZATION [address] [address] Signed COMPLICATIONS: There were no complications. DESCRIPTION OF PROCEDURE: The patient was brought to the operating room, given a general LMA type anesthetic. He was on antibiotic Ancef and vancomycin. His INR preoperatively was 2.0. The proximal thigh and groin area were prepared with a Betadine based solution and draped sterilely. Photographs were taken. Peripheral incision of the soft tissue was undertaken allowing for debridement of the eschar like abnormality. There was a dense hard shell like finding and was found to have gorge-ossification and much of it. This was sharply debrided from the underlying surface revealing a mucopurulent exudate of process. Once it was completely excised, palpation of the wound in the base showed gorge-ossification. This was debrided, which included fascial tissue and muscle, and gorge-ossification itself. This was accomplished most effectively with an orthopedic rongeur device. The debridement was taken throughout the entire wound both proximally and distally. I am sure there remains gorge-ossification of the subdermal space outside the infected area, but that which was exposed anticipating attempted granulation was completely debrided. There appeared to be a non-healthy appearance of muscle itself, it was not necrotic, but chronically inflamed. Intermuscular septum was , revealing purulent material as well. All cultures had been taken at the outset, upon unroofing of the eschar, additional cultures were taken of the intramuscular abscess fluid as well. Copious irrigation was undertaken. Once satisfied, hemostasis was assured with electrocautery, a wound VAC sponge (black type) was applied to the wound and secured to 80 mm continuous suction. A good seal was noted. The patient was ultimately allowed to emerge from anesthesia, extubated, and transferred to the recovery room in good condition having suffered no known complications. Sponge, needle, and counts reported as correct x3. MD JORDON Santana/RAAD /[id number] cc: MD Doroteo Agustin MD Electronically Signed By: HITESH OLVERA MD 11/12/19 1401 PATIENT NAME: MELINA GOMEZ OPERATIVE REPORT DATE OF : 40 REPORT #: [id number] PHYSICIAN: HITESH OLVERA MD PCP: ALLISON ASTORGA MD REPORT IS CONFIDENTIAL AND NOT TO BE RELEASED WITHOUT AUTHORIZATION [facility] [address] [place] [address] Signed Donnie Sanchez MD Copies: ALLISON ASTORGA MD, WILLIAM S MD BOWER, ANDREW L MD ~ Electronically Signed By: HITESH OLVERA MD 11/12/19 1401 PATIENT NAME: MELINA GOMEZ OPERATIVE REPORT DATE OF : 40 REPORT #: [id number] PHYSICIAN: HITESH OLVERA MD PCP: ALLISON ASTORGA MD REPORT IS CONFIDENTIAL AND NOT TO BE RELEASED WITHOUT AUTHORIZATION
--- NOTE | 2019-11-12 14:01 | CONS ---
[facility] [address] [place], [place] [address] Signed DATE OF CONSULTATION: 11/10/2019 TIME: 05:20 p.m. CONSULTING PHYSICIAN: Hitesh Olvera M.D. REQUESTING PHYSICIAN: Doroteo Beltre M.D. PROBLEM: Chronic proximal left thigh wound and systemic infection. HISTORY OF PRESENT ILLNESS: This 79-year-old white man underwent resection of a proximal thigh sarcoma approximately 38 years ago. He developed promptly thereafter significant left lower extremity edema and an open draining wound. He was initially evaluated and treated by Dr. Stallworth. Over these many years, he has had an open wound that has been managed primarily by application of sanitary napkins. He developed rather massive left lower extremity edema after about 10 years of compression therapy and so forth and has largely let that go. In June, he was seen in the emergency room, was considered to have sepsis related to this wound. Consultation was undertaken with Dr. Sanchez, who recommended he be set elsewhere for wound management. He returns at this time with a foul-smelling necrotic relatively large proximal thigh wound once again. He was noted to have an elevated white count. No fever or chills per se, but elevated white count is noted. PAST MEDICAL HISTORY: Significant for diabetes, hypertension, COPD, and other medical problems. He sees Dr. Astorga as his primary physician at this time. I was asked to evaluate the patient to see if he could be managed locally. Notably, he had an appointment with the wound care specialists in the [facility], who advised emergency room physician that only outpatient management of wounds is done in their setting. REVIEW OF SYSTEMS: He denies any shortness of breath or chest pain. He has mild discomfort in the thigh. No fever or chills, or other systemic signs of sepsis. Electronically Signed By: HITESH OLVERA MD 11/12/19 1401 PATIENT NAME: MELINA GOMEZ CONSULTATION DATE OF : 40 REPORT #: [id number] PHYSICIAN: HITESH OLVERA MD PCP: ALLISON ASTORGA MD REPORT IS CONFIDENTIAL AND NOT TO BE RELEASED WITHOUT AUTHORIZATION [facility] [address] [place], [place] [address] Signed PHYSICAL EXAMINATION: GENERAL: This is a pleasant white man, who is appropriately masked as his his. He has a bustamante. Trachea is midline. He has no dyspnea. He has a generally plethoric appearance and is obese. NECK: His trachea is midline. CHEST: Shows normal respiratory excursion. ABDOMEN: Obese . EXTREMITIES: Examination of lower extremities shows right lower extremity reasonably normal. The left side shows significantly large lymphedema, which is chronic. There is stasis dermatitis of the skin itself. In the proximal left thigh, the diameter is smaller, consistent with prior large muscle resection. Approximately 6 inches or so from the inguinal crease, nevertheless not far from contact of the abdominal wall pannus, is a foul smelling 6 to 8 cm x 6 cm wound with a relatively dense eschar in the center portion. There is erythema around the edges of the wound and obvious areas of necrotic fat. There is erythema in the area as well. ASSESSMENT: He has had a chronic wound for nearly 38 years related to resection of a sarcoma and subsequent radiation therapy and unfortunate development of lymphedema. His wound management has slowly relied upon application of a sanitary napkin for exudate control. He has had an episode of presumed sepsis in June related to this wound. The appearance in June is uncertain to me, and I am uncertain if there was a necrotic fungating wound has there is now. A concern must always be maintained for Marjolin ulcer (squamous cell carcinoma developing in a chronic wound or in a lymphedematous extremity), but overall the main issue at present is a chronically infected and secondary cellulitic left thigh and wound. A coordinated effort between the hospitalist service for admission and antibiotic therapy and management of his numerous medical problems could be combined with operative debridement and biopsy and ultimately application of wound VAC device. If the granulation tissue was adequate enough, ultimately a skin graft might be reasonably attempted, this is despite his chronic lymphedema of the extremity. He does not have exudative lymphedema after all of this time, and although skin grafts are commonly a failure in the setting of chronic lymphedema, this particular wound may be an exception. I see no real opportunity for a rotational flap or even a microvascular flap given his body habitus and so forth; however, a minimum acute wound care debridement is appropriate. Antibiotic therapy is appropriate as well. I have reviewed this with Dr. Beltre. Hitesh Olvera MD Electronically Signed By: HITESH OLVERA MD 11/12/19 1401 PATIENT NAME: MELINA GOMEZ CONSULTATION DATE OF : 40 REPORT #: [id number] PHYSICIAN: HITESH OLVERA MD PCP: ALLISON ASTORGA MD REPORT IS CONFIDENTIAL AND NOT TO BE RELEASED WITHOUT AUTHORIZATION [facility] [address] [place], [place] [address] Signed /[facility] /[id number] cc: MD Allison Ludwig MD Copies: DOROTEO BELTRE MD, LOHITH VEERAPPA MD ~ Electronically Signed By: HITESH OLVERA MD 11/12/19 1401 PATIENT NAME: MELINA GOMEZ DAPHNEY CONSULTATION DATE OF : 40 REPORT #: [id number] PHYSICIAN: HITESH OLVERA MD PCP: ALLISON ASTORGA MD REPORT IS CONFIDENTIAL AND NOT TO BE RELEASED WITHOUT AUTHORIZATION
--- NOTE | 2019-11-12 15:58 | NUR ---
Pt resting in his bed and states he is comfortable at this time.
--- NOTE | 2019-11-12 19:20 | NUR ---
REPORT AT BEDSIED. PT AND INTERACTING DURING REPOT. PT. REQUEST TO USE RESTROOM, AIDE ASSISTED AND CHANGED BED. PT HAS NO REQUEST AT THIS TIME.
--- NOTE | 2019-11-13 01:06 | NUR ---
CALL LIGHT ANSWERED. PATIENT SAT BY THE EDGE OF THE BED AND USE THE URINAL. PATIENT VOIDED 275 ML. PATIENT IS BACK IN BED. CALL LIGHT IN REACH. NO OTHER NEEDS AT THIS TIME.
--- NOTE | 2019-11-13 07:15 | NUR ---
0700: Report received from Penny PORTILLO. Pt resting in his bed and he states his pain is well controled at this time. Call lakhani within reach.
--- NOTE | 2019-11-13 07:40 | NUR ---
PT STATES HE SOME LEFT GROIN PAIN RATED AT AN 8 BUT DECLINES ANY PAIN MEDICATION AT THIS TIME AND HE STATES HE IS "OK". LEFT LEG EDEMA CHRONIC LYMPH EDEMA, LEGS ARE ELEVATED. URINE OUTPUT IS GOOD AT THIS TIME. NO OTHER PROBLEMS NOTED, SEE ASSESSMENT.
--- NOTE | 2019-11-13 09:34 | NUR ---
Upon checking on the pt he states his pain is a 9/10. Pt medicated as ordered, see emar.
--- NOTE | 2019-11-13 09:40 | NUR ---
Pt and his were educated on the wound vac and wound care with all questions answered.
--- NOTE | 2019-11-13 10:57 | NUR ---
Pt sleeping at this time. Call lakhani within reach. Pt's remains at the bedside.
--- NOTE | 2019-11-13 12:25 | NUR ---
PT DENIES ANY PAIN AT THIS TIME. HE IS NOW VISITING WITH HIS AND IS EATING LUNCH.
--- NOTE | 2019-11-13 13:57 | NUR ---
WOUND VAC HAS A GOOD SEAL NOTED AT THIS TIME WITH 120 MMHG OF SUCTION. PT DENIES ANY PAIN AT THIS TIME AND THERE IS LESS REDNESS NOTED AROUND THE DRESSING THEN THERE WAS YESTERDAY. PT DENIES ANY OTHER PROBLEMS AT THIS TIME. SEE ASSESSMENT.
--- NOTE | 2019-11-13 14:53 | NUR ---
WHEN I GOT BACK FROM LUNCH. THE AND I GAVE HIM A BED I WASHED HIS BACK. AND HIS AND HIM DID THE REST. WE ALSO CHANGED HIS GOWN. PATIENT IS NOW SLEEPING.
--- NOTE | 2019-11-13 15:49 | NUR ---
Pt sleeping, wound vac working as desired.
--- NOTE | 2019-11-13 18:47 | NUR ---
PT STATES HIS PAIN IS UNDER GOOD CONTROL AT THIS TIME. CALL MONTELONGO WITHIN REACH.
--- NOTE | 2019-11-13 19:05 | NUR ---
BEDSIDE REPORT RECEIVED FROM OFFGOING RNFRANCISCO. PT DENIES NEEDS AT THIS TIME. CALL LIGHT IN REACH.
--- NOTE | 2019-11-13 21:02 | NUR ---
PT ASSESSMENT COMPLETE. PT RATES PAIN 6/10 TO L THIGH. PRN PAIN MEDICATION ADMINISTERED WELL SCHEDULED MEDICATIONS. PT DENIES NAUSEA OR SOB. HR IRREGULAR. EDEMA PRESENT TO LLE, 3+. PT REPORTS CHRONIC NUMBNESS AND TINGLING TO ALL EXTREMITIES, CMS OTHERWISE INTACT. PT UP TO BATHROOM AND BACK TO BED WITH SBA AND HOLDING ONTO JOHNSON. PT TOLERATED WELL. IV SITE WNL. ICE WATER REFILLED. TP DENIES FURTHER NEEDS AT THIS TIME. CALL LIGHT IN REACH.
--- NOTE | 2019-11-14 00:11 | NUR ---
TRANSPORTATION SUPERINTENDENT TO ROOM FOR MEDICATION ADMINISTRATION. PT RESTING WITH EYES CLOSED. DOES NOT WAKE WHILE TRANSPORTATION SUPERINTENDENT IN ROOM, WAKES TO VOICE AND TOUCH. PT STATES THAT PAIN IS WELL CONTROLLED. PT UP TO VOID AT BEDSIDE IN URINAL. PT DENIES FURTHER NEEDS AT THIS TIME. CALL LIGHT IN REACH. ROOM IN VIEW OF RN STATION.
--- NOTE | 2019-11-14 02:15 | NUR ---
ASSESSMENT COMPLETE. PT RESTING IN BED WITH EYES CLOSED. DOES NOT WAKE WHEN OPTOMETRIC TECHNOLOGIST ENTERS THE ROOM, WAKES TO VOICE AND TOUCH. PT REPORTS PAIN 6-10/20. PRN PAIN MEDICATION ADMINISTERED. PT DENIES NASUEA OR SOB. ASSESSMENT UNCHANGED FROM PREVIOUS. PT SITS AT EDGE OF BED TO USE THE URINAL WITH MINMAL ASSISTANCE TO MOVE HIS LEG IN AND OUT OF BED. ICE WATER REFILLED. PT DENIES FURTHER NEEDS AT THIS TIME. CALL LIGHT IN REACH.
--- NOTE | 2019-11-14 08:00 | NUR ---
REPORT RECIEVED. PT IN BED. DENEIS NEEDS. ABX INFUSING. CALL SIERRA WARE.
--- NOTE | 2019-11-14 08:17 | NUR ---
PATIENT IS IN BED, BLOOD SUGAR IS DONE AND BREAKFAST IS DELIEVERED PATIENT IS EATING
[2019-11-14] MEDS ORDERED: CEFPODOXIME PR200 MG PO (09:55)
[2019-11-14] MEDS ORDERED: OXYCODONE HCL5 MG PO (09:57)
--- NOTE | 2019-11-14 11:15 | NUR ---
CLARK IN FOR WOUND VAC CHANGE. PT IN 01/20 PAIN IWTH CHANGE. 0/5MG IV DILAUDID ADMISNTERED FOR BREAKTHROUGH PAIN.
--- NOTE | 2019-11-14 11:23 | NUR ---
PT IS SEEN FOR A WOUND CONSULT OF THE LEFT UPPER MID THIGH AREA. PT IS REFERRED BY DR. OLVERA FOLLOWING SURGERY ON 11/11/19. PT IS BEING TREATED WITH AN INPATIENT NPWT DEVICE. HE IS BEING SWITCHED OVER TODAY TO AN OUTPATIENT DEVICE AND BEING SETUP TO COME IN AN OUTPATIENT TO DAY SURGERY. THE OLD DRESSING IS REMOVED, THE AREA IS CLEANSED WITH WOUND CLEANSER AND DRY GAUZE. CAVILLON ADVANCED SKIN PREP IS APPLIED TO PERIWOUND SKIN. THE BASE OF THE WOUND IS MOSTLY COVERED WITH SLOUGH TYPE TISSUE WITH SOME AREAS OF RED BEEFY GRANULATION TISSUE. THERE IS VISIBLE EXPOSED TENDONS IN THE WOUND BED. THE AREA MEASURES 11.3CM X 8.6CM X 1.2CM. THE EDGES ARE INDURATED, WITH UNDERMINING PRESENT AT 7-9 O'CLOCK 0.3CM AND 11-1 O'CLOCK 0.5CM. THERE IS A SMALL/MODERATE AMOUNT OF SEROSANGUINOUS EXUDATE. THE WOUND IS THE RESULT OF CELLULITIS, SO THERE IS THE POTENTIAL FOR CONTINUED INFECTION; HOWEVER THERE IS NO WARMTH SURROUNDING THE WOUND AND REDDNESS DOES NOT EXTEND MORE THAN 2CM PAST THE WOUND EDGE. THE PERIWOUND SKIN IS INTACT, BUT A LITTLE DRY. THE PT REPORTS PAIN WITH THE DRESSING CHANGE, BUT QUICKLY RESOLVES WHEN IT IS NO LONGER BEING TOUCHED OR MANIPULATED.
--- NOTE | 2019-11-14 12:12 | NUR ---
PATIENT GOT AT HOME WOUND VAC PLACED, BLOOD SUGAR WAS DONE AND PATIENT IS NOW WAITING TO EAT LUNCH AND DISCHARE HOME
--- NOTE | 2019-11-14 13:00 | NUR ---
DISCHARGE ISNTRUCTIONS PROVIDED. QUESTIONS ANSWERED. IV DC'D. WNL. VITALS TAKEN AND STABLE.
--- NOTE | 2019-11-15 10:02 | PATH ---
[facility] [address] [place], [place] [address] Signed SPECIMEN(S): A LEFT THIGH WOUND SPECIMEN SOURCE: A. LEFT THIGH WOUND CLINICAL HISTORY: Left extremity cellulitis. 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 FINAL PATHOLOGIC DIAGNOSIS: Skin and subcutaneous tissue, left thigh, excision/debridement: - Necrotic tissue with abscess formation and calcification. - Negative for malignancy. LJA:cml:C2NR MICROSCOPIC EXAMINATION: Histologic sections of all submitted blocks are examined by light microscopy. These findings, together with the gross examination, support the pathologic diagnosis. GROSS DESCRIPTION: The specimen, labeled "JR," and designated on the requisition "left thigh wound, history of sarcoma, rule out recurrent sarcoma," is received in formalin and consists of one piece of brown-gutierrez hemorrhagic soft to firm tissue (8.0 x 5.5 x 1.4 cm) with a firm area of brown-gutierrez devitalized tissue (6.0 x 5.0 cm), and multiple fragments of pink-gutierrez to hemorrhagic, soft to calcified tissue (8.2 x 6.8 x 1.4 cm in aggregate). Sprinkler Truck Driver sections are submitted cassettes (A1-A3) following decalcification in Immunocal. AC (under the direct supervision of a pathologist) The Gross Description was prepared using a voice recognition system. The report was reviewed for accuracy; however, sound-alike word errors, addition and/or deletions may occur. If there is any question about this report, please contact Client Services. PERFORMING LABORATORY: The technical component was performed by [employer] [address] (Grade Tamper: Bette Mills MD; CLIA# [id number]). [facility] [address] [address] (CLIA# [id number]). PATIENT NAME: MELINA GOMEZ PATHOLOGY DATE OF : 40 REPORT #: [id number] PHYSICIAN: WAN PATHOLOG[facility] PCP: ALLISON ASTORGA MD REPORT IS CONFIDENTIAL AND NOT TO BE RELEASED WITHOUT AUTHORIZATION [address] [place] [address] Signed Diagnostician: Valeriano Serrano MD Pathologist Electronically Signed 11/15/2019 Copies: ~ PATIENT NAME: MELINA GOMEZ PATHOLOGY DATE OF : 40 REPORT #: [id number] PHYSICIAN: [facility] PATHOLOG[facility] PCP: ALLISON ASTORGA MD REPORT IS CONFIDENTIAL AND NOT TO BE RELEASED WITHOUT AUTHORIZATION
== END 2019-11-14 13:30 | disposition home or self-care (01) | DRG 603 ==
LOC: ED 12:31 → MS 18:32
PROVIDERS: ADMIT Student in an Organized Health Care Education/Training Program
DX: L03.116 Cellulitis of left lower limb (principal); K57.92 Diverticulitis of intestine, part unspecified, without perforation or abscess without bleeding; Z79.4 Long term (current) use of insulin; E03.9 Hypothyroidism, unspecified; E78.5 Hyperlipidemia, unspecified; K21.9 Gastro-esophageal reflux disease without esophagitis; F39 Unspecified mood [affective] disorder; L98.499 Non-pressure chronic ulcer of skin of other sites with unspecified severity; E11.22 Type 2 diabetes mellitus with diabetic chronic kidney disease; I12.9 Hypertensive chronic kidney disease with stage 1 through stage 4 chronic kidney disease, or unspecified chronic kidney disease; N18.9 Chronic kidney disease, unspecified; I89.0 Lymphedema, not elsewhere classified; M10.9 Gout, unspecified
CPT/HCPCS: 00400; 36415; 80048; 80053; 80202; 83605; 83735; 85025; 85610; 87040; 87070; 87075; 87077; 87088; 87181; 87186; 87205; 96374; 96375; 97116; 97162; 97530; 99285-25; C9803; J0690; J1170; J1644; J1815; J1885; J1940; J2001; J2185; J2250; J2543; J2704; J3370; J3430; J7030; J7060; J7121; U0002

== ENCOUNTER 2020-01-24 06:35 | Day surgery (SDC) | payer MEDICARE, OTHER ==
[~2020-01-24] VITALS: Ht 180.3 cm; Wt 101.6 kg
[~2020-01-24 06:35] MED LIST changes: +CEFPODOXIME PR200 MG PO; +CHOLESTYRAMINE L4 GM PO; +FISH OIL 1,0001 EACH PO; +FOLIXAPURE5000 UNIT PO; +HYDROXYZINE HCL50 MG PO; +NYSTATIN1 EAC2 TOP; +OXYCODONE HCL5 MG PO; +SILVADENE20 GM TOP
--- NOTE | 2020-01-24 08:13 | NUR ---
WOUND VAC TO LEFT THIGH WOUND 12 CM X 8CM
--- NOTE | 2020-01-24 08:35 | NUR ---
PT ALERT, ORIENTED AND SUPPORTED BY FAMILY IN . PT HAS SAID HE HAS BEEN HERE MANY TIMES, IS VERY FAMILIAR WITH PROCESS AND APOLOGIZED FOR THE ODOR IN RM FROM HIS WOUND THAT HE IS HERE TOODAY TO CARE FOR. FAMILY WILL RETURN HOME AND WAIT FOR CALL FOR DC. PT DECLINED PRAYER, GAVE BLESSING WILL FOLLOW
--- NOTE | 2020-01-24 08:54 | NUR ---
01/24/20 0854 Magnus,Shante 0876 PT ARRIVED TO PACU, VSS. PT ASLEEP AND RESP EVEN AND UNLABORED. 0851 O2 REMOVED AND PT WAKES TO TACTILE STIMULI. PT REPORTS SMALL AMOUNT OF PAIN, UNABLE TO RATE AT THIS TIME. PT REPORTS "I AM OUT OF IT." PT RESTING BACK IN BED WITH EYES CLOSED.
--- NOTE | 2020-01-25 16:02 | OR ---
[facility] [address] [place], [place] [address] Signed DATE OF OPERATION: 01/24/2020 SURGEON: Hitesh Olvera MD PREOPERATIVE DIAGNOSIS: Chronic lymphedema, left lower extremity with chronic left upper anterior thigh wound, status post debridement and wound VAC (October 2019). POSTOPERATIVE DIAGNOSIS: Chronic lymphedema, left lower extremity with chronic left upper anterior thigh wound, status post debridement and wound VAC (October 2019). PROCEDURES: 1. Debridement of ossified soft tissue including muscle, subcutaneous tissue, skin, and ossified surrounding tissue left proximal lower extremity. 2. Application of negative pressure wound device. ANESTHESIA: Propofol infusional sedation, Hitesh Pollock CRNA. INDICATION: This 79-year-old white man, presented to the hospital through the emergency room with a foul smelling chronic wound of his left proximal thigh. 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 Stallworth). His long-standing edema had become out of control in the past few years. His findings at that time include a fungating wound with necrosis and impressive edema inferior to this area. Aggressive debridement was undertaken, which showed impressive ossification of necrotic wound tissue. Debridement and IV antibiotics were used to control his localized sepsis reasonably well. He has since been under the care of the Wound Care clinic and I have checked in on him from time to time. Impressive granulation is noted in much of the wound, although there are 2 areas inferiorly and laterally and in the upper part, which still require debridement of necrotic tissue. A foul smell of the wound is noted currently. The ultimate goal is to get a level of granulation as much of the wound he has now to allow for a split-thickness skin graft. We expect no real improvement of his leg edema, which has been present for 38 years. The risks of bleeding, infection, and other unforeseen complications were reviewed in detail with the patient and his . They understand and wished to proceed. Electronically Signed By: HITESH OLVERA MD 01/25/20 1602 PATIENT NAME: MELINA GOMEZ OPERATIVE REPORT DATE OF : 40 REPORT #: [id number] PHYSICIAN: HITESH OLVERA MD PCP: ALLISON ASTORGA MD REPORT IS CONFIDENTIAL AND NOT TO BE RELEASED WITHOUT AUTHORIZATION [facility] [address] [place], [place] [address] Signed FINDINGS: Dense ossified necrotic tissue was noted in the inferior lateral and to a lesser extent of the superior aspect and medially as well. Much of the wound had excellent granulation, however. Debridement of the ossified tissue was undertaken requiring bone cutters and rongeur, but was accomplished allowing for excellent debridement and re-application of the wound VAC device. DESCRIPTION OF PROCEDURE: The patient was brought to the operating room and given propofol infusional anesthesia. Preoperative antibiotics were given and sequential compression device stockings were used. The wound VAC device was removed showing an impressively foul-smelling area of the wound, but excellent granulation and intervening segments. Photographs were taken. After sterile preparation and draping, debridement was undertaken sharply with a #20 blade knife and ultimately a rongeur and bone cutter. A carapace like necrotic segment of tissue was excised inferiorly, superiorly, and medially as described. Once complete debridement was accomplished and electrocautery used for hemostasis, irrigation was undertaken. Photographs were taken again. The wound measurement was approximately 14 cm x 8 cm in total. Application of a Sidhu and Nephew wound VAC type device was applied in the usual way securing a good seal. The patient was allowed to emerge from sedation and taken to recovery room in good condition having suffered no complications. BLOOD LOSS: Minimal. MD JORDON Santana/MODL /[id number] cc: Allison Astorga MD Copies: ALLISON ASTORGA MD Electronically Signed By: HITESH OLVERA MD 01/25/20 1602 PATIENT NAME: MELINA GOMEZ OPERATIVE REPORT DATE OF : 40 REPORT #: [id number] PHYSICIAN: HITESH OLVERA MD PCP: ALLISON ASTORGA MD REPORT IS CONFIDENTIAL AND NOT TO BE RELEASED WITHOUT AUTHORIZATION [address] [address] Signed ~ Electronically Signed By: HITESH OLVERA MD 01/25/20 1602 PATIENT NAME: MELINA GOMEZ OPERATIVE REPORT DATE OF : 40 REPORT #: [id number] PHYSICIAN: HITESH OLVERA MD PCP: ALLISON ASTORGA MD REPORT IS CONFIDENTIAL AND NOT TO BE RELEASED WITHOUT AUTHORIZATION
--- NOTE | 2020-01-26 17:49 | PATH ---
[facility] [address] [place], [place] [address] Signed SPECIMEN(S): A LEFT THIGH SPECIMEN SOURCE: A. LEFT THIGH CLINICAL HISTORY: Left thigh wound last hx sarcoma. FINAL PATHOLOGIC DIAGNOSIS: Skin and soft tissue, left thigh, excision: - Benign skin and soft tissue with abscess formation and dystrophic calcifications with focal ossification. BRP:cml:C2NR MICROSCOPIC EXAMINATION: Histologic sections of all submitted blocks are examined by light microscopy. These findings, together with the gross examination, support the pathologic diagnosis. GROSS DESCRIPTION: The specimen, labeled "Josy Cid," and designated on the requisition "ossified products of debridement," is received in formalin and consists of 4.5 x 4.5 x 2.7 cm aggregate of rich-gutierrez soft tissue irregular fragments with areas of yellow-gutierrez firm calcification. Electronics Engineering Technician sections are submitted in cassette (A1-A4) and placed into Immunocal for decalcification is prior to processing. FB (under the direct supervision of a pathologist) The Gross Description was prepared using a voice recognition system. The report was reviewed for accuracy; however, sound-alike word errors, addition and/or deletions may occur. If there is any question about this report, please contact Client Services. PERFORMING LABORATORY: The technical component was performed by [employer], [address] [place] [id number] (Staff Radiation Therapist: Bette Mills MD; CLIA# [id number]). Professional interpretation [facility], [address] [address] (CLIA# [id number]). Diagnostician: Demarco Loya MD Pathologist PATIENT NAME: JOSY CID PATHOLOGY DATE OF : 40 REPORT #: [id number] PHYSICIAN: [facility] PCP: ALLISON ASTORGA MD REPORT IS CONFIDENTIAL AND NOT TO BE RELEASED WITHOUT AUTHORIZATION [address] [address] Signed Electronically Signed 01/26/2020 Copies: ~ PATIENT NAME: JOSY CID PATHOLOGY DATE OF : 40 REPORT #: [id number] PHYSICIAN: [facility] PCP: ALLISON ASTORGA MD REPORT IS CONFIDENTIAL AND NOT TO BE RELEASED WITHOUT AUTHORIZATION
== END 2020-01-24 09:50 | disposition home or self-care (01) ==
LOC: DS 06:35 → OPS 06:35 → DS 13:45 → OPS 13:45
PROVIDERS: ATTEND Surgery
PROC: 0KBQ0ZZ Excision of Right Upper Leg Muscle, Open Approach (ICD-10-PCS; principal; 2020-01-24 06:45)
DX: S71.102A Unspecified open wound, left thigh, initial encounter (principal); I89.0 Lymphedema, not elsewhere classified; K21.9 Gastro-esophageal reflux disease without esophagitis; E11.51 Type 2 diabetes mellitus with diabetic peripheral angiopathy without gangrene; I73.9 Peripheral vascular disease, unspecified; Z98.890 Other specified postprocedural states; Z79.899 Other long term (current) drug therapy; Z79.82 Long term (current) use of aspirin; Z79.4 Long term (current) use of insulin; X58.XXXA Exposure to other specified factors, initial encounter
CPT/HCPCS: J0690; J1100; J1644; J1885; J2405; J2704; J3010; J7121

== ENCOUNTER 2020-02-09 06:31 | Day surgery (SDC) | payer MEDICARE, OTHER ==
--- NOTE | 2020-02-09 07:54 | NUR ---
PT ALERT, ORIENTED AND SUPPORTED BY HIS SPOUSE. PT BACK FOR HIS FOLLOW UP PROCEDURE, GAVE ENCOURAGEMENT AND BLESSING. WILL FOLLOW
--- NOTE | 2020-02-09 09:50 | NUR ---
LE 0635: PATIENT ARRIVED VIA WHEELCHAIR BEING PUSHED BY HIS SPOUSE. HIS SPOUSE ASSISTS HIM WITH WIPES AND INTO BED. LE 0735: DR OLVERA ARRIVES. PATIENT'S SURGICAL PROCEDURE IS CANCELED DUE TO NOT STOPPING THE WARFARIN. EDUCATION COMPLETE WITH PATIENT AND SPOUSE REGARDING HOLDING THE WARFARIN PER DR OLVERA'S INSTRUCTIONS, HOLDING THE ORAL DIABETIC NIGHT BEFORE AND ONLY TAKING 1/2 THE AMOUNT OF INSULIN THE MORNING OF PROCEDURE. BOTH VERBALIZE UNDERSTANDING. LEFT UPPER THIGH NPWT DRESSING IS CHANGED PER [employer]'S RECOMMENDATIONS. CANISTER CHANGED TODAY WELL 300 ML SEROSANGUINOUS DRAINAGE NOTED TO CANISTER TODAY. PATIENT TOLERATES THE DRESSING CHANGE WELL AND IS DISCHARGED HOME VIA WHEELCHAIR TO RETURN THURSDAY OR THURSDAY FOR THE SKIN GRAFT - DR OLVERA WILL CONFIRM WITH THE PATIENT FOR CERTAIN.
== END 2020-02-09 18:00 | disposition home or self-care (01) ==
LOC: DS 06:31
PROVIDERS: ATTEND Surgery
DX: Z53.8 Procedure and treatment not carried out for other reasons (principal); Z79.01 Long term (current) use of anticoagulants; Z88.1 Allergy status to other antibiotic agents; Z88.8 Allergy status to other drugs, medicaments and biological substances
CPT/HCPCS: J1100; J1885; J2001; J2405; J2704; J3010; J7121

== ENCOUNTER 2020-02-14 08:50 | Day surgery (SDC) | payer MEDICARE, OTHER ==
[~2020-02-14] VITALS: Ht 180.3 cm; Wt 101.8 kg
--- NOTE | ~2020-02-14 | OR ---
[facility] [address] [place], [place] [address] Draft DATE OF OPERATION: 02/14/2020 SURGEON: Hitesh Olvera MD PREOPERATIVE DIAGNOSES: 1. Chronic left thigh wound, 13 x 10 cm, now granulating. 2. Long-standing chronic lymphedema, left lower extremity related to distant history of sarcoma resection and therapy. POSTOPERATIVE DIAGNOSES: 1. Chronic left thigh wound, 13 x 10 cm, now granulating. 2. Long-standing chronic lymphedema, left lower extremity related to distant history of sarcoma resection and therapy. PROCEDURES: 1. Debridement of left leg recipient site wound. 2. Split-thickness skin graft to left thigh, 13 x 10 cm, meshed 1 to 1.5. 3. [place] of right anterior thigh split-thickness skin graft. 4. Application of negative pressure wound therapy sponge to left leg following grafting. ANESTHESIA: General LMA; Albert Victor CRNA. INDICATIONS: This 79-year-old white man, presented to the emergency room with a foul-smelling necrotic wound in his left proximal thigh, which have been present for quite some time. 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 Debridement of the wound was undertaken in October of 2019, with subsequent application of wound VAC. He underwent wound care clinic debridement by tn at least once and more recently on January 24, 2020, additional debridement of necrotic foul-smelling tissue. Wound VAC therapy has been maintained with a Sidhu and Nephew negative pressure wound therapy device. The wound is now granulating quite well and he is admitted at this time to undergo skin grafting as the wound coverage plan. It is anticipated that wound VAC will be used over the skin graft to optimize chances of skin graft take given his long-standing chronic lymphedema of the left leg. The patient and his understand well the risks of bleeding, infection, graft failure, and other unforeseen complications related to skin grafting and wished to proceed. PATIENT NAME: MELINA GOMEZ OPERATIVE REPORT DATE OF : 40 REPORT #: [id number] PHYSICIAN: HITESH OLVERA MD PCP: ALLISON ASTORGA MD REPORT IS CONFIDENTIAL AND NOT TO BE RELEASED WITHOUT AUTHORIZATION [facility] [address] [place], [place] [address] Draft FINDINGS: The inferior aspect of the left groin wound was a shelf with some amount of markedly calcific tissue, which was debrided with a banjo curette. It appears that all edges otherwise, were well adherent to the very nicely granulating base. Donor site for skin grafting was the right anterolateral thigh. Application of the graft to recipient bed on the left proximal thigh was optimal. Adaptic was used to avoid adherence of wound VAC sponge to the site. He tolerated the procedure well with minimal blood loss. DESCRIPTION OF PROCEDURE: The patient was brought to the operating room, given a general anesthetic. Preoperative antibiotic Ancef was given. Sequential compression device stockings were used on the right side. The left thigh and right anterior lateral thigh were prepared with a Betadine based solution and draped sterilely. Photographs were taken. Excellent granulation tissue was noted of the wound bed, though inferiorly curettage was undertaken with a banjo curette as there was a shelf of the skin, ultimately allowing for debridement of calcific tissue. The remaining areas around the wound medially, superiorly, and laterally were well adherent to the granulating base. Satisfied, that there was no actual infection or other problems inferiorly, the site was covered with sterile gauze and plans made for harvest of graft. On the right anterolateral thigh, mineral oil was applied to the skin and using a Shaina dermatome and a 0.15-inch thickness two strips of skin were excised, measuring approximately 10 cm and 5 cm respectively; they were replaced into the meshing device and then directly applied to the proximal left thigh wound site. They were carefully distributed, secured to the wound edges with a clipping device. Complete coverage of the defect was noted. The defect was measured as 13 cm x 10 cm. The donor site had been controlled with hemorrhage with epinephrine/saline-soaked gauze. Adaptic was applied to the skin grafted site and the wound VAC sponge trimmed to appropriate size and thinned on the edges and the adhesive applied. The device was then set up to suction, which found it to be watertight. Prior to application of wound VAC, the drapes had been taken down and prior to that the donor site on the right side had been covered with a sterile OpSite dressing. The patient tolerated the procedure well, was ultimately extubated and transferred to the recovery room in good condition, having suffered no complication. PATIENT NAME: MELINA GOMEZ OPERATIVE REPORT DATE OF : 40 REPORT #: [id number] PHYSICIAN: HITESH OLVERA MD PCP: ALLISON ASTORGA MD REPORT IS CONFIDENTIAL AND NOT TO BE RELEASED WITHOUT AUTHORIZATION [address] [address] Draft MD JORDON Santana/MODL /[id number] cc: Allison Astorga MD Copies: ALLISON ASTORGA MD ~ PATIENT NAME: PATRICIAMELINA DAPHNEY OPERATIVE REPORT DATE OF : 40 REPORT #: [id number] PHYSICIAN: HITESH OLVERA MD PCP: ALLISON ASTORGA MD REPORT IS CONFIDENTIAL AND NOT TO BE RELEASED WITHOUT AUTHORIZATION
--- NOTE | 2020-02-14 12:19 | NUR ---
02/14/20 1219 Suha Rubio 1200 PT ARRIVED IN PACU SLEEPY WITH OPA IN PLACE. 1208 PT REACTIVE. OPA REMOVED. BLOOD SUGAR 90 ON ARRIVAL. 1215 OXYGEN REMOVED. NO C/O'S.
[2020-02-14] MEDS ORDERED: IBUPROFEN600 MG PO (12:37)
[2020-02-14] MEDS ORDERED: ACETAMINOPHEN500 MG PO (12:38)
[2020-02-14] MEDS ORDERED: OXYCODON-ACETA1 EAC2 PO (12:38)
--- NOTE | 2020-02-14 13:18 | NUR ---
1255: PATIENT BACK IN DAY SURGERY ROOM FROM PACU. C/O PAIN 09/20. DENIES NAUSEA. GIVEN PUDDING TO EAT BEFORE PAIN CATEGORY ANALYST. RIGHT THIGH DRESSING CDI. NPWT DEVICE TO LEFT GROIN, WNL. IV SITE WNL. VS CHECKED. SCDs ON. AT BEDSIDE. CALL LIGHT WITHIN REACH. 1310: PATIENT MEDICATED FOR PAIN WITH 1 TAB OF PERCOCET. TOLERATED PUDDING. AT BEDSIDE.
--- NOTE | 2020-02-14 14:26 | NUR ---
1350: PATIENT STATES PAIN IMPROVED. RATES PAIN 4/10. STATES READY TO GO HOME. VS CHECKED. DISCHARGE INSTRUCTIONS GIVEN TO PATIENT AND . IV DC'D WNL. TIP INTACT. DRESSING APPLIED. PATIENT ASSISTED OOB BY . VOID PER URINAL AT BEDSIDE. ASSISTED TO GET DRESSED BY . 1408: PATIENT DISCHARGED TO HOME VIA WHEELCHAIR WITH .
--- NOTE | 2020-02-14 15:50 | EKG ---
[facility] [address] [facility] [place], [place] [address] Signed Atrial fibrillation Nonspecific ST and T wave abnormality Abnormal ECG When compared with ECG of 15-JUN-2019 03:43, No significant change was found Confirmed by CHANDU REZA MD ([id number]) on 02/14/2020 3:49:53 PM Electronically Signed By: CHANDU REZA MD 02/14/20 1550 PATIENT NAME: PATRICIAMELINA DAPHNEY Electrocardiogram DATE OF : 40 PHYSICIAN: CHANDU REZA MD REPORT #: [id number] REPORT IS CONFIDENTIAL AND NOT TO BE RELEASED WITHOUT AUTHORIZATION
== END 2020-02-14 14:08 | disposition home or self-care (01) ==
LOC: OPS 08:50 → DS 08:53 → OPS 10:00 → DS 10:00 → OPS 14:08
PROVIDERS: ATTEND Surgery
PROC: 0HRJX74 Replacement of Left Upper Leg Skin with Autologous Tissue Substitute, Partial Thickness, External Approach (ICD-10-PCS; principal; 2020-02-14 10:00)
PROC: 0HBHXZZ Excision of Right Upper Leg Skin, External Approach (ICD-10-PCS; 2020-02-14 10:00)
DX: S71.102A Unspecified open wound, left thigh, initial encounter (principal); I89.0 Lymphedema, not elsewhere classified; X58.XXXA Exposure to other specified factors, initial encounter
CPT/HCPCS: 00400; J0171; J0690; J1100; J1644; J2001; J2405; J2704; J3010; J7121

== ENCOUNTER 2021-05-18 16:18 | Inpatient (IN) | payer MEDICARE, OTHER ==
[~2021-05-18] VITALS: Ht 180.3 cm; Wt 113.9 kg
[~2021-05-18 16:18] MED LIST changes: +ACETAMINOPHEN500 MG PO; +ATORVASTATIN CA80 MG PO; -COUMADIN5 MG PO; +IBUPROFEN600 MG PO; +OXYCODON-ACETA1 EAC2 PO; +TAMSULOSIN HCL0.4 MG PO
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
--- NOTE | 2021-05-18 22:30 | NUR ---
PATIENT ARRIVED TO THE FLOOR VIA STRETCHER. PATIENT WAS ABLE TO AMBULATE A SBA FROM STRETCHER TO BED. PATIENT ADMISSIN COMPLETED. SCHEDULED MEDICATIONS GIVEN PER ORDER. PATIENTS IV INFUSING PER ORDER. ALL QUESTIONS ANSWERED. PATIENT CALLED AND UPDATED HER ON ROOM PLACEMENT. DENIES ANY QUESTIONS. NO NEEDS NOTED. CALL LIGHT IN REACH.
--- NOTE | 2021-05-18 23:29 | NUR ---
PT CALLED FOR URINAL EMPTIED, HE DENIES FURTHER NEEDS. CALL LIGHT IS CLOSE.
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
--- NOTE | 2021-05-19 04:36 | NUR ---
PATIENT IS RESTING IN BED WITH EYES CLOSED, RR 18. CALL LIGHT IN REACH.
--- NOTE | 2021-05-19 06:06 | NUR ---
PATIENTS VITALS TAKEN AND RECORDED. URINAL EMPTIED. INTAKE AND OUTPUT RECORDED. PATIENT REPORTS 5/10 ABD PAIN. PRN PAIN MEDIACTION GIVEN PER ORDER. SCHEDULED ABX INFUSING PER ORDER. PATIENT DENIES ANY FURTHER NEEDS. CALL LIGHT IN REACH.
--- NOTE | 2021-05-19 07:17 | NUR ---
REPORT RECEIVED FROM BANDAR ULLOA. PT RESTING IN BED, AWAKENS TO MOVEMENT IN THE ROOM. PT DENIES REQUESTS OR COMPLAINTS AT THIS TIME STATING " ALL I WANT IS A NAP." PT ALLOWED TO REST. CALL LIGHT WITHIN REACH. BED RAILS UP.
--- NOTE | 2021-05-19 07:30 | NUR ---
PT RESTING IN BED AND JAXON PLEASANT. WHITE BOARD UDPATED. WARM CLOTH GIVEN FOR FACE. CALL LIGHT IN REACH. NO FURTHER NEEDS AT THIS TIME.
--- NOTE | 2021-05-19 09:01 | NUR ---
MORNING ASSESSMENT AND MEDICATION DUE. PT RESTING IN BED WITH EYES CLOSED, RESPIRATIONS EVEN AND UNLABORED. PT AWAKENS TO MOVEMENT IN ROOM. PT REPORTS 3/10 PAIN IN LEFT LOWER QUADRANT AND LEFT FLANK. PT REPORTS PAIN IS WORSE WHEN HE PUSHES ON HIS LEFT LOWER QUADRANT, UP TO 7/10. PT ENCORUAGED TO REST AND NOT AGRIVATE ABDOMEN. PT DENIES NEED FOR ADDITIONAL PAIN MEDICATION AT THIS TIME. IV ASSESSED, WNL, NO S/S OF PHLEBITIS NOTED. PT ALERT AND OREINTED TO ALL. PT REPORTS CHRONIC NUMBNESS AND TINGLING IN HANDS UP PAST WRISTS AND IN BILATERAL LEGS UP PAST KNEES. PT STATES THIS IS BASELINE FOR HIM "BECUASE OF THE DIABETIES." LEFT LEG LYMPEDEMA REMAINS WITHIN PTS NORMAL LIMITS. DRY SCALEY SKIN NOTED OVER LEFT LEG. LOTION APPLIED. LUNG SOUNDS CLEAR. OXGYEN SATURATION 97% ON ROOM AIR. IRREGULAR HEART TONES NOTED. MEDICATION GIVEN. I.S. PROVIDED, EDUCATION DONE. PT DEMONSTRATES USE OF I.S. REACHING 2000ML X10. BOWEL TONES ACTIVE THROUGHOUT. ABOMEN TENDER TO TOUCH ONLY IN LEFT LOWER QUADRANT. PT DENIES ANY ABDOMINAL DISTENTION. PT CONTINUES RESTING IN BED, BED RAILS UP. CALL LIGHT WITHIN REACH. MEDICATIONS GIVEN. PT ENCOURAGED TO CALL WITH ANY CHANGES OR NEEDS.
--- NOTE | 2021-05-19 09:29 | NUR ---
PT HAS NOT VOIDED AND DOESNT FEEL THE URGE. URINAL AT BEDSIDE. RN JON NOTIFIED. NO FURTHER NEEDS AT THIS TIME.
--- NOTE | 2021-05-19 10:20 | NUR ---
THIS RN TO ROOM TO CHECK ON PT. PT RESTING IN BED, TALKING WITH . PTS UPDATED ON PTS STATUS AND PLAN OF CARE. PT REPORTS 2-3/10 PAIN IN LEFT LOWER QUADRANT AND DENIES NEED FOR PAIN MEDICATION AT THIS TIME. 150ML CLEAR YELLOW URINE NOTED IN URINAL. NO ADDITIONAL REQUESTS OR COMPLAINTS. CALL LIGHT WITHIN REACH. BED RAILS UP.
--- NOTE | 2021-05-19 11:07 | NUR ---
THIS RN TO ROOM TO CHECK ON PT. PT RESTING IN BED ON BACK WITH EYES CLOSED. RESPIRATIONS EVEN AND UNLABORED. HEAD OF BED ELEVATED TO 25 DEGREES. BED RAILS UP. CALL LIGHT WITHIN REACH. PT ALLOWED TO REST.
--- NOTE | 2021-05-19 12:20 | NUR ---
THIS RN TO ROOM TO CHECK ON PT. PT REPORTS 1/10 PAIN IN LEFT LOWER QUADRANT AND DENIES NEED FOR PAIN MEDICATION. PT CONTINUES TO REPORT NO PAIN IN RIGHT LOWER QUADRANT. PT REPORTS HE SPOKE WITH DR. SMITH. PT ABLE TO VERBALIZE UNDERSTANDING OF PLAN OF CARE. ADDITIONAL ICE CHIPS PROVIDED. NO ADDITIONAL REQUESTS OR COMPLAINTS. CALL LIGHT WITHIN REACH. BED RAILS UP.
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
--- NOTE | 2021-05-19 16:29 | NUR ---
THIS RN TO ROOM TO CHECK ON PT. PT RESTING IN BED TALKING WITH . PT REPROTS 1/10 PAIN IN LEFT LOWER QUADRANT AND 0/10 IN RIGHT LOWER QUADRANT. PT DENIES NEED FOR PAIN MEDICATION. PT DENIES ADDITIONAL REQUESTS OR COMPLAINTS. CALL LIGHT WITHIN REACH. BED RAILS UP.
--- NOTE | 2021-05-19 17:10 | NUR ---
THIS RN TO ROOM TO CHECK ON PT. PT REPORTS HE IS READY TO TAKE A PAIN PILL. PT REPORTS 3/10 PAIN IN LEFT LOWER QUADRANT THAT CONTINUES TO BE WORSE WITH MOVEMENT. SEE MAR FOR MEDICATION GIVEN. EDUCATION DONE WITH PT REGARDING NPO STATUS AND PLAN OF CARE. IV ASSESSED, WNL. NO S/S OF PHLEBITIS NOTED. NO ADDITIONAL REQUESTS OR COMPLAINTS. CALL LIGHT WIHTIN REACH. BED RAILS UP. PTS AT BEDSIDE.
--- NOTE | 2021-05-19 18:04 | NUR ---
PT HERE FOR DIVERTICULITIUS AND MULTIPLE FINDINGS ON CT SCAN. PT REMAINS ON BED REST THIS SHIFT WELL BOWEL REST (NPO STATUS). PT TOLERATING WELL AND REPORTS IMPROVMENT IN SYMPTOMS. PT REPORST 0-5/10 PAIN IN LEFT LOWER QUADRANT, PRN PAIN MEDICATIONS GIVEN. PT DENIES PAIN IN RIGHT LOWER QUARDANT OR FLANKS THIS SHIFT. LEFT LOWER EXTREMTY LYMPHEDEMA CONTINUES UNCHANGED, DRESSING C/D/I. LOTION APPLIED TO SKIN WHICH HAS IMPROVED DRY FLAKY SKIN. SCHEDULED BLOOD SUGAR CHECKS WITH SLIDING SCALE INSULIN. IV ABX GIVEN. PT VODIGN QUANTITY SUFFICIENT. PT USES CALL LIGHT AND MAKES NEEDS KNOWN.
--- NOTE | 2021-05-19 18:10 | NUR ---
THIS RN TO ROOM TO CHECK ON PT. PT REPORTS PAIN HAS RESOLVED. PT DENIES ANY ADDITIONAL PAINS. 150ML CLEAR YELLOW URINE EMPTIED FROM URINAL. PT DEMONSTRATES USE OF I.S. REACHING 2000ML X10. PT DENIES ADDITIONAL REQUESTS OR COMPLAINTS. CALL LIGHT WITHIN REACH. BED RAILS UP.
--- NOTE | 2021-05-19 18:28 | NUR ---
PATIENT IN BED RESTING. VITALS AND I&O'S CHARTED. FRESH ICE CHIPS GIVEN. CALL LIGHT IN REACH. NO FURTHER NEEDS AT THIS TIME.
--- NOTE | 2021-05-19 19:30 | NUR ---
SPOKE WITH DR ASTORGA. RECEIVED NEW DIET ORDER, VERIFIED USING REABACK METHOD. NEW ORDER IN PLACE.
--- NOTE | 2021-05-19 19:47 | NUR ---
RECEIVED REPORT FO DAY SHIFT RN. PATIENT IS RESTING IN BED WATCHING TV. NO NEEDS NOTED. CALL LIGHT IN REACH.
--- NOTE | 2021-05-19 20:47 | NUR ---
ASSESMENT COMPLETED. VITALS TAKEN AND RECORDED. INTAKE AND OUTPUT RECORDED. IV INFUSING PER ORDER. SCHEDULED MEDICATIONS GIVEN PER ORDER. PATIENT RATES PAIN AT A 2/10 AND DENIES THE NEED FOR PAIN MEDICATION AT THIS TIME. ICE WATER PROVIDED AND JELLO PROVIDED. PATIENT DENIES ANY FURTHER NEEDS. CALL LIGHT IN REACH.
--- NOTE | 2021-05-19 22:30 | NUR ---
PATIENTS SCHEDULED ABX INFUSING PER ORDER. PATIENT GUEVARA ANY [AIN OR NAUSEA. PATIENT WAS ABLE TO EAT X2 JELLOS. PATIENT ASSISTED TO THE BR. PATIENT WAS UNABLE TO HAVE BM BUT DID PASS GAS. PATIENT WAS ABLE TO VOID. PATIENT IS BACK IN BED RESTING. PATIENT IS BACK IN BED RESTING. PATIENTS DRESSING ON LEFT UPPER LEG CHANGED. PATIENT DENIES ANY FURTHER NEEDS. CALL LIGHT IN REACH.
--- NOTE | 2021-05-20 00:44 | NUR ---
PATIENT IS RESTING IN BED WITH EYES CLSOED, RR 18. CALL LIGHT IN REACH.
--- NOTE | 2021-05-20 01:53 | NUR ---
PATIENTS BS TAKEN PER ORDER. BS WNL. PATIENT DENIES ANY PAIN OR NAUSEA. PATIENT DENIES [place] NEEDS. CALL LIGHT IN REACH.
--- NOTE | 2021-05-20 04:13 | NUR ---
PATIENT IS RESTING IN BED WITH EYES CLSOED, RR 18. CALL LIGHT IN REACH.
--- NOTE | 2021-05-20 05:59 | NUR ---
VITALS TAKEN AND RECORDED. URINAL EMPTIED. INTAKE AND OUTPUT RECORDED. PATIENT ONLY REPORTS PAIN IN HIS ABD WHEN HE COUGHS OR GETS UP. PATIENT DENIES ANY NAUSEA. SCHEDULED MEDICATION GIVEN PER ORDER. PATIENTS IV INFUSING PER ORDER. PATIENT DENIES ANY NEEDS. CALL LIGHT IN REACH. DRESSING ON L THIGH C/D/I. PATIENT DENIES ANY NEEDS. CALL LIGHT IN REACH.
--- NOTE | 2021-05-20 07:41 | NUR ---
Shift report received from BANDAR Waite, pt resting safely in bed w/ call light in reach and eyes closed, RR even and unlabored on RA.
--- NOTE | 2021-05-20 10:30 | NUR ---
Spoke with pt and his , Chiara. They live in town in a 1 story home with 1 step. They have handrails. NO issues getting in and out of home They deny finacial issues or any need for DME. Pt plans on discharge to home today with .
--- NOTE | 2021-05-20 10:37 | NUR ---
Pt sitting up in bed w/ call light in reach, eating breakfast. Morning assesment complete and scheduled meds given per provider order, VSS on RA, pt denies any pain, nausea, or needs at this time. IV abx infusing per provider order.
--- NOTE | 2021-05-20 12:00 | NUR ---
Pt sitting up on side of bed eating lunch, insulin given per sliding scale. Pt denies any pain or needs at this time, call light in reach
[2021-05-20] MEDS ORDERED: AUGMENTIN 500-1 EACH PO (12:50)
[2021-05-20] MEDS ORDERED: OXYCODONE HCL5 MG PO (12:51)
--- NOTE | 2021-05-20 13:30 | NUR ---
Pt and given discharge instructions in both written and verbal form, all questions and concerns answered. IV removed, cath intact, no redness or swelling observed at incision site, gauze and coban applied, pt educated on post IV site care. VSS on RA. Pt taken to front lobby via w/c where had vehicle waiting to transport pt home
== END 2021-05-20 13:30 | disposition home or self-care (01) | DRG 392 ==
LOC: ED 16:18 → MS 20:18
PROVIDERS: ADMIT Internal Medicine; ATTEND Internal Medicine
DX: K57.32 Diverticulitis of large intestine without perforation or abscess without bleeding (principal); N17.9 Acute kidney failure, unspecified; N18.4 Chronic kidney disease, stage 4 (severe); K35.80 Unspecified acute appendicitis; I50.32 Chronic diastolic (congestive) heart failure; I48.0 Paroxysmal atrial fibrillation; E78.5 Hyperlipidemia, unspecified; E03.9 Hypothyroidism, unspecified; Z88.1 Allergy status to other antibiotic agents; Z20.822 Contact with and (suspected) exposure to COVID-19; Z88.8 Allergy status to other drugs, medicaments and biological substances; E78.00 Pure hypercholesterolemia, unspecified; Z86.718 Personal history of other venous thrombosis and embolism; K21.9 Gastro-esophageal reflux disease without esophagitis; E66.01 Morbid (severe) obesity due to excess calories; Z90.49 Acquired absence of other specified parts of digestive tract; Z95.820 Peripheral vascular angioplasty status with implants and grafts; Z98.890 Other specified postprocedural states; I89.0 Lymphedema, not elsewhere classified; Z79.01 Long term (current) use of anticoagulants; Z79.4 Long term (current) use of insulin; Z68.35 Body mass index [BMI] 35.0-35.9, adult; E78.1 Pure hyperglyceridemia; F39 Unspecified mood [affective] disorder; Z87.442 Personal history of urinary calculi
CPT/HCPCS: 36415; 74176; 80048; 81001; 85025; 85610; 96365; 99285-25; J1815; J2543; J7040; J7121; U0003

== ENCOUNTER 2022-01-31 01:12 | Inpatient (IN) | payer MEDICARE, OTHER ==
[~2022-01-31] VITALS: Ht 180.3 cm; Wt 120.0 kg
[~2022-01-31 01:12] MED LIST changes: +AUGMENTIN 500-1 EACH PO; -FISH OIL 1,0001 EACH PO; +FISH OIL 1,001000 MG PO
[2022-01-31] MEDS ORDERED: GABAPENTIN100 MG PO (01:50)
[2022-01-31] MEDS ORDERED: CYCLOBENZAPRINE5 MG PO (01:50)
--- NOTE | 2022-01-31 06:21 | NUR ---
0611- admitted to room 109 from ed via stretcher
--- NOTE | 2022-01-31 07:05 | NUR ---
COOP WITH ADMIT ASSESSMENT
--- NOTE | 2022-01-31 08:00 | NUR ---
REPORT RECEIVED FROM NIGHT RN AND PT. CARE RESUMED. PT. IS ORIENTED TO SELF AND SITUATION. 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 HE DENIES PAIN. ASSESSMENT COMPLETED. BED ALARM ON AND CALL LIGHT IN REACH.
[2022-01-31] MEDS ORDERED: FAMOTIDINE40 MG PO (08:39)
[2022-01-31] MEDS ORDERED: ATORVASTATIN CA40 MG PO (08:49)
--- NOTE | 2022-01-31 08:58 | NUR ---
PT RESTING IN BED. VITALS AND IS AND OS. NO NEEDS. CALL LIGHT WITHIN REACH.
--- NOTE | 2022-01-31 09:27 | NUR ---
DRESSING ON LUE CHANGED WITH 2 ABD PADS AND PAPER TAPE. OLD DRESSING SATURATED WITH SEROUS DRAINAGE. LEFT RESTING WITH ALARM ON AND CALL LIGHT IN REACH.
--- NOTE | 2022-01-31 10:03 | EKG ---
[facility] [address] [place] [address] Signed Atrial fibrillation Low voltage QRS Septal infarct , age undetermined Abnormal ECG When compared with ECG of 14-FEB-2020 11:50, No significant change was found Confirmed by Kayleigh Pena MD () on 01/31/2022 10:02:50 AM Electronically Signed By: KAYLEIGH PENA MD 01/31/22 1003 PATIENT NAME: PATRICIAMELINA DAPHNEY Electrocardiogram DATE OF : 40 PHYSICIAN: KAYLEIGH PENA MD REPORT #: [id number] REPORT IS CONFIDENTIAL AND NOT TO BE RELEASED WITHOUT AUTHORIZATION
--- NOTE | 2022-01-31 13:23 | NUR ---
PT IN BED. VITALS AND IS AND OS COMPLETE. PT ASSISTED TO BSC W 2 PA PIVOT. PT ASSISTED BACK TO BED. CALL LIGHT WITHIN REACH.
[2022-01-31] MEDS ORDERED: COLCRYS0.6 MG PO (16:32)
--- NOTE | 2022-01-31 16:37 | NUR ---
PT IN BED. BS TAKEN. RN NOTIFIED. NO NEEDS. CALL LIGHT WITHIN REACH.
--- NOTE | 2022-01-31 16:41 | NUR ---
DR ROBLES CAME IN TO SEE PT TO EVAL/TREAT LEFT BIG TOE SWELLING. I&D PERFORMED, RINSED WITH DILUTE IODINE AND PACKED. RIGHT BIG TOE ULCER ALSO EVALUATED, COVERED WITH ALEVYN. ANTICIPATE REPEAT IN THE MORNING. PT SITTING UP IN BED WITH FAMILY AT BEDSIDE. CALL LIGHT IN REACH.
--- NOTE | 2022-01-31 20:56 | NUR ---
telephone report from lab "+ BC aerobic bottle - Gram+ Cocci in clusters" will notify Dr Nikole rowley and Dr Demarco in am.
--- NOTE | 2022-01-31 21:00 | NUR ---
dr Agustin notified of [facility]. no new orders, pt on Zosyn and pharmacy monitoring kidney function for Vancomycin dosing, 2100 BMP blood draw ordered earlier by
--- NOTE | 2022-01-31 21:54 | NUR ---
VS AND I&O COMPLETED. PT UP TO BSC, SBA, BACK TO BED. SHY IV REINFORCED WITH DIMAS LOW. LEFT LEG DRESSING CHANGED DRESSING FELL OFF. WOUND CLEAN, WEEPING SEROUS FLUID, SMALL AMOUNT, NO ESCHAR NOTED. ICE WATER PROVIDED. NO OTHER NEEDS. PRIMARY RN IN ROOM AT THIS TIME.
--- NOTE | 2022-01-31 22:22 | NUR ---
Pt up to BSC, tolerated well. attends in place. On room air, clear lungs abd large marco, hade bm's and voiding using urinal too. ROSA SL patent. SHY IVF and IV abx infusing w/o problems, L upper thigh area dressing changed by another RN due to ss drainage. L leg edematous 4+ pink colored, scaly, dressing over L foot with sanguineous drainage covered with coban elevated in pillows, c/o chronic N&T of le and numbness of arms/hands, CBG 293 received 5 units ss insulin and scheduled insulin. tolerating liquids well, no c/o emesis, medicated wtih Tylenol per c/o back and L leg pain. lab here earlier drawing blood. Pt coop wtih vitals, uses call light, Bed alrm on vitals
--- NOTE | 2022-01-31 23:52 | NUR ---
RESTING, EYES CLOSED, NO DISTRESS, BED ALRM ON, L LEG ELEVATED
--- NOTE | 2022-02-01 01:03 | NUR ---
rESTING, EYES CLOSED, NO DISTRESS, IVF INFUSING W/O PROBLEMS, TURNS IN BED, L LEG ELEVATED IN PILLOWS, CALL LIGHT AND FLUIDS AT BEDSIDE. BED ALRM ON
--- NOTE | 2022-02-01 04:00 | NUR ---
Pt on room air, much more alert and oriented as ths hfit goes now. Up to BS, had bm, voided using urinal, has attends, no incontinencet nothed this shift. IVF infusing, no c/o adverse reaction to abx. much improved gait. open/scabbed areas over R knee and R toes healing. L upper thigh/groing area dressin gchanged, ss drainage noted. L foot dressing intact covered with coban draining small amounts of sanguineous drainage. elevated with pillows, 4+ edema, red, scaly tender, Dr Demarco will do dressing changes in am. Dr Agustin notified earlier of + Blood Cultures of Gram + cocci in clusters int eh aerobic bottle, no new orders. pt afebrile, no c/o. pleasant and cooperative. uses call light
--- NOTE | 2022-02-01 07:29 | NUR ---
REPORT RECEIVED. PT AWAKE IN BED. NS INFUSING AT 125ML/HR. PT DENIES ANY PAIN OR NEEDS. CALL LIGHT IN REACH.
--- NOTE | 2022-02-01 07:34 | NUR ---
PT IN BED. BS TAKEN. RN NOTIFIED. NO NEEDS. CALL LIGHT WITHIN REACH.
--- NOTE | 2022-02-01 08:58 | NUR ---
TO BEDSIDE WITH DR ROBLES FOR DRESSING CHANGE. PT TOLEARTED DRESSING WELL. WOUND STILL WITH COUPIOUS AMOUNTS PURULENT DRAINAGE. WOUND CLEANSED WITH DILUTED BETADINE. PACKED WITH 1/2 INCH PACKING SOAKED IN BETADINE. COVERED WITH XEROFORM AND 4X4 GAUZE, WRAPPED IN KERLEX AND COBAN. LEFT TOE WOUND COVERED WITH XEROFORM AND GAUZE AND TAPPED. VERBL ORDERS TO CHANGE RIGHT FOOT DRESSING TWICE A DAY. PT NOW EATING BREAKFAST. INSULIN ADMISNTERED. CALL LIGHT IN REACH
--- NOTE | 2022-02-01 10:50 | NUR ---
IN TO CHECK ON PT. PT OK AND HAS NO NEEDS. IV IS COMPLETE AND RN NOTIFIED. CALL LIGHT WITHIN REACH.
--- NOTE | 2022-02-01 11:58 | NUR ---
PT REPORTS NEED FOR BM. ASSSITED WITH FWW TO BATHROOM. PT DID WELL INDEPENDENTLY WITH STAND BY. LINENES CHANGED WITH LAUREL CARLSON. ABD TO LEFT GROIN SATURATED AND CAHNGED. PT DID HAVE SMALL BM. DENIES PAIN .BOLUS STARTED PER DR ORDER. VERBAL CLARIFICATION DONE WITH DOCTOR ON RATE. ORDER TO INFUSE OVER 1` HOUR.
--- NOTE | 2022-02-01 13:41 | NUR ---
PT IN BED. PRESENT AT BEDSIDE. VITALS AND IS AND OS COMPLETE. NO NEEDS. CALL LIGHT WITHIN REACH.
--- NOTE | 2022-02-01 15:23 | NUR ---
FOCUSED ASSESSMENT COMPLETED. NO CHANGES. PT RESTING IN BED. ABX STARTED. NO NEEDS.
--- NOTE | 2022-02-01 17:24 | NUR ---
PATIENT IN BED AFTER MEAL. VITALS AND I/O'S COMPLETED. PT HAS NO OTHER NEEDS AT THIS TIME. CALL LIGHT WITHIN REACH.
--- NOTE | 2022-02-01 20:00 | NUR ---
UP TO BSC, HAD BM, 1PA, BACK TO BED, L LEG ELEVATED WEEPING R UPPER THIGH, DRESSING L FOOT AND R TOES INTACT
--- NOTE | 2022-02-01 20:37 | NUR ---
BLOOD DRAWN BY CHARGE NURSE, SAMPLE SENT TO LAB
--- NOTE | 2022-02-01 22:17 | NUR ---
Pt on room air, clear lungs, abd large mraco. dressing changed to R big toe inner side, red, moist ss drainage present. dressing chaged. L hip dressing changed, abd inplace ss drainage. L big toe dressing chaged, ss drainage w white crystals noted, cooperative, dressing done as per orders, covered with abd and coban. elevated with pillows, was medicated prior to dressing changes with Tylenol, tolerated very well. alert and oriented, cbg aover 300, received 9 units ss insulin.
--- NOTE | 2022-02-01 23:06 | NUR ---
RESTING, ON ROOM AIR, LEGS ELEVATED, NO DISTRESS, CALL LIGHT AT HANDS REACH, EYES CLOSED
--- NOTE | 2022-02-02 01:06 | NUR ---
rESTING, EYES CLOSED, ON ROOM AIR, NO DISTRESS, ABX IV INFUSING W/O PROBLEMS, L LEG ELEVATED IN PILLOWS, CALL LIGHT AT HANDS REACH
--- NOTE | 2022-02-02 03:42 | NUR ---
USED URINAL, ON ROOM AIR, NO FURTHER C/O DISTRESS
--- NOTE | 2022-02-02 04:17 | NUR ---
Pt on room air, SL x2, receiving and tolerating Sozyn abx IV. lungs clear, no distress. Up to bsc, had bm, voiding QS using urinal, dark yellow urine. Toleraing diet well, CBG was 349, receiveed 9 units ss Humolog Insulin and scheduled insulin. Dressings R big toe changed, drainig ss drainage. dressing to L upper thigh area changed twice, drainig ss drainage. dressing to L big toe, dressing changes done as per orders, drained thick ss with white crystals, flushed, packed and covered with abd, kerlix and coban. elevated with pillows, 4+ edema, pink, dry scaly colored. was medicate prior to dressing changes, cooperative. Uses call light, very alert and oriented, SBA, uses call light
--- NOTE | 2022-02-02 05:25 | NUR ---
PT IN BED. VITALS AND IS AND OS COMPLETE. PT ASSISTED TO BATHROOM USING FWW. DAILY WEIGHT TAKEN. PT ASSISTED BACK TO BED USING FWW. FRESH ICE WATER GIVEN. NO FURTHER NEEDS. CALL LIGHT WITHIN REACH.
--- NOTE | 2022-02-02 05:48 | NUR ---
Up to edge of bed, voided, ambulated to br, had a bm, back to bed 2PA, SOB with exertion noted, tolerated fair. needs help lifting legs. Daily standing weight 119.5KG. edemato upper thigh 4+ pitting, dressing to L thigh draining ss drainage has been changed 3x's this shift. dressing to bilat toes in place. LLeg elevated
--- NOTE | 2022-02-02 09:50 | NUR ---
PT IN BED. VITALS AND IS AND OS COMPLETE. NO NEEDS. CALL LIGHT WITHIN REACH.
--- NOTE | 2022-02-02 15:41 | NUR ---
Patient up to restroom to void then back to bed. Patient provided with warm cloth to clean his face. Left leg remains very swollen, dressing to upper thigh has scant drainage noted. Left foot dressing and right great toe dressing remains CDI. Patient declined pain medication at this time. No current needs, personal supplies and call light within reach.
--- NOTE | 2022-02-02 22:18 | NUR ---
dressing changed R big toe, scant amount of ss drainage, edges well marked, decreaed edema, vaseline dressing covered with 4x4 and tape. L big toe dressing done, decreaed redness and edema. moderate amunt of gout crystals removed when flushing wound. packed and dressing changes done as per orders. vaseline dressing covering packing, gauze, abd,wrapped with kerlix and coban, 2+ edema R leg, 3+ L below knee area and 4+ upper thigh, abd replaced to upper thigh area, dressing removed and changed serous drainage. cooperative. Medicated with Tylenol earlier prior to dressing changes. tolerated very well.
--- NOTE | 2022-02-03 00:46 | NUR ---
Pt on room air, eyes closed, no distress, IVF infusing w/o problems, L Leg elevated , dressing intact. call light and fluids at bedside
--- NOTE | 2022-02-03 02:37 | NUR ---
PT RESTING, EYES CLOSED, NO DISTRESS, USED URINAL, VOIDING SMALL AMOUNTS CLEAR YELLOW URINE, L LEG ELEVATED IN PILLOWS, IVF INFUSING
--- NOTE | 2022-02-03 04:03 | NUR ---
resting, eyes closed, no distress, ivf infusing w/o problems. call light at hands reach L leg elevated
--- NOTE | 2022-02-03 05:39 | NUR ---
pt awakes easily, was incontinent of urine and bm plus got up to BR had another soft bm. Back to bed, tolerated well. decreaed edema to L leg noted. dressing to L upper thigh changed, saturated with serous drainage. elevated in pillows, daily standing weight 120KG, alert and orieted, pleasant and coop. IVF infusing w/o problems
--- NOTE | 2022-02-03 05:41 | NUR ---
Pt on room air, lungs clear, CBG 394 received 7 units ss insulin. Was incontinent of urine and bowel plus uses urinal and gets up to BR, 1PA/FWW slight unsteadiness at times, tolerated well. Dressing to R toe and L toe and L upper thigh changed. much improved edema to L leg. 1+ edema to R leg, L upper thigh 3+ and 2+ from below the knee down to toes, pitting edema L leg. daily standing weight was 120KG, admit weight was 114.4KG bed weight. Pt gets abx IV, IVF insugint w/o problems. uses call light, alert and oriented
--- NOTE | 2022-02-03 06:30 | NUR ---
Dr Demarco in room to do dressing changes
--- NOTE | 2022-02-03 06:57 | NUR ---
Dr Demarco stated that pt will be ok for Home Health care dressing changes at least 3X/week, will notify CM and charge nurse
--- NOTE | 2022-02-03 07:25 | NUR ---
Report from Rachel Galeano RN. This nurse in room to assess patient. Denies pain at this time. Call light in reach, bed rails up X2. IV fluids and antibiotics given.
--- NOTE | 2022-02-03 10:05 | NUR ---
Sitting up in bed. Denies needs at this time. Call light in reach, bed rails up X2
--- NOTE | 2022-02-03 10:31 | NUR ---
MED REC COMPLETE
--- NOTE | 2022-02-03 11:02 | NUR ---
Ambulates to bathroom with standby assist and walker. Returns to bed. in room. Patient denies other needs at this time. Call light in reach.
[2022-02-03] MEDS ORDERED: PREDNISONE10 MG PO (11:29)
[2022-02-03] MEDS ORDERED: AMOX TR-K CLV1 EAC1 PO (11:32)
--- NOTE | 2022-02-03 13:55 | NUR ---
DC instructions given to patient and spouse. Verbalize understanding.
== END 2022-02-03 14:05 | disposition home or self-care (01) | DRG 872 ==
LOC: ED 01:12 → MS 05:07
PROVIDERS: ADMIT Family Medicine; ATTEND Family Medicine
PROC: 3E03329 Introduction of Other Anti-infective into Peripheral Vein, Percutaneous Approach (ICD-10-PCS; principal; 2022-01-31)
PROC: 0J9R0ZZ Drainage of Left Foot Subcutaneous Tissue and Fascia, Open Approach (ICD-10-PCS; 2022-01-31)
DX: A41.01 Sepsis due to Methicillin susceptible Staphylococcus aureus (principal); E87.1 Hypo-osmolality and hyponatremia; L03.116 Cellulitis of left lower limb; N17.9 Acute kidney failure, unspecified; L02.612 Cutaneous abscess of left foot; R65.20 Severe sepsis without septic shock; E11.65 Type 2 diabetes mellitus with hyperglycemia; Z20.822 Contact with and (suspected) exposure to COVID-19; E11.621 Type 2 diabetes mellitus with foot ulcer; L97.512 Non-pressure chronic ulcer of other part of right foot with fat layer exposed; I48.91 Unspecified atrial fibrillation; E03.9 Hypothyroidism, unspecified; M10.9 Gout, unspecified; I10 Essential (primary) hypertension; Z90.49 Acquired absence of other specified parts of digestive tract; Z98.890 Other specified postprocedural states; Z88.1 Allergy status to other antibiotic agents; Z88.8 Allergy status to other drugs, medicaments and biological substances; Z79.4 Long term (current) use of insulin; Z79.01 Long term (current) use of anticoagulants; Z79.899 Other long term (current) drug therapy
CPT/HCPCS: 36415; 51701; 70450; 71045; 73630; 80048; 80053; 80202; 81001; 83605; 83735; 84550; 85025; 85610; 86140; 87040; 87070; 87075; 87088; 87186; 87205; 87502; 93005; 93010; 93971; 99285-25; A9270; C9803; J0610; J1815; J1940; J2543; J2920; J2930; J3370; J7030; J7060; J7121; U0003

== ENCOUNTER 2022-02-05 13:46 | Inpatient (IN) | payer MEDICARE, OTHER ==
[~2022-02-05] VITALS: Ht 180.3 cm; Wt 127.0 kg
[~2022-02-05 13:46] MED LIST changes: +AMOX TR-K CLV1 EAC1 PO; +COLCRYS0.6 MG PO; +CYCLOBENZAPRINE5 MG PO; +FAMOTIDINE40 MG PO; +GABAPENTIN100 MG PO; +PREDNISONE10 MG PO
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
--- NOTE | 2022-02-05 17:53 | EKG ---
[facility] [address] [place] [address] Signed Atrial fibrillation Low voltage QRS Nonspecific ST and T wave abnormality Abnormal ECG No previous ECGs available Confirmed by CHANDU REZA MD ([id number]) on 02/05/2022 5:53:13 PM Electronically Signed By: CHANDU REZA MD 02/05/22 175 PATIENT NAME: MELINA GOMEZ DAPHNEY Electrocardiogram DATE OF : 40 PHYSICIAN: CHANDU REZA MD REPORT #: [id number] REPORT IS CONFIDENTIAL AND NOT TO BE RELEASED WITHOUT AUTHORIZATION
--- NOTE | 2022-02-05 18:53 | NUR ---
FIRST UNIT OF PRBC'S HUNG. PATIENT REMAINS COOL, PALE. RESPONSIVE.
--- NOTE | 2022-02-05 19:00 | NUR ---
DR. OLVERA AND DR. REZA HERE TO SEE PATIENT. REPORT TO NEXT SHIFT. SEVERAL NURSES IN ROOM WITH PATIENT. PATIENT REMAINS ALERT. SKIN COOL TO TOUCH AND PALE.
--- NOTE | 2022-02-05 19:30 | NUR ---
WADE AND LIBIA IN TO SEE PATIENT. SHIFT REPORT RECEIVED. IV SITE INFILTRATED IN RIGHT FOREARM AND UPPER LEFT FOREARM. NEW SITE ESTABLISHED BY MATTHIAS PORTILLO. PRBC CONTINUE TO INFUSE. PATIENT'S VS Q15M, STABLE. TOLERATING 4L NC. ADEQUATE BP. PATIENT REPORTS PAIN UNCHANGED; IS RESTING CALMLY WITH EYES CLOSED. MARIE IN PLACE, MINIMAL URINE OUTPUT. WOUNDS ON BOTH FEET WERE ASSESSED BY AND PICTURES TAKEN BY YAHIR RN; THEN REDRESSED. ELEVATED FEET ON PILLOWS. SCDs CONTRAINDICATED AT THIS POINT. LEAVING FOR THE NIGHT. STAFF IN ROOM.
--- NOTE | 2022-02-05 20:00 | NUR ---
LAST ORDERED UNIT OF PRBC STARTED AT 194 AND NO SIGN OF INFILTRATION OR REACTION NOTED. VS STABLE. PATIENT DENIES ANY NEEDS. LIGHTS ARE DIMMED AND HE IS RESTING WITH EYES CLOSED. CALL LIGHT IN REACH.
--- NOTE | 2022-02-05 21:45 | NUR ---
UPDATE PROVIDED TO AND NO NEW ORDERS.
--- NOTE | 2022-02-05 22:14 | NUR ---
PATIENT RESTING WITH EYES CLOSED. WOKE EASILY TO VOICE. SCHEDULED INSULIN PROVIDED. PATIENT REPORTS PAIN "15" OUT OF 10 IN ABD. NO APPARENT DISTRESS. PRN DILAUDID PROVIDED. CALL LIGHT IN REACH.
--- NOTE | 2022-02-05 23:00 | NUR ---
PATIENT REQUEST ASSISTANCE UP TO THE BSC TO HAVE BM. PREVIOUSLY PATIENT ATTEMPTED TO USE BEDPAN WITHOUT ASSISTANCE. PATIENT UP TO THE BSC WITH 2PA. PATIENT TOLERATED WELL. REPORTS BEING DIZZY WHEN HE CLOSED HIS EYES. HAD SMALL FORMED BM. UPON RETURNING TO BED HAD A NEAR SYNCOPAL EPISODE. PATIENT SAFELY IN BED AND REPORTS FEELING LIGHTHEADED BUT DENIES LOSS OF CONCIOUSNESS. VS STABLE. HEMOCULT STOOL NEGATIVE. WILL CONTINUE TO MONITOR.
--- NOTE | 2022-02-06 02:00 | NUR ---
PATIENT VS STABLE. APPEARS TO BE RESTING COMFORTABLE.
--- NOTE | 2022-02-06 02:58 | NUR ---
PATIENT REPORTS NEED TO HAVE A BM. ASSISTED PATIENT TO GET ON BEDPAN. PATIENT ABLE TO ROLL HIMSELF IN BED. PATIENT DOES NOT HAVE BM AFTER SEVERAL MINS. BEDPAN REMOVED. PATIENT POSIITONED FOR COMFORT. ADEQUATE URINE OUTPUT. VS STABLE. IV FLUIDS PER ORDER. CALL LIGHT IN REACH.
--- NOTE | 2022-02-06 05:00 | NUR ---
PATIENT REQUEST PEDPAN. ASSISTED TO ROLL AND PLACED ON BEDPAN. PATIENT DID NOT HAVE BM. MARIE HAS ADEQUATE URINE OUTPUT. PATIENT DENIED ANY NEEDS. CALL LIGHT IN REACH.
--- NOTE | 2022-02-06 06:00 | NUR ---
UPDATE GIVEN TO AND BOTH IN TO SEE PATIENT
--- NOTE | 2022-02-06 08:00 | NUR ---
RN IN ROOM - PT RESTING IN BED WITH HOB ELEVATED. PT REQUESTED TO BE PUT ON BEDPAN. STATES PAIN IS 15/10 - REQUESTS PAIN MEDICATION. VS STABLE AT THIS TIME.
--- NOTE | 2022-02-06 08:55 | NUR ---
ASSESSMENT COMPLETE - PT PASSES GAS BUT DID NOT PRODUCE BM. PAIN MEDICATION ADMINISTERED. ENCOURAGED PT TO COMMUNICATE LEVEL OF PAIN SO IT CAN BE CONTROLLED WITH MEDICATION. PT EDUCATED ON DEEP BREATHING AND PAIN CONTROL AND PREVENTION OF PNEUMONIA. MARIE PATENT AND DOES NOT APPEAR TO BE LEAKING. WOUND DRESSINGS IN PLACE AND UNCHANGED. CALL LIGHT IN REACH. PT STATES HE WANTS TO REST.
--- NOTE | 2022-02-06 09:45 | NUR ---
PATIENT CALLED FOR ASSISTANCE ONTO BEDPAN FOR BM, CALL LIGHT IN EASY REACH, WILL CALL WHEN READY.
--- NOTE | 2022-02-06 11:29 | NUR ---
RN ROUNDING ON PT - SLEEPING IN BED ON BACK, RR EVEN AND UNLABORED, VS ON RN STATION MONITOR WNL. CALL LIGHT AT SIDE.
--- NOTE | 2022-02-06 11:49 | NUR ---
LUNCH TRAY BROUGHT TO PT - PT REPOSISTIONED IN BED. STATES PAIN IS NOT HELPED BY PRN PAIN MEDICATION AND DOES NOT REQUEST ADDITIONAL DOSE AT THIS TIME. VS STABLE.
--- NOTE | 2022-02-06 13:30 | NUR ---
ASSESSMENT COMPLETE - UNCHANGED FROM PREVIOUS. PT DENIES NEEDS AT THIS TIME.
--- NOTE | 2022-02-06 14:28 | NUR ---
RN IN ROOM TO ADMINISTER SCHEDULED MEDICATIONS - AT BEDSIDE. WOUND DRESSING CHANGED ON LEFT THIGH AND BOTH FOOT WOUNDS. DR. STEIN OFFICE NOTIFIED OF PT ADMIT STATUS - OFFICE STAFF STATE HE WILL COME SEE HIM IN CCU TO TREAT PREVIOUSLY FOLLOWED WOUNDS.
--- NOTE | 2022-02-06 14:49 | NUR ---
MED REC COMPLETE
--- NOTE | 2022-02-06 16:13 | NUR ---
RN ROUNDING ON PT - PT RESTING IN BED ASLEEP, RR EVEN AND UNLABORED. VS AT RN STATION WNL. CALL LIGHT AT SIDE.
--- NOTE | 2022-02-06 16:46 | NUR ---
WRITTEN ORDERS RECEIVED FROM DR. ROBLES FOR DRESSING CHANGES, IN PAPER CHART.
--- NOTE | 2022-02-06 17:30 | NUR ---
RN IN ROOM TO ADMINISTER 7 UNITS INSULIN FOR DINNER COVERAGE OF CBG 300. PT TALKATIVE AND IN GOOD SPIRITS. DENIES FURTHER NEEDS. CALL LIGHT AT SIDE, WATCHING DINNER AND EATING CLEAR LIQ TRAY.
--- NOTE | 2022-02-06 19:02 | NUR ---
RN IN ROOM TO ASSIST PT OFF BED GAYTAN - SOFT BROWN MEDIUM SIZED STOOL PRODUCED. PT STATES THIS HELPED RELIEVE SOME OF HIS ABD PAIN. PT DENIES FURTHER NEEDS, CALL LIGHT AT SIDE.
--- NOTE | 2022-02-06 19:15 | NUR ---
report from wilfredo rodríguez, pt resp even, eyes closed sleepin with call light in reach. Hr 69, resp rate 14. will follow.
--- NOTE | 2022-02-06 21:05 | NUR ---
PT TO BED GAYTAN WITH THIS RN, SMALL SOFT BROWN BM NOTED. SKIN CLEANED AND INTACT. PT GIVEN WARM BLANKET -DENIES OTHER NEEDS - TURNING OFF TV FOR SLEEP.
--- NOTE | 2022-02-06 21:36 | NUR ---
PO TYLENOL GIVEN FOR LEFT ABD PAIN FROM COUGHING INJURY. VITALS/ I/O, COMPLETE. MARIE DRAINING WELL, CHRONIC WOUND LEFT THIGH WNL, COVERED.
--- NOTE | 2022-02-07 01:34 | NUR ---
iv abx hung to pump, i/o urine 350 ml to su, pt sleeping awoke during tasks - denies pain, no changes in assessment. room air. call light in reach,
--- NOTE | 2022-02-07 03:54 | NUR ---
no changes in pt status, hr 69, ra sats 95%, su to gravity wnl- iv fusing LR @125, resp even eyes closed, call light in reach.
--- NOTE | 2022-02-07 06:15 | NUR ---
pt awaken for scheduled po tylenol rates left abd wall pain 01/20 appears in no distress - no discoloration to abd. i/o qs, vitals wnl, su 400 ml urine out. daily wt done. pt with call light in reach - sleepy going back to sleep pt reports.
--- NOTE | 2022-02-07 06:32 | NUR ---
DR ROBLES HERE F0R DRESSING CHANGE ON FEET.
--- NOTE | 2022-02-07 11:06 | NUR ---
DR ROBLES INTO SEE PT THIS MORNING BEFORE PICTURE FRAMER SHIFT, CRESSING CHANGED, PT SLEEPING AFTER REPORT. MRI FORM COMPLETED THIS MORNING WITH PT. CAME INTO SEE PT THIS AM. PLACED FOOT CRADLE AT THE END OF BED TO KEEP BLANKET PRESSURE OF PT FEET AND WOUNDS. WARM BLANKETS TO BILT FEET. THIS PICTURE FRAMER RETURNED TO ROOM AND PLACED BLANKETS ON PT FEET. ASK WHY "MY FEET ARE COLD" EXPLAINED WHY WE WANT THE BLANKETS OFF. BUT PT WANTS THE BLANKETS ON HIS FEET. PT MEDICATED WITH 7.5/325 PERCERT THIS AM PT HAS TOLED WELL SO FAR. LEFT LEG WOUND DRESSING CHNAGED AFTER BED BATH AND LINE CHANGE. ABD AND A BOAT OF 4X4 ON SKIN GRAFT SITE.
--- NOTE | 2022-02-07 12:29 | NUR ---
PT FAMILY LEFT AT THIS TIME, PT PRPED FOR MRI, ALL MONITOR'S REMOVED AND PER DR JIM PT MAY GO TO MRI WITH A CCU NURSE AT THIS TIME. PT ATE SOME LUNCH, C/O OF ABD PAIN, BUT TOO SOON TO GIVE PAIN MEDS.
--- NOTE | 2022-02-07 12:45 | NUR ---
MRI STAFF CAME AND PICKED UP PT AT THIS TIME, THREE PERSON TRANSFER FROM BED TO MRI TABLE.
--- NOTE | 2022-02-07 13:57 | NUR ---
OVER TO UNIT PATIENT RETURNS FROM MRI OF L FOOT. ASSISTED STAFF WITH TRANSFER FROM [facility] TO BED. TASHIA PORTILLO AND EDILMA BARRAGAN AT BEDSIDE. PATIENT STATES HE IS DOING WELL, BUT IS ANXIOUS TO HEAR HOW DR. ROBLES IS GOING TO TREAT HIS TOE. PATIENT STATES HE IS ABLE TO GET AROUND FINE AT HOME WITH HIS WALKER. HE STATES HE ALSO HAD A WC, SCOOTER AND MULTIPLE OTHER PIECES OF DME AT HOME IF NEEDED. PATIENT STATES HIS IS NORMALLY HOME TO ASSIST WITH HIS CARE. NO CONCERNS FOR DISCHARGE AT THIS TIME. PATIENT STATES HE WAS SUPPOSED TO RECV HOME HEALTH AFTER HIS LAST DISCHARGE. CALL PLACED TO [facility] TO NOTIFY OF PATIENT INPATIENT STAY. PER STAFF PATIENT IS SCHEDULED TO BE SEEN BY HOME HEALTH 02/11/22. ADVISED WILL CALL THEM ON MODAY TO UPDATE ON DISCHARGE DATE.
--- NOTE | 2022-02-07 14:33 | NUR ---
MARIE REMOVED PER RN.
--- NOTE | 2022-02-07 17:57 | NUR ---
PT PLACED ON BEDPAN, JUST PASSED GAS, NO VOID EITHER. FRESH ICE WATER GIVEN. REMAINS AT BEDSIDE AND HELPS WHEN NEEDED IF SHE CAN.
--- NOTE | 2022-02-07 19:05 | NUR ---
REPORT GIVEN TO PRODUCTION PLANNING MANAGER ALL QUESTIONS ANSWERED.
--- NOTE | 2022-02-07 19:37 | NUR ---
ROUNDED ON PT AFTER REPORT, PT RESTING IN BED EYES CLOSED NO DISTRESS NOTED.
--- NOTE | 2022-02-07 19:45 | NUR ---
PT RESTING IN BED ALERT, HE REPORTS PAIN 10/10, NORCO PRN ADMINISTERED, WELL OTHER HS MEDICATIONS, IV ABX INFUSING NOW. NO NEW COCNERNS ON ASSESSMENT. PT IS ALERT AND ORIENTED NO OTHER COMPLAINTS.
--- NOTE | 2022-02-07 20:54 | NUR ---
UPDATED ON MRI COMPLETE TODAY. ALSO NOTIFIED OF MRI WELL.
--- NOTE | 2022-02-07 22:15 | NUR ---
ROUNDING ON PT, HE IS RESTING IN BED, EYES CLOSED RESP REGULAR AT 16 BREATHS/MIN NO DISTRESS NOTED. V/S STABLE PER CONTINUOUS MONITORING.
--- NOTE | 2022-02-08 01:56 | NUR ---
ROUDNING ON PT TO ADMINISTER SCHEDULED ABX, PT ALERT TO RN AT BEDSIDE. PT HAS NO COMPLAINTS OR REQUESTS AT THIS TIME.
--- NOTE | 2022-02-08 02:42 | NUR ---
PT RESTING IN BED, ALERT TO STAFF IN ROOM TO S/L POST ABX INFUSION. PT REPORTS HE HAS BEEN SLEEPING WELL, NO NEW CONCERNS OR REQUESTS AT THIS TIME.
--- NOTE | 2022-02-08 07:41 | NUR ---
REPORT RECEIVED FROM NIGHT RN - PT USES CALL LIGHT TO REQUEST BED GAYTAN FOR BM - PROVIDED AND ALLOWED PRIVACY. PLAN TO AMBULATE TO CHAIR FOR BREAKFAST.
--- NOTE | 2022-02-08 08:00 | NUR ---
RN IN ROOM TO ASSESS PT - PT ASSISTED TO SHAIR WITH 2 PERSON ASSIST AND FWW. PT RATES PAIN 10/10 IN LEFT LOWER QUADRANT, STATES ITS MOVING LOWER THAN PREVIOUSLY FELT. PRN NORCO ADMINISTERED FOR THIS, ICE PACK. PT STEADY ON FEET AND ABLE TO ASSIST WITH PUSH OFF AND LOWERING OF SELF. DRESSING ON LEFT THIGH REINFORCED TILL ABLE TO DO PROPER DRESSING CHANGE. EDEMA WORSENING THROUGHOUT. BED LINENS CHANGED AND BACK WASHED PT WAS INC OF URINE IN BED. NO BM PRODUCED ON BED GAYTAN. IV SITE PATENT X2, ABX INF STARTED. ROOM CLEANED UP BY RN.
--- NOTE | 2022-02-08 08:45 | NUR ---
PT REQUESTS TO GO BACK TO BED, STATES PAIN IS WORSE IN CHAIR AND NEEDS TO STRETCH OUT. ASSISTED WITH 1 PERSON AND FWW. PT DENIES FURTHER NEEDS, WARM BLANKET PROVIDED AND TABLE PLACED AT SIDE. PT USING PHONE TO CALL .
--- NOTE | 2022-02-08 09:34 | NUR ---
DR. ROBLES IN ROOM PERFORMING WOUND CARE/DRESSING CHANGE.
--- NOTE | 2022-02-08 09:50 | NUR ---
RN ROUNDING ON PT - PT ASLEEP IN BED, VS AT RN STATION WNL. NO DISTRESS NOTED.
--- NOTE | 2022-02-08 10:07 | NUR ---
TRANSFER ORDERS RECEIVED, AND ACKNOWLEDGED - PT TO REMAIN IN CCU AT THIS TIME HOUSE CONV. PER HOUSE SUP.
--- NOTE | 2022-02-08 10:15 | NUR ---
SCD'S APPLIED PER ORDERS. PATIENT HAS BEEN SLEEPING.
--- NOTE | 2022-02-08 10:25 | NUR ---
RADIOLOGY IN ROOM TO GET CXR.
--- NOTE | 2022-02-08 11:00 | NUR ---
PT CARE TRANSFERRED TO THIS RN FROM [facility].
--- NOTE | 2022-02-08 11:31 | NUR ---
HOSPITALIST NOTIFIED OF MAG 1.7. NO NEW ORDERS ATT.
--- NOTE | 2022-02-08 12:21 | NUR ---
TO PT ROOM FOR MEDICATION ADMINISTRATION. PT IS A/O, RESPIRATIONS EVEN AND REGULAR. PT SITTING UP FOR LUNCH. URNIAL EMPTYIED. CALL LIGHT WITHIN REACH.
--- NOTE | 2022-02-08 13:11 | NUR ---
ROUNDED ON PT. PT IS A/O, RESPIRATIONS EVEN AND REGULAR. AT BEDSIDE. SCD'S IN PLACE. PT TOLERATING WELL. PT ATE 25% OF LUNCH. REPORTS THAT PAIN INCREASES WHEN EATING DUE TO PRESSURE IN ABDOMEN. CALL LIGHT WITHIN REACH. DENIES ANY NEEDS ATT.
--- NOTE | 2022-02-08 15:58 | NUR ---
ROUNDED ON PT. PT APPEARS TO BE SLEEPING COMFORTABLY. RR EVEN AND REGULAR. CALL LIGHT WITHIN REACH.
--- NOTE | 2022-02-08 16:14 | NUR ---
DR OLVERA NOTIFIED OF PT MAGNESIUM OF 1.7. VERBAL ORDER GIVEN FOR MAG SULFATE 2GM IV.
--- NOTE | 2022-02-08 17:11 | NUR ---
TO PT ROOM FOR MEDICATION ADMINISTRATION. PT IS A/O, RESPIRATIONS EVEN AND REGULAR. RATES PAIN 10/10. NORCO GIVEN. IV MAG RUNNING. PT SITTING UP FOR DINNER. REFUSES TO GET UP TO CHAIR FOR DINNER DUE TO PAIN. CALL LIGHT WITHIN REACH.
--- NOTE | 2022-02-08 18:20 | NUR ---
ROUNDED ON PT. IV MAGNESIUM COMPLETED. VS TAKEN. PT IS ALERT, RESPIRATIONS EVEN AND REGULAR. CALL LIGHT WITHIN REACH.
--- NOTE | 2022-02-08 19:25 | NUR ---
ROUNDING ON PT AFTER REPORT. PT IS RESTING IN BED EYES CLOSED RESP RATE 14 BREATHS/MIN.
--- NOTE | 2022-02-08 20:30 | NUR ---
ROUNDING FOR PT ASSESSMENT AND HS MED PASS, PT RESTING IN BED, SLEEPING, PT ALERT TOUCH TO PT RIGHT SHOULDER, DISCUSSED WITH PT PLAN OF CARE FOR THE NIGHT, PT SAID "I JUST WANT TO SLEEP" THIS RN SAID "WE CAN GET MOST EVERYTHING DONE AND THEN YOU SHOULD HAVE A GOOD AMOUNT OF TIME TO SLEEP." PT RATES PAIN 10/10 AT HIS ABD, HE SAID "NOTHING CHANGES IT." ASSESSMENT COMPLETE, NO NEW CONCERNS, NOTED NEW DRAINAGE ON RIGHT LATERAL THIGH DRESSING, CHANGED. DRESSING INTACT BILATERAL FEET CHANGED BY TODAY PER REPORT FROM [facility]. PT COOPERATIVE WITH ALL CARE AND ASSESSMENT NEEDS, HIS ABD HAS SEVERE DISTENTION AND IS TIGHT AND PAINFULL TO TOUCH. FRESH WATER PROVIDED, PT HAS NO OTHER REQUESTS AT THIS TIME.
--- NOTE | 2022-02-08 21:06 | NUR ---
ADMINSITERED NORCO PRN FOR ABD PAIN 01/20.
--- NOTE | 2022-02-09 00:48 | NUR ---
PT RESTING IN BED EYES CLOSED NO DISTRESS NOTED, SCDS ON, PT IS S/L, ON ROOM AIR, CONTINUOUS MONITORING OF V/S STABLE.
--- NOTE | 2022-02-09 02:19 | NUR ---
PT RESTING QUIETLY IN BED EYES CLOSED RESP RATE 15 BREATHS/MIN, PT IS ALERT TO RN AT BEDSIDE TO ADMINISTER ABX INFUSION. PT HAS NO COMPLAINTS AT THIS TIME OR REQUESTS, WHEN ASKED "HAVE YOU BEEN SLEEPING WELL?" HE SAID "YES, IT FEELS GOOD"
--- NOTE | 2022-02-09 06:13 | NUR ---
ROUNDING ON PT THIS AM, CHANGED ABD DRESSING ON LEFT THIGH PROXIMAL, 75% SATURATED WITH SEROUS DRAINAGE. ASSESSMENT COMPLETE, DISCUSSED ASSISTING PT UP TO RECLINER, INITIALLY HE WAS AGREEABLE, THEN HE SAID "WHEN MY GETS HERE" EDUCATION PROVIDED TO PT TO IMPORTANCE OF GETTING OUT OF BED, SKIN CARE, DVT PREVENTION AND PNEUMONIA PREVENTION WELL, PT SAID "I HAVE TO PEE RIGHT NOW" THIS RN SAID "OK, I WILL STEP OUT FOR A FEW MINUTES THEN I WILL BE BACK"
--- NOTE | 2022-02-09 06:37 | NUR ---
PT UP TO RECLINER AT THIS TIME, HE IS NOTED TO HAVE INCREASED PAIN WITH ACTIVITY, HE REPORTS 10/10, NORCO PRN ADMINISTERED AT THIS TIME.
--- NOTE | 2022-02-09 07:54 | NUR ---
SLEEPING IN CHAIR. RESP EQUAL AND NON-LABORED. NOT AWAKENED AT THIS TIME. BREAKFAST PLACED WITHIN PATIENT REACH. WILL DO ACCHUCHEK AND ASSESSMENT WHEN PATIENT WAKES. IV ABX HUNG.
--- NOTE | 2022-02-09 13:50 | NUR ---
DR. OLVERA HERE TO SEE PATIENT.
--- NOTE | 2022-02-09 14:08 | HP ---
[facility] [address] [place], [place] [address] Signed ADMISSION DATE: 02/05/2022 REASON FOR ADMISSION: Spontaneous cough induced left rectus sheath hematoma with anticoagulation and hypertension. HISTORY: This 81-year-old white man is well known to me from the past. 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 This was excised and ultimately underwent skin grafting by me in January 2020. HIs initial problem was left upper leg melanoma undergoing resection by DR Stallworth in [place] and radical left groin lympadenectomy with Dr Toro at [facility] in 1970. He later developed progressive left leg edema which has been debilitating. The patient has atrial fibrillation and chronic anticoagulation with Coumadin. He additionally has had a blood clot in the left lower extremity but no heart valve surgery in the past. He had the sudden onset of left-sided abdominal pain after a coughing fit and presented to the emergency room at approximately 2:00 p.m. and evaluated promptly by Dr. Beltre for significant hypotension and abdominal pain. The abdomen was found to be very tender with swelling in the upper abdomen on the left side and he underwent a CT scan of the abdomen confirming a rather large rectus sheath hematoma with a " blush" implying ongoing bleeding within the left rectus muscle. His initial hematocrit was 30.4 with a white count of 20.9, platelets 397,000 and the protime that was elevated with an INR of greater than 2.5. He underwent full-dose Kcentra and vitamin K administration bringing his INR to 1.3. He was transfused 2 units of packed red cells and the hematocrit was noted to be 30.4 at approximately 4:00 p.m. His vital signs stabilized generally speaking, presentation vital signs showed a blood pressure of 101/63, as high as 187/93 and subsequently to 93/44, but with a pulse that was in the 70s. He was noted at 5:52 p.m. to have his systolic pressure of 71 with a pulse of 77. He is on metoprolol as a beta sabine. His CT scan does show a contained hematoma in the left rectus sheath in the upper aspect with active extravasation. There was no sign of intraperitoneal blood or bleeding. Electronically Signed By: HITESH OLVERA MD 02/09/22 1408 PATIENT NAME: MELINA GOMEZ HISTORY AND PHYSICAL DATE OF : 40 REPORT #: [id number] PHYSICIAN: HITESH OLVERA MD PCP: ALLISON ASTORGA MD REPORT IS CONFIDENTIAL AND NOT TO BE RELEASED WITHOUT AUTHORIZATION 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 Additionally, he has atrial fibrillation, hypertension, diabetes, gout, morbid obesity, history of diverticulitis, and recurrent cellulitis. He has had cholecystectomy in the past. MEDICATIONS: At admission include prednisone 10 mg p.o. daily and Augmentin b.i.d. Additional medications include insulin, Coumadin, metoprolol, allopurinol, Lasix, vitamin D3, Synthroid, venlafaxine, tamsulosin, cyclobenzaprine, gabapentin, famotidine, atorvastatin, and colchicine. SOCIAL HISTORY: He is , accompanied by his family members. REVIEW OF SYSTEMS: He denies any shortness of breath or actual chest pain. His pain is dominant in the left upper abdomen. PHYSICAL EXAMINATION: GENERAL: A very pale white man who is alert and oriented without signs of delirium or tachypnea nor sign of diaphoresis. Trachea is midline. CHEST: Clear. HEART: Irregularly irregular. ABDOMEN: Obese, in generally soft, but there is tenderness in the left side of the abdomen and firmness and mass in the left upper quadrant. The lower abdomen has less tenderness. There is incision from prior abdominal surgery on the right lower abdomen. The CT scan report as well as imaging studies were reviewed in detail. A sizable hematoma is noted in the left upper rectus sheath area. It is measured 16.6 x 11.3 x 22 cm. There is contrast consistent with active extravasation within the hematoma. There is mild edema associated with this. There is no evidence of intraabdominal extravasation, intraperitoneal bleeding or anything of that sort. Other intraabdominal organs appear to be normal including the aorta. He has no pelvic lymphadenopathy. There is colonic diverticulosis and a normal-appearing appendix. Multiple renal cysts were noted. Liver was normal. Lung showed a small left pleural effusion. Examination of lower extremities shows a massively chronically edematous left lower extremity and a proximal anterolateral thigh wound with skin graft that is well incorporated with a few areas of granulomas on the edges, vastly better than it was in the past. He has no clear evidence of deep venous thrombosis of the lower extremities at this time. The right lower extremity shows some edema, but nothing compared to the left. Electronically Signed By: HITESH OLVERA MD 02/09/22 1408 PATIENT NAME: MELINA GOMEZ HISTORY AND PHYSICAL DATE OF : 40 REPORT #: [id number] PHYSICIAN: HITESH OLVERA MD PCP: ALLISON ASTORGA MD REPORT IS CONFIDENTIAL AND NOT TO BE RELEASED WITHOUT AUTHORIZATION [facility] [address] [facility] [place] [address] Signed LABORATORY STUDIES: Show initial CBC at 1400; white count 17.9, hematocrit 32.1, platelets uncertain. Followup CBC at 1611 showed a white count of 20.9, hematocrit 30.4, and platelet count 397,000. Notably, this was after 2 units of packed red cells. Coag studies showed initial INR of 2.50. The PTT was noted 24.3. Chem profile showed a creatinine of 2.04. Electrolytes otherwise normal. Liver enzymes normal. Serology showed negative COVID findings. ASSESSMENT: The patient has significant left rectus sheath hematoma with a CT scan finding showing extravasation of contrast which would be consistent with active bleeding. It is my understanding at that time of the scan that his anticoagulation has not yet been reversed. The location of the hematoma in the superior rectus sheath is generally "safer" than that of the lower rectus sheath as to rupture into the peritoneal cavity. ON that basis the posterior sheath and anterior rectus sheath can allow for tamponade of active bleeding. On rare occasion, surgical intervention can be indicated of course. We will reassess his CBC and initiate additional transfusion as necessary. If operative intervention is necessary, ligation of the deep inferior epigastric vessels as well as evacuation of hematoma of rectus sheath would be a consideration. Avoidance of the posterior rectus sheath in general terms is preferred, so as to minimize chances of hematoma infection so forth, but if bleeding is noted to be ongoing, of course hemorrhage control would be appropriate. Transfusion will be initiated as appropriate depending on vital signs and clinical appearance. At this point, although somewhat hypotensive as regard to the blood pressure, his pulse is in the mid 70s, which is rather discordant and may be low on the basis of use of beta sabine chronically. ADDENDUM: It is noted upon review of his medical record that the patient was recently discharged from the hospital under the direction of Dr. Murillo with a left great toe infection undergoing incision and drainage of the left first metatarsal joint by Dr. Poon (veneer stapler) with findings showing Staph aureus. His hematocrit at the time of hospitalization on 02/03 was already somewhat anemic with hematocrit of 34.7. His INR at discharge was 2.07. Hitesh Olvera MD Electronically Signed By: HITESH OLVERA MD 02/09/22 1408 PATIENT NAME: MELINA GOMEZ HISTORY AND PHYSICAL DATE OF : 40 REPORT #: [id number] PHYSICIAN: HITESH OLVERA MD PCP: ALLISON ASTORGA MD REPORT IS CONFIDENTIAL AND NOT TO BE RELEASED WITHOUT AUTHORIZATION [address] [address] Signed JORDON/RAAD /[id number] cc: MD Doroteo Stauffer MD Copies: DOROTEO BELTRE MD ~ Electronically Signed By: HITESH OLVERA MD 02/09/22 1408 PATIENT NAME: MELINA GOMEZ DAPHNEY HISTORY AND PHYSICAL DATE OF : 40 REPORT #: [id number] PHYSICIAN: HITESH OLVERA MD PCP: ALLISON ASTORGA MD REPORT IS CONFIDENTIAL AND NOT TO BE RELEASED WITHOUT AUTHORIZATION
--- NOTE | 2022-02-09 14:10 | NUR ---
DRESSING TO LEFT AND FOOT REDRESSED FOLLOWING DR. ROBLES ORDERS. PATIENT TOLERATED WELL. DENIES FOOT PAIN.
--- NOTE | 2022-02-09 15:20 | NUR ---
RESTING, NO DISTRESS NOTED.
--- NOTE | 2022-02-09 15:55 | NUR ---
AMBULATED TO BR TO VOID 200 ML OF CLEAR YELLOW URINE. BACK TO BED. USING WALKER WITH AMBULATION.
--- NOTE | 2022-02-09 16:05 | NUR ---
TO MED-SURG VIA BED. REPORT GIVEN VIA PHONE EARLIER.
--- NOTE | 2022-02-09 16:20 | NUR ---
PT MOVED TO [facility] VIA BED. ORIENTED TO ROOM, CALL LIGHT IN HAND, FOOT BALL GAME ON TV. FRESH H20 TO BEDSIDE, DENIES FURTHER NEEDS. IS PRESENT
--- NOTE | 2022-02-09 16:42 | NUR ---
PT WATCHING FOOTBALL WITH HIS , AGREES HE IS COMFORTABLE DENIES ANY NEEDS OF
--- NOTE | 2022-02-09 19:46 | NUR ---
RECEIVED REPORT FROM DAY SHIFT RN. PATIENT IS RESTING IN BED WATCHING TV. [facility] BLANKET PROVIDED NO FURTHER NEEDS NOTED. CALL LIGHT IN REACH.
--- NOTE | 2022-02-09 21:02 | NUR ---
PATIENTS ASSESMENT COMPLETED. PATIENT HAS NOTED EDEMA, SEE ASSESMENT. PATIENTS VITALS TAKEN AND RECORDED. INTAKE AND OUTPUT RECORDED. PM MEDS PER ORDER. IV ABX INFUSING PER ORDER. PATIENT DENIES ANY PAIN. PATIENT PROVIDED FRESH ICE WATER. WARM BLANKETS PROVIDED. DRESSINGS NOTED ON BILA FEET, SEE ASSESMNET. PATIENT DENIES ANY FURTHER NEEDS. CALL LIGHT IN REACH.
--- NOTE | 2022-02-09 21:51 | NUR ---
PATIENTS IV ABX COMPLETED INFUSING PER ORDER. PATIENT IS NOW SL PER ORDER. PATIENTS URINAL EMPTIED. NO FURTHER NEEDS NOTED. CALL LIGHT IN REACH.
--- NOTE | 2022-02-09 23:55 | NUR ---
PATIENT IS RESTING IN BED WITH EYES CLOSED, RR 17. URINAL EMPTIED AND PLACED ON PATIENTS NIGHT STAND. CALL LIGHT IN REACH.
--- NOTE | 2022-02-10 02:10 | NUR ---
PATIENT IS RESTING IN BED WITH EYES CLSOED, RR 17. URINAL EMPTIED AND PLACED BACK IN BEDSIDE TABLE. CALL LIGHT IN REACH.
--- NOTE | 2022-02-10 02:29 | NUR ---
IV ABX INFUSING PER ORDER. PATIENT IS RESTING IN BED. PATIENT DENIES ANY PAIN. PATIENT DENIES ANY NEEDS. CALL LIGHT IN REACH.
--- NOTE | 2022-02-10 03:12 | NUR ---
ABX COMPLETED INFUSING. PT IS NOW SL PER ORDER. PATIENT IS RESTING IN BED WITH EYES CLOSED, RR 16. CALL LIGHT IN REACH.
--- NOTE | 2022-02-10 06:50 | NUR ---
PATIENTS VITALS TAKEN AND RECORDED. INTAKE AND OUTPUT RECORDED. AM MEDS PER ORDER. PATENT DENIES ANY PAIN. DRESSING CHANGES COMPLETED ON BILAT LOW EXT PER ORDER. DRESSING CHANGED ON LEFT THIGH. PATIENT TOLERATED ACTIVITY WELL. NO FURTHER NEEDS NOTED. CALL LIGHT IN REACH.
--- NOTE | 2022-02-10 07:10 | NUR ---
REPORT RECEIVED FROM BANDAR ULLOA. PT LYAING IN BED WITH EYES CLOSED. RR EVEN AND UNLABRED. NO NEEDS IDENTIFIED AT THIS TIME. CALL LIGHT IN REACH.
--- NOTE | 2022-02-10 08:58 | NUR ---
IN TO ADMINISTER MEDICATIONS. PT LAYING IN BED AND RESPONDS WHEN ADDRESSED. PT TAKES PO MEDICATIONS WITH NO ISSUES. IV ABX STARTED, SEE JUN. ASSESSMENT COMPLETE. PT REPORTING PAIN 10/10 IN LLQ, PRN PAIN MEDICATION GIVEN, MAR. ABDOMINAL DISTENTION AND TENDER TO PALPITATION. BOWEL TONES ACTIVE IN ALL QUADRANTS. LUNG SOUNDS DIMINISHED IN LLL AND RLL. PT REPORTS NUMBNESS AND TINGLING IN BLE AND BUE DUE TO DM. EDEMA NOTED TO RLE 1+, LLE 4+, SCROTUM 2+, AND GENERALIZED BUE. SCAB NOTED TO R KNEE. DRESSINGS TO BLE C/D/I. DRESSINGS WERE CHANGED PRIOR TO SHIFT CHANGE THIS AM. DRESSING TO L THIGH C/D/I. PT REQUESTING TOILETING. LAUREL ELIZABETH IN ROOM TO ASSIST WITH TOILETING. 1PA WITH FWW FROM BED TO BATHROOM. BROWN PAD SATURATED WITH URINE NOTED. WHILE PT AMBULATING FROM BATHROOM TO CHIAR. IV TUBING WRAPED AROUND PT WHEN PT WENT TO SIT DOWN. IV WAS PULLED OUT. IV WAS DONE INFUSING. NO RENDESS, SWELLING AT IV SITE. CATHETER INTACT. PT BACK TO BED FROM CHAIR WITH 1PA AND FWW. PT LAYING IN BED. AT BEDSIDE. CASE MANAGEMENT IN TO ADDRESS RIDE HOME WHEN PT IS READY FOR DC. NO OTHER NEEDS AT THIS TIME. CALL LIGHT IN REACH.
--- NOTE | 2022-02-10 10:30 | NUR ---
Spoke with , Chiara. She states they live in a house with 1 step, 1 floor. Pt. uses a rolator walker. They have a walk in shower and she denies financial issues. She states her only need is wc transport. Let her know the hospital will provide a courtesy wc van transport to their home. She denies other needs, I gave her my card as she states pts daughter will be in and will more than likely want to speak with me.
--- NOTE | 2022-02-10 10:43 | NUR ---
IN ROOM TO ROUND ON PT. PT LAYING IN BED WITH AT BEDSIDE. PT REQUESTING ICE WATER, ICE WATER PROVIDED. NO OTHER NEEDS AT THIS TIME. CALL LIGHT IN REACH. MEAL TRAY REMOVED.
--- NOTE | 2022-02-10 11:54 | NUR ---
THIS RN IN TO TALK WITH PATIENT'S DEON. PATIENT REFUSING TO EAT ANY OF THE HOSPITAL FOOD BECAUSE HE DOES NOT LIKE IT. FAMILY HAS BEEN BRING FOOD IN. INFORMED OF THIS AND THAT THE FAMILY IS BRINGING IN CHICKEN NUGGETS FOR LUNCH AND IS OK WITH THIS.
--- NOTE | 2022-02-10 12:05 | NUR ---
IN TO ADMINISTER INSULIN, SEE MAR. PT LAYING IN BED WITH EYES CLOSED. PT AWAKENS WITH LIGHT TOUCH ON RIGHT SHOULDER WHEN ADDRESSED. PT TOLERATES SUB-Q INJECTION WELL. MEAL TRAY DELIVERED. PT REPORTS NO NEEDS AT THIS TIME. CALL LIGHT IN REACH. AT BEDSIDE.
--- NOTE | 2022-02-10 12:19 | NUR ---
PATIENT'S CAME OUT AND INFORMED THIS RN PATIENT DID NOT EAT ANY OF HIS LUNCH EXCEPT HIS YOGURT. PATIENT STILL ANTICIPATING CHICKEN NUGGETS TO ARRIVE TO EAT WHICH WAS OK WITH. CALL LIGHT IS IN REACH.
--- NOTE | 2022-02-10 15:07 | NUR ---
IN ROOM TO ADMINISTER MEDICATION, SEE JUN. IV IN LEFT AC DC'd DUE TO DRESSING PEALING OFF, AND LEAKING. BANDAR AMAYA IN ROOM TO START NEW IV IN RIGHT FOREARM. ASSESSMENT COMPLETE. NO CHANGES FROM PREVIOUS ASSESSMENT. SCD's ON. PT REPORTING PAIN 10/10 IN LLQ. BOWEL TONES ACTIVE IN ALL QUADRANTS. ABD TENDER TO PALPITATION. PRN PAIN MEDICATION ADMINISTERED, SEE JUN. DRESSING ON LEFT THIGH C/D/I. PILLOW SLING TO SCROTUM DUE TO SCROTUM SWELLING. NO OTHER NEEDS AT THIS TIME CALL LIGHT IN REACH.
--- NOTE | 2022-02-10 17:07 | NUR ---
THIS RN IN TO SEE PATIENT. PATIENT SAYS HIS PAIN IS 10/10 AND THE NORCO ISN'T REALLY HELPING. PM MEDS GIVEN AND FSBS COVERED WITH INSULIN. THIS RN TALKED WITH AND HE IS GOING TO INCREASE THE PATIENT'S NORCO TO UP TO 2 TABS AT A TIME FROM 1 TAB. PATIENT VISTING WITH A FRIEND. CALL LIGHT IN REACH. NO OTHER CARE NEEDS AT THIS TIME.
--- NOTE | 2022-02-10 18:09 | NUR ---
IN TO ADMINISTER MEDICATION, SEE MAR. PT LAYING IN BED WITH TELEVISION ON. PT RESPONDS WHEN ADDRESSED. PT REPORTING PAIN 01/20. NEW ORDERS FROM DR. OLVERA TO GIVE 2 NORCO NOW. 2 NORCO ADMINISTERED, SEE MAR. PT REQUESTING ICE WATER, ICE WATER PROVIDED. NO OTHER NEEDS AT THIS TIME. CALL LIGHT IN REACH.
--- NOTE | 2022-02-10 19:31 | NUR ---
Received report from offgoing shift. Pt resting in room, sleeping, breathing even and unlabored. Pt shows no signs of pain or distress, call light in reach
--- NOTE | 2022-02-10 21:52 | NUR ---
In pt room for medication administration and assessment. Pt resting easy, breathing even and unlabored. Pt has some complaint of pain in abdomen, understands and is okay with waiting for next dose of pain medication. Pt is able to make needs known, no complaints at this time.
--- NOTE | 2022-02-10 22:29 | NUR ---
IN PT ROOM FOR ROUNDING, PT RESTING EASY, NO INDICATIONS OF PAIN, BREATHING EVEN AND UNLABORED, NO SIGNS OF DISTRESS. PT CALL LIGHT IN REACH
--- NOTE | 2022-02-10 23:40 | NUR ---
IN PT ROOM FOR ROUNDING. PT RESTING, BREATHING EVEN AND UNLABORED, NO SIGNS OF PAIN OR DISTRESS. PT CALL LIGHT IN REACH
--- NOTE | 2022-02-11 01:27 | NUR ---
IN PT ROOM FOR ROUNDING. PT SLEEPING, BREATHING IS EVEN AND UNLABORED. PT CALL LIGHT IN REACH
--- NOTE | 2022-02-11 02:45 | NUR ---
IN PT ROOM FOR ROUNDING. PT RESTING, BREATHING EVEN AND UNLABORED. PT SHOWS NO SIGNS OF PAIN, CALL LIGHT IN REACH
--- NOTE | 2022-02-11 04:38 | NUR ---
IN PT ROOM FOR ROUNDING, PT BREATHING IS EVEN AND UNLABORED, NO EVIDENCE OF PAIN OR DISTRESS. PT CALL LIGHT IS IN REACH.
--- NOTE | 2022-02-11 06:37 | NUR ---
IN PT ROOM FOR MEDICATION ADMINISTRATION. PT RESTING, MOVED FROM CHAIR TON BED.PT BREATHING EVEN AND UNLABORED, NO COMPLAINT OF PAIN AT THIS TIME. CALL LIGHT IN REACH
--- NOTE | 2022-02-11 06:52 | NUR ---
PT REQUESTING TO GO BACK TO BED. 1PA ASSIST WITH FWW FROM RECLINER TO BED. GAIT STEADY. STAFF ASSIST TO LIFT LLE IN BED. SCD'S IN PLACE. NO FURTHER NEEDS.
--- NOTE | 2022-02-11 07:10 | NUR ---
REPORT RECEIVED FROM BANDAR GOYAL AND BANDAR SINGH. PT LAYING IN BED WITH EYES CLOSED. RR EVEN AND UNLABORED. NO NEEDS IDENTIFIED AT THIS TIME. CALL LIGHT IN REACH.
--- NOTE | 2022-02-11 08:25 | NUR ---
IN TO ADMINISTER MEDICATION. PT LAYING IN BED AND AWAKENS WHEN ADDRESSED. PT TAKES PO MEDICATIONS WITH NO ISSUES. PT REQUESTING MORE WATER, WATER PROVIDED. ASSESSMENT COMPLETE. PT REPORTS PAIN 10/10 IN LLQ, PRN PAIN MEDICAITON ADMINISTERED, SEE MAR. BOWEL TONES ACTIVE IN ALL QUADRANTS. ABD TENDER WITH PALPITATION. LUNG SOUNDS DIMINISHED IN LLL AND RLL. LLE EDEMA 4+, RLE EDEMA 1, SCROTAL EDEMA 2+. PILLOW SLING UNDER SCROTUM. DRESSING ON LEFT THIGHT C/D/I. BLE DRESSINGS INTACT, WILL CHANGE DRESSINGS TODAY. SCDs IN PLACE TO BLE. NO OTHER NEEDS AT THIS TIME. CALL LIGHT IN REACH. MEAL TRAY DELIVERED.
--- NOTE | 2022-02-11 10:45 | NUR ---
IN TO CHANGE DRESSINGS TO BLE. OLD DRESSINGS REMOVED. R GREAT TOE HAS SMALL AMOUNT OF SEROUSANGENOUS DRAINAGE ON GAUZE. CLEANSED WITH CLORAHEXADINE. R GREAT TOE REDRESSED WITH XEROFORM, GAUZE, MEDIPORE TAPE, AND COBAN TO SECURE. L FOOT DRESSING REMOVED. SMALL AMOUNT OF DRY SEROUS FLUID ON GAUZE. CLEANSED WITH CLORAHEXADINE. DRESSED WITH XEROFORM, GAUZE, MEDIPORE TAPE AND COBAN. RIGHT THIGH GRAFT ABD PAD REMOVED. CLEANSED WITH WOUND CLEANSER AND PATTED DRY. NEW ABD PAD PLACED AND SECURED WITH MEDIPORE TAPE. PT TOLERATED DRESSING CHANGE WELL. PT REPORTS NO NEEDS AT THIS TIME. CALL LIGHT IN REACH. PT LAYING IN BED WITH EYES CLOSED. RR EVEN AND UNLABORED.
--- NOTE | 2022-02-11 10:50 | NUR ---
Spoke with pt and he denies needs. States his is home and will be in later. He is aware is will dc today.
[2022-02-11] MEDS ORDERED: LEVOFLOXACIN750 MG PO ×2 (12:04→12:35)
[2022-02-11] MEDS ORDERED: HYDROCODON-ACE1 EA11 PO (12:07)
[2022-02-11] MEDS ORDERED: ACETAMINOPHEN500 MG PO (12:07)
--- NOTE | 2022-02-11 12:45 | NUR ---
IN TO GO OVER DC PAPERWORK WITH PT. PACKET HANDOUT GIVEN. PHARMACY CALLED TO GO OVER RX WITH PT. NO OTHER NEEDS AT THIS TIME. CALL LIGHT IN REACH.
--- NOTE | 2022-02-11 14:30 | NUR ---
Received a call from pts daughter Josephine. She is wanting a nurse to check on pt. Let her know, HH would require a skilled need and I can call and check if Dr Galvez feels pt has a skilled need.
--- NOTE | 2022-02-11 15:24 | NUR ---
Notified by Dr. Galvez he does not feel pt needs to have HH at this time. Called the daughter and let her know.
--- NOTE | 2022-02-11 15:56 | NUR ---
COLT CALLED FROM DR OLVERA OFFICE. WONDERING IF PATIENT WILL BE RECEIVING HOME HEALTH WAS ASKING ABOUT IT ON A CALL. DISCUSSED THAT HE HAD IT ORDERED FROM PRIOR VISIT. DISCUSSED I WILL CALL [facility] AND CHECK ON THIS. SPOKE WITH INGE FROM [facility]. THEY ARE PLANNING TO ADMIT TOMORROW OR THURSDAY, REQUESTS DISCHARGE SUMMARY. DISCHARGE PROG NOTE AND INSTRUCTIONS FAXED TO [facility] WITH CONFIRMATION. CALLED COLT BACK AT [facility] OFFICE AND UPDATED. SHE IS CALLING .
--- NOTE | 2022-02-11 16:27 | NUR ---
CALLED PATIENTS DAUGHTER ERICKSON [facility] [phone] TO UPDATE HER ON HOME HEALTH VISITS. SHE DID NOT HAVE ANY QUESTIONS.
--- NOTE | 2022-02-13 13:21 | DS ---
[facility] [address] [place], [place] [address] Signed ADMISSION DATE: 02/05/2022 DISCHARGE DATE: 02/11/2022 REASON FOR ADMISSION: This 81-year-old white man is known to me from the past having dealt with a chronic proximal leg wound on the left side related to prior melanoma excision, subsequent extensive lymphadenectomy and other interventions. He underwent debridement and ultimately skin grafting in January of 2020. He has profound longstanding left lower extremity edema extending from the hip distalward. The patient has additional problems including atrial fibrillation and chronic anticoagulation with Coumadin. The patient has sudden onset of left-sided abdominal pain after coughing. He presented to the emergency room at 2:00 p.m. on the day of admission, evaluated by Dr. Beltre showing him to be hypotensive with a systolic pressure of 70. He had marked tenderness in the left upper abdomen and given his abdominal obesity, uncertainty as to its cause. His initial hematocrit 30.4 with white count of 20.9, platelets 397,000. A ProTime is elevated with an INR also of 2.5. A CT scan was performed, which showed a sizable left-sided rectus sheath hematoma. He is admitted for further evaluation and care. PERTINENT PHYSICAL EXAMINATION: GENERAL: Showed a large white man, who is quite uncomfortable. VITAL SIGNS: Blood pressure as low as 93/44 and as high as 187/93. ABDOMEN: Pertinent physical exam shows tenderness and low grade swelling of the left upper abdomen without evidence of ecchymosis. HOSPITAL COURSE: A CT scan was performed in the emergency room under the direction of Dr. Beltre confirming a large left upper posterior rectus sheath hematoma. Surgical consultation was undertaken. He did have another bout of hypotension for which 2 units of packed red cells had been given and two additional units were also given. He was monitored in the intensive care unit. Consultation was undertaken with hospitalist service, Dr. Connell, as the patient had only recently been discharged from the hospital on February 03, related to a left greater toe septic joint, which required drainage by Dr. Franklin Demarco, human resources communications manager. This fluid within the joint space at the metatarsal head was ultimately confirmed to have two species of Staph (Staph capitis and Staph aureus). Concern was made that he may require operative intervention of the rectus sheath hematoma as he did have another bout of hypotension, but with two additional units of blood for a total of 4 units, he stabilized quite nicely. Electronically Signed By: HITESH OLVERA MD 02/13/22 1321 PATIENT NAME: MELINA GOMEZ DISCHARGE SUMMARY DATE OF : 40 REPORT #: [id number] PHYSICIAN: HITESH OLVERA MD PCP: ALLISON ASTORGA MD REPORT IS CONFIDENTIAL AND NOT TO BE RELEASED WITHOUT AUTHORIZATION [address] [address] Signed He was consulted by Dr. Demarco, human resources communications manager, who has been working with him regarding his left great toe problem. An MRI was performed, which confirmed osteomyelitis of the metatarsal head of the great toe on the left side. The patient was maintained with antibiotics including transition to Augmentin antibiotic. His cultures did return showing Staph capitis and Staph aureus. Both organism, which were sensitive to the Levaquin and on that basis, he was changed to that medication prior to discharge. He had progressive improvement of his left abdominal wall swelling. No evidence of ecchymosis and no sign of intraperitoneal extension of the bleeding. Operative intervention was available if needed, but ultimately, he did not require surgical intervention of hematoma. The patient will be discharged home with his usual medications and additionally Levaquin 875 mg p.o. daily (adjusted for renal dosing anticipated). Conservative management of his left rectus sheath hematoma has been reviewed with him on multiple times; the hematoma will resolve on its own. At present, he manifests no evidence of ecchymosis of the area. Additionally, he will change the dressing on his left greater toe on a daily basis. Dr. Demarco will be seen back in followup as he is anticipating probable amputation of the left metatarsal head and other affected tissue areas. DISCHARGE DIAGNOSIS: 1. Rectus sheath hematoma related to coughing episode; rectus sheath hematoma confined to upper left side without extension into the peritoneal cavity. No extension into the lower abdominal compartment. 2. Transfusion 4 units packed red cells for symptomatic hypotension related to rectus sheath hematoma. 3. CT scan finding confirming left rectus sheath hematoma with active extravasation (prior to reversal of anticoagulation with Kcentra). 4. Morbid obesity. 5. Diabetes mellitus. 6. Osteomyelitis, left great toe, ongoing care Dr. Franklin Demarco. 7. Distant history of melanoma, requiring resection and radical lymphadenectomy of the left groin with resultant longstanding chronic venous stasis disease, left lower extremity. FOLLOW-UP PLANS: The patient will be seen Dr. Franklin Demarco within the next two weeks; stabilization for probable amputation of therapy will be anticipated. INSTRUCTIONS: Electronically Signed By: HITESH OLVERA MD 02/13/22 1321 PATIENT NAME: MELINA GOMEZ DISCHARGE SUMMARY DATE OF : 40 REPORT #: [id number] PHYSICIAN: HITESH OLVERA MD PCP: ALLISON ASTORGA MD REPORT IS CONFIDENTIAL AND NOT TO BE RELEASED WITHOUT AUTHORIZATION [facility] [address] [facility] [place] [address] Signed The patient will not resume his Coumadin for the next two weeks due to the increased risks of rectus sheath bleeding repeat. After two weeks, he will clearly initiate the medication. DISCHARGE MEDICATIONS: 1. Levaquin 750 mg p.o. daily #20. 2. Vicodin 7.5/325, 1-2 p.o. q.6 hours as needed for pain #60. 3. Tylenol plain 1 g p.o. q.6 hours as needed for pain (do not use concurrently with Vicodin). 4. He continues using medication of Lasix 40 mg p.o. b.i.d. 5. Aspirin 81 mg p.o. daily. 6. Vitamin D 125 mcg tablet 5000 units daily. 7. Metoprolol 50 mg tablets extended release one p.o. daily. 8. Allopurinol 300 mg p.o. at bedtime. 9. Warfarin 5 mg tablets one tablet p.o. Thursday, Thursday, and Thursday and half tab on the other days. The patient was not discharge until February 25 due to increased risk of spontaneous recurrent hemorrhage of left rectus sheath hematoma. 10. Synthroid 112 mcg p.o. daily. 11. Venlafaxine 75 mg p.o. daily. 12. Human insulin 70/30 vial 20 units subcutaneously b.i.d. with meals for diabetes. 13. Fish oil a 1000 mg daily. 14. Olmesartan medoxomil 1 tablet p.o. daily. 15. Tamsulosin 0.4 mg p.o. daily. 16. Flexeril 5 mg, 0.5 to 1 tab p.o. t.i.d. as needed for muscle spasm and pain. 17. Gabapentin 100 mg, 1-3 caps p.o. at bedtime p.r.n. nerve pain. 18. Pepcid 20 mg p.o. daily. 19. Atorvastatin 40 mg p.o. daily. 20. Colchicine 0.6 mg p.o. daily cough. Hitesh Olvera MD JM/MODL /[id number] cc: Allison Astorga MD Electronically Signed By: HITESH OLVERA MD 02/13/22 1321 PATIENT NAME: MELINA GOMEZ DISCHARGE SUMMARY DATE OF : 40 REPORT #: [id number] PHYSICIAN: HITESH OLVERA MD PCP: ALLISON ASTORGA MD REPORT IS CONFIDENTIAL AND NOT TO BE RELEASED WITHOUT AUTHORIZATION [facility] [address] [place] [id number] Signed Franklin Demarco DPM Copies: ALLISON ASTORGA MD, DANIEL F DPM ~ Electronically Signed By: HITESH OLVERA MD 02/13/22 1321 PATIENT NAME: MELINA GOMEZ DISCHARGE SUMMARY DATE OF : 40 REPORT #: [id number] PHYSICIAN: HITESH OLVERA MD PCP: ALLISON ASTORGA MD REPORT IS CONFIDENTIAL AND NOT TO BE RELEASED WITHOUT AUTHORIZATION
== END 2022-02-11 13:00 | disposition home or self-care (01) | DRG 558 ==
LOC: ED 13:46 → CCU 17:04 → MS 02-09 16:05
PROVIDERS: ADMIT Surgery; ATTEND Surgery
PROC: 30233N1 Transfusion of Nonautologous Red Blood Cells into Peripheral Vein, Percutaneous Approach (ICD-10-PCS; principal; 2022-02-05)
DX: M62.89 Other specified disorders of muscle (principal); Z16.29 Resistance to other single specified antibiotic; D62 Acute posthemorrhagic anemia; N17.9 Acute kidney failure, unspecified; M00.072 Staphylococcal arthritis, left ankle and foot; I48.20 Chronic atrial fibrillation, unspecified; M86.172 Other acute osteomyelitis, left ankle and foot; L02.612 Cutaneous abscess of left foot; M79.81 Nontraumatic hematoma of soft tissue; I95.9 Hypotension, unspecified; E66.01 Morbid (severe) obesity due to excess calories; E11.69 Type 2 diabetes mellitus with other specified complication; Z85.820 Personal history of malignant melanoma of skin; Z98.890 Other specified postprocedural states; I87.8 Other specified disorders of veins; Z79.01 Long term (current) use of anticoagulants; B95.61 Methicillin susceptible Staphylococcus aureus infection as the cause of diseases classified elsewhere; R05.9 Cough, unspecified; B95.7 Other staphylococcus as the cause of diseases classified elsewhere; Z90.49 Acquired absence of other specified parts of digestive tract; Z95.820 Peripheral vascular angioplasty status with implants and grafts; Z88.1 Allergy status to other antibiotic agents; Z79.899 Other long term (current) drug therapy; Z79.4 Long term (current) use of insulin; Z79.82 Long term (current) use of aspirin; M10.9 Gout, unspecified; R58 Hemorrhage, not elsewhere classified; N18.9 Chronic kidney disease, unspecified; E11.22 Type 2 diabetes mellitus with diabetic chronic kidney disease; F32.A Depression, unspecified; I12.9 Hypertensive chronic kidney disease with stage 1 through stage 4 chronic kidney disease, or unspecified chronic kidney disease; E11.42 Type 2 diabetes mellitus with diabetic polyneuropathy; L97.512 Non-pressure chronic ulcer of other part of right foot with fat layer exposed; L97.524 Non-pressure chronic ulcer of other part of left foot with necrosis of bone
CPT/HCPCS: 36415; 73721; 74177; 80048; 80053; 81001; 83690; 83735; 85025; 85060; 85610; 85730; 86850; 86900; 86901; 86922; 87502; 93005; 93010; A9270; C9803; J0295; J0610; J1170; J1200; J1815; J3010; J3430; J3475; J7121; J7168; P9016; Q9967; U0003

== ENCOUNTER 2024-03-14 04:17 | Inpatient (IN) | payer MEDICARE, OTHER ==
[~2024-03-14] VITALS: Ht 180.3 cm; Wt 122.8 kg
[2024-03-14] VITALS (7 sets, daily range): BP systolic 97–112; BP diastolic 42–46
--- OUTSIDE RECORDS SUMMARY | ~2024-03-14 | XMS | Continuity of Care Document ---
Demographics + + + | Address | [address] | | | [place] [address] | + + + | Preferred Language | Unknown | + + + | Marital Status | Unknown | + + + | Oriental Orthodox Affiliation | Unknown | + + + | Race | White | + + + | Ethnic Group | Not or | + + + Author + + + | Author | [facility] | + + + | Organization | [facility] | + + + | Address | [address] | | | [place] [address] | + + + | Phone | | + + + Care Team Providers + + + + | Care Drywall Stripper Name | Role | Phone | + + + + Unavailable | Unavailable | + + + + Allergies No information. Encounters No information. Functional Status No information. Immunizations No information. Medications No information. Problems + + + + | date | description | facility | + + + + | 2024-03-09 17:44:35 | Other pericardial effusion | [facility] | | | (noninflammatory) | | + + + + | 2024-03-09 17:44:35 | Diverticulitis of large | [facility] | | | intestine without | | | | perforation or abscess with | | | | bleeding | | + + + + | 2024-03-09 17:44:35 | Other specified health | [facility] | | | status | | + + + + Procedures No information. Results/Labs No information. Social History +--------+ + + | date | description | facility | +--------+ + + Vital Signs No information."
--- OUTSIDE RECORDS SUMMARY | ~2024-03-14 | XMS | Continuity of Care Document ---
Demographics + + + | Address | [address] | | | [place] [address] | + + + | Preferred Language | Unknown | + + + | Marital Status | Unknown | + + + | Mandaeism Affiliation | Unknown | + + + | Race | White | + + + | Ethnic Group | Not or | + + + Author + + + | Author | [facility] | + + + | Organization | [facility] | + + + | Address | [address] | | | [place] [address] | + + + | Phone | | + + + Care Team Providers + + + + | Care Proof Coin Collector Name | Role | Phone | + [...]
[~2024-03-14 04:17] MED LIST changes: +ACID REDUCER10 MG PO; +HYDROCODON-ACE1 EA10 PO; +HYDROCODON-ACE1 EA11 PO; +LEVOFLOXACIN750 MG PO; +PROBIOTIC1 EAC3 PO
[2024-03-14] MEDS ORDERED: MORPHINE SULFATE 4 MG/ML VIAL IV ONE (04:30)
[2024-03-14] MEDS ORDERED: DEXTROSE 5% 100 ML IV ONE (04:30)
[2024-03-14] MEDS ORDERED: SODIUM CHLORIDE 0.9% 1,000 ML IV ONE (04:30)
[2024-03-14] MEDS ORDERED: PIPERACILLIN/TAZOBACTAM 3.375 GM in DEXTROSE 5% 100 ML IV ONE (04:30)
[2024-03-14] MEDS ORDERED: ondansetron HCL 4 MG/2 ML VIAL IV ONE (04:45)
[2024-03-14 04:56] LABS: BASOPHILS 0.5 % (0-2); EOSINOPHILS 1.7 % (0-6); HEMATOCRIT 40.8 % (35.0-50.0); HEMOGLOBIN 13.2 g/dL (12.0-18.0); LYMPHOCYTES 42.3 % (24-44); MCH 26.7 (27-36); MCHC 32.3 g/dl (30-36); MCV 82.6 fl (81-99); NEUTROPHILS 51.5 % (39-80); PLATELET COUNT 399 K/uL (140-440); RBC 4.94 M/ul (4.3-5.7); RDW 21.4 (10.5-15.0)
[2024-03-14 05:00] LABS: INR 1.77 (0.80-1.30); PROTIME 19.7 Sec (11.2-14.2)
[2024-03-14 05:04] LABS: ALBUMIN 2.9 g/dL (3.4-5.0); ALBUMIN/GLOBULIN RATIO 0.81 (1.1-2.4); ANION GAP 17.7 (7-21); BILIRUBIN, TOTAL 0.8 ng/dL (0.2-1.0); BUN/CREATININE RATIO 16.89 (6.0-28.6); CALCIUM 9.8 mg/dL (8.5-10.1); CREATININE, SERUM 2.96 mg/dL (0.70-1.30); POTASSIUM 3.7 mmol/L (3.5-5.1); PROTEIN, TOTAL 6.5 g/dL (6.4-8.2)
[2024-03-14 05:14] LABS: LACTIC ACID, BLOOD 2.6 mmol/L (0.4-2.0)
[2024-03-14 05:22] LABS: ABO A; ANTIBODY SCREEN NEGATIVE; RH POSITIVE
[2024-03-14] MEDS ORDERED: ACETAMINOPHEN 1,000 MG/100 ML VIAL IV ONE (05:45)
[2024-03-14] MEDS ORDERED: ondansetron HCL 4 MG/2 ML VIAL IV PRN (06:30)
[2024-03-14] MEDS ORDERED: MORPHINE SULFATE 10 MG/ML VIAL IV PRN (06:30)
[2024-03-14] MEDS ORDERED: LACTATED RINGER'S 1,000 ML IV SCH (06:30)
[2024-03-14 07:06] LABS: LACTIC ACID, BLOOD 2.1 mmol/L (0.4-2.0)
--- NOTE | 2024-03-14 08:30 | NUR ---
Pt arrived to the room at about 0718 hours. Pt transferred via hovermat by 4 staff. Pt's in room. NGT connected to LIWS and began pulling copious amounts of brown liquid, relieving some of the patient's nausea. Pt is drowsy, painful, but oriented and responds appropriately. Pt reports tightness and pain in his abdomen, 10 out of 10, described as constant cramping. Pt and pt's are under the impression that he will be having surgery today. Explained to the pt and family that Dr. Mcguire has not consulted with them yet, and that he would make a determination based on his assessment after he sees the pt. Pt oriented to call light, room, and plan of care. IVF to IV pump at ordered rate of 85mls/hr. Both right and left AC Ivs are patent, no noted swelling, leaking, redness, no pain or discomfort. Advised pt to use his call light if he notices any of that occuring at the sites. Call light in reach, white board updated, side rails up x4.
[2024-03-14] MEDS ORDERED: FAMOTIDINE 20 MG/ 2 ML VIAL IV SCH (09:00)
[2024-03-14 10:44] LABS: BASOPHILS, ABSOLUTE 0 %; EOSINOPHILS, ABSOLUTE 0; LYMPHOCYTES, ABSOLUTE 1.1; MONOCYTES, ABSOLUTE 0.1; NEUTROPHILS, ABSOLUTE 1.3
[2024-03-14] MEDS ORDERED: PANTOPRAZOLE SODIUM 40 MG TABEC PO SCH (10:59)
[2024-03-14] MEDS ORDERED: IBLOOD GLUCOSE TEST STRIP 1 EA TEST XX PRN (11:00)
[2024-03-14] MEDS ORDERED: GLUCAGON,HUMAN RECOMBINANT 1 MG/ML VIAL SUB-Q PRN (11:00)
[2024-03-14] MEDS ORDERED: DEXTROSE 50% 50 ML SYR IV PRN ×2 (11:00)
[2024-03-14] MEDS ORDERED: PROCHLORPERAZINE EDISYLATE 10 MG/2 ML VIAL IV PRN (11:00)
[2024-03-14] MEDS ORDERED: ACETAMINOPHEN 325 MG TAB PO PRN (11:00)
[2024-03-14] MEDS ORDERED: DEXTROSE 5% 1,000 ML IV PRN (11:00)
[2024-03-14] MEDS ORDERED: AZITHROMYCIN 250 MG TAB PO SCH (11:01)
[2024-03-14] MEDS ORDERED: VENLAFAXINE HCL 75 MG CAPCR PO SCH (11:04)
[2024-03-14] MEDS ORDERED: hydrOXYzine pamoate 50 MG CAP PO SCH (11:05)
[2024-03-14 11:43] LABS: BILIRUBIN, URINE POSITIVE (negative); BLOOD/HGB, URINE NEGATIVE (Negative); KETONE, URINE TRACE (Negative); LEUK ESTERASE, URINE TRACE (negative); NITRITE, URINE NEGATIVE (negative)
[2024-03-14 11:46] LABS: RED BLOOD CELLS, URINE 0-1 /hpf (0-5)
[2024-03-14 11:47] LABS: BACTERIA, URINE 1+ /hpf (negative); CASTS, URINE NONE SEEN \\lpf; COLLECTION TYPE, URINE CLEAN CATCH; CRYSTALS, URINE NONE SEEN (0-1+); EPITHELIAL CELLS, URINE SQUAMOUS 1+ /lpf (0-1+); REFLEX CULTURE, URINE No (No)
[2024-03-14] MEDS ORDERED: INSULIN LISPRO 100 UNIT/ML ML SUB-Q SCH ×2 (12:00→20:00)
[2024-03-14] MEDS ORDERED: IBLOOD GLUCOSE TEST STRIP 1 EA TEST VI SCH ×2 (12:00→20:00)
[2024-03-14] MEDS ORDERED: PHARMACY RENAL DOSE ADJUSTMENT 1 DOSE MISC PO SCH (12:00)
[2024-03-14 12:19] LABS: INFLUENZA B NAA NEGATIVE (NEGATIVE); RESPIRATORY SYNCYTIAL VIR NAA NEGATIVE (NEGATIVE)
--- NOTE | 2024-03-14 13:34 | NUR ---
PATIENT RESTING IN BED, EYES CLOSED, RESTING WITH EVEN RESPIRATIONS. DAUGHTER, PEDRO, IN ROOM. PATIENT WAS RECENTLY IN HOSPITAL WITH A BOWEL OBSTRUCTION AND WAS TRANSFERRED TO ANOTHER FACILITY IN [place], [place]. PATIENT LIVES IN HIS HOME WITH HIS WHO HAS ISSUES WITH HER MEMORY. HIS DAUGHTER LIVES IN [place], [place]. PATIENT IS GETTING INCREASINGLY WEAK, ACCORDING TO HIS DAUGHTER. HE NORMALLY LIVES IN SINGLE LEVEL HOME. HE HAS A WALKER, CANE, SCOOTER, LIFT CHAIR AT HOME. HE DRIVES AND DENIES FINANCIAL ISSUES. ABLE TO OBTAIN FOOD AND MEDS AND PAY UTILITIES WITHOUT ISSUES. DAUGHTER THINKS PATIENT WOULD BENEFIT FROM SNF SO HE CAN HAVE ASSISTANCE TO RETURN TO BASELINE AND POTENTIALLY REMAIN OUT OF THE HOSPITAL. LIST OF SNF FACILITIES WELL CHOICE LETTER PROVIDED TO DAUGHTER. DID INFORM HER THAT PATIENT WOULD HAVE TO AGREE TO SNF WELL HAS THE NEED FOR PT/OT RECOMMENDATION AND CURRENTLY HE HAS NO PT/OT ORDERS. WILL SPEAK WITH DR. CAN. WILL ALSO FOLLOW-UP WITH PATIENT REGARDING POTENTIAL SNF IF PT/OT IS ORDERED TO EVAL HIM. DAUGHTER STATES SHE IS ALSO CONSIDERING A PRIVATE CAREGIVER, HAS A PERSON IN MIND, WHO CAN COME INTO THE HOME AND ASSIST PATIENT WITH A HIS MEDICATION SET UP.
[2024-03-14] MEDS ORDERED: PIPERACILLIN/TAZOBACTAM 3.375 GM in DEXTROSE 5% 100 ML IV SCH (14:00)
--- NOTE | 2024-03-14 15:45 | NUR ---
Asked by CCU to check on pt for a run of 5 beats of vtach and some pvcs. Pt is resting supine in bed, breathing regular, even, and non-labored. Pt is in no acute distress. Pulse is irregular, pt has hx of afib. Pt's family at bedside and stated they didn't notice anything out of the ordinary. CPOX on, sats at 96% on room air. NGT functioning, LIWS. Call light in reach side rails up x4.
[2024-03-14] MEDS ORDERED: WARFARIN SOD 5 MG TAB PO SCH (16:00)
[2024-03-14] MEDS ORDERED: WARFARIN PER PHARMACY PROTOCOL PO SCH (16:00)
--- NOTE | 2024-03-14 16:43 | NUR ---
PC to Dr. Rios to seek clarification for the PO Coumadin ordered for this pt. as he has an NGT. Verbal order from Dr. Rios to change the coumadin to heparin and to call the pharmacy to request they dose the heparin for this pt d/t his acute on chronic renal insufficiency/renal disease as lovenox is contraindicated. PC to Kath Arauz in pharmacy and advised her of Dr. Rios's request.
[2024-03-14] MEDS ORDERED: HEParin SOD (PORCINE) 5,000 UNIT/ML SDV SUB-Q SCH (17:01)
--- NOTE | 2024-03-14 18:59 | NUR ---
In with pt for bladder scan as pt has only been up to void x1 and had out about 20ml. He is receiving IVF at 85ml/hr. Pt states he does not pee very much on a normal day. Bladder scan volume showed 36ml.
--- NOTE | 2024-03-14 20:52 | EKG ---
[facility] [address] [facility] [place] [address] Signed Undetermined rhythm Marked ST abnormality, possible lateral subendocardial injury Prolonged QT Abnormal ECG When compared with ECG of 01-MAR-2024 19:01, Current undetermined rhythm precludes rhythm comparison, needs review Incomplete left bundle branch block is no longer present Nonspecific T wave abnormality has replaced inverted T waves in Anterior leads QT has lengthened Confirmed by Rowan Can MD ([id number]) on 03/14/2024 8:52:21 PM Electronically Signed By: ROWAN CAN DO 03/14/242051 PATIENT NAME: MELINA GOMEZ Electrocardiogram DATE OF : 40 PHYSICIAN: ROWAN CAN DO REPORT #: [id number] REPORT IS CONFIDENTIAL AND NOT TO BE RELEASED WITHOUT AUTHORIZATION
[2024-03-14] MEDS ORDERED: ATORVASTATIN 40 MG TAB PO SCH (21:00)
[2024-03-14] MEDS ORDERED: MELATONIN 3 MG TAB PO PRN (21:00)
--- NOTE | 2024-03-14 21:30 | NUR ---
PT VOIDED QS, STTOD AT EDGE OF BED, UNSTEADY, USED URINAL. BACK TO BED. FAIR TOLERANCE. MALE EXTERNAL PURE WICK APPLIED, CARES EXPLAINED, STATED UNDERSTANDING 'GOOD, THAT WAY I DONT HAVE TO GETUP AND YOU DONT HAVE TO BOTHER WITH ME, AND I CAN SLEEP' STATED.
--- NOTE | 2024-03-14 21:53 | NUR ---
Pt awakens easily, denies c/o pain. on 2LNC. lungs dim at bases. no cough. NPO xcept ice chips. has order for cAtorvastatin pills, pt was nable to swallow ice chips right away, it took him a while to swallow. nursing judgement not to give po pills, will clarify with MD in am. NGT to LIWS patent, draining thick brownish/green colored drainage, NGT flushes easily. HOB elevated to 30o. SL LAC, IVF and IV ABX infusing RAC, abd large, firm upper abd, rare bowel tones. bruised areas over abd present. . very edematous scrotum will elevate with towels. Has been unable to urinate since admission, bladder scanned at change of shift, scanner showing approx 38cc urine. Pt denies need to urinate "I pee many times sometimes, very little amounts" stated. edema 2+ R ankle/foot, missing middle R toes and black scab over 1st toe. L leg lymphedema 4+ from groin to toes. elevated with pillows pitting from L groin area. very dry scaly skin present. will clarify with Dr Galvez SCDS order and po meds. CBG 186, received 3 untis SS insulin
[2024-03-15] VITALS (16 sets, daily range): BP systolic 67–114; BP diastolic 38–49
--- NOTE | 2024-03-15 01:59 | NUR ---
Resting, HOB elevated, O2 2LNC in place, CPOX on at bedside. NGT patent LIWS draining thivk brownigh colored drainage. IVF infusing, male purewick in place, no urinary output since earlier in shift. still below parameters, MD aware. edema to LE no changes, elevated. no c/o pain, awakens easily, tries to help with repositioning
--- NOTE | 2024-03-15 02:47 | NUR ---
CBG 167, received 1 unit insulin sq. c/o back and abd pain, medicated with 4mg IV morphine. O2 2LNC in place, cpox 93%, turned and repositioned. cooperative, LE elevated in pillows. NGT patent to LIWS. ice chips given earlier and pt ate them by the handfuls, instructed to slow down "Leon thirsty", semireceptive to teaching.
--- NOTE | 2024-03-15 03:53 | NUR ---
RESTING, EYES CLOSED, O2 2LNC, CPOX ON AT BEDSIDE. WNL, HOB ELEVATED. IVF INFUSING, LE ELEVATED. PUREWICK IN PLACE. NO DRAINAGE NOTED, WILL BLADDER SCAN AGAIN IF NO UO BY 0500. ORAL CARE DONE EARLIER
[2024-03-15 05:38] LABS: HEMATOCRIT 32.1 % (35.0-50.0); HEMOGLOBIN 10.3 g/dL (12.0-18.0); MCH 26.3 (27-36); MCV 82.3 fl (81-99); PLATELET COUNT 340 K/uL (140-440); RDW 20.8 (10.5-15.0)
--- NOTE | 2024-03-15 05:40 | NUR ---
O2 off at this time, cpox on at bedside, sats 93-95%, no sob when turning and repositioning. hob elevated. NGT tp LIWS draining thick brownish/greenish drainage. tolerating ice ships. oral care done. and more distended, firm upper abd. still few bowel tones present. edematous scrotum, elevated w towels. pure wick in place, no UO. bladder scanned and scan showed 20cc in bladder. increaesd edema noted both L left/foot and R foot, elevated with pillows. bed weight done 122.8KG. tele#[address]R, Irregular, denies CP.pleasant and cooperative. IVF infusing RAC, SL LA patent. will notify Dr Mcguire
[2024-03-15 05:47] LABS: INR 2.31 (0.80-1.30); PROTIME 24.4 Sec (11.2-14.2)
[2024-03-15 05:52] LABS: ALBUMIN 1.8 g/dL (3.4-5.0); ALBUMIN/GLOBULIN RATIO 0.53 (1.1-2.4); ANION GAP 15.4 (7-21); BILIRUBIN, TOTAL 0.6 ng/dL (0.2-1.0); BUN/CREATININE RATIO 17.88 (6.0-28.6); CALCIUM 8.6 mg/dL (8.5-10.1); CREATININE, SERUM 3.69 mg/dL (0.70-1.30); MAGNESIUM 1.7 mg/dL (1.8-2.4); POTASSIUM 4.4 mmol/L (3.5-5.1); PROTEIN, TOTAL 5.2 g/dL (6.4-8.2)
[2024-03-15 06:17] LABS: BANDS, MANUAL DIFF 19; LYMPHOCYTES, MANUAL DIFF 21; MONOCYTES, MANUAL DIFF 5; NEUTROPHILS, MANUAL DIFF 55
--- NOTE | 2024-03-15 06:51 | NUR ---
Dr Galvez notified of pt apparent weight increae, vs admit weight. SCDS, "ok to leve out heis got Lovenox on board, order KUB for this am, I will be there soon
--- NOTE | 2024-03-15 06:55 | NUR ---
WILL NOTIFY MD ABOUT PTS VOID OF ONLY 50CC FOR THIS SHIFT.
[2024-03-15] MEDS ORDERED: LEVOTHYROXINE SODIUM 112 MCG TAB PO SCH (07:00)
--- NOTE | 2024-03-15 07:12 | NUR ---
VERBAL REPORT RECEIVED FROM BANDAR BELL. PT AWAKE IN BED, SATS 95% ON CPOX.
--- NOTE | 2024-03-15 07:27 | NUR ---
dr paige notified of pts no uo since 2129 and at that time it was only 50cc, bladder scanner showing 20cc. new orders fto straight cath x1 obtained via phone. Incoming RN to be notified
[2024-03-15] MEDS ORDERED: LIDOCAINE 2% VISCOUS 6 ML SYR TOP ONE (07:30)
--- NOTE | 2024-03-15 07:50 | NUR ---
PT REPORTS PAIN, "EVERY WHERE," 01/20, MOANS WHILE RESTING IN BED. MORPHINE RECEIVED SEE EMAR.
--- NOTE | 2024-03-15 08:12 | NUR ---
PATIENT IN BED AT THIS TIME. PHARMACIST IN CHARGE WENT INTO PATIENTS ROOM FOR HOURLY ROUNDS. CALL LIGHT WITHIN REACH, NO FURTHER NEEDS AT THIS TIME.
[2024-03-15] MEDS ORDERED: MAGNESIUM SULFATE 2 GM/50 ML BAG IV ONE (08:15)
[2024-03-15] MEDS ORDERED: FUROSEMIDE 40 MG/4 ML VIAL IV ONE (08:15)
--- NOTE | 2024-03-15 08:38 | NUR ---
STRAIGHT CATH ORDERED FOR LOW URINE OUTPUT. STRAIGHT CATH PERFORMED WITH 16 FR VIA STERILE TECHNIQUE. 50 MLS OF CLEAR CONCENTRATED YELLOW URINE NOTED. EXTERNAL MALE CATHETER REPLACED. PT RECEIVES LASIXS ORDERED. SATS 92%, BLE 4+ PITTING EDEMA. NG TUBE TO LIWS, DRAINS GREEN VISCOUS OUTPUT. IV TO RAC PANTENT.
--- NOTE | 2024-03-15 09:00 | NUR ---
VERBAL REPORT PROVIDED TO BANDAR URIOSTEGUI.
--- NOTE | 2024-03-15 09:11 | NUR ---
REPORT FROM RENE Cai RN
--- NOTE | 2024-03-15 09:26 | NUR ---
UR CLINICAL REVIEW: 2 MN FOR VERSALUS-MEETS INPT CRITERIA FOR [facility] MEDICARE INPT 03/14/24 @ 0650 ORDER MATCHES REG NO AUTH REQUIRED PER MEDICARE GUIDELINES DISCHARGE TO HOME WHEN STABLE
[2024-03-15] MEDS ORDERED: ALBUMIN HUMAN 25% 100 ML BTL IV ONE (09:30)
[2024-03-15] MEDS ORDERED: LACTATED RINGER'S 1,000 ML IV ONE (09:30)
--- NOTE | 2024-03-15 09:35 | NUR ---
PATIENT FOUND BY STUFFING MACHINE OPERATOR WITH ONE LEG HANGIN DAFNE THE SIDE OF THE BED. SAVANNA RN AT BEDSIDE WITH STERNAL RUB AND PATIENT WAKES AND RESPONDS APPROPRIATELY. LOW BP NOTED ON MONITOR. MANUAL BLOOD PRESSURE TAKEN 70S SYSTOLIC. MD AWARE. MD IN ROOM VERBAL ORDERS FOR FLUID BOLUS AND ALBUMIN ADMINISTRATION. PATIENT TRANSPORTED TO CCU. BEDSIDE REPORT TO RENE TELLO RN. FAMILY AT BEDSIDE.
--- NOTE | 2024-03-15 09:40 | NUR ---
PT ARRIVES TO ROOM FROM MED SURG WITH PRIMARY RN AND RESIDENT CARE COORDINATOR. PT ALERT AND ORIENTED. BP 67/46 WITH LR BOLUS RUNNING IN ON ARRIVAL. RAPID RESPONSE CALLED. NOREPI STARTED AT 0945 AT 10 MCG/MIN INTO RIGHT 20G AC SITE, BP 78/40 (53). ALBUMIN STARTED INTO LEFT AC SITE WITH LR BOLUS PLACED IN PRESSURE BAG. BP 111/47 (65) AT 0950, NO TITRATION IN NOREPI. PT REMAINS ALERT AND ORIENTED. PT PLACED ON 4L NC TO SUPPORT SP02 >88%. DENIES PAIN, SOB OR ANY COMPLAINTS. NGT TO LIS WITHOUT OUTPUT. MALE EXTERNAL CATH INTACT TO SUCTION WITHOUT OUTPUT. INADEQUATE URINE OUTPUT LAST 24 HOURS. ABD DISTENDED WITH RARE BOWEL TONES AND PAIN WITH PALPATION IN LLQ. HEART MURMUR NOTED, LUNGS CLEAR/DIM. LEFT LEG SIGNIFICANTLY SWOLLEN IN ADDITION TO CHRONIC LYMPHEDEMA, PULSES NOT PALPABLE IN EITHER LOWER EXTREMITIES. 10KG WEIGHT INCREASE IN LAST 24 HOURS ACCORDING TO CHART REVIEW. EKG COMPLETE. COMPARED TO BASELINE IS WITHOUT SIGNIFICANT CHANGES. FAMILY AT BEDSIDE AND UPDATED THROUGHOUT ON INTERVENTIONS HAPPENING.
[2024-03-15] MEDS ORDERED: NOREPINEPHRINE BITARTRATE 250 ML IV ONE (09:41)
--- NOTE | 2024-03-15 09:42 | NUR ---
RAPID RESPONSE TEAM CALLED TO CCU ROOM 128.
--- NOTE | 2024-03-15 09:59 | NUR ---
RESPONDED TO RAPID RESPONSE ALERT. PT SUPPORTED BY FAMILY IN ROOM. PT LARGELY UNAVAILABLE FOR VISIT. RECEIVING TANK OPERATOR VISIT PRIMARILY WITH FAMILY PROVIDED SUPPORTIVE PRESENCE, HOSPITALITY, PRAYER, FACILITATED INTERACTION WITH THERAPY ANIMAL. FAMILY DENIED IMMEDIATE NEEDS, EXPRESSED GRATITUDE.
[2024-03-15] MEDS ORDERED: NOREPINEPHRINE BITARTRATE 250 ML IV SCH (10:05)
--- NOTE | 2024-03-15 10:41 | NUR ---
RN IN ROOM WITH DR. GONCALVES AND DR. CAN TO DISCUSS CURRENT PLAN OF CARE WITH FAMILY. DECISION MADE TO INSERT CENTRAL LINE AT THIS TIME TO SUPPORT CONTINUED USE OF PRESSORS.
--- NOTE | 2024-03-15 11:00 | NUR ---
FURTHER CONVERSATION WITH FAMILY AND PATIENT IN ROOM WITH CASE MANAGTIMMY AND DR. CAN PLAN OF CARE HAS BEEN CHANGED TO COMFORT CARE MEASURES. PT EXPRESSED EXPLICITLY WANTING NO FURTHER CARE TO CONTINUE AND TO REMOVE EXISTING TUBES/LINES. VERBAL ORDERS RECEIVED TO PLACE END OF LIFE ORDER SET.
--- NOTE | 2024-03-15 11:10 | NUR ---
In room to discuss plan of care. UPdated by Dr. Sanchez pt was shipped recently to [place] and pt declined care once he arrived. , son, and other family members in the room. Dr. Rios discussing placement of central line by Dr. Sanchez. I spoke with family and the patient and asked the patient what his feelings are for this. Pt states no, and stating he does not want a central line and he does not want further treatment. Pt stating he is not in that good of shape and he does not want to cont. with futher treatment. cont. to push for futher treatment but pt cont. to decline. Dr. Rios then asked pt several questions and pt was able to answer all of his questions appropriately. discussed comfort care and family are in agreement.
--- NOTE | 2024-03-15 11:30 | NUR ---
NGT REMOVED, MONITORS TURNED OFF PER FAMILY REQUEST. IV LINES KEPT FOR USE OF IV MEDICATIONS IF NEEDED, PT OK WITH THIS. MALE EXTERNAL CATH IN PLACE. ALL UNNECESSARY EQUIPMENT REMOVED FROM ROOM, CHAIRS PROVIDED. HOSPICE TRAY FROM DIETARY DELIVERED.
--- NOTE | 2024-03-15 11:32 | NUR ---
VISITED WITH FAMILY FOLLOWING CARE CONFERENCE. ALL EXPRESSING SITUATIONALLY APPROPRIATE EMOTIONS. PHARMACY CLINICAL SPECIALIST PROVIDED SUPPORTIVE PRESENCE, ANITICPATORY GUIDANCE, EXERCISED MINISTRY OF PRESENCE, PROVIDED HOSPITALITY, PRAYER, FACILITATED INTERACTION WITH THERAPY ANIMAL. FAMILY EXPRESSED APPRECIATION.
[2024-03-15] MEDS ORDERED: MORPHINE SULFATE 10 MG/ML VIAL IV PRN (13:00)
[2024-03-15] MEDS ORDERED: ATROPINE SULFATE 1% OPTH DROPS SL PRN (13:00)
[2024-03-15] MEDS ORDERED: fentaNYL citrate 100 MCG/2 ML VIAL IV PRN ×3 (13:00)
[2024-03-15] MEDS ORDERED: ARTIFICIAL TEARS 15 ML BTL OU PRN (13:00)
[2024-03-15] MEDS ORDERED: LORazepam 2 MG/ML VIAL IV PRN (13:00)
[2024-03-15] MEDS ORDERED: ondansetron HCL 4 MG/2 ML VIAL IV PRN (13:00)
[2024-03-15] MEDS ORDERED: MORPHINE SULFATE 4 MG/ML VIAL IV PRN ×2 (13:00)
--- NOTE | 2024-03-15 13:00 | NUR ---
RN ROUNDING ON PT AND FAMILY - RESTING COMFORTABLY IN BED WITHOUT DISTRESS. FAMILY DENIES NEEDS AT THIS TIME.
--- NOTE | 2024-03-15 13:10 | EKG ---
[facility] [address] [place], [place] [address] Signed Accelerated Junctional rhythm Low voltage QRS Septal infarct , age undetermined ST \T\ T wave abnormality, consider lateral ischemia Abnormal ECG No previous ECGs available Confirmed by Lito Can MD ([id number]) on 03/15/2024 1:09:58 PM Electronically Signed By: LITO CAN DO 03/15/24 1310 PATIENT NAME: MELINA GOMEZ DAPHNEY Electrocardiogram DATE OF : 40 PHYSICIAN: LITO CAN DO REPORT #: [id number] REPORT IS CONFIDENTIAL AND NOT TO BE RELEASED WITHOUT AUTHORIZATION
--- NOTE | 2024-03-15 15:13 | NUR ---
SPOKE WITH DAUGHTER AND . CONTINUE WITH PLAN TO SET UP HOSPICE AND HAVE THE PATIENT RETURN TO HOME. THEY ARE REQUESTING CASE MANAGEMENT MEET TOMORROW MORNING TO REVIEW DC PLAN BETWEEN .
--- NOTE | 2024-03-15 15:30 | NUR ---
Spoke with family. Discussed plan of where pt will go next. They are in agreement with hospice if pt does not pass during the night. Dr. Galvez came in and visited with family. [facility] wifes [facility].
--- NOTE | 2024-03-15 15:52 | NUR ---
RN IN ROOM TO ROUND ON PT AND FAMILY. PT RESTING IN BED WITH EYES CLOSED, EXTREMITIES RELAXED WITHOUT S/S OF DISTRESS OR PAIN. PT REMAINS WITHOUT URINE OUTPUT AT THIS TIME, EXTERNAL CATH CHECKED FOR PATENCY, BEDDING UNDER PT DRY. ALL QUESTIONS FROM FAMILY ANSWERED. ALL DENY FURTHER NEEDS AT THIS TIME.
--- NOTE | 2024-03-15 17:15 | NUR ---
RECIEVED PT HANDOFF FROM CCU BANDAR LÓPEZ. PT FAMILY STATES PT IS COMFORTABLE AND HAVE NO CONCERNS AT THIS TIME. PT FAMILY DID REQUESTS EXTRA PILLOWS AND BLANKETS BECAUSE THEY WOULD BE STAYING THE NIGHT. COMFORT TRAY PROVIDED AND IN PT ROOM. CALL LIGHT WITHIN REACH.
--- NOTE | 2024-03-15 19:10 | NUR ---
REPORT RECEIVED FROM THERESA PORTILLO. pt RESTING IN THE BED. FAMILY ON THE pt. BOARD UPDATED. NO NEEDS AT THIS TIME. CALL LIGHT WITHIN REACH.
--- NOTE | 2024-03-15 20:00 | NUR ---
IN RM TO GIVE pt PAIN MEDS. pt COMPLAINS OF 10/10 PAIN. pt REPOSITIONED IN BED. NEW DRAW SHEET PLACED UNDER pt. IV'S ASSESSED, WNL. pt DENIES ANY OTHER NEEDS AT THIS TIME. CALL LIGHT WITHIN REACH.
--- NOTE | 2024-03-15 20:35 | NUR ---
IN RM TO GIVE pt PRN MED. pt ALSO GIVEN MOUTH SWAB AND LEMON ICEE FOR COMFORT. NO OTHER NEEDS AT THIS TIME. CALL LIGHT WITHIN REACH.
--- NOTE | 2024-03-15 21:00 | NUR ---
pt RESTING IN THE BED WITH EYES CLOSED. RR EVEN AND UNLABORED. CALL LIGHT WITHIN REACH.
--- NOTE | 2024-03-15 22:16 | NUR ---
IN RM PER FAMILY REQUEST TO GIVE pt PRN PAIN MEDS. pt HAS GRIMANCE ON FACE. PRN PAIN MEDICATION ADMINISTERED. NO OTHER NEEDS AT THIS TIME. CALL LIGHT WITHIN REACH.
--- NOTE | 2024-03-15 23:30 | NUR ---
pt RESTING IN THE BED WITH EYES CLOSED. RR EVEN AND UNLABORED. CALL LIGHT WITHIN REACH.
--- NOTE | 2024-03-16 01:20 | NUR ---
PRN PAIN MEDS ADMINISTERED. pt SAYING HELP ME AND AGGITATED IN THE BED. NO OTHER NEEDS AT THIS TIME. CALL LIGHT WITHIN REACH.
--- NOTE | 2024-03-16 02:00 | NUR ---
pt RESTING IN THE BED WITH EYES CLOSED. RR EVEN AND UNLABORED. CALL LIGHT WITHIN REACH.
--- NOTE | 2024-03-16 03:20 | NUR ---
pt RESTING IN THE BED WITH EYES CLOSED. RR EVEN AND UNLABORED. CALL LIGHT WITHIN REACH.
--- NOTE | 2024-03-16 03:44 | NUR ---
FAMILY OUT TO NURSES STATION TO ASK FOR PRN ATIVAN. THIS RN IN RM TO ADMINISTER PRN MEDS PER FAMILY REQUEST. NO OTHER NEEDS AT THIS TIME. CALL LIGHT WITHIN REACH.
--- NOTE | 2024-03-16 06:17 | NUR ---
FAMILY AT NURSES STATION. REPORTS PT RESTLESS AND REQUESTING PRN. PRN FOR COMFORT ADMIN PER EMAR. 2PA TO REPOSITION IN BED. FACE WASHED AND ORAL CARE PROVIDED. FAMILY AT BEDSIDE. NO FURTHER NEEDS AT THIS TIME.
--- NOTE | 2024-03-16 07:30 | NUR ---
RECEIVED REPORT FROM YAZMIN RN. FAMILY PRESENT IN THE ROOM. PT RESTING COMFORTABLY AT THIS TIME. ALL CARE NEEDS MET, FAMILY WILL CALL APPROPRIATELY FOR NEEDS.
--- NOTE | 2024-03-16 08:30 | NUR ---
PT RESTING, IS A BIT MORE RESTLESS AT THIS TIME. FAMILY REQUESTING MORPHINE/ATIVAN, SEE MAR. IV PEPCID GIVEN. FAMILY PRESENT AT BEDSIDE. THEY ARE ASSISTING AND HELPING WITH TURN [id number] FOR COMFORT. ALL PT CARE NEEDS MET AT THIS TIME, FAMILY WILL CALL WITH NEEDS.
[2024-03-16] MEDS ORDERED: FAMOTIDINE 20 MG/ 2 ML VIAL IV SCH (09:00)
[2024-03-16] MEDS ORDERED: MORPHINE SULFATE 4 MG/ML VIAL IV PRN (09:15)
--- NOTE | 2024-03-16 09:30 | NUR ---
FOLLOWED UP ON COMFORT, PT APPEARS TO BE RESTING COMFORTABLY AT THIS TIME. MORE FAMILY PRESENT AT BEDSIDE. GRANDAUGHTER AT BEDSIDE, DENIES ANY NEEDS. INFORMED THEM THAT I WILL CALL DIETARY AND GET SOME COFFEE/SNACKS REPLENISHED ON THE TRAY. FRESH ICE WATER PROVIDED TO FAMILY. DENIES ANY FURTHER NEEDS AT THIS TIME. ALL PT CARE NEEDS MET
--- NOTE | 2024-03-16 09:44 | NUR ---
SPOKE WITH MIKE AT [facility]. PLAN FOR ADMISSION TO HOSPICE CARE TOMORROW AFTERNOON. NEED FOR DME DELIVERY TO HOME PRIOR TO DC FROM FACILITY. PREFER PATIENT BE HOME AROUND 1200 TOMORROW. SPOKE WITH PEDRO, DAUGHTER AND MULTIPLE OTHER FAMILY MEMBERS. PLAN TO DC TO HOME AROUND 1200 TOMORROW WITH NON-EMERGENT TRANSPORT. DISCUSSED POTENTIAL COST OF TRANSPORT WITH FAMILY, THEY AGREE TO USE NON-EMERGENT TRANSPORT.
--- NOTE | 2024-03-16 11:44 | NUR ---
PT RESTING, FAMILY REPORTS HE IS MORE RESTLESS, REQUESTING PAIN MEDS AT THIS TIME FOR COMFORT - SEE MAR. REFRESHMENT CART RESTOCKED BY DIETARY. GRANDDAUGHTER/FAMILY PRESENT AT BEDSIDE. PT APPEARS TO BE COMFORTABLE POST MEDS. ALL CARE NEEDS MET AT THIS TIME, WILL CONTINUE TO FOLLOW UP FOR PATIENT COMFORT NEEDS.
--- NOTE | 2024-03-16 12:12 | NUR ---
REPORT REC'D FROM BANDAR WILKINS. PT ON COMFORT CARE MEASURES. MET WITH PATIETN GRANDDAUGHTER AND SON AT BEDSIDE. PT RESTING COMFORTABLY AT THIS TIME. RESPIRATIONS EVEN, UNLABORED, NO O2 IN PLACE AT THIS TIME.
--- NOTE | 2024-03-16 12:25 | CONS ---
[facility] [address] [place], [place] [address] Signed DATE OF CONSULTATION: 03/14/2024 TIME: 05:45 p.m. REQUESTING PHYSICIAN: Dr. Lito Rios. PROBLEM: Recent large bowel obstruction, now with additional proximal small bowel dilation. History of congestive heart failure, atrial fibrillation, chronic anticoagulation, and more. HISTORY OF PRESENT ILLNESS: This 83-year-old white man presented to the emergency room today and was evaluated by Dr. Antione Evans. He was in the hospital recently for what appeared to be acute diverticulitis and low-grade sigmoid obstruction. Consultation was undertaken with Dr. Goncalves. Consideration for a surgical resection of the sigmoid was made on the basis of an obstructive process, but for reasons of worry about his underlying general medical status, which was poor. He was transferred to [place], [place]. In [place], he had no intervention of colonoscopy or operative intervention only observation and showed some improvement. He returned to the [facility] only a few days ago. 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 Since that time, he has done exceptionally well as regards to his left thigh, but he does have chronic long-standing lower extremity edema related to radical resection. The patient does have abdominal pain most dominantly in the right upper abdomen now. He did have nausea and vomiting. A nasogastric tube was placed at the time of admission, which did drain a fair amount of fluid. He is currently attended by multiple family members including Ayala Cid, his granddaughter. PAST MEDICAL HISTORY: His other medical history includes hypothyroidism, hypertension, congestive heart failure, atrial fibrillation, benign prostatic hypertrophy, chronic pain syndrome, gout, gastroesophageal rectal reflux with previous GI bleed as well as history of rectus sheath hematoma. The patient was noted to have black tarry stools at least three weeks ago, but not significant bleeding now. Notable for his lab studies in the emergency room was a white count of only 2.6, a Electronically Signed By: HITESH OLVERA MD 03/16/24 1225 PATIENT NAME: MELINA CID CONSULTATION DATE OF : 40 REPORT #: [id number] PHYSICIAN: HITESH OLVERA MD PCP: YUE LU MD REPORT IS CONFIDENTIAL AND NOT TO BE RELEASED WITHOUT AUTHORIZATION [facility] [address] [place], [place] [address] Signed creatinine of 2.9, baseline 2.3-2.5, lactic acid of 2.6, a BNP of greater than 221,000, lipase of 202 and UA with some bacteria. A chest x-ray showing a small pleural effusion and a CT of the abdomen showing/continued or recurrent fluid and air distention proximal to a mildly inflamed sigmoid colon with new diffuse fluid distention of most of the small bowel, possibly ileus or partial small bowel obstruction. The patient is on Zosyn as well as morphine IV for pain as well as Zofran. The patient while in [place], [place] was evaluated and treated mostly for congestive heart failure and a plan for "two-month colonoscopy" was made by the surgical team. He notes to his family that he was seen by four separate surgeons during the course of his hospitalization. CURRENT MEDICATIONS: 1. At admission included Tylenol, allopurinol, aspirin, atorvastatin, vitamin D3, Pepcid, Lasix 40 mg b.i.d., insulin injection (readily on Novolin 70/30 15 units subcu b.i.d. with meals). 2. Hydroxyzine. 3. Synthroid. 4. Metoprolol. 5. Olmesartan, Flomax, venlafaxine, and Coumadin 2.5 mg daily. IMAGING: A chest x-ray most recently performed showed good position of the nasogastric tube and abdominal CT scan at 0500 hours March 14, 2024 confirmed new diffuse fluid and gas distention of small bowel extending from the proximal jejunum to the distal ileum without focal transition. Proximal sigmoid appears to be similar to the past compared to CT scan of 03/01/2024, where there was mild inflammatory change. He did have some abdominal and pelvic ascites and a small pericardial effusion and bilateral nonobstructive nephrolithiasis. PHYSICAL EXAMINATION: GENERAL: He is alert and oriented. He is very pale despite a normal hematocrit. He looks vastly older than when I last saw him. He has a full bustamante. HEENT: Nasogastric tube was draining bilious fluid. CHEST: Shows no evidence of tachypnea. I detect no wheezes or rales. ABDOMEN: Quite obese, but soft and mildly diffusely tender throughout. There is no focal tenderness. There is no abdominal wall hernia. EXTREMITIES: Lower extremities show massive left lower extremity edema related to long-standing post resectional effect of the proximal thigh (sarcoma). There appears to be a little if any ulceration of the left anterior thigh, which was quite dominant on my evaluation in the past. My note from February of 2020 showed the debridement of left leg with split-thickness skin grafting to the left thigh 13 x 10 cm harvest site right anterior thigh. Electronically Signed By: HITESH OLVERA MD 03/16/24 1497 PATIENT NAME: MELINA CID DAPHNEY CONSULTATION DATE OF : 40 REPORT #: [id number] PHYSICIAN: HITESH OLVERA MD PCP: YUE LU MD REPORT IS CONFIDENTIAL AND NOT TO BE RELEASED WITHOUT AUTHORIZATION [facility] [address] [place], [place] [address] Signed LABORATORY STUDIES: His coagulation study showed an INR of 1.77 with a PTT of 19.7. His Chem profile showed a lactic acid of 2.7 at approximately 0900 hours today. Serology was negative for respiratory viral pathogens and the peculiar finding of his white count being only 2.6 is notable particularly with preserved hematocrit of 40.8 and platelets 399,000. ASSESSMENT: I reviewed his CT scan. His abdominal x-rays and so forth. The process that he had more than 10 days ago seems to be the instigator of much of his trouble. One wonders if he may have a relative colonic obstruction that has "backed up" to the small bowel. This is quite uncertain. A typical small bowel obstruction could certainly be possible, but the colonic issue that was previously seen was not definitively diagnosed nor treated in a particular way as he did have some bowel function. The relative obstruction of the sigmoid may require dilation as a bridge to a more definitive approach given his underlying multiple medical problems. He has a considerably elevated BNP at greater than 21,000 and may have underlying chronic congestive heart failure, which may have informed the decision in [place] to forego any operative intervention. At minimum characterization of the sigmoid would be appropriate either by endoscopic means or a contrast study, this at least to assess for near complete obstruction. If the sigmoid is wide open and that would support that the small bowel itself is obstructed by whatever process including intraabdominal scarring or adhesions. I discussed all this with him and other family members and they understand. PLAN: Recommend continued use of nasogastric tube and IV fluid administration. Withhold of the Coumadin is appropriate. His is a complex problem as regard to understanding his underlying congestive heart failure in relation to his other symptoms. I do not believe that operative intervention is out of the question if it is clearly demonstrated as to what exactly is needed. MD JORDON Santana/MODL /[id number] Electronically Signed By: HITESH OLVERA MD 03/16/24 1225 PATIENT NAME: MELINA CID CONSULTATION DATE OF : 40 REPORT #: [id number] PHYSICIAN: HITESH OLVERA MD PCP: YUE LU MD REPORT IS CONFIDENTIAL AND NOT TO BE RELEASED WITHOUT AUTHORIZATION [address] [address] Signed cc: MD LITO Drew, DO Dr. Perez Copies: ELIAZAR GONCALVES MD ~ Electronically Signed By: HITESH OLVERA MD 03/16/24 1225 PATIENT NAME: MELINA CID CONSULTATION DATE OF : 40 REPORT #: [id number] PHYSICIAN: HITESH OLVERA MD PCP: YUE LU MD REPORT IS CONFIDENTIAL AND NOT TO BE RELEASED WITHOUT AUTHORIZATION
--- NOTE | 2024-03-16 13:40 | NUR ---
PT MEDICATED FOR COMFORT PER FAMILY REQUESTED TIME SCHEDULE. PT RESTING QUIETLY. RESPIRATIONS EVEN, UNLABORED, RR 18
--- NOTE | 2024-03-16 15:05 | NUR ---
PATIENT , DEON GOMEZ, UPDATED BY PHONE [phone]. DISCUSSED PATIENT CURRENT LEVEL OF COMFORT AND DISCHARGE PLANNING NOTE READ TO DEON FOR PLANNING OF PATIENT ARRIVAL AT HOME AROUND NOON. VERBALIZED UNDERSTANDING.
--- NOTE | 2024-03-16 15:28 | NUR ---
PATIENT IN BED AT THIS TIME. SEWER AND CUTTER FINGER BUFF MATERIAL WENT INTO PATIENTS ROOMFOR HOURLY ROUNDS. CALL LIGHT WITHIN REACH, NO FURTHER NEEDS AT THIS TIME.
--- NOTE | 2024-03-16 15:34 | NUR ---
PT MEDICATED WITH PRN ATIVAN AND MORPHINE FOR COMFORT MEASURES AT FAMILY REQUEST. PT GRANDDAUGHTER AND SPOUSE AT BEDSIDE.
--- NOTE | 2024-03-16 16:14 | NUR ---
GLASS SANDER BELT WENT INTO PATIENTS ROOM TO CHANGED PATIENTS MALE MARILU. GLASS SANDER BELT PROVIDED RADHA CARE AND PLACE NEW MALE MARILU @ 1613. CALL LIGHT WITHIN REACH, NO FURTHER NEEDS AT THIS TIME.
--- NOTE | 2024-03-16 18:16 | NUR ---
PT CARED FOR T/O SHIFT. NO AGITATION OR DISTRESS NOTED. PT DID NOT HAVE ANY URINE OUTPUT. DISCUSSED WITH GRANDDAUGHTER OPTION TO BLADDER SCAN PATIENT, BUT AT THIS TIME, PT APPEARS TO BE COMFORTABLE AND HAS DECLINED. PT MEDICATED Q2H WITH IV ATIVAN AND MORPHINE FOR COMFORT CARE PER FAMILY REQUEST.
--- NOTE | 2024-03-16 19:10 | NUR ---
REPORT RECEIVED FROM BANDAR QUIÑONES. pt RESTING IN BED WITH EYES CLOSED, PERIODS OF APNEA NOTED. pt NON-VERBAL, NOT OPENING EYES AT THIS TIME. NO DISTRESS NOTED. GRAND DAUGHTER IN ROOM, DENIES ANY NEEDS.
--- NOTE | 2024-03-16 19:51 | NUR ---
GRAND DAUGHTER IVAN OUT OF ROOM FOR NIGHT. RN IN ROOM WITH pt. SPOT CHECK SPO2 91%, RR 16, HR 81-83. pt DOES NOT OPEN EYES WITH PULSE OX APPLICATION ON FINGER. pt WARM, BREATHING EQUAL AND UNLABORED. pt MOUTH BREATHING. ORAL MOISTURIZER APPLIED, pt CLOSES MOUTH AROUND SWAB. CHAPSTICK APPLIED. pT FLOATING WITH PILLOWS UNDER HIPS. BED IN LOW POSITION.
--- NOTE | 2024-03-16 20:30 | NUR ---
BANDAR MONK IN ROOM TO CHECK ON pt. BREATHING UNLABORED, MOUTH OPEN. NO DISTRESS NOTED.
--- NOTE | 2024-03-16 21:30 | NUR ---
CHECKED ON pt. RESTING IN BED WITH EYES CLOSED, RR 12. NO DISTRESS NOTED.
--- NOTE | 2024-03-16 22:20 | NUR ---
CHECKED ON pt. RESTING IN BED WITH EYES CLOSED. NO DISTRESS NOTED. MOUTH OPEN, RR 14.
--- NOTE | 2024-03-16 23:34 | NUR ---
RR 20. PRN MORPHINE ADMINISTERED. ORAL CARE PROVIDED. 2PA TO REPOSITION WITH PILLOWS UNDER HIPS, LEGS. TOWEL PLACED BETWEEN LEGS AND THIGHS BILATERALLY DUE TO MOISTURE, REDNESS FROM SKIN TO SKIN RUBBING. HOB ELEVATED. pt OPENS EYES WITH TURNS, SLIGHT GRIMACE AND CLOSES EYES AGAIN AT REST. BED IN LOW POSITION. FACE WASHED.
--- NOTE | 2024-03-17 00:40 | NUR ---
CHECKED ON pt. RR 14. NO DISTRESS NOTED.
--- NOTE | 2024-03-17 03:00 | NUR ---
pt RESTING IN BED WITH EYES CLOSED, MOUTH OPEN, RR 12. NO DISTRESS NOTED.
--- NOTE | 2024-03-17 04:14 | NUR ---
pt LEGS TWITCHING IN BED, RR 18. PRN MEDICATIONS ADMINISTERED. pt DOES NOT OPEN EYES AT THIS TIME. BED IN LOW POSITION. NO URINE OUTPUT IN PUREWICK CANNISTER.
--- NOTE | 2024-03-17 05:08 | NUR ---
pt REPOSITIONED, ATTENDS, WRINKLED CHUX REMOVED FROM UNDER pt, NEW DRAW SHEET AND CHUX CHANGED UNDER pt WITH 3 NURSING STAFF ASSIST TO TURN pt. pt OPENS EYES WITH TURNS, BREATHING LABORED AFTER REPOSITIONING. LEGS ELEVATED. IV MORPHINE ADMINISTERED FOR COMFORT. SPOT CHECK SPO2 95%, HR IRREGULAR 49-50S, RR 16.
--- NOTE | 2024-03-17 06:30 | NUR ---
pt RESTING IN BED ON BACK. BREATHING UNLABORED. NO DISTRESS NOTED.
--- NOTE | 2024-03-17 07:05 | NUR ---
REPORT REC'D FROM BANDAR CHILDRESS. PT RESTING COMFORTABLY SUPINE IN BED.
--- NOTE | 2024-03-17 08:03 | NUR ---
ASSESSMENT COMPLETED, ORAL CARE PROVIDED, PATIENT POSITIONED FOR COMFORT.
--- NOTE | 2024-03-17 11:18 | NUR ---
PT MEDICATED WITH MORPHINE AND ATIVAN FOR COMFORT WITH AMBULANCE TRANSFER TO HOME WITH HOSPICE. IV SITES X 2 DISCONTINUED. DTR AND GRANDDAUGHTER AT BEDSIDE
--- NOTE | 2024-03-17 11:26 | NUR ---
CALLED AND SCHEDULED NON-EMERGENT TRANSPORT FOR 1130 FOR PATIENT TO RETURN HOME. NURSING STAFF AND FAMILY NOTIFIED.
[2024-03-18] MEDS ORDERED: SCOPOLAMINE 1 MG/3 DAYS PATCH 1 EACH TDSY TD SCH (09:00)
== END 2024-03-17 11:40 | disposition hospice, home (50) | DRG 871 ==
LOC: ED 04:17 → MS 06:50 → CCU 03-15 09:35 → MS 03-15 16:55
PROVIDERS: Internal Medicine; ADMIT Student in an Organized Health Care Education/Training Program; ATTEND Student in an Organized Health Care Education/Training Program
PROC: 0D9670Z Drainage of Stomach with Drainage Device, Via Natural or Artificial Opening (ICD-10-PCS; principal; 2024-03-14)
PROC: 3E03329 Introduction of Other Anti-infective into Peripheral Vein, Percutaneous Approach (ICD-10-PCS; 2024-03-14)
PROC: 3E033XZ Introduction of Vasopressor into Peripheral Vein, Percutaneous Approach (ICD-10-PCS; 2024-03-15)
PROC: 0T9B70Z Drainage of Bladder with Drainage Device, Via Natural or Artificial Opening (ICD-10-PCS; 2024-03-15)
DX: A41.9 Sepsis, unspecified organism (principal); J96.01 Acute respiratory failure with hypoxia; K57.32 Diverticulitis of large intestine without perforation or abscess without bleeding; K56.690 Other partial intestinal obstruction; I13.0 Hypertensive heart and chronic kidney disease with heart failure and stage 1 through stage 4 chronic kidney disease, or unspecified chronic kidney disease; N17.9 Acute kidney failure, unspecified; I31.39 Other pericardial effusion (noninflammatory); R18.8 Other ascites; Z66 Do not resuscitate; I50.22 Chronic systolic (congestive) heart failure; Z51.5 Encounter for palliative care; I48.91 Unspecified atrial fibrillation; E03.9 Hypothyroidism, unspecified; E78.5 Hyperlipidemia, unspecified; N40.0 Benign prostatic hyperplasia without lower urinary tract symptoms; F32.9 Major depressive disorder, single episode, unspecified; G89.4 Chronic pain syndrome; K21.9 Gastro-esophageal reflux disease without esophagitis; I89.0 Lymphedema, not elsewhere classified; D72.819 Decreased white blood cell count, unspecified; F41.1 Generalized anxiety disorder; E11.22 Type 2 diabetes mellitus with diabetic chronic kidney disease; N18.9 Chronic kidney disease, unspecified; M10.9 Gout, unspecified; Z90.89 Acquired absence of other organs; Z90.49 Acquired absence of other specified parts of digestive tract; Z98.890 Other specified postprocedural states; Z88.1 Allergy status to other antibiotic agents; Z88.8 Allergy status to other drugs, medicaments and biological substances; Z79.891 Long term (current) use of opiate analgesic; Z79.82 Long term (current) use of aspirin; Z79.4 Long term (current) use of insulin; Z79.01 Long term (current) use of anticoagulants; Z85.09 Personal history of malignant neoplasm of other digestive organs; Z79.899 Other long term (current) drug therapy; Z87.19 Personal history of other diseases of the digestive system; Z79.890 Hormone replacement therapy; Z85.89 Personal history of malignant neoplasm of other organs and systems; Z86.718 Personal history of other venous thrombosis and embolism; Z85.820 Personal history of malignant melanoma of skin
CPT/HCPCS: 36415; 51701; 71045; 74018; 74019; 74176; 80048; 80053; 81001; 83605; 83690; 83735; 83880; 84484; 85025; 85610; 85730; 86850; 86900; 86901; 87040; 87502; 93005; 93010; 94762; 99285-25; J0131; J1644; J1815; J1940; J2060; J2270; J2405; J2543; J3475; J7030; J7121; P9047; U0002